=== PATIENT | female | born 1975 | race Caucasian/White ===

== ENCOUNTER 2020-10-08 13:29 | Outpatient (REF) | payer MEDICAID, SELFPAY ==
[2020-10-13 17:51] LABS: HPV mRNA E6/E7 rflx Not Detected (Not Detected)
== END 2020-10-08 13:30 | disposition home or self-care (01) ==
LOC: HO.LAB 13:29
PROVIDERS: PCP Family Medicine; Visit Provider Obstetrics & Gynecology
DX: Z01.419 Encounter for gynecological examination (general) (routine) without abnormal findings (principal); N93.9 Abnormal uterine and vaginal bleeding, unspecified; N85.00 Endometrial hyperplasia, unspecified
CPT/HCPCS: 58100; 87624; 88142; 88305

== ENCOUNTER → 2020-10-28 13:42 | Outpatient (BNVA) | payer MEDICAID, SELFPAY | PROVIDERS: PCP Family Medicine; Visit Provider Obstetrics & Gynecology ==

== ENCOUNTER 2020-11-23 12:52 | Outpatient (REF) | payer MEDICAID, SELFPAY ==
--- NOTE | 2020-11-25 14:27 | MHC.AU.AHA ---
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 Patient suspects there has been a hearing decrease in her right ear. She also reports recent pain/discomfort in her left ear. Previous Hearing Test Results: [facility] on 10[facility]13[facility]2015- Normal sloping to moderate and rising to mild sensorineural hearing loss in the left ear. Severe/profound rising to moderate mixed hearing loss in the right ear. 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, Type 2 Diabetes Hearing Instrument History- Right Ear: Terrazzo Mechanic: Sogou Model: Carrot MedicaleOhanae [id number] Serial Number: [id number] Battery Size: 312 Repair Warranty: Dispensed By: [facility] Date of Fittin11/05/2015 Hearing Instrument History- Left Ear: Terrazzo Mechanic: Sogou Model: Carrot Medicaleo [id number] Serial Number: [id number] Battery Size: 312 Warranty: Dispensed By: [facility] Date of Fittin11/05/2015 Otoscopy: Right Ear: Partially occluded with cerumen Left Ear: Tympanic membrane is retracted Tympanometry: Tympanometry performed due to: History of middle ear dysfunction Right Ear: Tympanic Membrane Perforation Left Ear: Negative Middle Ear Pressure (Type C) Hearing Evaluation: Transducer(s) Used: Insert Earphones Method: Conventional Audiometry Stimuli Used: Pure Tones Right Ear: Description of Hearing: Severe to profound mixed hearing loss Left Ear: Description of Hearing: Mild sloping to moderately-severe and rising to mild mixed hearing loss Speech Recognition Threshold (SRT): Method Used: Recorded Lists Stimuli Used: Spondee Words Right Ear: 85 dBHL Left Ear: 60 dBHL Word Discrimination: Method: Recorded Lists Word Lists Used: NU-6 Right Ear: 84% at 95 dBHL Left Ear: 100% at 80 dBHL Most Comfortable Level (MCL): Right Ear: 95 dBHL Left Ear: 80 dBHL Comparison: Compared to the most recent evaluation: Thresholds have decreased bilaterally. Interpretation of Results: Patient's thresholds have decreased bilaterally. The change in the left ear appears to be mostly conductive in nature. Patient reports pain/discomfort in the left ear, and significant negative middle ear pressure was noted in the left ear today. Recommendations: Audiological re-evaluation in one year. See Hearing Aid Evaluation report for more information. Follow-up with ENT is recommended to address middle ear dysfunction. A follow-up with the PCP may also be warranted to help address patient's left-sided pain until she can be seen by ENT. Diagnosis: Primary Diagnosis: H90.6 Mixed Hearing Loss, Bilateral Services Performed: Comprehensive Audiological Evaluation (CPT 68393), Tympanometry (CPT 25619) Signature: Provider: Monica Wills, GARRET-A
--- NOTE | 2020-11-25 14:29 | MHC.AU.AHA ---
Adult Audiological Evaluation Date of Visit: 11/23/20 Reason for Appointment: History of asymmetrical hearing loss and middle ear dysfunction. Patient suspects there has been a hearing decrease in her right ear. She also reports recent pain/discomfort in her left ear. Previous Hearing Test Results: [facility] on 10/13/2015- Normal sloping to moderate and rising to mild sensorineural hearing loss in the left ear. Severe/profound rising to moderate mixed hearing loss in the right ear. 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, Type 2 Diabetes Hearing Instrument History- Right Ear: Cloth Washer: [employer] Model: ZeeWhere [id number] Serial Number: [id number] Battery Size: 312 Repair Warranty: Dispensed By: [facility] Date of Fittin11/05/2015 Hearing Instrument History- Left Ear: Cloth Washer: [employer] Model: ZeeWhere [id number] Serial Number: [id number] Battery Size: 312 Warranty: Dispensed By: [facility] Date of Fittin11/05/2015 Otoscopy: Right Ear: Partially occluded with cerumen Left Ear: Tympanic membrane is retracted Tympanometry: Tympanometry performed due to: History of middle ear dysfunction Right Ear: Tympanic Membrane Perforation Left Ear: Negative Middle Ear Pressure (Type C) Hearing Evaluation: Transducer(s) Used: Insert Earphones Method: Conventional Audiometry Stimuli Used: Pure Tones Right Ear: Description of Hearing: Severe to profound mixed hearing loss Left Ear: Description of Hearing: Mild sloping to moderately-severe and rising to mild mixed hearing loss Speech Recognition Threshold (SRT): Method Used: Recorded Lists Stimuli Used: Spondee Words Right Ear: 85 dBHL Left Ear: 60 dBHL Word Discrimination: Method: Recorded Lists Word Lists Used: NU-6 Right Ear: 84% at 95 dBHL Left Ear: 100% at 80 dBHL Most Comfortable Level (MCL): Right Ear: 95 dBHL Left Ear: 80 dBHL Comparison: Compared to the most recent evaluation: Thresholds have decreased bilaterally. Interpretation of Results: Patient's thresholds have decreased bilaterally. The change in the left ear appears to be mostly conductive in nature. Patient reports pain/discomfort in the left ear, and significant negative middle ear pressure was noted in the left ear today. Recommendations: Audiological re-evaluation in one year. See Hearing Aid Evaluation report for more information. Follow-up with ENT is recommended to address middle ear dysfunction. A follow-up with the PCP may also be warranted to help address patient's left-sided pain until she can be seen by ENT. Diagnosis: Primary Diagnosis: H90.6 Mixed Hearing Loss, Bilateral Services Performed: Comprehensive Audiological Evaluation (CPT 60620), Tympanometry (CPT 57404) Signature: Provider: Monica Wills, CCC-A
--- NOTE | 2020-11-25 14:31 | MHC.AU.MED ---
Medical Clearance for Hearing Instrumentation Date: 11/25/20 Patient Name: Kelsey Lozano Date of : 1975 Primary Care Provider: Referring Provider: Reyna Lutz, DO We have seen your patient on 11/23/20 and have determined that they are a candidate for amplification (See accompanying report). Specifically, they would benefit from: Hearing aid use in both ears There is a statute that addresses Medical Evaluation Requirements prior to fitting a patient with a hearing aid. According to [place] statute 265 CMR:6.03(1), (a) General. Except as provided in 265 CMR 6.03(1)(b), a paymaster of purses shall not sell a hearing aid unless the prospective user has presented to the paymaster of purses a written statement signed by a licensed physician that states that the patient's hearing loss has been medically evaluated and the patient may be considered a candidate for a hearing aid. The medical evaluation must have taken place within the preceding six months. Please note: Due to the [place] Statute referenced above, we cannot accept a signature other than that of a licensed physician. FORCER MAKER and PA signatures cannot be accepted. I am in agreement with the above recommendation. There is no medical contraindication for hearing instrumentation. Physician Signature Date Physician Name (Printed)
--- NOTE | 2020-11-25 15:29 | MHC.AU.HAS ---
Hearing Aid Evaluation Date of Visit: 11/23/20 Historical Information: Description of Hearing: Left: Mild to moderate mixed hearing loss, Right: Severe to profound mixed hearing loss Current personal amplification information, if applicable: Pair of Phonak Audeo [id number], obtained 11/05/2015 Summary: Patient was seen for audiological re-evaluation today (see separate report for details). Hearing aid options were discussed. Hearing Aid Prescription: Based on the individual?s shared listening needs, communication environments, dexterity, desire for connectivity, and personal preferences, the following prescription for amplification has been made: Right ear: Ict Developer: Moonfruit Model: Audeo P70-R Battery Size: Rechargeable Color: P1 [place] Attendant: 1-UP Type of Mold: cShell Left ear: Ict Developer: Phonak Model: Audeo P70-R Battery Size: Rechargeable Color: P1 [place] Attendant: 1M Type of Mold: cShell Action Taken/Action Needed: Earmold Impressions Taken Prior authorization to be requested Medical Clearance to be requested from PCP/ENT Hearing Fitting to be scheduled when materials arrive Primary Diagnosis: H90.6 Mixed Hearing Loss, Bilateral Signature: Provider: Monica Wills, CCC-A
== END 2020-11-23 12:53 | disposition home or self-care (01) ==
LOC: HO.SH 12:52
PROVIDERS: Visit Provider Family Medicine
DX: Z46.1 Encounter for fitting and adjustment of hearing aid (principal); H90.6 Mixed conductive and sensorineural hearing loss, bilateral
CPT/HCPCS: 92557; 92567; 92591; V5266; V5275

== ENCOUNTER 2020-11-25 12:09 | Outpatient (REF) | payer MEDICAID, SELFPAY ==
--- NOTE | ~2020-11-25 | MM_ITS ---
EXAMINATION: MM SCREENING DIGITAL BREAST TOMOSYNTHESIS, BILATERAL CLINICAL INFORMATION: Screening. Asymptomatic. The lifetime risk of breast cancer based on the Tyrer-Cuzick Model is 7.5%. COMPARISON: Mammography: November 02, 2018 and studies dating back to August 31, 2016 TECHNIQUE: Digital breast tomosynthesis is performed in both the craniocaudal and mediolateral oblique views along with computer-aided detection (CAD). Synthesized 2D images are generated from the tomosynthesis. FINDINGS: There are scattered areas of fibroglandular density (ACR BI-RADS breast composition Category b). There are no significant masses, abnormal calcifications, or other abnormalities. MM/MM tomosynthesis screening BI IMPRESSION: There are no significant changes from prior study. ASSESSMENT: BI-RADS 1: Negative RECOMMENDATION: Routine annual mammography screening. This patient's information was entered into a reminder system with a target due date for their next mammogram.
== END 2020-11-25 12:10 | disposition home or self-care (01) ==
LOC: HO.MAMMO 12:09
PROVIDERS: Visit Provider Family Medicine
DX: Z12.31 Encounter for screening mammogram for malignant neoplasm of breast (principal)
CPT/HCPCS: 77063; 77067

== ENCOUNTER → 2020-12-17 15:26 | Outpatient (BNVA) | payer MEDICAID, SELFPAY | PROVIDERS: PCP Family Medicine; Visit Provider Internal Medicine | DX: R05 Cough (principal); J30.9 Allergic rhinitis, unspecified; Z79.51 Long term (current) use of inhaled steroids | CPT/HCPCS: 99202 ==

== ENCOUNTER 2020-12-30 | Outpatient (REF) | payer MEDICAID, SELFPAY | END 2020-12-30 00:01 | LOC: CF | PROVIDERS: Visit Provider Physician Assistant | DX: R05 Cough (principal); G71.00 Muscular dystrophy, unspecified; Z79.899 Other long term (current) drug therapy | CPT/HCPCS: 99202 ==

== ENCOUNTER 2021-01-04 14:46 | Outpatient (REF) | payer MEDICAID, SELFPAY ==
--- NOTE | 2021-01-04 15:33 | MHC.AU.HFA ---
Hearing Instrument Fitting- Adult- Binaural Date of Visit: 01/04/21 Hearing Instruments Dispensed: Right Ear: Note Taker: Phonak Model: Audeo P70-R Serial Number: [id number] Repair Warranty: 03/15/2024 Loss and Damage Warranty: 03/15/2024 Service Plan: 01/04/2022 Battery Size: Rechargeable Color: P1 Merchandise Coordinator: 1-UP Type of Mold: cShell #[id number] Warranty 04/16/2021 Type of Wax Guard: CeruStop Left Ear: Note Taker: Phonak Model: Audeo P70-R Serial Number: [id number] Repair Warranty: 03/15/2024 Loss and Damage Warranty: 03/15/2024 Service Plan: 01/04/2022 Battery Size: Rechargeable Color: P1 Merchandise Coordinator: 1M Type of Mold: cShell #[id number] Warranty 04/16/2021 Type of Wax Guard: CeruStop Summary of Fitting: Feedback gate manager was run. Verifit performed and levels adjusted to better reach targets. Patient felt 100% was too loud- lowered to 90% target. Patient was pleased with the sound of the instruments. Hearing aid care and use were discussed and demonstrated. Hearing aids were paired to her phone. Patient does not want the Gotuit elliott at this time. Recommendations: Recommendations: Patient is an experienced hearing aid user. She will call for follow-up as needed. Diagnosis Code(s): Primary Diagnosis: H90.6 Mixed Hearing Loss, Bilateral Signature: Provider: Monica Wills, GARRET-A
== END 2021-01-04 14:47 | disposition home or self-care (01) ==
LOC: HO.HAP 14:46
PROVIDERS: Visit Provider Family Medicine
DX: Z46.1 Encounter for fitting and adjustment of hearing aid (principal); H90.6 Mixed conductive and sensorineural hearing loss, bilateral
CPT/HCPCS: V5011; V5020; V5160; V5261; V5264

== ENCOUNTER 2021-01-19 15:33 | Outpatient (REF) | payer MEDICAID, SELFPAY | END 2021-01-19 15:34 | disposition home or self-care (01) | LOC: HO.RESP 15:33 | PROVIDERS: PCP Family Medicine; Visit Provider Internal Medicine | DX: Z13.89 Encounter for screening for other disorder (principal) ==

== ENCOUNTER 2021-01-28 13:57 | Outpatient (REF) | payer MEDICAID, SELFPAY ==
--- NOTE | 2021-01-28 17:38 | PFT_ITS ---
Forced vital capacity and FEV1 are both moderately reduced. FEF 25-75 slightly reduced and MVV moderately reduced. Postbronchodilator therapy, there is significant improvement in GTC32-09. Total lung capacity is moderately reduced. Residual volume slightly reduced. Diffusion capacity normal. CONCLUSION: Mild to moderate degree of restrictive pulmonary disorder. No gross obstructive airway disorder. However, there is some response to bronchodilator therapy as in LLT17-45, and this may indicate slight bronchospastic disorder of the small airways. Clinical correlation is recommended. MD KEN Blanchard/MODL / [phone]
== END 2021-01-28 13:58 | disposition home or self-care (01) ==
LOC: HO.RESP 13:57
PROVIDERS: PCP Family Medicine; Visit Provider Internal Medicine
DX: R05 Cough (principal)
CPT/HCPCS: 94060; 94727; 94729

== ENCOUNTER → 2021-02-16 14:52 | Outpatient (BNVA) | payer MEDICAID, SELFPAY | PROVIDERS: PCP Family Medicine; Visit Provider Internal Medicine | DX: G71.09 Other specified muscular dystrophies (principal); J30.9 Allergic rhinitis, unspecified; R05 Cough; J98.4 Other disorders of lung; F41.8 Other specified anxiety disorders; Z79.84 Long term (current) use of oral hypoglycemic drugs; Z79.899 Other long term (current) drug therapy | CPT/HCPCS: 99212 ==

== ENCOUNTER 2021-04-12 14:05 | Outpatient (REF) | payer MEDICAID, SELFPAY | END 2021-04-12 14:06 | disposition home or self-care (01) | LOC: HO.LAB 14:05 | PROVIDERS: PCP Family Medicine; Visit Provider Obstetrics & Gynecology | DX: N85.00 Endometrial hyperplasia, unspecified (principal) | CPT/HCPCS: 58100; 88305 ==

== ENCOUNTER → 2021-04-26 16:08 | Outpatient (BNVA) | payer MEDICAID, SELFPAY | PROVIDERS: PCP Family Medicine; Visit Provider Obstetrics & Gynecology ==

== ENCOUNTER → 2021-04-29 11:23 | Outpatient (BNVA) | payer MEDICAID, SELFPAY | PROVIDERS: PCP Family Medicine; Visit Provider Surgery Vascular Surgery | DX: I83.12 Varicose veins of left lower extremity with inflammation (principal); G71.09 Other specified muscular dystrophies; F41.8 Other specified anxiety disorders; Z79.899 Other long term (current) drug therapy | CPT/HCPCS: 99202 ==

== ENCOUNTER → 2021-07-05 14:26 | Outpatient (BNVA) | payer MEDICAID, SELFPAY | PROVIDERS: PCP Family Medicine | DX: R32 Unspecified urinary incontinence (principal) | CPT/HCPCS: 51798; 99212 ==

== ENCOUNTER 2021-07-08 10:19 | Outpatient (REF) | payer MEDICAID, SELFPAY ==
--- NOTE | ~2021-07-08 | US_ITS ---
EXAMINATION: BILATERAL LOWER EXTREMITY VENOUS ULTRASOUND (Reflux Exam) CLINICAL INDICATION: Bilateral lower extremity varicose veins. COMPARISON: None. TECHNIQUE: Color flow triplex imaging and compression Doppler was performed to evaluate both the deep and the superficial systems bilaterally. To evaluate the superficial system, the examination was performed in the upright position. Color-flow Doppler ultrasound and compression ultrasound were utilized. In addition, maneuvers were utilized to demonstrate reflux. FINDINGS: SUPERFICIAL ULTRASOUND WITH DOPPLER OF RIGHT LOWER EXTREMITY GREAT SAPHENOUS VEIN: The saphenous vein measures between 3 and 6 mm and demonstrates no evidence of reflux. DUPLICATED MEDIAL GREAT SAPHENOUS VEIN: Max Diameter: 0.2 cm at the junction Reflux: None DUPLICATED LATERAL GREAT SAPHENOUS VEIN: Diameter: None Imaged Reflux: NA SMALL SAPHENOUS VEIN: Measuring between 2 and 3 mm without evidence of reflux. VEIN OF GIACOMINI: None Imaged. PERFORATORS: Location: Proximal and mid calf, measuring 2 mm each. Reflux: None VARICOSITIES: Location: None Imaged Reflux: NA DEEP VENOUS ULTRASOUND OF THE RIGHT LOWER EXTREMITY: Common Femoral Vein: Compressible, normal respiratory variation and augmented flow. Femoral vein: Compressible, normal color flow and augmentation. Popliteal Vein: Compressible, normal augmentation. Deep Reflux: There is no evidence of reflux in the deep system in either the common femoral vein or the popliteal vein. Uriostegui's Cyst: There is no evidence of a Uriostegui's cyst. SUPERFICIAL ULTRASOUND WITH DOPPLER OF LEFT LOWER EXTREMITY GREAT SAPHENOUS VEIN: The saphenous vein measures between 3 and 7 mm without evidence of reflux. DUPLICATED MEDIAL GREAT SAPHENOUS VEIN: Max Diameter: 2 mm at the junction without evidence of reflux. Reflux: None DUPLICATED LATERAL GREAT SAPHENOUS VEIN: Diameter: None Imaged Reflux: NA SMALL SAPHENOUS VEIN: Measuring between 3 and 4 mm without evidence of reflux. VEIN OF GIACOMINI: None Imaged. PERFORATORS: Location: None Imaged Reflux: NA VARICOSITIES: Location: None Imaged Reflux: NA DEEP VENOUS ULTRASOUND OF THE LEFT LOWER EXTREMITY: Common Femoral Vein: Compressible, normal respiratory variation and augmented flow. Femoral vein: Compressible, normal color flow and augmentation. Popliteal Vein: Compressible, normal augmentation. Deep Reflux: There is no evidence of reflux in the deep system in either the common femoral vein or the popliteal vein. Uriostegui's Cyst: There is no evidence of a Uriostegui's cyst. US/US venous duplex LE BI IMPRESSION: 1. No evidence of superficial venous insufficiency. 2. No evidence of deep venous insufficiency or DVT.
== END 2021-07-08 10:20 | disposition home or self-care (01) ==
LOC: HO.US 10:19
PROVIDERS: PCP Family Medicine; Visit Provider Surgery Vascular Surgery
DX: I83.12 Varicose veins of left lower extremity with inflammation (principal)
CPT/HCPCS: 93970

== ENCOUNTER → 2021-07-15 13:52 | Outpatient (BNVA) | payer MEDICAID, SELFPAY | PROVIDERS: PCP Family Medicine; Visit Provider Surgery Vascular Surgery | DX: I83.12 Varicose veins of left lower extremity with inflammation (principal) | CPT/HCPCS: 99212 ==

== ENCOUNTER → 2021-09-15 14:37 | Outpatient (BNVA) | payer MEDICAID, SELFPAY | PROVIDERS: PCP Family Medicine; Visit Provider Internal Medicine | DX: J98.4 Other disorders of lung (principal); J30.9 Allergic rhinitis, unspecified; R05.8 Other specified cough; G71.00 Muscular dystrophy, unspecified | CPT/HCPCS: 99212 ==

== ENCOUNTER 2021-11-29 14:09 | Outpatient (REF) | payer MEDICAID, SELFPAY ==
[2021-11-30 07:18] LABS: CT PCR NOT DETECTED (Not Detect.); NG PCR NOT DETECTED (Not Detect.)
== END 2021-11-29 14:10 | disposition home or self-care (01) ==
LOC: HO.LAB 14:09
PROVIDERS: PCP Family Medicine; Visit Provider Obstetrics & Gynecology
DX: Z11.3 Encounter for screening for infections with a predominantly sexual mode of transmission (principal); N85.00 Endometrial hyperplasia, unspecified
CPT/HCPCS: 87491; 87591

== ENCOUNTER 2021-12-17 13:12 | Outpatient (REF) | payer MEDICAID, SELFPAY ==
--- NOTE | ~2021-12-17 | MM_ITS ---
EXAMINATION: MM SCREENING DIGITAL BREAST TOMOSYNTHESIS, BILATERAL CLINICAL INFORMATION: Screening. Asymptomatic. The lifetime risk of breast cancer based on the Tyrer-Cuzick Model is 11%. COMPARISON: Mammography: 11/25/2020, 11/02/2018, 09/01/2017 TECHNIQUE: Digital breast tomosynthesis is performed in both the craniocaudal and mediolateral oblique views along with computer-aided detection (CAD). Synthesized 2D images are generated from the tomosynthesis. FINDINGS: There are scattered areas of fibroglandular density (ACR BI-RADS breast composition Category b). There are no significant masses, abnormal calcifications, or other abnormalities. There is some fine deodorant artifact overlying the skin bilateral high axilla on the MLO views. MM/MM tomosynthesis screening BI IMPRESSION: No mammographic evidence of malignancy. ASSESSMENT: BI-RADS 2: Benign RECOMMENDATION: Routine annual mammography screening. This patient's information was entered into a reminder system with a target due date for their next mammogram.
== END 2021-12-17 13:13 | disposition home or self-care (01) ==
LOC: HO.MAMMO 13:12
PROVIDERS: PCP Physician Assistant; Visit Provider Family Medicine
DX: Z12.31 Encounter for screening mammogram for malignant neoplasm of breast (principal)
CPT/HCPCS: 77063; 77067

== ENCOUNTER → 2022-01-03 13:52 | Outpatient (BNVA) | payer MEDICAID, SELFPAY | PROVIDERS: PCP Family Medicine | DX: R32 Unspecified urinary incontinence (principal); Z79.899 Other long term (current) drug therapy | CPT/HCPCS: 51798; 99212 ==

== ENCOUNTER 2022-01-09 20:28 | Emergency (ER) | payer MEDICAID, SELFPAY ==
--- NOTE | ~2022-01-09 | XR_ITS ---
EXAMINATION: XR LUMBOSACRAL SPINE CLINICAL INFORMATION: Back pain COMPARISON: 06/12/2007 TECHNIQUE: Three views of the lumbosacral spine. FINDINGS: No fracture or subluxation. Vertebral body height and alignment maintained. Disc spaces are maintained. Mild facet arthropathy at the lower lumbar spine. The sacroiliac joints are symmetric. The sacrum is intact. Normal bowel gas pattern. IUD in place.. XR/XR lumbar spine 2-3V IMPRESSION: Mild facet arthropathy at the lower lumbar spine. No acute abnormality.
[2022-01-09 21:11] VITALS: BP 196/106; PULSE 100; RESP 12; TEMP 36.5; O2SAT 95; BMI 38.6
[2022-01-09 23:02] LABS: Hematocrit 48.5 % (37.0-47.0); Hemoglobin 15.3 g/dl (12.0-16.0); Mean Corpuscular HGB Conc 31.5 g/dl (31.0-35.0); Mean Corpuscular Hemoglobin 29.4 pg (27.0-33.0); Mean Corpuscular Volume 93.3 fL (80.0-98.0); Mean Platelet Volume 10.5 fL (9.4-12.3); Platelet Count 314 X10*3/uL (160-400); Red Cell Distribution Width 14.8 % (11.0-16.0); White Blood Count 12.9 X10*3/uL (4.8-10.8)
[2022-01-09 23:17] LABS: Alanine Aminotransferase 64 U/L (0-31); Albumin Level 4.6 g/dL (3.5-5.0); Alkaline Phosphatase 102 U/L (39-117); Anion Gap 17 (12-20); Aspartate Amino Transferase 63 U/L (5-31); Bilirubin Total 1.5 mg/dL (0.0-1.0); Blood Urea Nitrogen 12 mg/dL (9-16); Calcium 10.2 mg/dL (8.4-10.2); Carbon Dioxide 30 mmol/L (22-29); Chloride 100 mmol/L (96-108); Creatinine Clr Calc Pharmacy 104.1; Estimated Glomerular Filt Rate > 60; Glucose Random 120 mg/dL (60-115); Potassium 4.4 mmol/L (3.3-5.1); Sodium 143 mmol/L (135-145); Total Protein 7.4 g/dL (6.5-8.0)
--- NOTE | 2022-01-10 01:18 | ED.BACK ---
HPI - Back Pain/Injury General Chief Complaint: Back Pain/Injury Stated Complaint: lower back pain left side Time Seen by Provider: 01/09/22 22:45 Source: patient Mode of arrival: ambulatory Limitations: no limitations History of Present Illness HPI Narrative: 46-year-old female presents with left lower back pain and left leg pain that started over a week ago. She states that she was bending over in the shower and when she stood up she noted pain to left lower back. Does not report any fevers, chills, headaches, or symptoms indicating cauda equina. MD elicited complaint: back pain and back injury Onset (ago): week(s) (1) Timing: constant Severity: moderate Similar Symptoms Previously: Yes Quality: aching Location: lumbar spine Radiation: none Exacerbating factors: movement and walking Relieving factors: none Context: bending Associated symptoms: denies other symptoms Treatments prior to arrival: NSAIDS Related Data Home Medications Medication Instructions Recorded Confirmed albuterol sulfate 90 mcg/actuation 2 puff inhalation Q6H PRN 12/17/20 12/30/20 aerosol inhaler (ProAir HFA) amlodipine 10 mg tablet 10 mg PO DAILY 12/17/20 12/30/20 atorvastatin 10 mg tablet (Lipitor) 10 mg PO BEDTIME 12/17/20 12/30/20 doxepin 50 mg capsule 50 mg PO BEDTIME 12/17/20 12/30/20 hydroxyzine pamoate 25 mg capsule 25 mg PO QID PRN 12/17/20 12/30/20 (Vistaril) metformin 500 mg tablet 500 mg PO DAILY 12/17/20 12/30/20 methylcellulose (laxative) 500 mg 500 mg PO BID 12/17/20 12/30/20 tablet (Fiber Therapy (methylcellulose)) omeprazole 20 mg capsule,delayed 20 mg PO DAILY 12/17/20 12/30/20 release sennosides 8.6 mg capsule (senna) 17.2 mg PO BEDTIME 12/17/20 12/30/20 bupropion HCl 150 mg 24 hr tablet, 300 mg PO QAM 12/30/20 12/30/20 extended release (Wellbutrin XL) bupropion HCl 300 mg 24 hr tablet, 300 mg PO DAILY 07/05/21 extended release lisinopril 10 mg tablet 10 mg PO BEDTIME 07/05/21 oxybutynin chloride 5 mg 5 mg PO DAILY 07/05/21 tablet,extended release 24 hr sennosides 8.6 mg tablet (senna) 17.2 mg PO DAILY PRN constipation 07/05/21 sucralfate 1 gram tablet 1 g PO BID 07/05/21 docusate sodium 100 mg capsule 100 mg PO BID 09/15/21 (Stool Softener) latanoprost 0.005 % eye drops 1 drp ophthalmic (eye) BEDTIME 09/15/21 blood sugar diagnostic (FreeStyle #10 ea 01/03/22 Lite Strips) hydroxyzine HCl 25 mg tablet 25 mg PO BID PRN 01/03/22 lancets 33 gauge (TRUEplus Lancets) #100 ea 01/03/22 levonorgestrel 20 mcg/24 hours (7 0 device intrauterine ONCE 01/03/22 yrs) 52 mg intrauterine device (Mirena) Previous Rx's Medication Instructions Recorded cyclobenzaprine 10 mg tablet 10 mg PO TID PRN muscle spasm #20 01/10/22 tabs nitrofurantoin 100 mg PO Q12H 5 days #10 caps 01/10/22 monohydrate/macrocrystals 100 mg capsule (Macrobid) Allergies Allergy/AdvReac Type Severity Reaction Status Date / Time No Known Allergies Allergy Verified 01/03/22 14:03 [No Known Allergies*] Review of Systems Review of Systems: Constitutional: No Fever, No Chills ENT/Mouth: No Ear Pain, No Hoarseness, No sore throat Eyes: No Eye Pain, No Swelling, No Redness, No Foreign Body Cardiovascular: No Chest Pain, No SOB Respiratory: No Cough, No Dyspnea Gastrointestinal: No Nausea, No Vomiting, No Diarrhea, No abdominal Pain Genitourinary: No Dysuria, No Hematuria Musculoskeletal: positive lumbar back pain, No Myalgias, No Joint Swelling Skin: No Skin lacerations, No rash Neuro: No Weakness, No Numbness, No Paresthesias, No Loss of Consciousness, No Dizziness, No Headache Psych: No Anxiety/Panic, No Depression Heme/Lymph: no easy bruising, no Lymphadenopathy Endocrine: No Polyuria, No Polydipsia Yes all other systems are reviewed and are negative [facility] Past Medical History Attestation statement: The following information was validated with the patient. Source: old records reviewed Medical History Allergic rhinitis Anxiety Depression Muscular dystrophy, emery-dreifuss Paroxysmal cough Restrictive lung disease Urinary incontinence Surgical History H/O endoscopy Hx of section Family History Family History Unknown No family history of colorectal cancer Social History Social History Household Members Other:: Lives with her daughter (23-special needs) and her mother Alcohol intake: never Patient Tobacco Use Status: Never used Tobacco Advance Directives: Yes Advance Directives Information Provided: No Advance Directives on File: No Current occupational status: disabled Physical Exam Vital Signs: Vital Signs: Last Vital Signs Temp 98.6 F 01/10/22 02:00 Pulse 90 01/10/22 02:00 Resp 16 01/10/22 02:00 BP 172/102 H 01/10/22 02:00 Pulse Ox 93 01/10/22 02:00 O2 Del Method 01/10/22 02:00 BMI result Body Mass Index 38.6 Appearance: Alert. Oriented X3. No acute distress. Eyes: Pupils equal, round and reactive to light. ENT: Pharynx normal. Neck: Normal inspection. Neck supple. CVS: Normal heart rate and rhythm. Pulses normal. Respiratory: No respiratory distress. Breath sounds normal. Abdomen: Soft and nontender. Skin: Skin warm and dry. Normal skin color. Normal skin turgor. Extremities: No lower extremity edema. Neuro: No motor deficit. No sensory deficit. Cranial nerves 2-12 intact. Course Course Course Narrative: 46-year-old female presents with lower back pain that radiates to her left leg. States that she noted back pain when she bent over in the shower approximately week ago. Pain is getting worse. Not report any symptoms indicating cauda equina, denies fevers chills and urinary symptoms. Lumbar x-ray is negative for acute findings, does show some facet arthropathy. White count mildly elevated at 12.9, bilirubin 1.5 but her baseline is 1.4, AST 63, ALT 64. No right upper quadrant abdominal pain or abdominal pain on palpation. 02:38 urinalysis positive for UTI. Will give Macrobid and discharged home. Will refer to Dr. Walker for pain management. Patient verbalizes understanding of and agrees plan of care discharge home. Verbalized understanding of signs and symptoms indicating need for emergent intervention. MDM - Back Pain/Injury Differential Diagnosis Differential diagnosis: Likely lumbar radiculopathy, sciatica, strain of lumbar region and thoracic back pain Medical Records Attestation: I reviewed the patient's medical records. Lab Data Attestation: I reviewed the patient's lab results. Result diagrams: 01/09/22 22:46 01/09/22 22:47 Labs: Lab Results 01/09/22 01/09/22 01/10/22 Range/Units 22:46 22:47 02:17 WBC 12.9 H (4.8-10.8) X10*3/uL RBC 5.20 (4.20-5.50) X10*6/uL Hgb 15.3 (12.0-16.0) g/dl Hct 48.5 H (37.0-47.0) % MCV 93.3 (80.0-98.0) fL MCH 29.4 (27.0-33.0) pg MCHC 31.5 (31.0-35.0) g/dl RDW 14.8 (11.0-16.0) % Plt Count 314 (160-400) X10*3/uL MPV 10.5 (9.4-12.3) fL Absolute Nucleated RBC 0.000 (0.0-0.012) X10*3/uL Nucleated RBC % (auto) 0.0 (0.0-0.2) /100WBC Sodium 143 (135-145) mmol/L Potassium 4.4 (3.3-5.1) mmol/L Chloride 100 (96-108) mmol/L Carbon Dioxide 30 H (22-29) mmol/L Anion Gap 17 (12-20) BUN 12 (9-16) mg/dL Creatinine 0.74 (0.5-1.4) mg/dL Estim Creat Clear Calc 104.1 Estimated GFR > 60 Random Glucose 120 H (60-115) mg/dL Calcium 10.2 (8.4-10.2) mg/dL Total Bilirubin 1.5 H (0.0-1.0) mg/dL AST 63 H (5-31) U/L ALT 64 H (0-31) U/L Alkaline Phosphatase 102 (39-117) U/L Total Protein 7.4 (6.5-8.0) g/dL Albumin 4.6 (3.5-5.0) g/dL Urine Color YELLOW Urine Appearance CLEAR Urine pH 6.0 (5.0-8.0) Ur Specific [place] 1.025 (1.005-1.025) Urine Protein NEG (NEG-TRACE) MG/DL Urine Glucose (UA) NEG (NEG) MG/DL Urine Ketones NEG (NEG) MG/DL Urine Blood NEG (NEG) Urine Nitrite NEG (NEG) Ur Leukocyte Esterase TRACE H (NEG) Urine RBC 1-4 (0) /HPF Urine WBC 5-9 H (0-4) /HPF Ur Squamous Epith Cells 1+ /LPF Urine Bacteria 4+ /LPF Imaging Data Lumbar spine x-ray: Attestation: I personally reviewed and interpreted this imaging study as follows: Radiologist's impression: EXAMINATION: XR LUMBOSACRAL SPINE CLINICAL INFORMATION: Back pain COMPARISON: 06/12/2007 TECHNIQUE: Three views of the lumbosacral spine. FINDINGS: No fracture or subluxation. Vertebral body height and alignment maintained. Disc spaces are maintained. Mild facet arthropathy at the lower lumbar spine. The sacroiliac joints are symmetric. The sacrum is intact. Normal bowel gas pattern. IUD in place.. XR/XR lumbar spine 2-3V IMPRESSION: Mild facet arthropathy at the lower lumbar spine. No acute abnormality. Discharge Plan Discharge Clinical Impression: Arthropathy of facet joint, UTI (urinary tract infection) Patient Disposition: Home, Self-Care Instructions: Urinary Tract Infection in Women (ED), Acute Low Back Pain (ED) Additional Instructions: You were evaluated for lower back pain. X-rays indicate mild facet arthropathy. Urinalysis is positive for UTI. Please take Macrobid twice a day for the next 7 days. For a lower back pain please take cyclobenzaprine 10 mg every 8 hours as needed for muscle spasms. Cyclobenzaprine as a muscle relaxer, this medication can delay reaction time, increased risk for falls, and cause drowsiness. Do not drive or operate machinery while taking this medication. You may consider following up with pain management for lower back pain. Please call Dr. Walker for an evaluation. Drink plenty of fluids. Thank you for choosing this emergency department for evaluation. Please follow-up with primary care physician as needed. Return to the emergency department for any new, concerning, or worsening symptoms. Prescriptions: New nitrofurantoin monohyd/m-cryst [Macrobid] 100 mg capsule 100 mg PO Q12H 5 Days Qty: 10 0RF Rx Instructions: must administer with a meal/food cyclobenzaprine 10 mg tablet 10 mg PO TID PRN (Reason: muscle spasm) Qty: 20 0RF No Action amlodipine 10 mg tablet 10 mg PO DAILY doxepin 50 mg capsule 50 mg PO BEDTIME Fiber Therapy (m-cellulose) 500 mg tablet 500 mg PO BID atorvastatin [Lipitor] 10 mg tablet 10 mg PO BEDTIME metformin 500 mg tablet 500 mg PO DAILY omeprazole 20 mg capsule,delayed release(DR/EC) 20 mg PO DAILY albuterol sulfate [ProAir HFA] 90 mcg/actuation HFA aerosol inhaler 2 puff inhalation Q6H PRN senna 8.6 mg capsule 17.2 mg PO BEDTIME hydroxyzine pamoate [Vistaril] 25 mg capsule 25 mg PO QID PRN bupropion HCl [Wellbutrin XL] 150 mg tablet extended release 24 hr 300 mg PO QAM sennosides [senna] 8.6 mg tablet 17.2 mg PO DAILY PRN (Reason: constipation) oxybutynin chloride 5 mg tablet extended release 24hr 5 mg PO DAILY sucralfate 1 gram tablet 1 g PO BID lisinopril 10 mg tablet 10 mg PO BEDTIME bupropion HCl 300 mg tablet extended release 24 hr 300 mg PO DAILY Mirena 20 mcg/24 hours (7 yrs) 52 mg intrauterine device 0 device intrauterine ONCE (DME) lancets [TRUEplus Lancets] 33 gauge misc See Rx Instructions Not Applicable BID Qty: 100 Rx Instructions: As directed hydroxyzine HCl 25 mg tablet 25 mg PO BID PRN (DME) FreeStyle Lite Strips Strip See Rx Instructions Not Applicable BID Qty: 10 Rx Instructions: As directed latanoprost 0.005 % drops 1 drp ophthalmic (eye) BEDTIME docusate sodium [Stool Softener] 100 mg capsule 100 mg PO BID Referrals: Dm Walker MD [Physician] - 2 weeks (lower back pain) Interventions: ED Discharge Assessment Last Done: 01/10/22 02:55 Discharge Date/Time: 01/10/22 02:59
[2022-01-10 02:00] VITALS: BP 172/102; PULSE 90; RESP 16; TEMP 37; O2SAT 93
[2022-01-10] MEDS: Cyclobenzaprine HCl 10 MG TABLET PO (02:21)
[2022-01-10 02:28] LABS: Appearance Urine CLEAR; Color Urine YELLOW; Glucose Urine UA NEG (NEG); Leukocyte Esterase Urine TRACE (NEG); Nitrite Urine NEG (NEG); Specific Gravity - Urine 1.025 (1.005-1.025); Urine Blood NEG (NEG); Urine Ketones NEG (NEG); Urine Protein NEG (NEG-TRACE)
[2022-01-10 02:42] LABS: Bacteria Urine 4+ /LPF; Squamous Epithelial Cell Urine 1+ /LPF
[2022-01-10] MEDS: Nitrofurantoin Monohyd/M-Cryst 100 MG CAPSULE PO (02:52)
--- NOTE | 2022-01-10 02:59 | PC.NURSE ---
pt did not take her bp medications today. bp elevated with the wrong cuff size retaken 146/88
== END 2022-01-10 02:59 | disposition home or self-care (01) ==
PROVIDERS: Emergency Provider Emergency Medicine
DX: M47.816 Spondylosis without myelopathy or radiculopathy, lumbar region (principal); N39.0 Urinary tract infection, site not specified
CPT/HCPCS: 36415; 72100; 80053; 81001; 85027; 99283; 99284

== ENCOUNTER 2022-04-26 14:07 | Outpatient (REF) | payer MEDICAID, SELFPAY ==
[2022-04-27 05:36] LABS: CT PCR NOT DETECTED (Not Detect.); NG PCR NOT DETECTED (Not Detect.)
== END 2022-04-26 14:08 | disposition home or self-care (01) ==
LOC: HO.LNP 14:07
PROVIDERS: PCP Family Medicine; Visit Provider Obstetrics & Gynecology
DX: Z30.433 Encounter for removal and reinsertion of intrauterine contraceptive device (principal); N85.00 Endometrial hyperplasia, unspecified
CPT/HCPCS: 58100; 58300; 58301; 81025; 87491; 87591; 88305; 88312; 88342; J7298

== ENCOUNTER 2022-05-18 10:44 | Outpatient (REF) | payer MEDICAID, SELFPAY ==
[2022-05-18 11:32] LABS: Hematocrit 48.2 % (37.0-47.0); Hemoglobin 15.1 g/dl (12.0-16.0); Mean Corpuscular HGB Conc 31.3 g/dl (31.0-35.0); Mean Corpuscular Hemoglobin 29.1 pg (27.0-33.0); Mean Corpuscular Volume 92.9 fL (80.0-98.0); Mean Platelet Volume 10.8 fL (9.4-12.3); Platelet Count 264 X10*3/uL (160-400); Red Blood Count 5.19 X10*6/uL (4.20-5.50); Red Cell Distribution Width 13.8 % (11.0-16.0); White Blood Count 9.4 X10*3/uL (4.8-10.8)
[2022-05-18 11:46] LABS: Estimated Average Glucose 197 mg/dL; Hemoglobin A1c % 8.5 %
[2022-05-18 12:07] LABS: Free T4 (Free Thyroxine) 1.12 ng/dL (0.71-1.85); Vitamin D 25-OH Total 12.6 ng/mL (>30)
[2022-05-18 12:11] LABS: Alanine Aminotransferase 42 U/L (0-31); Albumin Level 4.1 g/dL (3.5-5.0); Alkaline Phosphatase 82 U/L (39-117); Anion Gap 18 (12-20); Aspartate Amino Transferase 38 U/L (5-31); Bilirubin Direct 0.4 mg/dL (0.0-0.5); Bilirubin Total 1.4 mg/dL (0.0-1.0); Blood Urea Nitrogen 7 mg/dL (9-16); Calcium 9.3 mg/dL (8.4-10.2); Carbon Dioxide 27 mmol/L (22-29); Chloride 104 mmol/L (96-108); Cholesterol 241 mg/dL; Estimated Glomerular Filt Rate > 60; Glucose Random 172 mg/dL (60-115); HDL Cholesterol 49 mg/dL; LDL Cholesterol Calculated 159 mg/dl; Potassium 4.1 mmol/L (3.3-5.1); Sodium 145 mmol/L (135-145); Total Protein 6.8 g/dL (6.5-8.0); Triglycerides 168 mg/dL
[2022-05-18 12:14] LABS: ~HepC Num1 0.05 S/CO (0.00-0.79); ~Hepatitis C Antibody Nonreactive (Nonreactive)
[2022-05-18 12:15] LABS: HBS Num1 2.51 mIU/mL (0-7.99); HBsAGNum1 0.26 S/CO (0.00-0.99); HIV AB/AG Nonreactive (Nonreactive); HIV Num 1 0.09 S/CO (0.00-0.99); Hepatitis B Surface Antigen Negative (Negative); ~Hepatitis B Surface Antibody NONREACTIVE (Nonreactive)
[2022-05-18 12:22] LABS: Syphilis Screen Nonreactive (Nonreactive)
[2022-05-20 12:31] LABS: Alpha Fetoprotein 5.8 ng/mL
== END 2022-05-18 10:45 | disposition home or self-care (01) ==
LOC: HO.LAB 10:44
PROVIDERS: PCP Family Medicine; Visit Provider Family Medicine
DX: E11.9 Type 2 diabetes mellitus without complications (principal); I10 Essential (primary) hypertension; K76.0 Fatty (change of) liver, not elsewhere classified
CPT/HCPCS: 36415; 80048; 80061; 80076; 82105; 82306; 83036; 84439; 84443; 85027; 86706; 86780; 86803; 87340; 87389

== ENCOUNTER → 2022-05-26 12:36 | Outpatient (BNVA) | payer MEDICAID, SELFPAY | PROVIDERS: PCP Family Medicine; Visit Provider Obstetrics & Gynecology | DX: Z30.431 Encounter for routine checking of intrauterine contraceptive device (principal); N85.00 Endometrial hyperplasia, unspecified | CPT/HCPCS: 99212 ==

== ENCOUNTER 2022-09-26 17:31 | Emergency (ER) | payer MEDICAID, SELFPAY ==
[2022-09-26 17:56] VITALS: BP 147/88; PULSE 98; RESP 16; TEMP 36.4; O2SAT 96; BMI 35.4
--- NOTE | 2022-09-26 17:57 | ED_ITS ---
HPI - Dental/Oral General Chief complaint: Dental/Oral Stated complaint: dental pain Time Seen by Provider: 09/26/22 17:56 Source: patient Mode of arrival: ambulatory Limitations: no limitations History of Present Illness HPI Narrative: 47-year-old female presents with 3 days of dental pain, patient had a tooth ext racted on Monday since then has been having significant pain, tells me she is here for pain control, cannot tolerate pain. Patient is scheduled to see them on October 04 again. Denies fevers, chills, difficulty swallowing, trouble controlling secretions, chest pain, shortness of breath, nausea, vomiting. Teeth map: 1. Patient had tooth pulled at this site Related Data Home Medications Medication Instructions Recorded Confirmed albuterol sulfate 90 mcg/actuation 2 puff inhalation Q6H PRN 12/17/20 12/30/20 aerosol inhaler (ProAir HFA) amlodipine 10 mg tablet 10 mg PO DAILY 12/17/20 12/30/20 atorvastatin 10 mg tablet (Lipitor) 10 mg PO BEDTIME 12/17/20 12/30/20 doxepin 50 mg capsule 50 mg PO BEDTIME 12/17/20 12/30/20 hydroxyzine pamoate 25 mg capsule 25 mg PO QID PRN 12/17/20 12/30/20 (Vistaril) metformin 500 mg tablet 500 mg PO DAILY 12/17/20 12/30/20 methylcellulose (laxative) 500 mg 500 mg PO BID 12/17/20 12/30/20 tablet (Fiber Therapy (methylcellulose)) omeprazole 20 mg capsule,delayed 20 mg PO DAILY 12/17/20 12/30/20 release sennosides 8.6 mg capsule (senna) 17.2 mg PO BEDTIME 12/17/20 12/30/20 bupropion HCl 150 mg 24 hr tablet, 300 mg PO QAM 12/30/20 12/30/20 extended release (Wellbutrin XL) bupropion HCl 300 mg 24 hr tablet, 300 mg PO DAILY 07/05/21 extended release lisinopril 10 mg tablet 10 mg PO BEDTIME 07/05/21 oxybutynin chloride 5 mg 5 mg PO DAILY 07/05/21 tablet,extended release 24 hr sennosides 8.6 mg tablet (senna) 17.2 mg PO DAILY PRN constipation 07/05/21 sucralfate 1 gram tablet 1 g PO BID 07/05/21 docusate sodium 100 mg capsule 100 mg PO BID 09/15/21 (Stool Softener) latanoprost 0.005 % eye drops 1 drp ophthalmic (eye) BEDTIME 09/15/21 blood sugar diagnostic (FreeStyle #10 ea 01/03/22 Lite Strips) hydroxyzine HCl 25 mg tablet 25 mg PO BID PRN 01/03/22 lancets 33 gauge (TRUEplus Lancets) #100 ea 01/03/22 levonorgestrel 21 mcg/24 hours (8 0 device intrauterine ONCE 01/03/22 yrs) 52 mg intrauterine device (Mirena) Previous Rx's Medication Instructions Recorded cyclobenzaprine 10 mg tablet 10 mg PO TID PRN muscle spasm #20 01/10/22 tabs nitrofurantoin 100 mg PO Q12H 5 days #10 caps 01/10/22 monohydrate/macrocrystals 100 mg capsule (Macrobid) amoxicillin 875 mg-potassium 1 tab PO BID 10 days #20 tabs 09/26/22 clavulanate 125 mg tablet oxycodone 5 mg capsule 5 mg PO Q8H PRN pain #6 caps 09/26/22 Allergies Allergy/AdvReac Type Severity Reaction Status Date / Time No Known Allergies Allergy Verified 09/26/22 17:59 [No Known Allergies*] Review of Systems Review of Systems: Constitutional : No Weight loss, No Fever, No Chills, No Fatigue, No Malaise ENT/Mouth : No sore throat, No Rhinorrhea + dental pain Eyes: No Eye Pain, No Swelling, No Redness Cardiovascular : No Chest Pain, No SOB, No Dyspnea on Exertion, No Orthopnea, No Edema, No Palpitations Respiratory : No Cough, No Sputum, No Wheezing Gastrointestinal : No Nausea, No Vomiting, No Diarrhea, No Constipation, No abdominal Pain, No Hematochezia, No Melena Genitourinary : No Dysuria, No Urinary Frequency, No Hematuria, Musculoskeletal : No joint pain, No Myalgias, No Joint Swelling Skin : No Skin Lesions, No rash Neuro : No Weakness, No Numbness, No Dizziness, No Headache Psych : No Anxiety/Panic, No Depression All other systems reviewed and are negative Yes all other systems are reviewed and are negative [facility] Past Medical History Attestation statement: The following information was validated with the patient. Source: old records reviewed and nursing notes reviewed Medical History Allergic rhinitis Anxiety Depression Muscular dystrophy, emery-dreifuss Paroxysmal cough Restrictive lung disease Urinary incontinence Surgical History H/O endoscopy Hx of section Family History Family History Unknown No family history of colorectal cancer Social History Social History Household Members Other:: Lives with her daughter (23-special needs) and her mother Alcohol intake: never Patient Tobacco Use Status: Never used Tobacco Current occupational status: disabled Physical Exam Vital Signs: Vital Signs: Vital signs stable Appearance: Alert.? Oriented X3.? No acute distress.? Head: Normocephalic, atraumatic, no step-offs or deformities Eyes: Pupils equal, round and reactive to light.? ENT: Pharynx normal.? Tooth number 22 is missing, overlying erythema, no signs of abscess. No trismus speaking in full sentences controlling secretions well Neck: Normal inspection.? Neck supple.? CVS: Normal heart rate and rhythm.? Pulses normal.? Respiratory: No respiratory distress.? Breath sounds normal.? Skin: Skin warm and dry.? Normal skin color.? Normal skin turgor.? Extremities: No lower extremity edema.? No calf ttp. 5/5 strength to bilateral upper and lower extremities Neuro: Oriented X 3.? No motor deficit.? No sensory deficit. CN 2-12 intact Course Reevaluation(s) Reevaluation #1: Patient has taken oxycodone before and has tolerated it well. Will discharge home on oxycodone and Augmentin. Advised to follow-up with dentist as soon as possible. Educated on narcotic use. Educated patient on diagnosis and treatment plan, answered all question, patient verbalizes understanding. At this time patient will be discharged home, advised to return with new or worsening symptoms. Educated on worrisome signs and symptoms and when to return. At this time I feel comfortable discharge home. Time: 18:00 Medical Decision Making Medical Decision Making [facility] Narrative: 1752 47-year-old female presents with dental pain. Physical exam significant for Tooth number 22 is missing, overlying erythema, no signs of abscess. No trismus speaking in full sentences controlling secretions well Likely dental pain status post procedure. No signs of abscess. No trismus. No signs of respiratory distress or compromise. Plan at this time to discharged on antibiotics and pain med. Differential Diagnosis Differential Diagnoses: The differential diagnosis associated with the presentation includes Likely dental pain status post procedure. No signs of abscess. No trismus. No signs of respiratory distress or compromise. Admission/Observation Consideration of admission/observation: Escalation of care including admission/observation considered Not indicated Lab Data [facility] Lab Attestation statement: I reviewed the patient's lab results. Core Measures AMI core measures followed: Yes Measure exclusions: not indicated Critical Care Time Critical Care Time Critical Care Time: No Discharge Plan Discharge Clinical Impression: Pain in tooth Patient Disposition: Home, Self-Care Instructions: Toothache (ED) Additional Instructions: Take your medications as prescribed. If you were prescribed antibiotics today, it is important that you take your medication to their entirety, do not skip any doses, do not finish them early. Follow-up with your primary care provider this week. Return to the emergency department with new or worsening symptoms. Such as fevers, chills, chest pain, shortness of breath, nausea, vomiting, dizziness, headache, vision changes, lethargy In case of emergency call 911 You must see a dentist within the next day or 2. A narcotic has been sent to your pharmacy please take this as prescribed. Do not take more than the prescribed dose. Narcotic medications can cause addiction. Please do not mix them with alcohol. Do not take them while driving or operating machinery. Do not take them with any other narcotics. Do not share them with friends or family. They can cause constipation. Take them only for severe pain. Narcotic should only be taken for severe pain. For [id number] pain please take ibuprofen every 6 hours, Tylenol every 4 to not exceed maximum daily dose is listed on packaging. Prescriptions: New amoxicillin-pot clavulanate 875-125 mg tablet 1 tab PO BID 10 Days Qty: 20 0RF oxycodone 5 mg capsule 5 mg PO Q8H PRN (Reason: pain) Qty: 6 0RF Rx Instructions: Partial Fill upon patient request. No Action nitrofurantoin monohyd/m-cryst [Macrobid] 100 mg capsule 100 mg PO Q12H 5 Days Qty: 10 0RF Rx Instructions: must administer with a meal/food cyclobenzaprine 10 mg tablet 10 mg PO TID PRN (Reason: muscle spasm) Qty: 20 0RF amlodipine 10 mg tablet 10 mg PO DAILY doxepin 50 mg capsule 50 mg PO BEDTIME Fiber Therapy (m-cellulose) 500 mg tablet 500 mg PO BID atorvastatin [Lipitor] 10 mg tablet 10 mg PO BEDTIME metformin 500 mg tablet 500 mg PO DAILY omeprazole 20 mg capsule,delayed release(DR/EC) 20 mg PO DAILY albuterol sulfate [ProAir HFA] 90 mcg/actuation HFA aerosol inhaler 2 puff inhalation Q6H PRN senna 8.6 mg capsule 17.2 mg PO BEDTIME hydroxyzine pamoate [Vistaril] 25 mg capsule 25 mg PO QID PRN bupropion HCl [Wellbutrin XL] 150 mg tablet extended release 24 hr 300 mg PO QAM Mirena 20 mcg/24 hours (8 yrs) 52 mg intrauterine device 1 device intrauterine ONCE Qty: 1 0RF sennosides [senna] 8.6 mg tablet 17.2 mg PO DAILY PRN (Reason: constipation) oxybutynin chloride 5 mg tablet extended release 24hr 5 mg PO DAILY sucralfate 1 gram tablet 1 g PO BID lisinopril 10 mg tablet 10 mg PO BEDTIME bupropion HCl 300 mg tablet extended release 24 hr 300 mg PO DAILY Mirena 20 mcg/24 hours (7 yrs) 52 mg intrauterine device 0 device intrauterine ONCE (DME) lancets [TRUEplus Lancets] 33 gauge misc See Rx Instructions Not Applicable BID Qty: 100 Rx Instructions: As directed hydroxyzine HCl 25 mg tablet 25 mg PO BID PRN (DME) FreeStyle Lite Strips Strip See Rx Instructions Not Applicable BID Qty: 10 Rx Instructions: As directed latanoprost 0.005 % drops 1 drp ophthalmic (eye) BEDTIME docusate sodium [Stool Softener] 100 mg capsule 100 mg PO BID Referrals: Reyna Lutz DO [Primary Care Provider] - 2 days
== END 2022-09-26 18:20 | disposition home or self-care (01) ==
PROVIDERS: Emergency Provider Internal Medicine; PCP Family Medicine
DX: K08.89 Other specified disorders of teeth and supporting structures (principal)
CPT/HCPCS: 99282; 99283

== ENCOUNTER 2022-09-28 00:57 | Emergency (ER) | payer MEDICAID, SELFPAY ==
[2022-09-28 01:36] VITALS: BP 161/93; PULSE 95; RESP 18; TEMP 36.4; O2SAT 95; BMI 35.4
--- NOTE | 2022-09-28 04:53 | ED.DENTAL ---
HPI - Dental/Oral General Chief complaint: Dental/Oral Stated complaint: right sided face pain, was here recently Time Seen by Provider: 09/28/22 04:44 Source: patient Mode of arrival: ambulatory Limitations: no limitations History of Present Illness HPI Narrative: 47-year-old female who presents emergency department for evaluation of left lower jaw/dental pain. The patient had a dental extraction of tooth 22 on 09/23/2022. Three days later she was having increased pain was seen in the emergency department. She was started on Augmentin and oxycodone. She states that the oxycodone made her sick and caused her to have nausea and vomiting. She states that she has been taking ibuprofen 800 mg twice a day and Excedrin twice a day with no improvement of her pain. She states that this evening the pain got worse and she could not sleep so she came to the emergency department for evaluation. She denied any swelling of her face. She denied fever but she was experiencing chills. She denied headache, nausea, vomiting or fatigue. Related Data Home Medications Medication Instructions Recorded Confirmed albuterol sulfate 90 mcg/actuation 2 puff inhalation Q6H PRN 12/17/20 12/30/20 aerosol inhaler (ProAir HFA) amlodipine 10 mg tablet 10 mg PO DAILY 12/17/20 12/30/20 atorvastatin 10 mg tablet (Lipitor) 10 mg PO BEDTIME 12/17/20 12/30/20 doxepin 50 mg capsule 50 mg PO BEDTIME 12/17/20 12/30/20 hydroxyzine pamoate 25 mg capsule 25 mg PO QID PRN 12/17/20 12/30/20 (Vistaril) metformin 500 mg tablet 500 mg PO DAILY 12/17/20 12/30/20 methylcellulose (laxative) 500 mg 500 mg PO BID 12/17/20 12/30/20 tablet (Fiber Therapy (methylcellulose)) omeprazole 20 mg capsule,delayed 20 mg PO DAILY 12/17/20 12/30/20 release sennosides 8.6 mg capsule (senna) 17.2 mg PO BEDTIME 12/17/20 12/30/20 bupropion HCl 150 mg 24 hr tablet, 300 mg PO QAM 12/30/20 12/30/20 extended release (Wellbutrin XL) bupropion HCl 300 mg 24 hr tablet, 300 mg PO DAILY 07/05/21 extended release lisinopril 10 mg tablet 10 mg PO BEDTIME 07/05/21 oxybutynin chloride 5 mg 5 mg PO DAILY 07/05/21 tablet,extended release 24 hr sennosides 8.6 mg tablet (senna) 17.2 mg PO DAILY PRN constipation 07/05/21 sucralfate 1 gram tablet 1 g PO BID 07/05/21 docusate sodium 100 mg capsule 100 mg PO BID 09/15/21 (Stool Softener) latanoprost 0.005 % eye drops 1 drp ophthalmic (eye) BEDTIME 09/15/21 blood sugar diagnostic (FreeStyle #10 ea 01/03/22 Lite Strips) hydroxyzine HCl 25 mg tablet 25 mg PO BID PRN 01/03/22 lancets 33 gauge (TRUEplus Lancets) #100 ea 01/03/22 levonorgestrel 21 mcg/24 hours (8 0 device intrauterine ONCE 01/03/22 yrs) 52 mg intrauterine device (Mirena) Previous Rx's Medication Instructions Recorded cyclobenzaprine 10 mg tablet 10 mg PO TID PRN muscle spasm #20 01/10/22 tabs nitrofurantoin 100 mg PO Q12H 5 days #10 caps 01/10/22 monohydrate/macrocrystals 100 mg capsule (Macrobid) amoxicillin 875 mg-potassium 1 tab PO BID 10 days #20 tabs 09/26/22 clavulanate 125 mg tablet oxycodone 5 mg capsule 5 mg PO Q8H PRN pain #6 caps 09/26/22 morphine 15 mg immediate release 15 mg PO Q4-6H PRN pain #10 tabs 09/28/22 tablet Allergies Allergy/AdvReac Type Severity Reaction Status Date / Time No Known Allergies Allergy Verified 09/28/22 01:40 [No Known Allergies*] Review of Systems Review of Systems: Yes all other systems are reviewed and are negative [facility] Past Medical History [facility] Narrative: Social history: She denies tobacco, alcohol or drug use. Medical History Allergic rhinitis Anxiety Depression Muscular dystrophy, emery-dreifuss Paroxysmal cough Restrictive lung disease Urinary incontinence Surgical History H/O endoscopy Hx of section Family History Family History Unknown No family history of colorectal cancer Social History Social History Household Members Other:: Lives with her daughter (23-special needs) and her mother Alcohol intake: never Patient Tobacco Use Status: Never used Tobacco Advance Directives: No Advance Directives Information Provided: Yes Current occupational status: disabled Physical Exam Vital Signs: Vital Signs: Last Vital Signs Temp 97.6 F 09/28/22 01:36 Pulse 95 09/28/22 01:36 Resp 18 09/28/22 01:36 BP 161/93 H 09/28/22 01:36 Pulse Ox 95 09/28/22 01:36 O2 Del Method 09/28/22 01:36 BMI result Body Mass Index 35.4 General: Awake, alert, female patient, pleasant, cooperative in no distress HEENT: Patient's mouth revealed an extracted tooth in position 22, she does have tenderness with palpation over her mandible in this area, there is no significant gingival swelling or gingival abscess noted, the extraction site appears to be healing well Medical Decision Making Medical Decision Making MDM Narrative: 47-year-old female who presents emergency department for evaluation of dental pain 6 days after a extraction tooth 22. Patient is taking Augmentin but was not able to take the oxycodone that was prescribed since this was causing nausea and vomiting. She has been taking ibuprofen and acetaminophen with no relief for pain. Her exam did reveal tenderness palpation over the mandible but otherwise no significant findings. I advised the patient to continue taking her Augmentin. She was also advised to take ibuprofen 400 mg 3 times a day and Tylenol 1000 mg 3 times a day. For pain not relieved by these medications she was prescribed morphine 15 mg every 4-6 hours. She was given a dose of morphine 15 mg orally here in the emergency department. She was given printed and verbal instructions and discharged home. Differential Diagnosis Differential diagnosis includes was not limited to dental pain status post extraction, dental infection, gingivitis Discharge Plan Discharge Clinical Impression: Pain, dental Patient Disposition: Home, Self-Care Instructions: Toothache (ED) Additional Instructions: Continue taking the Augmentin (amoxicillin/clavulanic acid) as prescribed until you complete the prescription. Stop taking the ibuprofen 800 mg pills Take ibuprofen 200 mg pills, 2 pills every 6 hours as needed for pain. Take Tylenol (acetaminophen) 2 pills every 6 hours as needed for pain. For pain not relieved by ibuprofen or Tylenol take morphine 15 mg pills, 1 pill every 4 hours as needed for pain. This medication will make you sleepy, do not drive or work while taking this medication. Morphine is a narcotic medication and can be addicting. If you are concerned about addiction you can ask the pharmacist for less pills or do not get this prescription filled. Follow-up with your doctor in 2 days. Please return to the emergency department if your symptoms get worse or if you develop any symptoms that are concerning to you. Prescriptions: New morphine 15 mg tablet 15 mg PO Q4-6H PRN (Reason: pain) Qty: 10 0RF Rx Instructions: The patient may ask for partial fill; Partial Fill upon patient request. No Action nitrofurantoin monohyd/m-cryst [Macrobid] 100 mg capsule 100 mg PO Q12H 5 Days Qty: 10 0RF Rx Instructions: must administer with a meal/food cyclobenzaprine 10 mg tablet 10 mg PO TID PRN (Reason: muscle spasm) Qty: 20 0RF amoxicillin-pot clavulanate 875-125 mg tablet 1 tab PO BID 10 Days Qty: 20 0RF oxycodone 5 mg capsule 5 mg PO Q8H PRN (Reason: pain) Qty: 6 0RF Rx Instructions: Partial Fill upon patient request. amlodipine 10 mg tablet 10 mg PO DAILY doxepin 50 mg capsule 50 mg PO BEDTIME Fiber Therapy (m-cellulose) 500 mg tablet 500 mg PO BID atorvastatin [Lipitor] 10 mg tablet 10 mg PO BEDTIME metformin 500 mg tablet 500 mg PO DAILY omeprazole 20 mg capsule,delayed release(DR/EC) 20 mg PO DAILY albuterol sulfate [ProAir HFA] 90 mcg/actuation HFA aerosol inhaler 2 puff inhalation Q6H PRN senna 8.6 mg capsule 17.2 mg PO BEDTIME hydroxyzine pamoate [Vistaril] 25 mg capsule 25 mg PO QID PRN bupropion HCl [Wellbutrin XL] 150 mg tablet extended release 24 hr 300 mg PO QAM Mirena 20 mcg/24 hours (8 yrs) 52 mg intrauterine device 1 device intrauterine ONCE Qty: 1 0RF sennosides [senna] 8.6 mg tablet 17.2 mg PO DAILY PRN (Reason: constipation) oxybutynin chloride 5 mg tablet extended release 24hr 5 mg PO DAILY sucralfate 1 gram tablet 1 g PO BID lisinopril 10 mg tablet 10 mg PO BEDTIME bupropion HCl 300 mg tablet extended release 24 hr 300 mg PO DAILY Mirena 20 mcg/24 hours (7 yrs) 52 mg intrauterine device 0 device intrauterine ONCE (DME) lancets [TRUEplus Lancets] 33 gauge misc See Rx Instructions Not Applicable BID Qty: 100 Rx Instructions: As directed hydroxyzine HCl 25 mg tablet 25 mg PO BID PRN (DME) FreeStyle Lite Strips Strip See Rx Instructions Not Applicable BID Qty: 10 Rx Instructions: As directed latanoprost 0.005 % drops 1 drp ophthalmic (eye) BEDTIME docusate sodium [Stool Softener] 100 mg capsule 100 mg PO BID
[2022-09-28 04:57] VITALS: BP 165/87; PULSE 88; RESP 16; TEMP 36.7; O2SAT 97
[2022-09-28] MEDS: Morphine Sulfate Immed Release 15 MG TABLET PO (05:00)
--- NOTE | 2022-09-28 05:08 | PC.NURSE ---
Pt. sitting up in bed with significant other at bedside. Pt. medicated per MAR and d/c'd home.
== END 2022-09-28 05:09 | disposition home or self-care (01) ==
PROVIDERS: Emergency Provider Emergency Medicine Emergency Medical Services
DX: K08.89 Other specified disorders of teeth and supporting structures (principal); Z79.899 Other long term (current) drug therapy
CPT/HCPCS: 99283

== ENCOUNTER 2023-01-03 14:23 | Outpatient (REF) | payer MEDICAID, SELFPAY ==
[2023-01-03 17:22] LABS: Urine Cytology See Pathology rpt
== END 2023-01-03 14:24 | disposition home or self-care (01) ==
LOC: HO.LNP 14:23
PROVIDERS: Visit Provider Nurse Practitioner Family
DX: R32 Unspecified urinary incontinence (principal); R31.29 Other microscopic hematuria
CPT/HCPCS: 51798; 88112; 99212

== ENCOUNTER 2023-02-02 14:19 | Outpatient (REF) | payer MEDICAID, SELFPAY ==
--- NOTE | ~2023-02-02 | MM_ITS ---
EXAMINATION: MM SCREENING DIGITAL BREAST TOMOSYNTHESIS, BILATERAL CLINICAL INFORMATION: Screening. Asymptomatic. The lifetime risk of breast cancer based on the Tyrer-Cuzick Model is 11%. COMPARISON: Mammography: Most recently 12/17/2021, and dating back to 2017. TECHNIQUE: Digital breast tomosynthesis is performed in both the craniocaudal and mediolateral oblique views along with computer-aided detection (CAD). Synthesized 2D images are generated from the tomosynthesis. In addition a left 3-D full-field digital MLO nipple in profile projection was obtained. FINDINGS: There are scattered areas of fibroglandular density (ACR BI-RADS breast composition Category b). There are no suspicious masses, suspicious grouped calcifications, or areas of architectural distortion. The parenchymal pattern is stable from prior exams. Nodular asymmetry in the far posterior lateral right breast is unchanged from numerous prior exams and benign. Previously seen deodorant artifact in the axillary regions has near completely resolved. MM/MM tomosynthesis screening BI IMPRESSION: No mammographic evidence of malignancy. Stable benign findings. ASSESSMENT: BI-RADS BI-RADS 2 - Benign Findings RECOMMENDATION: Routine annual mammography screening. 1 year F/U This examination should not preclude the clinical evaluation of a suspicious palpable abnormality. This patient's information was entered into a reminder system with a target due date for their next mammogram.
== END 2023-02-02 14:20 | disposition home or self-care (01) ==
LOC: HO.MAMMO 14:19
PROVIDERS: PCP Family Medicine; Visit Provider Family Medicine
DX: Z12.31 Encounter for screening mammogram for malignant neoplasm of breast (principal)
CPT/HCPCS: 77063; 77067

== ENCOUNTER → 2023-02-02 14:30 | Outpatient (BNV) | payer MEDICAID, SELFPAY | PROVIDERS: PCP Family Medicine; Visit Provider Radiology Diagnostic Radiology | DX: Z12.31 Encounter for screening mammogram for malignant neoplasm of breast (principal) | CPT/HCPCS: 77063; 77067 ==

== ENCOUNTER 2023-04-17 14:45 | Outpatient (REF) | payer MEDICAID, SELFPAY ==
[2023-04-20 03:34] LABS: Aldolase 6.7 U/L (<=8.1)
== END 2023-04-17 14:46 | disposition home or self-care (01) ==
LOC: HO.LAB 14:45
PROVIDERS: Visit Provider Psychiatry & Neurology Neurology
DX: G71.11 Myotonic muscular dystrophy (principal)
CPT/HCPCS: 36415; 82085; 82550

== ENCOUNTER 2024-01-22 15:28 | Outpatient (REF) | payer MEDICAID, SELFPAY ==
--- NOTE | ~2024-01-22 | XR_ITS ---
EXAMINATION: XR CHEST CLINICAL INFORMATION: Fall one week ago with persistent left-sided chest pain with question of rib fractures COMPARISON: 05/28/2019 TECHNIQUE: 2 views of the chest were obtained. FINDINGS: No significant abnormality is noted involving the heart, lungs, mediastinum, bony thorax or soft tissues. XR/XR chest 2V IMPRESSION: Unremarkable examination.
== END 2024-01-22 15:29 | disposition home or self-care (01) ==
LOC: HO.HHCX 15:28
PROVIDERS: Visit Provider Student in an Organized Health Care Education/Training Program
DX: R07.81 Pleurodynia (principal)
CPT/HCPCS: 71046

== ENCOUNTER 2024-01-23 13:01 | Outpatient (REF) | payer MEDICAID, SELFPAY ==
[2024-01-23 16:04] LABS: Hematocrit 48.7 % (37.0-47.0); Hemoglobin 15.4 g/dl (12.0-16.0); Mean Corpuscular HGB Conc 31.6 g/dl (31.0-35.0); Mean Corpuscular Hemoglobin 29.2 pg (27.0-33.0); Mean Corpuscular Volume 92.4 fL (80.0-98.0); Mean Platelet Volume 10.9 fL (9.4-12.3); Platelet Count 285 X10*3/uL (160-400); Red Blood Count 5.27 X10*6/uL (4.20-5.50); Red Cell Distribution Width 13.6 % (11.0-16.0); White Blood Count 8.9 X10*3/uL (4.8-10.8)
[2024-01-23 16:12] LABS: Estimated Average Glucose 157 mg/dL; Hemoglobin A1c % 7.1 % (<6.0)
[2024-01-23 16:23] LABS: Alanine Aminotransferase 23 U/L (0-31); Albumin Level 4.4 g/dL (3.5-5.0); Alkaline Phosphatase 73 U/L (39-117); Anion Gap 15 (12-20); Aspartate Amino Transferase 20 U/L (5-31); Bilirubin Direct 0.4 mg/dL (0.0-0.5); Bilirubin Total 1.4 mg/dL (0.0-1.0); Blood Urea Nitrogen 8 mg/dL (9-16); Calcium 10.6 mg/dL (8.4-10.2); Carbon Dioxide 30 mmol/L (22-29); Chloride 104 mmol/L (96-108); Cholesterol 210 mg/dL (<200); Estimated Glomerular Filt Rate > 60; Glucose Random 125 mg/dL (60-115); HDL Cholesterol 49 mg/dL (>40); LDL Cholesterol Calculated 133 mg/dL (<100); Sodium 145 mmol/L (135-145); Total Protein 7.4 g/dL (6.5-8.0); Triglycerides 141 mg/dL (<150)
[2024-01-23 16:40] LABS: Free T4 (Free Thyroxine) 0.95 ng/dL (0.71-1.85); Thyroid Stimulating Hormone 0.77 uIU/mL (0.32-4.0); Vitamin D 25-OH Total 36.9 ng/mL (>30)
[2024-01-24 04:29] LABS: HBS Num1 0.36 mIU/mL (0-7.99); HBc Num1 0.12 S/CO (0.00-0.79); HBsAGNum1 0.35 S/CO (0.00-0.99); HIV AB/AG Nonreactive (Nonreactive); HIV Num 1 0.05 S/CO (0.00-0.99); Hepatitis A Antibody IgG Nonreactive (Nonreactive); Hepatitis B Core Antibody Nonreactive (Nonreactive); Hepatitis B Surface Antigen Negative (Negative); ~HepC Num1 0.06 S/CO (0.00-0.79); ~Hepatitis A Antibody IgG 0.13 S/CO (0.00-0.99); ~Hepatitis B Surface Antibody NONREACTIVE (Nonreactive); ~Hepatitis C Antibody Nonreactive (Nonreactive)
[2024-01-25 07:09] LABS: RPR Rapid Plasma Reagin NON-REACTIVE (NON-REACTIVE)
== END 2024-01-23 13:02 | disposition home or self-care (01) ==
LOC: HO.HHCL 13:01
PROVIDERS: Visit Provider Family Medicine
DX: Z00.00 Encounter for general adult medical examination without abnormal findings (principal); E11.9 Type 2 diabetes mellitus without complications; I10 Essential (primary) hypertension; E78.49 Other hyperlipidemia; K76.0 Fatty (change of) liver, not elsewhere classified; F33.9 Major depressive disorder, recurrent, unspecified; G71.11 Myotonic muscular dystrophy; K29.50 Unspecified chronic gastritis without bleeding; N85.00 Endometrial hyperplasia, unspecified; R32 Unspecified urinary incontinence; M54.50 Low back pain, unspecified; G89.29 Other chronic pain
CPT/HCPCS: 80048; 80061; 80076; 82306; 83036; 84439; 84443; 85027; 86592; 86704; 86706; 86708; 86803; 87340; 87389

== ENCOUNTER 2024-01-25 11:47 | Outpatient (REF) | payer MEDICAID, SELFPAY ==
--- NOTE | ~2024-01-25 | XR_ITS ---
EXAMINATION: XR HIP, LEFT CLINICAL INFORMATION: Pain in low back pain and left hip after fall COMPARISON: None available. TECHNIQUE: Two views of the left hip. FINDINGS: No fracture. Alignment is anatomic. Hip joint space is maintained. Soft tissues are unremarkable. XR/XR hip LT min 2V IMPRESSION: Normal left hip.
--- NOTE | ~2024-01-25 | XR_ITS ---
EXAMINATION: XR LUMBOSACRAL SPINE CLINICAL INFORMATION: Pain COMPARISON: 01/10/2022 TECHNIQUE: Three views of the lumbosacral spine. FINDINGS: The vertebral bodies and posterior elements are normal. The disc spaces are preserved except mild narrowing of L4-L5 are preserved and the vertebral alignment is normal. The paraspinal soft tissues are normal. There is IUD in the pelvis XR/XR lumbar spine 2-3V IMPRESSION: Mild narrowing cough L4-L5 intervertebral disc space
== END 2024-01-25 11:48 | disposition home or self-care (01) ==
LOC: HO.HHCX 11:47
PROVIDERS: Visit Provider Internal Medicine
DX: M25.552 Pain in left hip (principal); M54.50 Low back pain, unspecified; W19.XXXA Unspecified fall, initial encounter
CPT/HCPCS: 72100; 73502

== ENCOUNTER 2024-02-01 08:51 | Outpatient (REF) | payer MEDICAID, SELFPAY ==
--- NOTE | ~2024-02-01 | US_ITS ---
EXAMINATION: US ABDOMEN COMPLETE CLINICAL INFORMATION: Follow up fatty liver. COMPARISON: CT abdomen and pelvis 03/03/2020. Ultrasound abdomen complete 06/07/2019 and 10/09/2017. TECHNIQUE: Real-time imaging of the abdominal viscera. FINDINGS: PANCREAS: Pancreas is obscured by overlying bowel gas. ABDOMINAL AORTA: The proximal, mid, and distal segments are normal in caliber. INFERIOR VENA CAVA: Visualized portions are normal. LIVER: Increased hepatic echogenicity suggesting hepatic steatosis. The liver is normal in size. The liver contour is normal. No focal hepatic lesion. There is no intrahepatic biliary duct dilatation seen. GALLBLADDER: Intraluminal gallbladder polyp measuring up to 6 mm. The gallbladder is physiologically distended without evidence of stones, sludge, wall thickening or pericholecystic fluid. COMMON BILE DUCT: Normal in caliber measuring 0.2 cm in diameter. RIGHT KIDNEY: Right renal calculus measuring up to 1.1 cm. No hydronephrosis or focal parenchymal lesions. The kidney measures 10.7 cm in maximum dimension. LEFT KIDNEY: Exophytic cystic focus involving the left renal upper pole measuring 2.1 cm, simple appearing, not requiring follow-up. Simple appearing cystic focus involving the left renal interpolar region measuring up to 1.5 cm, not requiring follow-up. Subcentimeter hypoechoic focus, too small to characterize though statistically representing a cyst. Left renal calculus along the lower pole measuring 7 mm. No hydronephrosis. The kidney measures 11.6 cm in maximum dimension. SPLEEN: Normal. The spleen measures 9.9 cm in maximum dimension. FREE FLUID: None. US/US abdomen complete IMPRESSION: 1. Increased hepatic echogenicity suggesting hepatic steatosis. 2. Intraluminal gallbladder polyp measuring up to 6 mm. 3. Bilateral nephrolithiasis without hydronephrosis. 4. Left renal simple appearing cysts the largest measuring up to 2.1 cm, not requiring follow-up.
[2024-02-01 12:40] LABS: Creatinine Urine 85.81 mg/dL; Microalbum/Creatinine Ratio Ur 11.6 ug/mg cr (<30)
== END 2024-02-01 08:52 | disposition home or self-care (01) ==
LOC: HO.US 08:51
PROVIDERS: PCP Family Medicine; Visit Provider Family Medicine
DX: K76.0 Fatty (change of) liver, not elsewhere classified (principal)
CPT/HCPCS: 76700; 82043; 82570

== ENCOUNTER 2024-02-08 14:19 | Outpatient (REF) | payer MEDICAID, SELFPAY ==
--- NOTE | ~2024-02-08 | MM_ITS ---
EXAMINATION: MM SCREENING DIGITAL BREAST TOMOSYNTHESIS, BILATERAL CLINICAL INFORMATION: Screening. Asymptomatic. COMPARISON: Mammography: This study is compared with prior exams dating back to 2017. TECHNIQUE: Digital breast tomosynthesis is performed in both the craniocaudal and mediolateral oblique views along with computer-aided detection (CAD). Synthesized 2D images are generated from the tomosynthesis. FINDINGS: There are scattered areas of fibroglandular density (ACR BI-RADS breast composition Category b). There are no significant masses, abnormal calcifications, or other abnormalities. MM/MM tomosynthesis screening BI IMPRESSION: No mammographic evidence of malignancy. ASSESSMENT: BI-RADS BI-RADS 1 - Negative RECOMMENDATION: Routine annual mammography screening. 1 year F/U This examination should not preclude the clinical evaluation of a suspicious palpable abnormality. This patient's information was entered into a reminder system with a target due date for their next mammogram. Electronically signed by: Deonna Garcia MD 03/06/2024 01:11 PM EDT
== END 2024-02-08 14:20 | disposition home or self-care (01) ==
LOC: HO.MAMMO 14:19
PROVIDERS: PCP Family Medicine; Visit Provider Family Medicine
DX: Z12.31 Encounter for screening mammogram for malignant neoplasm of breast (principal)
CPT/HCPCS: 77063; 77067

== ENCOUNTER → 2024-02-08 14:30 | Outpatient (BNV) | payer MEDICAID, SELFPAY | PROVIDERS: PCP Family Medicine; Visit Provider Radiology Diagnostic Radiology | DX: Z12.31 Encounter for screening mammogram for malignant neoplasm of breast (principal) | CPT/HCPCS: 77063; 77067 ==

== ENCOUNTER 2024-02-12 15:08 | Outpatient (AMB) | payer MEDICAID, SELFPAY ==
--- NOTE | 2024-02-12 15:11 | A.OFFVIS_ITS ---
Intake Visit Reasons: 1yPVR Intake Note: Patient is present for follow up urinary incontinence/PVR Urology Medications: Oxybutynin Blood Thinner: none PVR: 0ml's Public Service Director Required: No Accompanied by: Self / Same As Patient Allergies No Known Allergies [No Known Allergies*] Allergy (Verified 02/12/24 16:49) Medication List - Last Reconciled 02/12/24 by MARANDA Bear- albuterol sulfate 90 mcg/actuation (ProAir HFA) 2 puffs inhalation Q6H PRN amlodipine 10 mg PO DAILY atorvastatin 20 mg PO BEDTIME blood sugar diagnostic (FreeStyle Lite Strips) As directed bupropion HCl XL (Wellbutrin XL) 300 mg PO QAM bupropion HCl XL 300 mg PO DAILY cyclobenzaprine 10 mg PO TID PRN docusate sodium (Stool Softener) 100 mg PO BID doxepin 50 mg PO BEDTIME ergocalciferol (vitamin D2) 1,250 mcg PO QWEEK hydroxyzine HCl 25 mg PO BID PRN hydroxyzine pamoate (Vistaril) 25 mg PO QID PRN lancets (TRUEplus Lancets) As directed latanoprost 0.005% 1 drp ophthalmic (eye) BEDTIME levonorgestrel (Mirena) 0 device intrauterine ONCE lisinopril 10 mg PO BEDTIME metformin 500 mg PO DAILY methylcellulose (laxative) (Fiber Therapy (methylcellulose)) 500 mg PO BID morphine 15 mg PO Q4-6H PRN omeprazole 20 mg PO DAILY sennosides (senna) 17.2 mg PO BEDTIME sennosides (senna) 17.2 mg PO DAILY PRN sucralfate 1 g PO BID HPI Comments Details: Kelsey is a pleseant 48 year old [facility] female patient of Dr. Lutz. She presents to the office today for follow-up of her urinary incontinence. She has a past medical history of allergic rhinitis, anxiety, depression, muscular dystrophy emery-dreifuss, diabetes mellitus type II, and restrictive lung disease. In discussion with the patient today she reports to be doing and feeling well. She reports having discontinued her oxybutynin since her last office visit here approximately 1 year ago and has had no urinary issues or concerns. She reports to be happy with her current voiding parameters. She denies urinary urgency, urinary frequency, incontinence, nocturia, hematuria, dysuria, foul smelling urine, changes to urinary stream, flank pain, fever, and or chills. In office urinalysis results reviewed with the patient today. She otherwise offers no issues or concerns at this time. Discussed at length importance of managing diabetes for improvement in urinary symptoms as well as for overall health and well-being. PVR 0mls. PFSH Medical History Urinary incontinence Restrictive lung disease Allergic rhinitis Paroxysmal cough Anxiety Depression Muscular dystrophy, emery-dreifuss Surgical History Hx of section H/O endoscopy Family History Unknown No family history of colorectal cancer Social History Household Members Other:: Lives with her daughter (23-special needs) and her mother Alcohol intake: never Patient Tobacco Use Status: Never used Tobacco Current occupational status: disabled Female Reproductive History Menstrual Age of Menarche: 11 Review of Systems Const Reports as per HPI Eyes Reports no additional complaints ENT Reports no additional complaints Card Reports no additional complaints Resp Reports as per HPI GI Reports as per HPI Reports as per HPI Musc Reports as per HPI Neuro Reports no additional complaints Psych Reports as per HPI Physical Exam Const General: cooperative, healthy appearing, comfortable, no acute distress, well developed, alert and awake Orientation/consciousness: patient oriented x3 Limitations: no limitations HEENT Head: Yes normal to inspection, Yes normocephalic and Yes atraumatic Ears: hearing grossly normal bilaterally Eyes General: appearance normal, both eyes and all related structures Neck Neck: Yes normal visual inspection and Yes trachea midline Chest Chest palpation & inspection: normal inspection of the chest Resp Effort & Inspection: normal respiratory effort and able to speak in complete sentences Cardio Rate: regular rate GI Inspection: Yes normal to inspection General: Yes no CVA tenderness Back/Spine/Pelvis Back: no CVA tenderness Skin General skin exam: no rashes or lesions noted Neuro General: patient oriented x3 Extrem General: Yes normal to inspection Psych Appearance: grossly normal and well kempt Mental Status: mental status grossly normal Speech and movement: Normal speech and movement present and Clear speech present Affect: normal affect Attitude: cooperative Thought process: Normal thought process present Thought content: Normal thought content present Insight: Fair insight present (Psych) Judgement: Fair judgement present (Psych) Office Procedures Post Void Residual Post Residual Void Post Void Residual (PVR): 0 [id number] Void Residual by ultrasound Results AMB Urinalysis, Automated UA Leukoctes 0 Franco/uL Last Edit by Nekst on 02/12/24 16:14 UA Nitrite Negative Last Edit by Nekst on 02/12/24 16:14 UA Urobilinogen 0.2 mg/dL Last Edit by Nekst on 02/12/24 16:14 UA Protein 15 mg/dL Last Edit by Nekst on 02/12/24 16:14 UA pH 5.5 Last Edit by Nekst on 02/12/24 16:14 UA Blood 0 Vinh/uL Last Edit by Nekst on 02/12/24 16:14 UA Specific [place] 1.025 Last Edit by Nekst on 02/12/24 16:14 UA Ketone Negative Last Edit by Nekst on 02/12/24 16:14 UA Bilirubin 0 mg/dL Last Edit by Nekst on 02/12/24 16:14 UA Glucose 0 mg/dL Last Edit by Nekst on 02/12/24 16:14 Results Reviewed Results Reviewed: Laboratory Last Values Urine pH (Auto) 5.5 02/12/24 15:16 Specific [place] (Auto) 1.025 02/12/24 15:16 Urine Protein (Auto) 15 mg/dL 02/12/24 15:16 Glucose (UA)(Auto) 0 mg/dL 02/12/24 15:16 Urine Ketones (Auto) Negative 02/12/24 15:16 Urine Blood (Auto) 0 Vinh/uL 02/12/24 15:16 Urine Nitrite (Auto) Negative 02/12/24 15:16 Urine Bilirubin (Auto) 0 mg/dL 02/12/24 15:16 Urine Urobilinogen (Auto) 0.2 mg/dL 02/12/24 15:16 Leukocyte Esterase (Auto) 0 Franco/uL 02/12/24 15:16 Assessment & Plan Assessment & Plan (1) Urinary incontinence: Code(s): R32 - Unspecified urinary incontinence Category: Medical Plan In office urinalysis results reviewed with the patient today; as noted above. PVR 0 mL. Patient currently denies any bothersome urinary issues or concerns. She reports be happy with current voiding parameters. Stop oxybutynin Discussed surveillance monitoring; however patient would like to follow-up p.r.n. as she does not have any bothersome urinary issues or concerns. Follow-up p.r.n. Orders: Orders AMB Urinalysis Automated Today Z13.9 - Encounter for screening, unspecified AMB Post Void Residual by ultrasound Today R32 - Unspecified urinary incontinence Patient Instructions: The patient had an opportunity to ask questions regarding the treatment plan. All questions were answered. Physical exam, labs, and imaging were discussed and reviewed in detail. As well as risks, benefits, and discussion of treatment cordero neena. No major barriers to understanding were identified. The patient expressed understanding and agreement with the above treatment plan. The patient was made aware they should contact our office by phone for worsening of their current condition, the appearance of new symptoms, or with any questions or concerns. Compliance is encouraged with any medications and follow up testing that is ordered. It is a privilege to be allowed the opportunity to participate in? your urological care.? Again, if you have any questions or concerns If you have any questions or concerns please do not hesitate to contact me. The office is [phone]. This note is constructed using voice recognition software. While every effort has been made to ensure accuracy stonemason apprentice errors may have been included. Yours sincerely, ACE Bear Coding Level of Care Code Est Pt Level 3 (20992) Diagnoses Urinary incontinence R32 CPT Codes Post Residual Void - PVR CPT Code: 17604-Kzyk Void Residual by ultrasound ([id number])
== END 2024-02-12 15:46 | disposition home or self-care (01) ==
PROVIDERS: PCP Family Medicine; Visit Provider Nurse Practitioner Family
DX: R32 Unspecified urinary incontinence (principal); Z13.9 Encounter for screening, unspecified
CPT/HCPCS: 99213

== ENCOUNTER → 2024-02-12 15:08 | Outpatient (BNVA) | payer MEDICAID, SELFPAY | PROVIDERS: PCP Family Medicine; Visit Provider Nurse Practitioner Family | DX: R32 Unspecified urinary incontinence (principal); Z79.899 Other long term (current) drug therapy | CPT/HCPCS: 51798; 81003; 99212 ==

== ENCOUNTER 2024-05-13 11:07 | Outpatient (REF) | payer MEDICAID, SELFPAY ==
[2024-05-14 13:02] LABS: Alpha Fetoprotein 8.8 ng/mL
== END 2024-05-13 11:08 | disposition home or self-care (01) ==
LOC: HO.HHCL 11:07
PROVIDERS: Visit Provider Family Medicine
DX: K76.0 Fatty (change of) liver, not elsewhere classified (principal)
CPT/HCPCS: 36415; 82105

== ENCOUNTER 2024-10-14 13:56 | Outpatient (AMB) | payer MEDICAID, SELFPAY ==
--- NOTE | 2024-10-14 13:58 | A.OFFVIS_ITS ---
Vital Signs 10/14/24 13:59 Height 5 ft 3 in Weight 174 lb 2.643 oz BMI 30.8 BP 157/80 H Blood Pressure Location Lt brachial Position Sitting Pulse 91 Intake Visit Reasons: Gastritis / Kelli Pt Intake Note: Kelsey presents in the office as a Kelli patient follow up. CC: She states that she has a follow up with her PCP coming up that she has to discuss the reason that she has not been taking any of her medications. She has been feeling very good and not having any issues. Radiography Technician Required: No Allergies No Known Allergies [No Known Allergies*] Allergy (Verified 10/14/24 14:00) HPI Comments Details: 49 y.o F with PMH of myotonic dystrophy, HTN, T2DM, nephrolithiasis, fatty liver who is here to re-establish care. Last seen 2020. Appt was initially made when pt had severe constipation. However, pt increased her fiber intake and added dulcolax short term which brought her back to regular BMs. Now not having to take any laxatives. Has 1 BM per day. No straining. No blood. Has never had a colonoscopy. Incidentally noted on lab review was elevated AFP. Laboratory Tests 05/18/22 01/23/24 05/13/24 11:07 13:04 11:15 AST 20 ALT 23 Alpha Fetoprotein 5.8 8.8 H US abd 01/2024: 1. Increased hepatic echogenicity suggesting hepatic steatosis. 2. Intraluminal gallbladder polyp measuring up to 6 mm. 3. Bilateral nephrolithiasis without hydronephrosis. 4. Left renal simple appearing cysts the largest measuring up to 2.1 cm, not requiring follow-up. [facility] Medical History Urinary incontinence Restrictive lung disease Allergic rhinitis Paroxysmal cough Anxiety Depression Muscular dystrophy, emery-dreifuss Surgical History Hx of section H/O endoscopy Family History Unknown No family history of colorectal cancer Social History Household Members Other:: Lives with her daughter (23-special needs) and her mother Alcohol intake: never Patient Tobacco Use Status: Never used Tobacco Current occupational status: disabled Female Reproductive History Menstrual Age of Menarche: 11 Review of Systems Const All systems reviewed & are unremarkable except as noted in HPI and below Physical Exam Vital Signs: Last Vital Signs Pulse 91 10/14/24 13:59 BP 157/80 H 10/14/24 13:59 BMI result Body Mass Index 30.8 syndromic facies nonicteric abd soft nontender Assessment & Plan Assessment & Plan (1) Elevated AFP: Code(s): R77.2 - Abnormality of alphafetoprotein Category: Medical (2) Encounter for colorectal cancer screening: Code(s): Z12.11 - Encounter for screening for malignant neoplasm of colon; Z12.12 - Encounter for screening for malignant neoplasm of rectum Category: Medical (3) Hepatic steatosis: Code(s): K76.0 - Fatty (change of) liver, not elsewhere classified Category: Medical (4) Gallbladder polyp: Code(s): K82.4 - Cholesterolosis of gallbladder Category: Medical Plan 1. Elevated AFP Unclear indication hwoever elevated in 05/2024. Also has GB polyp measuring 6 mm. Plan: - Recheck LFTs - Urgent triple phased CT liver protocol 2. CRC screening Pt still hasnt completed stool based testing ordered by PCP. Agreeable to colo based on discussion today. Requests miralax based prep. Plan: - miralax/gatorade prep Rxed per pt preference - Will request PCP for clearance - pt also seeing cardiology and ?awaiting a repeat echo Follow up after colo Orders: Orders Hemoglobin A1c Today E11.9 - Type 2 diabetes mellitus without complications Comprehensive Met. Panel Today R77.2 - Abnormality of alphafetoprotein CT abdomen pelvis wo/w IV con Today R77.2 - Abnormality of alphafetoprotein Medications: New polyethylene glycol 3350 (Miralax) mix in 64 oz in gatorade 238 grams PO ONCE 238 grams 0RF Coding Level of Care Code New Pt Level 4 (69197) Complex EM visit Add On G2211 Diagnoses Elevated AFP R77.2 Encounter for colorectal cancer screening Z12.11; Z.12 Hepatic steatosis K76.0 Gallbladder polyp K82.4
[2024-10-14 13:59] VITALS: BP 157/80; PULSE 91; BMI 30.8
--- OUTSIDE RECORDS SUMMARY | 2024-10-14 16:39 | XMS_ITS | Encounter Summary ---
Author Organization [employer] Address [address] [facility] 7t [place] [address] Care Team Providers Care Negative Spotter Name Role Phone Reyna Lutz DO Primary Care Provider + [phone] Encounter Details Date Type Department Care Team (Late st Contact Info) Description 11/10/2022 Orders Only [facility] [address] [place], [place] [phone] Reyna Maradiaga LPN Social History Tobacco Use Types Packs/Day Years Used Date Smoking Tobacco: Never Passive Smoke Exposure: Never Smokeless Tobacco: Never Comments Unknown Sex and Gender Information Value Date Recorded Sex Assigned at Female 05/09/2022 10:16 AM EDT Legal Sex Female 10:16 AM EDT Gender Identity Female 05/09/2022 10:16 AM EDT Sexual Orientation Straight 05/09/2022 10 :16 AM EDT documented as of this encounter Plan of Treatment Upcoming Encounters Date Type Department Care Team (Late st Contact Info) Description 10/21/2024 11:15 AM EDT Procedure Visit [facility] [address] [place] [address] Reyna Lutz DO [address] [place] [address] documented as of this encounter Visit Diagnoses Not on filedocumented in this encounter Care Teams Negative Spotter Relationship Specialty Start Date End Date Reyna Lutz DO [address] [place] [address] PCP - General Family Medicine 11/26/19 documented as of this encounter
--- OUTSIDE RECORDS SUMMARY | 2024-10-14 16:39 | XMS_ITS | Encounter Summary ---
Author Organization [employer] Address [address] [facility] 7t [place] [address] Care Team Providers Care News Wire Photo Operator Name Role Phone Nelda Reyna Primary Care Provider + [phone] Reason for Visit * Reason Onset Date Comments script for toothpaste 12/21/2022 Encounter Details Date Type Department Care Team (Late st Contact Info) Description 12/21/[address] [facility] [address] [place] [address] Rachna Mendez, DDS [address] [place] [address] script for toothpaste Social History Tobacco Use Types Packs/Day Years Used Date Smoking Tobacco: Never Passive Smoke Exposure: Never Smokeless Tobacco: Never Comments Unknown Sex and Gender Information Value Date Recorded Sex Assigned at Female 05/09/2022 10:16 AM EDT Legal Sex Female 10:16 AM EDT Gender Identity Female 05/09/2022 10:16 AM EDT Sexual Orientation Straight 05/09/2022 10 :16 AM EDT COVID-19 Exposure Response Date Recorded In the last 10 days, have yo u been in contact with someone who was confirmed or suspected to have Coronavirus/COVID-19? No / Unsure 11/30/2022 1:20 PM EDT documented as of this encounter Miscellaneous Notes * Telephone Encounter - Kerry De Oliveira - 12/21/2022 10:16 AM EDT Patient called in stating that on last visit she thought a script for toothpaste was going to e sent into the pharmacy. She contacted the pharmacy and states nothing sent. She is checking in on status of script documented in this encounter Plan of Treatment Upcoming Encounters Date Type Department Care Team (Late st Contact Info) Description 10/21/2024 11:15 AM EDT Procedure Visit [facility] [address] [place], [place] [phone] Reyna Lutz DO [address] [place] [address] documented as of this encounter Visit Diagnoses Not on filedocumented in this encounter Care Teams News Wire Photo Operator Relationship Specialty Start Date End Date Reyna Lutz DO [address] [place], [place] [phone] PCP - General Family Medicine 11/26/19 documented as of this encounter
--- OUTSIDE RECORDS SUMMARY | 2024-10-14 16:39 | XMS_ITS | Encounter Summary ---
Author Organization [employer] Address [address] [facility] 7t [place] [address] Care Team Providers Care Game Bird Farmer Name Role Phone NeldaReyna Primary Care Provider + [phone] Reason for Visit * Reason Onset Date Comments Appointment 09/26/2022 Kelsey Lozano 1975 Patient was seen on 09/23 and called in and stated that she's in a lot of pain and has been taking the medication that was given to her but its not helping with the pain please advise. Encounter Details Date Type Department Care Team (Late st Contact Info) Description 09/26/2022 Telephone [facility] [address] [place], [place] [phone] Michael Jackson DDS [address] [place], [place] [phone] Appointment (Kelsey Lozano 1975 Patient was seen on 09/23 and called in and stated that she's in a lot of pain and has been taking the medication that was given to her but its not helping with the pain please advise.) Social History Tobacco Use Types Packs/Day Years [...] suspected to have Coronavirus/COVID-19? No / Unsure 09/23/2022 1:06 PM EDT documented as of this encounter Miscellaneous Notes * Telephone Encounter - Kimmie Ramos - 09/26/2022 3:[address] Jackson Patient already has appt on 10/04 with Bu Student should she just wait into this appt because you dont have space on your schedule please advise * Telephone Encounter - Kimmie Ramos - 09/26/2022 12:05 PM EDT Kelsey ARAGON 1975 Patient was seen on 09/23 and called in and stated that she's in a lot of pain and has been taking the medication that was given to her but its not helping with the pain please advise. documented in this encounter Plan of Treatment Upcoming Encounters Date Type Department Care Team (Late st Contact Info) Description 10/21/2024 11:15 AM EDT Procedure Visit [facility] [address] [place] [address] Reyna Lutz DO [address] [place] [address] documented as of this encounter Visit Diagnoses Not on filedocumented in this encounter Care Teams Game Bird Farmer Relationship Specialty Start Date End Date Reyna Lutz DO [address] [place] [address] PCP - General Family Medicine 11/26/19 documented as of this encounter
--- OUTSIDE RECORDS SUMMARY | 2024-10-14 16:39 | XMS_ITS | Encounter Summary ---
Author Organization [employer] Address [address] [facility] 7t [place] [address] Care Team Providers Care Canal Equipment Maintenance Supervisor Name Role Phone Reyna Lutz DO Primary Care Provider + [phone] Reason for Visit * Reason Onset Date Comments Referral 08/27/2024 Encounter Details Date Type Department Care Team ([facility] st Contact Info) Description 08/27/2024 Telephone [facility] [address] [place] [address] Reyna Lutz DO [address] [place], [place] [phone] Referral Social History Tobacco Use Types Packs/Day Years Used Date Smoking Tobacco: Never Passive Smoke Exposure: Never Smokeless Tobacco: Never Alcohol Use Standard Drinks/Week Comments Never 0 (1 standard drink = 0.6 oz pur e alcohol) Depression Answer Date Recorded Patient Health Questionnaire-9 Score 4 01/23/2024 Patient Health Questionnaire-9 Score 4 01/23/2024 Last PHQ-9: Questionnaire Data Not on file 0 01/23/2024 Housing Stability Answer Date Recorded What is your housing situation today? I have aaron caraballo 04/28/[address] you li ve. Do you have problems with any of the following? None of the above 04/28/2023 Food Insecurity Answer Date Recorded Within the past 12 months, y ou worried that your food would run out before you got money to buy more: Never True 04/28/2023 Within the past 12 months,th e food you bought just didn't last and you didn't have enough money to get more: Never True Transportation Answer Date Recorded In the past 12 months, has l ack of transportation kept you from medical appts, meetings, work or from getting things needed for daily living? No 04/28/2023 Utilities Answer Date Recorded In the past 12 months, has t he electric, gas, oil or water company threatened to shut off services in your home? No 04/28/2023 Depression Answer Date Recorded Patient Health Questionnaire-2 Score 1 01/23/2024 Comments Unknown Sex and Gender Information Value Date Recorded Sex Assigned at Female 05/09/2022 10:16 AM EDT Legal Sex Female 10:16 AM EDT Gender Identity Female 05/09/2022 10:16 AM EDT Sexual Orientation Straight 05/09/2022 10 :16 AM EDT documented as of this encounter Miscellaneous Notes * Telephone Encounter - Kd Dos Santos - 08/27/2024 11:57 AM EST Tc from pt requesting to change location of Neurology referral due to pt not being willing to go that far. Contact pt at [phone] documented in this encounter Plan of Treatment Upcoming Encounters Date Type Department Care Team (Late st Contact Info) Description 10/21/2024 11:15 AM EDT Procedure Visit [facility] [address] [place] [address] Reyna Lutz DO [address] [place] [address] documented as of this encounter Visit Diagnoses Not on filedocumented in this encounter Additional Health Concerns Assessment Noted Time PHQ-9 Depression Total Score: 4 01/23/20 24 10:23 AM EDT documented as of this encounter Care Teams Canal Equipment Maintenance Supervisor Relationship Specialty Start Date End Date Reyna Lutz DO [address] [place] [address] PCP - General Family Medicine 11/26/19 documented as of this encounter
--- OUTSIDE RECORDS SUMMARY | 2024-10-14 16:39 | XMS_ITS | Encounter Summary ---
Author Organization [employer] Address [address] [facility] 7t [place] [address] Care Team Providers Care Healthcare Administrative Assistant Name Role Phone Reyna Lutz DO Primary Care Provider + [phone] Encounter Details Date Type Department Care Team (Late st Contact Info) Description 09/15/2022 Orders Only [facility] [address] [place] [phone] Malou Feliz LPN Social History Tobacco Use Types Packs/Day [...] was confirmed or suspected to have Coronavirus/COVID-19? Unable to assess 09/05/2022 12:01 PM EST documented as of this encounter Plan of Treatment Upcoming Encounters Date Type Department Care Team (Late st Contact Info) Description 10/21/2024 11:15 AM EDT Procedure Visit [facility] [address] [place] [phone] Reyna Lutz DO [address] [place], [place] [phone] documented as of this encounter Visit Diagnoses Not on filedocumented in this encounter Care Teams Healthcare Administrative Assistant Relationship Specialty Start Date End Date Reyna Lutz DO [address] [place] [address] PCP - General Family Medicine 11/26/19 documented as of this encounter
--- OUTSIDE RECORDS SUMMARY | 2024-10-14 16:39 | XMS_ITS | Encounter Summary ---
Author Organization [email or web address] Address [address] [facility] 7t [place] [address] Care Team Providers Care Relations Mgr Name Role Phone Reyna Lutz DO Primary Care Provider + [phone] Encounter Details Date Type Department Care Team (Late st Contact Info) Description 07/20/2022 Orders Only [facility] MED[facility] [address] [place] [phone] Malou Feliz LPN Social History Tobacco Use Types Packs/Day Years Used Date Smoking Tobacco: Never Assessed Comments Unknown Sex and Gender Information Value [...] Description 10/21/2024 11:15 AM EDT Procedure Visit [facility] MED[facility] [address] [place] [address] Reyna Lutz DO [address] [place] [address] documented as of this encounter Visit Diagnoses Not on filedocumented in this encounter Care Teams Relations Mgr Relationship Specialty Start Date End Date Reyna Lutz DO [address] [place] [address] PCP - General Family Medicine 11/26/19 documented as of this encounter
--- OUTSIDE RECORDS SUMMARY | 2024-10-14 16:39 | XMS_ITS | Encounter Summary ---
Author Organization [employer] Address [address] [facility] 7t [place] [address] Care Team Providers Care Manager Analytical Name Role Phone Reyna Lutz DO Primary Care Provider + [phone] Encounter Details Date Type Department Care Team (Late st Contact Info) Description 06/27/2022 Orders Only [facility] [address] [place] [address] Malou Feliz LPN Social History Tobacco Use [...] 10/21/2024 11:15 AM EDT Procedure Visit [facility] [address] [place] [address] Reyna Lutz DO [address] [place] [address] documented as of this encounter Visit Diagnoses Not on filedocumented in this encounter Care Teams Manager Analytical Relationship Specialty Start Date End Date Reyna Lutz DO [address] [place] [address] PCP - General Family Medicine 11/26/19 documented as of this encounter
--- OUTSIDE RECORDS SUMMARY | 2024-10-14 16:39 | XMS_ITS | Encounter Summary ---
Author Organization [employer] Address [address] [facility] 7t [place] [address] Care Team Providers Care Zig Zag Stitcher Name Role Phone Reyna Lutz DO Primary Care Provider + [phone] Reason for Visit * Reason Onset Date Comments Med Refill 10/05/2022 Encounter Details Date Type Department Care Team (Late st Contact Info) Description 10/05/2022 Refill [facility] [address] [place] [address] Reyna Lutz DO [address] [place], [place] [phone] Acute bilateral low back pain without sciatica Social History Tobacco Use Types Packs/Day Years [...] suspected to have Coronavirus/COVID-19? No / Unsure 10/04/2022 7:06 PM EDT documented as of this encounter Miscellaneous Notes * Telephone Encounter - Sierra Lawrence - 10/05/2022 9:06 AM EDT Tc from pt requesting for medication script for traMADol (Ultram) 50 MG tablet To be sent to [facility] [address], [place] [address]. [employer] sees medication was sentto [facility] at [address], [place], [address] but pharmacy advise pt that they are currently out of this medication. Please contact pt at [phone] documented in this encounter Plan of Treatment Upcoming Encounters Date Type Department Care Team (Late st Contact Info) Description 10/21/2024 11:15 AM EDT Procedure Visit [facility] [address] [place] [address] Reyna Lutz DO [address] [place] [address] documented as of this encounter Visit Diagnoses Diagnosis Acute bilateral low back pain without sciatica documented in this encounter Care Teams Zig Zag Stitcher Relationship Specialty Start Date End Date Reyna Lutz DO [address] [place] [address] PCP - General Family Medicine 11/26/19 documented as of this encounter
--- OUTSIDE RECORDS SUMMARY | 2024-10-14 16:39 | XMS_ITS | Encounter Summary ---
Author Organization [employer] Address [address] [facility] 7t [place] [address] Care Team Providers Care Industrial Truck Operator Name Role Phone Reyna Lutz DO Primary Care Provider + [phone] Reason for Visit * Reason Comments Med Refill Encounter Details Date Type Department Care Team (Late st Contact Info) Description 01/16/2023 Refill [facility] [address] [place], [place] [phone] Reyna Lutz DO [address] [place], [place] [phone] Pain Social History Tobacco Use Types Packs/Day Years Used Date Smoking Tobacco: Never Passive Smoke Exposure: Never Smokeless Tobacco: Never Depression Answer Date Recorded Patient Health Questionnaire-9 Score 5 01/09/2023 Depression Answer Date Recorded Patient Health Questionnaire-2 Score 3 01/09/2023 Comments Unknown Sex and Gender Information Value [...] suspected to have Coronavirus/COVID-19? No / Unsure 01/09/2023 10:19 AM EDT documented as of this encounter Plan of Treatment Upcoming Encounters Date Type Department Care Team (Late st Contact Info) Description 10/21/2024 11:15 AM EDT Procedure Visit [facility] [address] [place] [address] Reyna Lutz DO [address] [place] [address] documented as of this encounter Visit Diagnoses Diagnosis Pain Generalized pain documented in this encounter Additional Health Concerns Assessment Noted Time PHQ-9 Depression Total Score: 5 01/10/20 23 10:49 AM EDT documented as of this encounter Care Teams Industrial Truck Operator Relationship Specialty Start Date End Date Reyna Lutz DO [address] [place] [address] PCP - General Family Medicine 11/26/19 documented as of this encounter
--- OUTSIDE RECORDS SUMMARY | 2024-10-14 16:39 | XMS_ITS | Encounter Summary ---
Author Organization [employer] Address [address] [facility] 7t [place] [address] Care Team Providers Care Rn Clinical Trials Name Role Phone Reyna Lutz DO Primary Care Provider + [phone] Encounter Details Date Type Department Care Team (Late Contact Info) Description 09/09/2022 Orders Only [facility] PEDS [address] [place], [place] [phone] Reyna Maradiaga LPN Social History Tobacco Use [...] Description 10/21/2024 11:15 AM EDT Procedure Visit [facility] MED[facility] [address] [place], [place] [phone] Reyna Lutz DO [address] [place], [place] [phone] documented as of this encounter Visit Diagnoses Not on filedocumented in this encounter Care Teams Rn Clinical Trials Relationship Specialty Start Date End Date Reyan Lutz DO [address] [place] [address] PCP - General Family Medicine 11/26/19 documented as of this encounter
--- OUTSIDE RECORDS SUMMARY | 2024-10-14 16:39 | XMS_ITS | Encounter Summary ---
Author Organization [employer] Address [address] [facility] 7t [place] [address] Care Team Providers Care Manager Front Name Role Phone Reyna Lutz DO Primary Care Provider [phone] Encounter Details Date Type Department Care Team (Late st Contact Info) Description 09/09/2022 Abstract [facility] [address] [place] [address] Rachna Mendez DDS [address] [place] [address] Social History Tobacco Use Types Packs/Day Years [...] Description 10/21/2024 11:15 AM EDT Procedure Visit [facility] [address] [place] [address] Reyna Lutz DO [address] [place], [place] [phone] documented as of this encounter Visit Diagnoses Not on filedocumented in this encounter Care Teams Manager Front Relationship Specialty Start Date End Date Reyna Lutz DO [address] [place] [address] PCP - General Family Medicine 11/26/19 documented as of this encounter
--- OUTSIDE RECORDS SUMMARY | 2024-10-14 16:39 | XMS_ITS | Encounter Summary ---
Author Organization [employer] Address [address] [facility] 7t [place] [address] Care Team Providers Care Senior Medical Technologist Name Role Phone Reyna Lutz DO Primary Care Provider + [phone] Encounter Details Date Type Department Care Team (Late st Contact Info) Description 08/16/2022 Orders Only [facility]EDS [address] [place], [place] [phone] Reyna Maradiaga LPN Social History Tobacco Use [...] 11:15 AM EDT Procedure Visit [facility] [address] [place] [address] Reyna Lutz DO [address] [place] [address] documented as of this encounter Visit Diagnoses Not on filedocumented in this encounter Care Teams Senior Medical Technologist Relationship Specialty Start Date End Date Reyna Lutz DO [address] [place] [address] PCP - General Family Medicine 11/26/19 documented as of this encounter
--- OUTSIDE RECORDS SUMMARY | 2024-10-14 16:39 | XMS_ITS | Encounter Summary ---
Author Organization [employer] Address [address] [facility] 7t [place] [address] Care Team Providers Care Beating Machine Operator Name Role Phone Reyna Lutz DO Primary Care Provider + [phone] Encounter Details Date Type Department Care Team (Late st Contact Info) Description 07/22/2022 Orders Only [facility] PEDS [address] [place], [place] [phone] Reyna Maradiaga LPN Social History Tobacco Use [...] Description 10/21/2024 11:15 AM EDT Procedure Visit [facility] MED[facility] [address] [place] [address] Reyna Lutz DO [address] [place] [address] documented as of this encounter Visit Diagnoses Not on filedocumented in this encounter Care Teams Beating Machine Operator Relationship Specialty Start Date End Date Reyna Lutz DO [address] [place] [address] PCP - General Family Medicine 11/26/19 documented as of this encounter
--- OUTSIDE RECORDS SUMMARY | 2024-10-14 16:39 | XMS_ITS | Clinical Summary ---
Author Organization [employer] Address [address] [place] [address] Care Team Providers Care Client Care Representative Name Role Phone CatalinaReyna raines Primary Care Provider + [phone] Allergies No known active allergies Medications TRUEplus Lancets 33G misc TEST BLOOD SUGAR TWICE DAILY 022 Active senna (Senokot) 8.6 MG tabletIndications:C hronic constipation TAKE 2 TABLETS BY MOUTH ONCE DAILY NEEDED FOR CONSTIPATION 180 tablet 3 023 Active Sodium Fluoride (PreviDent 5000 Plus) 1.1 % cream Apply 1 mg to teeth 3 times daily. 1 g 3 023 Active Ventolin HFA 108 (90 Base) MCG/ACT inhaler TAKE 2 PUFFS BY MOUTH EVERY 4 TO 6 HOURS NEEDED 022 Active latanoprost (Xalatan) 0.005 % ophthalmic solution PLACE 1 DROP IN EACH EYE AT BEDTIME 022 Active Levonorgestrel (Liletta, 52 MG,) 20.1 MCG/DAY intrauterine device November 2016 placement 017 Active acetaminophen (Tylenol 8 Hour) 650 MG ER tablet TAKE 1 TABLET BY MOUTH EVERY 8 HOURS NEEDED FOR FOR MILD PAIN. DO NOT BREAK, CRUSH, DISSOLVE OR CHEW 40 tablet 1 024 Active Diclofenac Sodium 1 % gel Apply 2 g topically if needed in the morning, at noon, in the evening, and at bedtime (pain). 150 g 3 024 Active amLODIPine (Norvasc) 10 MG tabletIndications:H ypertension, unspecified type TAKE 1 TABLET BY MOUTH EVERY MORNING 90 tablet 1 024 Active oxybutynin XL (Ditropan-XL) 5 MG 24 hr tablet TAKE 1 TABLET BY MOUTH EVERY MORNING 90 tablet 1 024 Active metFORMIN (Glucophage) 500 MG tabletIndications:T ype 2 diabetes mellitus without complications (CMS/HCC) TAKE 1 TABLET BY MOUTH TWICE DAILY IN THE MORNING AND IN THE EVENING 180 tablet 1 024 Active lisinopril 10 MG tabletIndications:E ssential hypertension, benign TAKE 1 TABLET BY MOUTH AT BEDTIME 90 tablet 1 024 Active atorvastatin (Lipitor) 20 MG tabletIndications:O ther hyperlipidemia TAKE 1 TABLET BY MOUTH AT BEDTIME 90 tablet 1 024 Active omeprazole (PriLOSEC) [address] capsuleIndications: Chronic gastroesophageal reflux disease TAKE 1 CAPSULE BY MOUTH TWICE DAILY IN THE MORNING AND IN THE EVENING BEFORE MEALS 180 capsule 1 025 Active TRUEplus Lancets 33G miscIndications:Typ e 2 diabetes mellitus without complications ([facility]/HCC) TEST BLOOD SUGAR TWICE DAILY 100 each 1 025 Active FREESTYLE LITE test stripIndications:Ty pe 2 diabetes mellitus without complications ([facility]) TEST BLOOD SUGAR TWICE DAILY 100 strip 1 025 Active fluticasone (Flonase) 50 MCG/ACT nasal sprayIndications:Se asonal allergic rhinitis due to other allergic trigger INSTILL 1 SPRAY IN EACH NOSTRIL ONCE DAILY IN THE MORNING 48 g 025 Active albuterol 108 (90 Base) MCG/ACT inhalerIndications: Cough, unspecified type,Influenza A Inhale 2 puffs every 4 (four) hours if needed for wheezing. 18 g 025 2025 Active baclofen (Lioresal) 10 MG tablet TAKE 1 TABLET BY MOUTH THREE TIMES DAILY IN THE MORNING, AT NOON, AND AT BEDTIME 60 tablet 1 025 Active ergocalciferol (Vitamin D2) 1.25 MG (84230 UT) capsuleIndications: Vitamin D deficiency TAKE 1 CAPSULE BY MOUTH ONCE WEEKLY ON MONDAY MORNING 12 capsule 3 025 Active lidocaine (Lidoderm) 5 % patch APPLY 1 PATCH TOPICALLY TO SKIN, LEAVE ON FOR 12 HOURS AND OFF FOR 12 HOURS DIRECTED NEEDED FOR MILD PAIN 30 patch 3 025 Active ergocalciferol (Vitamin D2) 1.25 MG (10042 UT) capsuleIndications: Vitamin D deficiency TAKE 1 CAPSULE BY MOUTH ONCE WEEKLY ON MONDAY MORNING 12 capsule 3 024 2024 Discontinued lidocaine (Lidoderm) 5 % patch APPLY 1 PATCH TOPICALLY TO SKIN, LEAVE ON FOR 12 HOURS AND OFF FOR 12 HOURS DIRECTED NEEDED FOR MILD PAIN 30 patch 3 024 2024 Discontinued Active Problems Problem Noted Date Diagnosed Date Fall 01/25/2024 Assessment & Plan (01/25/2024 11:45 AM EDT): At home, ro hip fracture Order Xrays Take tylenol 500 mg q8h prn pain alternated with Ibuprofen 400 mg q8h prn pain Apply heat to affected area Ambulation with walker, we discussed re fall prevention. Left hip pain 01/25/2024 Assessment & Plan (01/25/2024 11:45 AM EDT): Sec to fall, see fall Will ro fracture, order Xray. Acute bilateral low back pain without sciatica 0 01/25/2024 Assessment & Plan (01/25/2024 11:45 AM EDT): Exacerbation of chronic LBP sp fall, see fall. 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 Will treat as pyelo due to CVAT/flank pain Rx tramadol for pain, ro kidney stone. Order renal US. Increased water intake FU w PCP or earlier prn no improvement of sxs after 3d Dental caries 09/23/2022 Endometrial hyperplasia 09/05/2022 Adrenal adenoma, left 09/05/2022 Anxiety 09/05/2022 Hirsutism 09/05/2022 Type 2 diabetes mellitus 09/05/2022 Fatty liver 09/05/2022 IBS (irritable bowel syndrome) 12/21/2017 Nephrolithiasis 10/19/2017 Essential hypertension 11/16/2010 Allergic rhinitis 10/22/2007 Major depression, recurrent, chronic 10/17/2005 Myotonic dystrophy 10/17/2005 Overview (01/09/2023): Followed by Dr. Guerrero - [facility]. Yearly EKG, glucose, TSH Resolved Problems Problem Noted Date Diagnosed Date Resolved Date Frontal balding 01/09/2023 01/09/2023 Acute pyelonephritis 10/04/2022 023 Asthma 09/05/2022 01/09/2023 Elevated liver enzymes 10/19/201701/09 Acid reflux 04/04/2017 01/09/2023 Wheezing 10/22/2007 01/09/2023 Encounters Date Type Department Care Team Description 09/22/[address] [facility] [address] [place] [address] Reyna Lutz DO 09/20/2024 Population Health Risk Score [facility] () Department [address] [place] [address] [phone] Provider, Population Health Generic 09/17/[address] [facility] [address] [place] [place] [address] Reyna Lutz DO Vitamin D deficiency 09/12/[address] [facility] MED[facility]INE [address] [place] [address] Reyna Lutz DO 08/27/2024 Travel 08/27/2024 Orders Only [facility] [address] [facility] [place] [address] Sowmya Marinelli MD Myotonic dystrophy (CMS/[facility]) (Primary Dx) 08/27/[address] [facility] MED[facility]INE [address] [place] [address] Reyan Lutz DO Appointment Request 08/27/[address] [facility] [address] [place] [address] Reyna Lutz DO Referral 08/12/2024 6:00 PM EST Office Visit [facility] [address] [place] [address] Tariq Oneill MD Cough, unspecified type (Primary Dx); Influenza A 08/12/2024 Travel 08/12/[address] [facility] MEDICINE [address] [place] [phone] Marylou Lemons, RN NTTS 08/01/[address] [facility] [address] [place] [phone] Ngoc Barnes ANP Type 2 diabetes mellitus without complications ([facility]) 08/01/[address] [address] Reyna Lutz DO Chronic gastroesophageal reflux disease; Seasonal allergic rhinitis due to other allergic trigger 07/19/[address] [facility] MED[facility]INE [address] [place] [address] [phone] So Galvan [place] Recall Appt. (07/19/24-Spoke with patient schedule Pap Smear appt. 08/23/24 at 10:30am.) 07/19/2024 Travel from Last 3 Months Immunizations Name Administration Dates Next Due Hep B, adult 01/23/2024,01/09/2023,07/01/2019 Influenza injectable quadriv alent preservative free 08/18/2021,05/06/2020,05/20/2018 Influenza, IIV3, injectable 04/13/2015,1 ,04/02/2013,04/05,04/09/2010,04/04/2009,05/05/2008 ,06/30/2006 Influenza, seasonal, injecta ble, preservative free 04/20/2017 Pfizer Covid-19 Vaccine 12+ Bivalent 01/09/2023 Pneumococcal Conjugate PCV 20 01/09/2023 Pneumococcal Polysaccharide PPSV23 2019 Td (adult), unspecified 08/22/2002 Tdap 06/12/2017 Social History Tobacco Use Types Packs/Day Years Used Date Smoking Tobacco: Never Passive Smoke Exposure: Never Smokeless Tobacco: Never Tobacco Cessation:Counseling Given: Not Answered Alcohol Use Standard Drinks/Week Comments Never 0 [...] Orientation Straight 05/09/2022 10 :16 AM EDT Last Filed Vital Signs Vital Sign Reading Time Taken Comments Blood Pressure 142/95 08/12/2024 5:55 PM EST Pulse 113 08/12/2024 5:55 PM EST Temperature 36.3 ??C (97.4 ??F) 08/12/2024 5:55 PM ES T Respiratory Rate 24 08/12/2024 5:55 PM EST Oxygen Saturation 94% 08/12/2024 5:55 PM EST Inhaled Oxygen Concentration - - Weight 78.5 kg (173 lb) 08/12/2024 5:55 PM EST Height 161.3 cm (5' 3.5 ) 01/25/2024 11:07 AM ED T Body Mass Index 30.16 01/25/2024 11:07 AM EDT Plan of Treatment Upcoming Encounters Date Type Department Care Team (Late st Contact Info) Description 10/21/2024 11:15 AM EDT Procedure Visit [facility] MEDICINE [address] [place] [address] Reyna Lutz DO [address], [place] [phone] Health Maintenance Due Date Last Done Comments CT Colonography 1973 Colonoscopy 1973 Colorectal Cancer Screening 1973 Dental X-Ray: Full Mouth 1973 FIT DNA/Cologuard 1973 FIT 1973 FOBT 1973 Sigmoidoscopy 1973 Diabetes: Foot Exam 1983 Eye Exam 1983 Alcohol/Substance Use Screening 1985 Family Planning (PISQ) 1988 Hepatitis A Vaccines (1 of 2 - Risk 2-dose series) 1992 Pap Smear 1994 Zoster Vaccines (1 of 2) 2023 Dental Oral Exam 06/03/2023 11/30/2022 Dental Prophylaxis 07/06/2023 01/03/2023 Dental X-Ray: Bitewings 12/02/2023 11/30/2022, 09/06 COVID-19 Vaccine ( season) 2024 01/09/2023, 08/18/2021, 01/04/2021, Additional history exists Influenza Vaccine (#1) 2024 , 05/06/2020, 05/20/2018, Additional history exists Diabetes: Hemoglobin A1C 04/24/2024 024, 01/23/2024, 01/09/2023, Additional history exists SDOH Screening 10/30/2024 10/31/2023 Depression Screening 01/22/2025 01/23/2024, 01/23/20 24 Lipid Panel 01/22/2025 01/23/2024, 11/30/2020 Diabetes: Urine Protein Screening 01/31/2025 02/01/2024, 02/25/2020 Mammogram 02/07/2025 02/08/2024, 01/08, 12/17/2021, Additional history exists Tobacco Screening 08/12/2025 08/12/2024 Cervical Cancer Screening 10/08/2025 HPV/Cotest 10/08/2025 10/08/2020, 10/08/2020 DTaP/Tdap/Td Vaccines (2 - Td or Tdap) 06/12/2027 06/12/2017, 08/22/2002 RSV Patients and Patients Aged 60 years or older (1 - 1-dose 75+ series) 2048 Pneumococcal Vaccine: 50+ Years Completed 01/09/2023, 2019 HIV Screening Completed 01/23/2024, 03/2022, 02/25/2020 Hepatitis B Vaccines Completed 01/23/2024, 01/09/2023, 07/01/2019 Hepatitis C Screening Completed 01/23/2024 , 05/18/2022, 02/25/2020, Additional history exists HIB Vaccines Aged Out No longer eligi ble based on patient's age to complete this topic HPV Vaccines Aged Out No longer eligi ble based on patient's age to complete this topic IPV Vaccines Aged Out No longer eligi ble based on patient's age to complete this topic Meningococcal Vaccine Aged Out No salomón adelso eligible based on patient's age to complete this topic RSV under 20 months Aged Out No longe r eligible based on patient's age to complete this topic Rotavirus Vaccines Aged Out No longer eligible based on patient's age to complete this topic Procedures Procedure Name Priority Date/Time Associated Diagnosis Comments POCT RAPID COVID ANTIGEN Routine 08/12/2024 6:07 PM EST Cough, unspecified type POCT INFLUENZA B (ID NOW RAPID MOLECULAR) Routine 08/12/2024 6:06 PM EST Cough, unspecified type POCT INFLUENZA A (ID NOW RAPID MOLECULAR) Routine 08/12/2024 6:06 PM EST Cough, unspecified type BI MAMMOGRAM SCREENING TOMOSYNTHESIS BILATERAL Routine 02/08/2024 2:30 PM EDT Encounter for screening mammogram for malignant neoplasm of breast ALBUMIN, RANDOM URINE W/CREATININE Routine 02/01/2024 8:00 AM EDT Type 2 diabetes mellitus without complication, without long-term current use of insulin (CMS/HCC) Essential hypertension Other hyperlipidemia Fatty liver Major depression, recurrent, chronic (CMS/HCC) Myotonic dystrophy, type 1 (CMS/HCC) Chronic gastritis without bleeding, unspecified gastritis type Endometrial hyperplasia Urinary incontinence, unspecified type Chronic bilateral low back pain without sciatica Healthcare maintenance HEPATITIS C AB W/REFL TO HCV RNA, QN, PCR Routine 01/23/2024 1:04 PM EDT Type 2 diabetes mellitus without complication, without long-term current use of insulin (CMS/HCC) Essential hypertension Other hyperlipidemia Fatty liver Major depression, recurrent, chronic (CMS/HCC) Myotonic dystrophy, type 1 (CMS/HCC) Chronic gastritis without bleeding, unspecified gastritis type Endometrial hyperplasia Urinary incontinence, unspecified type Chronic bilateral low back pain without sciatica Healthcare maintenance HIV 1/2 ANTIGEN/ANTIBODY, FOURTH GENERATION W/RFL Routine 01/23/2024 1:04 PM EDT Type 2 diabetes mellitus without complication, without long-term current use of insulin (CMS/HCC) Essential hypertension Other hyperlipidemia Fatty liver Major depression, recurrent, chronic (CMS/HCC) Myotonic dystrophy, type 1 (CMS/HCC) Chronic gastritis without bleeding, unspecified gastritis type Endometrial hyperplasia Urinary incontinence, unspecified type Chronic bilateral low back pain without sciatica Healthcare maintenance LIPID PANEL, STANDARD Routine 01/23/2024 1:04 PM EDT Type 2 diabetes mellitus without complication, without long-term current use of insulin (CMS/HCC) Essential hypertension Other hyperlipidemia Fatty liver Major depression, recurrent, chronic (CMS/HCC) Myotonic dystrophy, type 1 (CMS/HCC) Chronic gastritis without bleeding, unspecified gastritis type Endometrial hyperplasia Urinary incontinence, unspecified type Chronic bilateral low back pain without sciatica Healthcare maintenance POCT GLYCATED HEMOGLOBIN, TOTAL Routine 01/23/2024 10:45 AM EDT Type 2 diabetes mellitus without complication, without long-term current use of insulin ([facility]) PROPHYLAXIS - ADULT Routine 01/03/2023 1 :00 PM EDT BITEWINGS - 4 RADIOGRAPHIC IMAGES Routine 11/30/2022 1:00 PM EDT PERIODIC ORAL EVALUATION - ESTABLISHED PATIENT Routine 11/30/2022 1:00 PM EDT ZZZ HISTORICAL HPV E6/E7 RFLX IVANIA 16 18/45 Routine 10/08/2020 2:13 PM EDT from Last 3 Months or Most Recently Relevant to Health Maintenance Results * POCT Rapid Covid-19 BinaxNOW (08/12/2024 6:07 PM EST) [facility] Rapid COVID Ag Negative QC Media Lot # [id number] Lot# Expiration Date [id number] Swab 08/12/2024 6:07 PM EST Tariq Oneill MD POINT OF CARE TEST ENTER/ED IT ORDERABLES Final Result * POCT Rapid Influenza B YOUNG ID NOW (08/12/2024 6:06 PM EST) [facility] Influenza B Negative Negative, Indeterminate [facility] QC Media Lot # [id number] [facility] Lot# Expiration Date [facility] Swab 08/12/2024 6:06 PM EST Tariq Oneill MD POINT OF CARE TEST ENTER/ED IT ORDERABLES Final Result [facility] [address] [place] [address] [phone] * (ABNORMAL) POCT Rapid Influenza A YOUNG ID NOW (08/12/2024 6:06 PM EST) [facility] Influenza A Positive( A) Negative, Indeterminate [facility] QC Media Lot # [id number] [facility] Lot# Expiration Date [facility] Swab 08/12/2024 6:06 PM EST us Tariq Oneill MD POINT OF CARE TEST ENTER/ED IT ORDERABLES Final Result [facility] [address] [facility] [place] [address] [phone] * BI Mammogram Screening Tomosynthesis Bilateral (02/08/2024 2:30 PM EDT) Anatomical Region Laterality Modality Breast Bilateral Mammography 02/08/2024 2:30 PM EDT Narrative 03/06/2024 1:14 PM EDT ? [facility] ? [address] ?[place] [id number] ? Mammography Report ? Signed ? Patient: Kelsey Lozano ?MR#: [id number] ?? [id number] ? : 1975 ?Acct:[id number] ? Age/Sex: 48 / F ?ADM Date: 02/08/24 ? Loc: HO.MAMMO ? Attending Dr: Reyna Lutz DO ? Ordering Physician: Nelda,Reyna A DO ?Results: 1N ?? egative ? Date of Service: 02/08/24 ?Follow Up: 1 Year From Orig ?? inal Mammogram ? Procedure(s): MM tomosynthesis screening BI ?? Accession Number(s): [id number] ? cc: Reyna Lutz DO ? EXAMINATION: ?? MM SCREENING DIGITAL BREAST TOMOSYNTHESIS, BILATERAL ? CLINICAL INFORMATION: ? Screening. Asymptomatic. ? COMPARISON: ?? Mammography: This study is compared with prior exams dating back to ? 2017. ? TECHNIQUE: ?? Digital breast tomosynthesis is performed in both the craniocaudal and ?? mediolateral oblique views along with computer-aided detection (CAD). ? Synthesized 2D images are generated from the tomosynthesis. ? FINDINGS: ?? There are scattered areas of fibroglandular density (ACR BI-RADS breast ?? composition Category b). ? There are no significant masses, abnormal calcifications, or other ?? abnormalities. ? MM/MM tomosynthesis screening BI ?? IMPRESSION: ?? No mammographic evidence of malignancy. ? ASSESSMENT: ? BI-RADS BI-RADS 1 - Negative ? RECOMMENDATION: ?? Routine annual mammography screening. ? 1 year F/U ? This examination should not preclude the clinical evaluation of a ?? suspicious palpable abnormality. ? This patient's information was entered into a reminder system with a ?? target due date for their next mammogram. ? Electronically signed by: ??Deonna Garcia MD ??03/06/2024 01:11 PM EDT RP ? Dictated By: ?Deonna Garcia MD ? Signed By: ?<Electronically signed by Deonna Garcia MD in OV> ? 03/06/24 1311 ? DD/ 1430 ? TD/TT: 02/08/24 1448 ? Car Clerk Pullman: ? Procedure Note Volodymyr, Mari - 03/06/2024 [facility] [address] [place] [address] Dr. [place], [place] [id number] Mammography Report Signed Patient: Kelsey Lozano [facility]#: [id number] : 1975Acct:[id number] Age/Sex: 48 / FADM Date: 02/08/24 Loc: HO.MAMMO Attending Dr: Reyna Lutz DO Ordering Physician: Reyna Lutzults: 1N egative Date of Service: 02/08/24Follow Up: 1 Year From Orig ina Mammogram Procedure(s): MM tomosynthesis screening BI Accession Number(s): [id number] cc: Reyna Lutz DO EXAMINATION: MM SCREENING DIGITAL BREAST TOMOSYNTHESIS, BILATERAL CLINICAL INFORMATION: Screening. Asymptomatic. COMPARISON: Mammography: This study is compared with prior exams dating back to 2017. TECHNIQUE: Digital breast tomosynthesis is performed in both the craniocaudal and mediolateral oblique views along with computer-aided detection (CAD). Synthesized 2D images are generated from the tomosynthesis. FINDINGS: There are scattered areas of fibroglandular density (ACR BI-RADS breast composition Category b). There are no significant masses, abnormal calcifications, or other abnormalities. MM/MM tomosynthesis screening BI IMPRESSION: No mammographic evidence of malignancy. ASSESSMENT: BI-RADS BI-RADS 1 - Negative RECOMMENDATION: Routine annual mammography screening. 1 year F/U This examination should not preclude the clinical evaluation of a suspicious palpable abnormality. This patient's information was entered into a reminder system with a target due date for their next mammogram. Electronically signed by: Deonna Garcia MD 03/06/2024 01:11 PM EDT Dictated By: Deonna Garcia MD Signed By: <Electronically signed by Deonna Garcia MD in OV> 03/06/24 1311 DD/ 1430 TD/TT: 02/08/24 1448 Car Clerk Pullman: us Reyna Lutz DO [facility] BI PROCEDURES Edited Res ult - Final * Albumin, Random Urine W/Creatinine (02/01/2024 8:00 AM EDT) Creatinine, Urine 85.81 mg/dL [facility] Microalbumin Urine 10.0 mg/L [facility] Microalbum Creatinine Ratio Ur 11.6 <30 ug/mg cr [facility] Comment:Albumin/Creatinine R atio Reference Ranges: Normal: < 30 ug/mg creatinine Microalbuminuria: 30 - 300 ug/mg creatinineClinical Albuminuria: > 300 ug/mg creatinine Urine (Urine, Random) 02/01/2024 8:00 AM EDT 02/01/2024 12:08 PM EDT Narrative [facility] - 02/01/2024 12:40 PM EDT ORIGINALLY ORDERED UNDER ACCOUNT [id number] us Reyna Lutz DO LAB URINE ORDERABLES Final R esult [facility] [address] [place] [phone] * Hepatitis C Antibody with Reflex to HCV, RNA, Quantitative, Real-Time PCR (01/23/2024 1:04 PM EDT) Hepatitis C Antibody Nonreactive Nonreactive [facility] Comment:Antibodies to HCV no t detected; does not exclude early acuteHCV infection. Blood Venous blood specimen / Unknown 01/23/2024 1:04 PM EDT 01/23/2024 3:56 PM EDT us Reyna Lutz DO LAB BLOOD ORDERABLES Final R esult Performing Organization Address City/[facility]/ZIP Co de Phone Number [facility] [address] [place] [phone] * HIV-1/2 Antigen and Antibodies, Fourth Generation, with Reflexes (01/23/2024 1:04 PM EDT) HIV AB/AG Nonreactive Nonreactive [facility] Comment:HIV-1 p24 Ag and/or HIV-1/HIV-2 Ab not detected.A test result that is nonreactive does not exclude thepossibility of exposure to or infection with HIV-1 and/orHIV-2. Nonreactive results in this assay for individualswith prior exposure to HIV-1 and/or HIV-2 may be due toantigen and antibody levels that are below the limit ofdetection of this assay.The [employer] HIV Ag/Ab Combo assay result andsupplemental assay results should be interpreted inconjunction with the patient's clinical presentation,history and other laboratory results. If the results areinconsistent with clinical evidence, additional testing issuggested to confirm the result. Blood Venous blood specimen / Unknown 01/23/2024 1:04 PM EDT 01/23/2024 3:56 PM EDT us Reyna Lutz DO LAB BLOOD ORDERABLES Final R esult [facility] [address] [place] [phone] * (ABNORMAL) Lipid Panel, Standard (01/23/2024 1:04 PM EDT) Triglycerides 141 <150 mg/dL [facility] Comment:Desirable Triglyceri de: less than 150 mg/dLBorderline High Triglyceride 150-199 mg/dLHigh Triglyceride: 200-499 mg/dLVery High Triglyceride: greater than or equal to 5OO mg/dL Cholesterol 210(H) <200 mg/dL [facility] Comment:Desirable Cholestero l: less than 200 mg/dLBorderline High Cholesterol: 200-239 mg/dLHigh Cholesterol: greater than 239 mg/dL LDL Cholesterol Calculated 133(H) <100 mg/dL [facility] Comment:Desirable LDL: less than 100 mg/dLNear Optimal/Above Optimal LDL: 110- 129 mg/dLBorderline High LDL: 130-159 mg/dLHigh LDL: 160-189 mg/dLVery High LDL: greater than or equal to 190 mg/dL HDL Cholesterol 49 >40 mg/dL [facility] Comment:Desirable HDL: great er than 40 mg/dL Note: This HDL assay may give artificially low results in patients with liver disease. Blood Venous blood specimen / Unknown 01/23/2024 1:04 PM EDT 01/23/2024 3:56 PM EDT Reyna Nelda DO LAB BLOOD ORDERABLES Final R esult [facility] [address] [place] [phone] * (ABNORMAL) POCT HGB A1C (01/23/2024 10:45 AM EDT) Hemoglobin A1C 7.4(A) 4.0 - 6.0 % QC Media Lot # [id number] Lot# Expiration Date [id number] Blood 01/23/2024 10:4 5 AM EDT Reyna Fuenteserikaolu POINT OF CARE TEST ENTER/CL T ORDERABLES Final Result * HPV E6/E7 RFLX IVANIA 16 18/45 (10/08/2020 2:13 PM EDT) HPV 16 RNA [facility] HPV 18/45 RNA [facility] HPV E6 E7 ADD [facility] HPV mRNA E6/E7 rflx Not Detected Not Detected [facility] Comment: Methodology: Projection Welding Machine Operator-Mediated Amplification This assay detects E6/E7 viral messenger RNA (mRNA) from 14 high-risk HPV types (16,18,31,33,35,39,45,51,52,56,58,59,66,68). The analytical performance characteristics of this assay have been determined by [employer]. The modifications have not been cleared or approved by the FDA. This assay has been validated pursuant to the CLIA regulations and is used for clinical purposes. For additional information, please refer to http://education.[employer], Inc[employer][email or web address]/[id number] (This link if provided for information/ educational purposes only.) THIS TEST WAS PERFORMED AT: [facility] [address] [place] [address],[address] [place], [place] ??[phone] AGUEDA VICTOR MD 10/08/2020 2:13 PM EDT Jimenez Mitchell MD HISTORICAL/NON ORDERABLE LABS Fi nal Result [facility] [address] from Last 3 Months or Most Recently Relevant to Health Maintenance Insurance [facility] C3 DENTAL-[facility] MEDICAID STAND ADULT Care Teams Client Care Representative Relationship Specialty Start Date End Date Reyna Lutz DO [address] [place] [address] [phone] PCP - General Family Medicine 11/26/19
--- OUTSIDE RECORDS SUMMARY | 2024-10-14 16:39 | XMS_ITS | Encounter Summary ---
Author Organization [employer] Address 75 [facility] 7t [place] [address] Care Team Providers Care Auger Operator Name Role Phone Reyna Lutz DO Primary Care Provider + [phone] Reason for Visit * Reason Onset Date Comments Appointment 09/26/2022 Kelseyalexy Alegrebo 1975 Patient was seen 09/26 and was wondering if medication was sent to pharmacy please advise Encounter Details Date Type Department Care Team ([facility] Contact Info) Description 09/26/2022 Telephone [facility] ADULT [facility] [address] [place] [address] John Ortega DDS [address] [place] [address] Appointment (Kelesy Alegrebo 1975 Patient was seen 09/26 and was wondering if medication was sent to pharmacy please advise ) Social History Tobacco Use Types Packs/Day Years [...] Miscellaneous Notes * Telephone Encounter - Kimmie Richard - 09/26/2022 3:48 PM EDT Kelsey ARAGON 1975 Patient was seen 09/26 and was wondering if medication was sent to pharmacy please advise documented in this encounter Plan of Treatment Upcoming Encounters Date Type Department Care Team (Late st Contact Info) Description 10/21/2024 11:15 AM EDT Procedure Visit [facility] MED[facility] [address] [place] [address] Reyna Lutz DO [address] [place] [address] documented as of this encounter Visit Diagnoses Not on filedocumented in this encounter Care Teams Auger Operator Relationship Specialty Start Date End Date Reyna Lutz DO [address] [place] [address] PCP - General Family Medicine 11/26/19 documented as of this encounter
--- OUTSIDE RECORDS SUMMARY | 2024-10-14 16:39 | XMS_ITS | Encounter Summary ---
Author Organization [employer] Address 75 [facility] 7t [place] [address] Care Team Providers Care Privacy Compliance Manager Name Role Phone Reyna Lutz DO Primary Care Provider [phone] Encounter Details Date Type Department Care Team (Late st Contact Info) Description 12/21/2022 Orders Only [facility] ADULT DENTAL [address] [place] [address] Rachna Mendez DDS [address] [place] [address] Social History Tobacco Use Types Packs/Day Years [...] PM EDT documented as of this encounter Plan of Treatment Upcoming Encounters Date Type Department Care Team (Late st Contact Info) Description 10/21/2024 11:15 AM EDT Procedure Visit [facility] MEDICINE [address] [place] [address] Reyna Lutz DO [address] [place] [address] documented as of this encounter Visit Diagnoses Not on filedocumented in this encounter Care Teams Privacy Compliance Manager Relationship Specialty Start Date End Date Reyna Lutz DO [address] [place] [id number] PCP - General Family Medicine 11/26/19 documented as of this encounter
--- OUTSIDE RECORDS SUMMARY | 2024-10-14 16:39 | XMS_ITS | Encounter Summary ---
Author Organization [employer] Address 75 [facility] 7t [place] [address] Care Team Providers Care Lead Mobile Developer Name Role Phone Reyna Lutz DO Primary Care Provider + [phone] Reason for Referral * Consultation (Routine) - Authorized Specialty Diagnoses / Procedures Referred By Contjanine t Referred To Contact Neurology Diagnoses Myotonic dystrophy (CMS/HCC) Sowmya Marinelli MD [address] [place] [address] Phone: tel: fax: Dale Mina MD [address] [place] [address] [place] [address] Phone: tel: fax: Referral ID Status Reason Start Date Expiration Date Visits Requested Visits Authorized [id number] Authorized Specialty Services Required 09/04/2024 09/04/2025 6 6 Encounter Details Date Type Department Care Team (Late st Contact Info) Description 08/27/2024 Orders Only [facility] MEDICINE [address] [place], [place] [phone] Sowmya Marinelli MD [address] [place], [place] [phone] Myotonic dystrophy (CMS/HCC) (Primary Dx) Social History Tobacco Use Types Packs/Day Years [...] Description 10/21/2024 11:15 AM EDT Procedure Visit [facility] MEDICINE [address] [place] [address] Reyna Lutz DO [address] [place] [address] Scheduled Referrals Name Type Priority Associated Diagnoses Orde r Schedule Referral to Neurology Outpatient Referral Routine Myotonic dystrophy (CMS/HCC) Expected: 08/27/2024 (Approximate), Expires: 08/27/2025 documented as of this encounter Visit Diagnoses Diagnosis 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
== END 2024-10-14 14:26 | disposition home or self-care (01) ==
LOC: HO.HGI 13:57
PROVIDERS: PCP Family Medicine; Visit Provider Internal Medicine
DX: R77.2 Abnormality of alphafetoprotein (principal); K76.0 Fatty (change of) liver, not elsewhere classified; K82.4 Cholesterolosis of gallbladder; Z12.11 Encounter for screening for malignant neoplasm of colon
CPT/HCPCS: 99204

== ENCOUNTER → 2024-10-14 13:56 | Outpatient (BNVA) | payer MEDICAID, SELFPAY | PROVIDERS: PCP Family Medicine; Visit Provider Internal Medicine | DX: K76.0 Fatty (change of) liver, not elsewhere classified (principal); K82.4 Cholesterolosis of gallbladder; E11.9 Type 2 diabetes mellitus without complications; I10 Essential (primary) hypertension; R77.2 Abnormality of alphafetoprotein | CPT/HCPCS: 99202 ==

== ENCOUNTER 2024-10-21 14:01 | Outpatient (REF) | payer MEDICAID, SELFPAY ==
[2024-10-21 15:04] LABS: Estimated Average Glucose 160 mg/dL; Hemoglobin A1C 216.5609 umol/L; Hemoglobin A1c % 7.2 % (<6.0); Total Hemoglobin (HGBA1C) 3935.2667 umol/L
[2024-10-21 16:04] LABS: Alanine Aminotransferase 41 U/L (0-31); Albumin Level 4.3 g/dL (3.5-5.0); Alkaline Phosphatase 70 U/L (39-117); Anion Gap 12 (12-20); Aspartate Amino Transferase 35 U/L (5-31); Bilirubin Total 1.7 mg/dL (0.0-1.0); Blood Urea Nitrogen 6 mg/dL (9-16); Calcium 9.8 mg/dL (8.4-10.2); Carbon Dioxide 32 mmol/L (22-29); Chloride 105 mmol/L (96-108); Estimated Glomerular Filt Rate > 60; Glucose Random 172 mg/dL (60-115); Potassium 4.5 mmol/L (3.3-5.1); Sodium 144 mmol/L (135-145)
--- OUTSIDE RECORDS SUMMARY | 2024-10-21 16:23 | XMS_ITS | Encounter Summary ---
Author Organization [employer] Address 75 [facility] 7t [place] [address] Care Team Providers Care Cash Reconciliation Specialist Name Role Phone Reyna Lutz DO Primary Care Provider + [phone] Encounter Details Date Type Department Care Team (Latest Contact Info) Description 10/21/2024 11:15 AM EDT Procedure Visit [facility] MEDICINE [address] [place], [place] [phone] Reyna Lutz DO [address] [place], [place] [phone] Encounter for gynecological examination without abnormal finding (Primary Dx); Type 2 diabetes mellitus without complication, without long-term current use of insulin ([facility]) Social History Tobacco Use Types Packs/Day Years Used Date Smoking Tobacco: Never Passive Smoke Exposure: Never Smokeless Tobacco: Never Alcohol Use Standard Drinks/Week Comments Never 0 (1 standard drink = 0.6 oz pur e alcohol) Depression Answer Date Recorded Patient Health Questionnaire-9 Score 5 10/21/2024 Patient Health Questionnaire-9 Score 5 10/21/2024 Last PHQ-9: Questionnaire Data Not on file 0 10/21/2024 Housing Stability Answer Date Recorded What is [...] from getting things needed for daily living? Yes, it has kept me from medical appointments or getting medications.;Yes, it has kept me from non-medical meetings, work, or getting things that I need 10/21/2024 Utilities Answer Date Recorded In the past 12 months, has t he [employer], gas, oil or water company threatened to shut off services in your home? No 04/28/2023 Depression Answer Date Recorded Patient Health Questionnaire-2 Score 2 10/21/2024 Internet Access Answer Date Recorded Internet Access Q1 Yes 10/21/2024 Internet Access Q2 Not on file 10/21/2024 Comments No Sex and Gender Information Value Date Recorded Sex Assigned at Female 05/09/2022 10:16 AM EDT Legal Sex Female 10:16 AM EDT Gender Identity Female 05/09/2022 10:16 AM EDT Sexual Orientation Straight 05/09/2022 10 :16 AM EDT documented as of this encounter Last Filed Vital Signs Vital Sign Reading Time Taken Comments Blood Pressure 126/60 10/21/2024 10:57 AM EDT Pulse 90 10/21/2024 10:57 AM EDT Temperature 36.1 ??C (97 ??F) 10/21/2024 10:57 AM EDT Respiratory Rate 20 10/21/2024 10:57 AM EDT Oxygen Saturation 97% 10/21/2024 10:57 AM EDT Inhaled Oxygen Concentration - - Weight 80.3 kg (177 lb) 10/21/2024 10:57 AM EDT Height 160 cm (5' 3 ) 10/21/2024 10:57 AM EDT Body Mass Index 31.35 10/21/2024 10:57 AM EDT documented in this encounter Plan of Treatment Scheduled Orders Name Type Priority Associated Diagnoses Orde r Schedule Pap Smear Pathology and Cytology Routine Encounter for gynecological examination without abnormal finding Ordered: 10/21/2024 Chlamydia/N. Gonorrhoeae RNA, TMA, Urogenitial Microbiology Routine Encounter for gynecological examination without abnormal finding Ordered: 10/21/2024 documented as of this encounter Procedures Procedure Name Priority Date/Time Associated Diagnosis Comments POCT GLYCATED HEMOGLOBIN, TOTAL Routine 10/21/2024 10:59 AM EDT Type 2 diabetes mellitus without complication, without long-term current use of insulin ([facility]) POCT GLUCOSE Routine 10/21/2024 10:59 AM EDT Type 2 diabetes mellitus without complication, without long-term current use of insulin ([facility]) documented in this encounter Results * (ABNORMAL) POCT HGB A1C (10/21/2024 10:59 AM EDT) Hemoglobin A1C 7.3(A) 4.0 - 6.0 % QC Media Lot # [id number] Lot# Expiration Date Blood 10/21/2024 10:5 9 AM EDT Reyna Lutz DO POINT OF CARE TEST ENTER/CL T ORDERABLES Final Result * POCT Glucose (10/21/2024 10:59 AM EDT) Glucose Blood, POC 133 60 - 200 mg/dL QC Media Lot # [id number] Lot# Expiration Date Blood Capillary blood specimen / Unknown 10/21/2024 10:59 AM EDT Reyna Lutz DO POINT OF CARE TEST ENTER/CL T ORDERABLES Final Result documented in this encounter Visit Diagnoses Diagnosis Encounter for gynecological examination without abnormal finding- Primary Type 2 diabetes mellitus without complication, without long-term current use of insulin ([facility]) documented in this encounter Additional Health Concerns Assessment Noted Time PHQ-9 Depression Total Score: 5 10/22/19 25 11:40 AM EDT documented as of this encounter Care Teams Cash Reconciliation Specialist Relationship Specialty Start Date End Date Reyna Lutz DO [address] [place] [address] PCP - General Family Medicine 11/26/19 documented as of this encounter
--- OUTSIDE RECORDS SUMMARY | 2024-10-21 16:23 | XMS_ITS | Encounter Summary ---
Author Organization [employer] Address 75 [facility] 7t [place] [address] Care Team Providers Care Extractor Tender Raw Stock Name Role Phone Reyna Lutz DO Primary Care Provider + [phone] Encounter Details Date Type Department Care Team (Late st Contact Info) Description 07/22/2022 Orders Only [facility] & PEDS [address] [place], [place] [phone] Reyna Maradiaga LPN Social History Tobacco Use Types Packs/Day Years Used Date Smoking Tobacco: Never Assessed Comments Unknown Sex and Gender Information Value Date Recorded Sex Assigned at Female 05/09/2022 10:16 AM EDT Legal Sex Female 10:16 AM EDT Gender Identity Female 05/09/2022 10:16 AM EDT Sexual Orientation Straight 05/09/2022 10 :16 AM EDT documented as of this encounter Plan of Treatment Not on file documented as of this encounter Visit Diagnoses Not on filedocumented in this encounter Care Teams Extractor Tender Raw Stock Relationship Specialty Start Date End Date Reyna Lutz DO [address] [place] [address] [phone] PCP - General Family Medicine 11/26/19 documented as of this encounter
--- OUTSIDE RECORDS SUMMARY | 2024-10-21 16:23 | XMS_ITS | Encounter Summary ---
Author Organization [employer] Address 75 [facility] 7t [place] [address] Care Team Providers Care Real Time Operator Name Role Phone Reyna Lutz DO Primary Care Provider + [phone] Encounter Details Date Type Department Care Team (Late st Contact Info) Description 06/27/2022 Orders Only [facility] [address] [place], [place] [phone] Malou Feliz LPN Social History Tobacco Use [...] on filedocumented in this encounter Care Teams Real Time Operator Relationship Specialty Start Date End Date Reyna Lutz DO [address] [place], [place] [phone] PCP - General Family Medicine 11/26/19 documented as of this encounter
--- OUTSIDE RECORDS SUMMARY | 2024-10-21 16:23 | XMS_ITS | Encounter Summary ---
Author Organization [employer] Address 75 [facility] 7t [place] [address] Care Team Providers Care Business Education Teacher Name Role Phone Reyna Lutz DO Primary Care Provider + [phone] Encounter Details Date Type Department Care Team (Late st Contact Info) Description 07/20/2022 Orders Only [facility] MEDICINE [address] [place] [address] Malou Feliz LPN Social History Tobacco Use [...] on filedocumented in this encounter Care Teams Business Education Teacher Relationship Specialty Start Date End Date Reyna Lutz DO [address] [place], [place] [phone] PCP - General Family Medicine 11/26/19 documented as of this encounter
--- OUTSIDE RECORDS SUMMARY | 2024-10-21 16:24 | XMS_ITS | Encounter Summary ---
Author Organization [employer] Address [address] [facility] 7t [place] [address] Care Team Providers Care Heritage Consultant Name Role Phone NeldaReyna Primary Care Provider + [phone] Reason for Visit * Reason Onset Date Comments script for toothpaste 12/21/2022 Encounter Details Date Type Department Care Team (Late st Contact Info) Description 12/21/2022 Telephone [facility] ADULT DENTAL [address] [place] [address] Rachna Mendez, DDS [address] [place] [address] script for toothpaste Social History Tobacco Use [...] documented in this encounter Plan of Treatment Not on file documented as of this encounter Visit Diagnoses Not on filedocumented in this encounter Care Teams Heritage Consultant Relationship Specialty Start Date End Date Reyna Lutz DO [address] [place] [address] PCP - General Family Medicine 11/26/19 documented as of this encounter
--- OUTSIDE RECORDS SUMMARY | 2024-10-21 16:24 | XMS_ITS | Encounter Summary ---
Author Organization [employer] Address 75 [facility] 7t [place] [address] Care Team Providers Care Joint Supervisor Name Role Phone Reyna Lutz DO Primary Care Provider + [phone] Encounter Details Date Type Department Care Team (Late st Contact Info) Description 12/21/2022 Orders Only [facility] ADULT DENTAL [address] [place] [address] Rachna Mendez DDS [address] [place] [address] Social History Tobacco Use Types Packs/Day Years [...] on filedocumented in this encounter Care Teams Joint Supervisor Relationship Specialty Start Date End Date Reyna Lutz DO [address] [place] [address] PCP - General Family Medicine 11/26/19 documented as of this encounter
--- OUTSIDE RECORDS SUMMARY | 2024-10-21 16:24 | XMS_ITS | Clinical Summary ---
Author Organization [employer] Address [address] [facility] 7t [place] [address] Care Team Providers Care Risk Professional Name Role Phone CatalinaReyna raines Primary Care Provider + [phone] Allergies No known active allergies Medications TRUEplus [...] miscIndications:Typ e 2 diabetes mellitus without complications ([facility]) TEST BLOOD SUGAR TWICE DAILY 100 each 1 025 Active FREESTYLE LITE test stripIndications:Ty pe 2 diabetes mellitus without complications ([facility]) TEST BLOOD SUGAR TWICE DAILY 100 strip [...] 025 Active ergocalciferol (Vitamin D2) 1.25 MG (32259 UT) capsuleIndications: Vitamin D deficiency TAKE 1 CAPSULE BY MOUTH ONCE WEEKLY ON MONDAY MORNING 12 capsule 3 025 Active lidocaine (Lidoderm) 5 % patch APPLY 1 PATCH TOPICALLY TO SKIN, LEAVE ON FOR 12 HOURS AND OFF FOR 12 HOURS DIRECTED NEEDED FOR MILD PAIN 30 patch 3 025 Active lidocaine (Lidoderm) 5 % [...] Encounters Date Type Department Care Team Description 10/21/2024 11:15 AM EDT Procedure Visit [facility] [address] [place] [address] Reyna Lutz DO Encounter for gynecological examination without abnormal finding (Primary Dx); Type 2 diabetes mellitus without complication, without long-term current use of insulin ([facility]) 10/21/2024 Orders Only GENERIC EXTERNAL DATA DEPARTMENT Provider, Generic External Data 10/21/2024 Travel 09/22/2024 Refill [facility] [address] [facility] [place] [address] Reyna Lutz DO 09/20/2024 Population Health Risk Score [facility] () Department [address] [place] [phone] Provider, Population Health Generic 09/17/2024 Refill [facility] [address] [facility] [place] [address] Reyna Lutz DO Vitamin D deficiency 09/12/2024 Refill [facility] [address] [place] [address] Reyna Lutz DO 08/27/2024 Travel 08/27/2024 Orders Only [facility] [address] [place] [address] Sowmya Marinelli MD 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) 08/27/2024 Telephone [facility] [address] [place] [address] Reyna Lutz DO Appointment Request 08/27/2024 Telephone [facility] [address] [place] [phone] Reyna Lutz DO Referral 08/12/2024 6:00 PM EST Office Visit [facility] [address] [place] [address] Tariq Oneill MD Cough, unspecified type (Primary Dx); Influenza A 08/12/2024 Travel 08/12/2024 Telephone [facility] [address] [place], [place] [phone] Marylou Lemons, INA NTTS 08/01/2024 Refill [facility] [address] [place] [phone] Ngoc Barnes ANP Type 2 diabetes mellitus without complications ([facility]) 08/01/2024 Refill [facility] [address] [place] [address] [phone] Reyna Lutz DO Chronic gastroesophageal reflux disease; Seasonal allergic rhinitis due to other allergic trigger from Last 3 Months Immunizations Name Administration Dates Next Due Hep B, adult 01/23/2024,01/09/2023,07/01/2019 Influenza injectable quadriv alent preservative free 08/18/2021,05/06/2020,05/20/2018 Influenza, IIV3, injectable 04/13/2015,1 ,04/02/2013,04/05,04/09/2010,04/04/2009,05/05/2008 ,06/30/2006 Influenza, seasonal, injecta ble, preservative free 04/20/2017 Pfizer Covid-19 Vaccine 12+ 10/21/2024 Pfizer Covid-19 Vaccine 12+ Bivalent 01/09/2023 Pneumococcal [...] Mass Index 31.35 10/21/2024 10:57 AM EDT Plan of Treatment Health Maintenance Due Date Last Done Comments CT Colonography 1973 Colonoscopy 1973 Colorectal Cancer Screening 1973 Dental X-Ray: Full Mouth 1973 FIT DNA/Cologuard 1973 FIT 1973 FOBT 1973 Sigmoidoscopy 1973 Diabetes: Foot Exam 1983 Eye Exam 1983 Family Planning (PISQ) 1988 Hepatitis A Vaccines (1 of 2 - Risk 2-dose series) 1992 Pap Smear 1994 Zoster Vaccines (1 of 2) 2023 Dental Oral Exam 06/03/2023 11/30/2022 Dental Prophylaxis 07/06/2023 01/03/2023 Dental X-Ray: Bitewings 12/02/2023 11/30/2022, 09/06 Influenza Vaccine (#1) 2024 , 05/06/2020, 05/20/2018, Additional history exists Diabetes: Hemoglobin A1C 01/20/2025 025, 10/21/2024, 01/23/2024, Additional history exists Lipid Panel 01/22/2025 01/23/2024, 11/30/2020 Diabetes: Urine Protein Screening 01/31/2025 02/01/2024, 02/25/2020 Mammogram 02/07/2025 02/08/2024, 072 01/2023, 12/17/2021, Additional history exists Cervical Cancer Screening 10/08/2025 HPV/Cotest 10/08/2025 10/08/2020, 10/08/2020 Alcohol/Substance Use Screening 10/21/2025 10/21/2024 Depression Screening 10/21/2025 10/21/2024, 04/14/20 25 SDOH Screening 10/21/2025 10/21/2024 Tobacco Screening 10/21/2025 10/21/2024 DTaP/Tdap/Td Vaccines (2 - Td or Tdap) 06/12/2027 06/12/2017, 08/22/2002 RSV Patients and Patients Aged 60 years or older (1 - 1-dose 75+ series) 2048 Pneumococcal Vaccine: 50+ Years Completed 01/09/2023, 2019 HIV Screening Completed 01/23/2024, 03/2022, 02/25/2020 Hepatitis B Vaccines Completed 01/23/2024, 01/09/2023, 07/01/2019 Hepatitis C Screening Completed 01/23/2024 , 05/18/2022, 02/25/2020, Additional history exists COVID-19 Vaccine Completed 10/21/2024, 09/2022, 08/18/2021, Additional history exists HIB Vaccines Aged Out [...] Procedure Name Priority Date/Time Associated Diagnosis Comments COMPREHENSIVE METABOLIC PANEL Routine 10/21/2024 2:11 PM EDT HEMOGLOBIN A1C Routine 10/21/2024 2:11 PM EDT POCT GLYCATED HEMOGLOBIN, TOTAL Routine 10/21/2024 10:59 AM EDT Type 2 diabetes mellitus without complication, without long-term current use of insulin ([facility]) POCT GLUCOSE Routine 10/21/2024 10:59 AM EDT Type 2 diabetes mellitus without complication, without long-term current use of insulin ([facility]) POCT RAPID COVID ANTIGEN Routine 08/12/2024 6:07 [...] low back pain without sciatica Healthcare maintenance PROPHYLAXIS - ADULT Routine 01/03/2023 1 :00 PM EDT BITEWINGS - 4 RADIOGRAPHIC IMAGES Routine 11/30/2022 1:00 PM EDT PERIODIC ORAL EVALUATION - ESTABLISHED PATIENT Routine 11/30/2022 1:00 PM EDT ZZZ HISTORICAL HPV E6/E7 RFLX IVANIA 16 /45 Routine 10/08/2020 2:13 PM EDT from Last 3 Months or Most Recently Relevant to Health Maintenance Results * (ABNORMAL) Hemoglobin A1c (10/21/2024 2:11 PM EDT) Hemoglobin A1c 7.2(H) <6.0 % [facility] Comment:Hemoglobin A1C Refer ence Range Adults: 4.8 - 6.0 % Non diabetic: < 6.0 % Goal: < 7.0 %Additional Action Suggested: > 8.0 %Note: Hemoglobin A1c results are invalid for patients with abnormal amounts of HbF. Blood transfusions may impact the HbA1c concentration in the patient sample. Estimated Average Glucose 160 mg/dL [facility] Comment:eAG = Estimated ave rage glucose which is %A1C expressed asaverage glucose, using the formula of the D3S-KkycilnTyfsfay Glucose study (ADAG), Diabetes Care, Vol.31,#8,Aug. 2007 10/21/2024 2:11 PM EDT 10/21/2024 2:11 PM EDT us Generic External Data Provider LAB BLOOD ORDERAB LES Final Result [facility] [address] [place] [phone] * (ABNORMAL) Comprehensive Metabolic Panel (10/21/2024 2:11 PM EDT) Sodium 144 135 - 145 mmol/L [facility] Potassium 4.5 3.3 - 5.1 mmol/L [facility] Chloride 105 96 - 108 mmol/L [facility] Carbon Dioxide 32(H) 22 - 29 mmol/L [facility] Anion Gap 12 12 - 20 [facility] Urea Nitrogen (BUN) 6(L) 9 - 16 mg/dL [facility] Creatinine, Serum 0.71 0.5 - 1.4 mg/dL [facility] Estimated Glomerular Filt Rate >60 [facility] Comment:Chronic Kidney Disea se: Estimated GFR < 60 mL/min/1.77e6Pfdaxo Kidney Disease: Estimated GFR < 15 mL/min/1.73m2 Glucose 172(H) 60 - 115 mg/dL [facility] Calcium 9.8 8.4 - 10.2 mg/dL [facility] Bilirubin, Total 1.7(H) 0.0 - 1.0 mg/dL [facility] Aspartate Amino Transferase 35(H) 5 - 31 U/L [facility] Alanine Aminotransferase 41(H) 0 - 31 U/L [facility] Total Protein 7.0 6.5 - 8.0 g/dL [facility] Albumin Level 4.3 3.5 - 5.0 g/dL [facility] Alkaline Phosphatase 70 39 - 117 U/L [facility] 10/21/2024 2:11 PM EDT 10/21/2024 2:11 PM EDT us Generic External Data Provider LAB BLOOD ORDERAB LES Final Result [facility] [address] [place] [address] [phone] * (ABNORMAL) POCT HGB A1C (10/21/2024 10:59 AM EDT) Hemoglobin A1C 7.3(A) 4.0 - 6.0 % QC Media Lot # [id number] Lot# Expiration Date Blood 10/21/2024 10:5 9 [...] ENTER/CL T ORDERABLES Final Result * POCT Rapid Covid-19 BinaxNOW (08/12/2024 6:07 PM EST) [facility] Rapid COVID Ag Negative QC Media Lot # [id number] Lot# Expiration Date 82 Swab 08/12/2024 6:07 PM EST Tariq Oneill MD POINT OF CARE TEST ENTER/ED IT ORDERABLES Final Result * POCT Rapid Influenza B YOUNG ID NOW (08/12/2024 6:06 PM EST) Influenza B Negative Negative, Indeterminate [facility] QC Media Lot # [id number] [facility] Lot# Expiration Date [facility] Swab 08/12/2024 6:06 PM EST Tariq Oneill MD POINT OF CARE TEST ENTER/ED IT ORDERABLES Final Result [facility] [address] [place] [phone] * (ABNORMAL) POCT Rapid Influenza A YOUNG ID NOW (08/12/2024 6:06 PM EST) Influenza A Positive( A) Negative, Indeterminate [facility] QC Media Lot # [id number] [facility] Lot# Expiration Date 862 [facility] Swab 08/12/2024 6:06 PM EST us Tariq Oneill MD POINT OF CARE TEST ENTER/ED IT ORDERABLES Final Result [facility] [address] [place] [phone] * BI Mammogram Screening Tomosynthesis Bilateral (02/08/2024 2:30 PM EDT) Anatomical Region Laterality Modality Breast Bilateral Mammography 02/08/2024 2:30 PM EDT Narrative 03/06/2024 1:14 PM EDT ? [facility] ? [address] ?[place] [address] ? Mammography Report ? Signed ? Patient: Kelsey Lozano M ?MR#: [id number] ?? [id number] ? : 1975 ?Acct:[id number] ? Age/Sex: 48 / F ?ADM Date: 02/08/24 ? Loc: HO.MAMMO ? Attending Dr: Reyna Lutz DO ? Ordering Physician: Reyna Lutz DO ?Results: 1N ?? egative ? Date of Service: 02/08/24 ?Follow Up: 1 Year From Orig ?? inal Mammogram ? Procedure(s): MM tomosynthesis screening BI ?? Accession Number(s): [id number] ? cc: Reyna Lutz DO ? EXAMINATION: [...] DD/ 1430 ? TD/TT: 02/08/24 1448 ? Rake Operator: ? Procedure Note Volodymyr, Mari - 03/06/2024 [facility] [address] [place] [address] Mammography Report Signed Patient: Kelsey Lozano [facility]#: [id number] : 1975Acct:[id number] Age/Sex: 48 / FADM Date: 02/08/24 Loc: HO.MAMMO Attending Dr: Reyna Lutz DO Ordering Physician: Reyna Lutzults: 1N egative Date of Service: 02/08/24Follow Up: 1 Year From Orig ina Mammogram Procedure(s): MM tomosynthesis screening BI Accession Number(s): [id number] cc: Reyna Lutz DO EXAMINATION: MM SCREENING [...] 03/06/24 1311 DD/ 1430 TD/TT: 02/08/24 1448 Rake Operator: Reyna Lutz DO IMG BI PROCEDURES Edited Res ult - Final * Albumin, Random Urine W/Creatinine (02/01/2024 8:00 AM EDT) Creatinine, Urine 85.81 mg/dL [facility] Microalbumin Urine 10.0 mg/L [facility] Microalbum Creatinine Ratio Ur 11.6 <30 ug/mg cr [facility] Comment:Albumin/Creatinine R atio Reference Ranges: Normal: < 30 ug/mg creatinine Microalbuminuria: 30 - 300 ug/mg creatinineClinical Albuminuria: > 300 ug/mg creatinine Urine (Urine, Random) 02/01/2024 8:00 AM EDT 02/01/2024 12:08 PM EDT Narrative [facility] - 02/01/2024 12:40 PM EDT ORIGINALLY ORDERED UNDER ACCOUNT [id number] Reyna Lutz DO LAB URINE ORDERABLES Final R esult Performing Organization Address [facility] Co de Phone Number [facility] [address] [place] [phone] * Hepatitis C Antibody with Reflex to HCV, RNA, Quantitative, Real-Time PCR (01/23/2024 1:04 PM EDT) Pathologist [facility] Hepatitis C Antibody Nonreactive Nonreactive [facility] Comment:Antibodies to HCV no t detected; does not exclude early acuteHCV infection. Blood Venous blood specimen / Unknown 01/23/2024 1:04 PM EDT 01/23/2024 3:56 PM EDT us Reyna Lutz DO LAB BLOOD ORDERABLES Final R esult Performing Organization Address [facility] Co de Phone Number [facility] [address] [place] [phone] * HIV-1/2 Antigen and Antibodies, Fourth Generation, with Reflexes (01/23/2024 1:04 PM EDT) HIV AB/AG Nonreactive Nonreactive [facility] Comment:HIV-1 p24 Ag and/or HIV-1/HIV-2 Ab not detected.A test result that is nonreactive does not exclude thepossibility of exposure to or infection with HIV-1 and/orHIV-2. Nonreactive results in this assay for individualswith prior exposure to HIV-1 and/or HIV-2 may be due toantigen and antibody levels that are below the limit ofdetection of this assay.The [employer] HIV Ag/Ab Combo assay result andsupplemental assay results should be interpreted inconjunction with the patient's clinical presentation,history and other laboratory results. If the results areinconsistent with clinical evidence, additional testing issuggested to confirm the result. Blood Venous blood specimen / Unknown 01/23/2024 1:04 PM EDT 01/23/2024 3:56 PM EDT us Reyna Lutz DO LAB BLOOD ORDERABLES Final R esult [facility] [address] [place] [phone] * (ABNORMAL) Lipid Panel, Standard (01/23/2024 1:04 PM EDT) Triglycerides 141 <150 mg/dL [facility] Comment:Desirable Triglyceri de: less than 150 mg/dLBorderline High Triglyceride 150-199 mg/dLHigh Triglyceride: 200-499 mg/dLVery High Triglyceride: greater than or equal to 5OO mg/dL Cholesterol 210(H) <200 mg/dL [facility] Comment:Desirable Cholestero l: less than 200 mg/dLBorderline High Cholesterol: 200-239 mg/dLHigh Cholesterol: greater than 239 mg/dL LDL Cholesterol Calculated 133(H) <100 mg/dL [facility] Comment:Desirable LDL: less than 100 mg/dLNear Optimal/Above Optimal LDL: 110- 129 mg/dLBorderline High LDL: 130-159 mg/dLHigh LDL: 160-189 mg/dLVery High LDL: greater than or equal to 190 mg/dL HDL Cholesterol 49 >40 mg/dL [facility] Comment:Desirable HDL: great er than 40 mg/dL Note: This HDL assay may give artificially low results in patients with liver disease. Blood Venous blood specimen / Unknown 01/23/2024 1:04 PM EDT 01/23/2024 3:56 PM EDT us Reyna Lutz DO LAB BLOOD ORDERABLES Final R esult Performing Organization Address City/[facility]/ZIP Co de Phone Number [facility] [address] [place] [phone] * HPV E6/E7 RFLX IVANIA 16 18/45 (10/08/2020 2:13 PM EDT) HPV 16 RNA [facility] HPV 18/45 RNA [facility] HPV E6 E7 ADD [facility] HPV mRNA E6/E7 rflx Not Detected Not Detected [facility] Comment: Methodology: Case Finisher-Mediated Amplification This assay detects E6/E7 viral messenger RNA (mRNA) from 14 high-risk HPV types (16,18,31,33,35,39,45,51,52,56,58,59,66,68). The analytical performance characteristics of this assay have been determined by [employer]. The modifications have not been cleared or approved by the FDA. This assay has been validated pursuant to the CLIA regulations and is used for clinical purposes. For additional information, please refer to http://education.[employer].Enpirion/faq/QFA142j5 (This link if provided for information/ educational purposes only.) THIS TEST WAS PERFORMED AT: [facility] [address] [place] [address] [address] [place], [place] ??[phone] AGUEDA VICTOR MD 10/08/2020 2:13 PM EDT us Jimenez Mitchell MD HISTORICAL/NON ORDERABLE LABS Fi nal Result [facility] [address] from Last 3 Months or Most Recently Relevant to Health Maintenance Insurance [facility] C3 [facility] MEDICAID STAND ADULT Care Teams Risk Professional Relationship Specialty Start Date End Date Reyna Lutz DO [address] [place] [phone] PCP - General Family Medicine 11/26/19
--- OUTSIDE RECORDS SUMMARY | 2024-10-21 16:24 | XMS_ITS | Encounter Summary ---
Author Organization [employer] Address [address] [facility] 7t [place] [address] Care Team Providers Care Client Relationship Consultant Name Role Phone Reyna Lutz DO Primary Care Provider + [phone] Reason for Visit * Reason Onset Date Comments Med Refill 10/05/2022 Encounter Details Date Type Department Care Team (Late st Contact Info) Description 10/05/2022 Refill [facility] [address] [place] [address] Reyna Lutz DO [address] [place], [place] [phone] Acute bilateral low back pain without sciatica [...] 50 MG tablet To be sent to [facility] [address] [facility], [place] [address]. Fuel Pilot Engineer sees medication was sentto [facility] at [address], [place], [address] but pharmacy advise pt that they are currently out of this medication. Please contact pt at [phone] documented in this encounter Plan of Treatment Not on file documented as of this encounter Visit Diagnoses Diagnosis Acute bilateral low back pain without sciatica documented in this encounter Care Teams Client Relationship Consultant Relationship Specialty Start Date End Date Reyna Lutz DO [address] [place] [phone] PCP - General Family Medicine 11/26/19 documented as of this encounter
--- OUTSIDE RECORDS SUMMARY | 2024-10-21 16:24 | XMS_ITS | Encounter Summary ---
Author Organization [employer] Address [address] [facility] 7t [place] [address] Care Team Providers Care Cylinder Honer Name Role Phone NeldaReyna Primary Care Provider + [phone] Reason for Visit * Reason Onset Date [...] (Late st Contact Info) Description 09/26/2022 Telephone [facility] [address] [place], [place] [phone] Michael Jackson DDS [address] [place], [place] [phone] Appointment (Kelsey Lozano 1975 Patient was seen [...] on filedocumented in this encounter Care Teams Cylinder Honer Relationship Specialty Start Date End Date Reyna Lutz DO [address] [place] [phone] PCP - General Family Medicine 11/26/19 documented as of this encounter
--- OUTSIDE RECORDS SUMMARY | 2024-10-21 16:24 | XMS_ITS | Encounter Summary ---
Author Organization [employer] Address [address] [facility] [address] 7t [place] [address] Care Team Providers Care Tattooer Name Role Phone AlfredoReyna marmolejo Primary Care Provider + [phone] Encounter Details Date Type Department Care Team (Latest Contact Info) Description 10/21/2024 Travel Social History Tobacco Use Types Packs/Day Years [...] is your housing situation today? I have aaronvianca caraballo 04/28/[address] you [...] documented as of this encounter Care Teams Tattooer Relationship Specialty Start Date End Date Reyna Lutz DO [address] [place] [phone] PCP - General Family Medicine 11/26/19 documented as of this encounter
--- OUTSIDE RECORDS SUMMARY | 2024-10-21 16:24 | XMS_ITS | Encounter Summary ---
Author Organization [employer] Address [address] [facility] 7t [place] [address] Care Team Providers Care Ocean Forwarder Name Role Phone Reyna Lutz DO Primary Care Provider + [phone] Reason for Referral * Consultation (Routine) - Authorized Specialty Diagnoses / Procedures Referred By Contjanine t Referred To Contact Neurology Diagnoses Myotonic dystrophy (CMS/HCC) Sowmya Marinelli MD [address] [place] [address] Phone: tel: fax: Dale Mina MD [address] [place] [address] [place] [address] Phone: tel: fax: Referral ID Status Reason Start Date Expiration Date Visits Requested Visits Authorized [id number] Authorized Specialty Services Required 09/04/2024 09/04/2025 6 6 Encounter Details Date Type Department Care Team (Late st Contact Info) Description 08/27/[address] [facility] [address] [place], [place] [phone] Sowmya Marinelli MD [address] [place], [place] [phone] Myotonic dystrophy (CMS/HCC) (Primary Dx) Social History [...] as of this encounter Plan of Treatment Scheduled Referrals Name Type Priority Associated Diagnoses [...] documented as of this encounter Care Teams Ocean Forwarder Relationship Specialty Start Date End Date Reyna Lutz DO [address] [place] [phone] PCP - General Family Medicine 11/26/19 documented as of this encounter
--- OUTSIDE RECORDS SUMMARY | 2024-10-21 16:24 | XMS_ITS | Encounter Summary ---
Author Organization [employer] Address 75 [facility] 7t [place] [address] Care Team Providers Care Medical Aides Teacher Name Role Phone Reyna Lutz DO Primary Care Provider + [phone] Encounter Details Date Type Department Care Team (Late st Contact Info) Description 09/15/2022 Orders Only [facility] [address] [place] [address] Malou Feliz LPN Social History Tobacco Use [...] on filedocumented in this encounter Care Teams Medical Aides Teacher Relationship Specialty Start Date End Date Reyna Lutz DO [address] [place], [place] [phone] PCP - General Family Medicine 11/26/19 documented as of this encounter
--- OUTSIDE RECORDS SUMMARY | 2024-10-21 16:24 | XMS_ITS | Encounter Summary ---
Author Organization [employer] Address [address] [facility] 7t [place] [address] Care Team Providers Care Coater Helper Name Role Phone Reyna Lutz DO Primary Care Provider + [phone] Reason for Visit * Reason Comments Med Refill Encounter Details Date Type Department Care Team (Late st Contact Info) Description 01/16/2023 Refill [facility] [address] [place], [place] [phone] Reyna Lutz DO [address] [place], [place] [phone] Pain Social History Tobacco Use Types Packs/Day [...] documented as of this encounter Care Teams Coater Helper Relationship Specialty Start Date End Date Reyna Lutz DO [address] [place] [phone] PCP - General Family Medicine 11/26/19 documented as of this encounter
--- OUTSIDE RECORDS SUMMARY | 2024-10-21 16:24 | XMS_ITS | Encounter Summary ---
Author Organization [employer] Address [address] [facility] 7t [place] [address] Care Team Providers Care Emblem Maker Name Role Phone Reyna Lutz DO Primary Care Provider + [phone] Encounter Details Date Type Department Care Team (Late st Contact Info) Description 09/09/2022 Orders Only [facility] [address] [place], [place] [phone] Reyna Maradiaga LPN Social History Tobacco Use [...] on filedocumented in this encounter Care Teams Emblem Maker Relationship Specialty Start Date End Date Reyna Lutz DO [address] [place] [address] PCP - General Family Medicine 11/26/19 documented as of this encounter
--- OUTSIDE RECORDS SUMMARY | 2024-10-21 16:24 | XMS_ITS | Encounter Summary ---
Author Organization [employer] Address 75 [facility] 7t [place] [address] Care Team Providers Care Energy Efficient Site Manager Name Role Phone Reyna Lutz DO Primary Care Provider + [phone] Encounter Details Date Type Department Care Team (Late st Contact Info) Description 09/09/2022 Abstract [facility] ADULT DENTAL [address] [place] [address] Rachna Mendez DDS [address] [place] [address] Social History Tobacco Use Types Packs/Day Years [...] on filedocumented in this encounter Care Teams Energy Efficient Site Manager Relationship Specialty Start Date End Date Reyna Lutz DO [address] [place] [address] PCP - General Family Medicine 11/26/19 documented as of this encounter
--- OUTSIDE RECORDS SUMMARY | 2024-10-21 16:24 | XMS_ITS | Encounter Summary ---
Author Organization [employer] Address 75 [facility] 7t [place] [address] Care Team Providers Care Air Brake Rigger Name Role Phone Reyna Lutz DO Primary Care Provider + [phone] Encounter Details Date Type Department Care Team (Late st Contact Info) Description 11/10/2022 Orders Only [facility] CHC MED & PEDS [address] [place], [place] [phone] Reyna Maradiaga LPN Social History Tobacco Use [...] on filedocumented in this encounter Care Teams Air Brake Rigger Relationship Specialty Start Date End Date Reyna Lutz DO [address] [place] [address] PCP - General Family Medicine 11/26/19 documented as of this encounter
--- OUTSIDE RECORDS SUMMARY | 2024-10-21 16:24 | XMS_ITS | Encounter Summary ---
Author Organization [employer] Address 75 [facility] 7t [place] [address] Care Team Providers Care Shingle Shearing Machine Operator Name Role Phone Reyna Lutz DO Primary Care Provider + [phone] Encounter Details Date Type Department Care Team (Late st Contact Info) Description 08/16/2022 Orders Only [facility] CHC MED & PEDS [address] [place], [place] [phone] Reyna Maradiaga LPN Social History Tobacco Use [...] on filedocumented in this encounter Care Teams Shingle Shearing Machine Operator Relationship Specialty Start Date End Date Reyna Lutz DO [address] [place] [address] [phone] PCP - General Family Medicine 11/26/19 documented as of this encounter
--- OUTSIDE RECORDS SUMMARY | 2024-10-21 16:24 | XMS_ITS | Encounter Summary ---
Author Organization [employer] Address 75 [facility] [address] [place] [address] Care Team Providers Care Radiology Equipment Servicer Name Role Phone Reyna Lutz DO Primary Care Provider + [phone] Reason for Visit * Reason Onset Date Comments Appointment 09/26/2022 Kelseyalexy Alegrebo 1975 Patient was seen 09/26 and was wondering if medication was sent to pharmacy please advise Encounter Details Date Type Department Care Team ([facility] Contact Info) Description 09/26/2022 Telephone [facility] ADULT DENTAL [address] [place] [address] John Ortega DDS [address] [place] [address] Appointment (Kelsey Alegrebo 1975 Patient was seen 09/26 and [...] Telephone Encounter - Kimmie Ramos - 09/26/2022 3:48 PM EDT Kelsey ARAGON 1975 Patient was seen 09/26 and was wondering if medication was sent to pharmacy please advise documented in this encounter Plan of Treatment Not on file documented as of this encounter Visit Diagnoses Not on filedocumented in this encounter Care Teams Radiology Equipment Servicer Relationship Specialty Start Date End Date Reyna Lutz DO [address] [place] [address] PCP - General Family Medicine 11/26/19 documented as of this encounter
--- OUTSIDE RECORDS SUMMARY | 2024-10-21 16:24 | XMS_ITS | Encounter Summary ---
Author Organization [employer] Address 75 [facility] 7t [place] [address] Care Team Providers Care Deck Supervisor Name Role Phone AlfredoReyna marmolejo Primary Care Provider + [phone] Encounter Details Date Type Department Care Team (Late st Contact Info) Description 10/21/2024 Orders Only GENERIC EXTERNAL DATA DEPARTMENT Provider, Generic External Data Social History Tobacco Use Types Packs/Day Years [...] your housing situation today? I have aaron sing 04/28/[address] you li [...] on file documented as of this encounter Procedures Procedure Name Priority Date/Time Associated Diagnosis Comments HEMOGLOBIN A1C Routine 10/21/2024 2:11 PM EDT COMPREHENSIVE METABOLIC PANEL Routine 10/21/2024 2:11 PM EDT documented in this encounter Results * (ABNORMAL) Comprehensive Metabolic Panel (10/21/2024 2:11 PM EDT) Sodium 144 135 - 145 mmol/L [facility] Potassium 4.5 3.3 - 5.1 mmol/L [facility] Chloride 105 96 - 108 mmol/L [facility] Carbon Dioxide 32(H) 22 - 29 mmol/L [facility] Anion Gap 12 12 - 20 [facility] Urea Nitrogen (BUN) 6(L) 9 - 16 mg/dL [facility] Creatinine, Serum 0.71 0.5 - 1.4 mg/dL [facility] Estimated Glomerular Filt Rate >60 [facility] Comment:Chronic Kidney Disea se: Estimated GFR < 60 mL/min/[id number] Kidney Disease: Estimated GFR < 15 mL/min/1.73m2 Glucose 172(H) 60 - 115 mg/dL [facility] Calcium 9.8 8.4 - 10.2 mg/dL [facility] Bilirubin, Total 1.7(H) 0.0 - 1.0 mg/dL [facility] Aspartate Amino Transferase 35(H) 5 - 31 U/L [facility] Alanine Aminotransferase 41(H) 0 - 31 U/L [facility] Total Protein 7.0 6.5 - 8.0 g/dL [facility] Albumin Level 4.3 3.5 - 5.0 g/dL [facility] Alkaline Phosphatase 70 39 - 117 U/L [facility] 10/21/2024 2:11 PM EDT 10/21/2024 2:11 PM EDT us Generic External Data Provider LAB BLOOD ORDERAB LES Final Result Performing Organization Address [facility]/ZIP Co de Phone Number [facility] [address] [place] [phone] * (ABNORMAL) Hemoglobin A1c (10/21/2024 2:11 PM EDT) Hemoglobin A1c 7.2(H) <6.0 % [facility] Comment:Hemoglobin A1C Refer ence Range Adults: 4.8 - 6.0 % Non diabetic: < 6.0 % Goal: < 7.0 %Additional Action Suggested: > 8.0 %Note: Hemoglobin A1c results are invalid for patients with abnormal amounts of HbF. Blood transfusions may impact the HbA1c concentration in the patient sample. Estimated Average Glucose 160 mg/dL [facility] Comment:eAG = Estimated ave rage glucose which is %A1C expressed asaverage glucose, using the formula of the P8X-IxgjgfsPlecnzy Glucose study (ADAG), Diabetes Care, Vol.31,#8,Feb. 2007 10/21/2024 2:11 PM EDT 10/21/2024 2:11 PM EDT us Generic External Data Provider LAB BLOOD ORDERAB LES Final Result Performing Organization Address [facility]/ZIP Co de Phone Number [facility] [address] [place] [phone] documented in this encounter Visit Diagnoses Not on filedocumented in this encounter Additional Health Concerns Assessment Noted Time PHQ-9 Depression Total Score: 5 10/22/19 25 11:40 AM EDT documented as of this encounter Care Teams Deck Supervisor Relationship Specialty Start Date End Date Reyna Lutz DO [address] [place] [address] PCP - General Family Medicine 11/26/19 documented as of this encounter
--- OUTSIDE RECORDS SUMMARY | 2024-10-21 16:24 | XMS_ITS | Encounter Summary ---
Author Organization [employer] Address 75 [facility] 7t [place] [address] Care Team Providers Care Senior Quality Control Inspector Name Role Phone Reyna Lutz DO Primary Care Provider + [phone] Reason for Visit * Reason Onset Date Comments Referral 08/27/2024 Encounter Details Date Type Department Care Team ([facility] st Contact Info) Description 08/27/2024 Telephone [facility] MEDICINE [address] [place] [address] Reyna Lutz DO [address] [place], [place] [phone] Referral Social History Tobacco Use Types Packs/Day [...] to go that far. Contact pt at [phone] documented in this encounter Plan of Treatment Not on file documented as of this encounter Visit Diagnoses Not on filedocumented in this encounter Additional Health Concerns Assessment Noted Time PHQ-9 Depression Total Score: 4 01/23/20 24 10:23 AM EDT documented as of this encounter Care Teams Senior Quality Control Inspector Relationship Specialty Start Date End Date Reyna Lutz DO [address] [place] [address] PCP - General Family Medicine 11/26/19 documented as of this encounter
[2024-10-21 22:31] LABS: CT PCR NOT DETECTED (Not Detect.); NG PCR NOT DETECTED (Not Detect.)
== END 2024-10-21 14:02 | disposition home or self-care (01) ==
LOC: HO.LAB 14:01
PROVIDERS: PCP Family Medicine; Visit Provider Internal Medicine
DX: Z01.419 Encounter for gynecological examination (general) (routine) without abnormal findings (principal); E11.9 Type 2 diabetes mellitus without complications; R77.2 Abnormality of alphafetoprotein
CPT/HCPCS: 36415; 80053; 83036; 87491; 87591

== ENCOUNTER 2024-10-22 11:53 | Outpatient (REF) | payer MEDICAID, SELFPAY ==
--- OUTSIDE RECORDS SUMMARY | 2024-10-22 14:43 | XMS_ITS | Encounter Summary ---
Author Organization [employer] Address 75 [facility] 7t [place] [address] Care Team Providers Care Rn Procedures Name Role Phone Reyna Lutz DO Primary Care Provider + [phone] Encounter Details Date Type Department Care Team (Late st Contact Info) Description 09/09/2022 Abstract [facility] ADULT DENTAL [address] [place] [address] Rachna Mendez DDS [address] [place] [address] Social History Tobacco Use Types Packs/Day Years [...] filedocumented in this encounter Care Teams Rn Procedures Relationship Specialty Start Date End Date Reyna Lutz DO [address] [place] [address] PCP - General Family Medicine 11/26/19 documented as of this encounter
--- OUTSIDE RECORDS SUMMARY | 2024-10-22 14:43 | XMS_ITS | Encounter Summary ---
Author Organization [employer] Address 75 [facility] 7t [place] [address] Care Team Providers Care Cook Fishing Vessel Name Role Phone Reyna Lutz DO Primary Care Provider + [phone] Encounter Details Date Type Department Care Team (Late st Contact Info) Description 12/21/2022 Orders Only [facility] ADULT DENTAL [address] [place] [address] Rachna Mendez DDS [address] [place] [address] Social History Tobacco Use Types Packs/Day Years [...] on filedocumented in this encounter Care Teams Cook Fishing Vessel Relationship Specialty Start Date End Date Reyna Lutz DO [address] [place] [address] PCP - General Family Medicine 11/26/19 documented as of this encounter
--- OUTSIDE RECORDS SUMMARY | 2024-10-22 14:43 | XMS_ITS | Encounter Summary ---
Author Organization [employer] Address 75 [facility] 7t [place] [address] Care Team Providers Care Sheet Metal Work Furnace Installer Name Role Phone Reyna Lutz DO Primary Care Provider + [phone] Reason for Visit * Reason Onset Date Comments Med Refill 10/05/2022 Encounter Details Date Type Department Care Team (Late st Contact Info) Description 10/05/2022 Refill [facility] MEDICINE [address] [place] [address] Reyna Lutz DO [address] [place], [place] [phone] Acute bilateral low back pain without sciatica [...] 50 MG tablet To be sent to [facility] [address], [place] [address]. Newspaper Photographer sees medication was sentto [facility] at [address], [place], [address] but pharmacy advise pt that they are currently out of this medication. Please contact pt at [phone] documented in this encounter Plan of Treatment Not on file documented as of this encounter Visit Diagnoses Diagnosis Acute bilateral low back pain without sciatica documented in this encounter Care Teams Sheet Metal Work Furnace Installer Relationship Specialty Start Date End Date Reyna Lutz DO [address] [place] [phone] PCP - General Family Medicine 11/26/19 documented as of this encounter
--- OUTSIDE RECORDS SUMMARY | 2024-10-22 14:43 | XMS_ITS | Encounter Summary ---
Author Organization [employer] Address 75 [facility] 7t [place] [address] Care Team Providers Care Watch Inspector Final Movement Name Role Phone AlfredoReyna marmolejo Primary Care Provider + [phone] Encounter Details Date Type Department Care Team [...] EDT) Sodium 144 135 - 145 mmol/L [facility] Potassium 4.5 3.3 - 5.1 mmol/L [facility] Chloride 105 96 - 108 mmol/L [facility] Carbon Dioxide 32(H) 22 - 29 mmol/L [facility] Anion Gap 12 12 - 20 [facility] Urea Nitrogen (BUN) 6(L) 9 - 16 mg/dL [facility] Creatinine, Serum 0.71 0.5 - 1.4 mg/dL [facility] Estimated Glomerular Filt Rate >60 [facility] Comment:Chronic Kidney Disea se: Estimated GFR < 60 mL/min/[id number] Kidney Disease: Estimated GFR < 15 mL/min/1.73m2 Glucose 172(H) 60 - 115 mg/dL [facility] Calcium 9.8 8.4 - 10.2 mg/dL [facility] Bilirubin, Total 1.7(H) 0.0 - 1.0 mg/dL [facility] Aspartate Amino Transferase 35(H) 5 - 31 U/L [facility] Alanine Aminotransferase 41(H) 0 - 31 U/L [facility] Total Protein 7.0 6.5 - 8.0 g/dL [facility] Albumin Level 4.3 3.5 - 5.0 g/dL [facility] Alkaline Phosphatase 70 39 - 117 U/L [facility] 10/21/2024 2:11 PM EDT 10/21/2024 2:11 PM EDT us Generic External Data Provider LAB BLOOD ORDERAB LES Final Result Performing Organization Address [facility]/ZIP Co de Phone Number [facility] [address] [place] [phone] * (ABNORMAL) Hemoglobin A1c (10/21/2024 2:11 PM EDT) Hemoglobin A1c 7.2(H) <6.0 % [facility] Comment:Hemoglobin A1C Refer ence Range Adults: 4.8 - 6.0 % Non diabetic: < 6.0 % Goal: < 7.0 %Additional Action Suggested: > 8.0 %Note: Hemoglobin A1c results are invalid for patients with abnormal amounts of HbF. Blood transfusions may impact the HbA1c concentration in the patient sample. Estimated Average Glucose 160 mg/dL [facility] Comment:eAG = Estimated ave rage glucose which is %A1C expressed asaverage glucose, using the formula of the F6C-PkrhthlYmzhmfk Glucose study (ADAG), Diabetes Care, Vol.31,#8,Feb. 2007 10/21/2024 2:11 PM EDT 10/21/2024 2:11 PM EDT us Generic External Data Provider LAB BLOOD ORDERAB LES Final Result Performing Organization Address [facility]/ZIP Co de Phone Number [facility] [address] [place] [phone] documented in this encounter Visit Diagnoses Not on filedocumented in this encounter Additional Health Concerns Assessment Noted Time PHQ-9 Depression Total Score: 5 10/22/19 25 11:40 AM EDT documented as of this encounter Care Teams Watch Inspector Final Movement Relationship Specialty Start Date End Date Reyna Lutz DO [address] [place] [address] PCP - General Family Medicine 11/26/19 documented as of this encounter
--- OUTSIDE RECORDS SUMMARY | 2024-10-22 14:43 | XMS_ITS | Encounter Summary ---
Author Organization [employer] Address 75 [facility] 7t [place] [address] Care Team Providers Care Applications Project Manager Name Role Phone Reyna Lutz DO Primary Care Provider + [phone] Encounter Details Date Type Department Care Team (Late st Contact Info) Description 08/16/2022 Orders Only [facility] CHC MED & PEDS [address] [place], [place] [phone] Reyna Maradiaga LPN Social History Tobacco Use [...] on filedocumented in this encounter Care Teams Applications Project Manager Relationship Specialty Start Date End Date Reyna Lutz DO [address] [place] [phone] PCP - General Family Medicine 11/26/19 documented as of this encounter
--- OUTSIDE RECORDS SUMMARY | 2024-10-22 14:43 | XMS_ITS | Encounter Summary ---
Author Organization [employer] Address 75 [facility] 7t [place] [address] Care Team Providers Care Teacher Emotionally Impaired Name Role Phone Reyna Lutz DO Primary Care Provider + [phone] Encounter Details Date Type Department Care Team (Late st Contact Info) Description 07/22/2022 Orders Only [facility] CHC MED & PEDS [address] [place], [place] [phone] Reyna Maradiaga LPN Social History Tobacco Use [...] on filedocumented in this encounter Care Teams Teacher Emotionally Impaired Relationship Specialty Start Date End Date Reyna Lutz DO [address] [place] [address] [phone] PCP - General Family Medicine 11/26/19 documented as of this encounter
--- OUTSIDE RECORDS SUMMARY | 2024-10-22 14:43 | XMS_ITS | Encounter Summary ---
Author Organization [employer] Address 75 [facility] 7t [place] [address] Care Team Providers Care Coding Clerk Name Role Phone Reyna Lutz DO Primary Care Provider + [phone] Encounter Details Date Type Department Care Team (Late st Contact Info) Description 09/09/2022 Orders Only [facility] CHC MED & PEDS [address] [place], [place] [phone] Reyna Maradiaga LPN Social History Tobacco Use [...] on filedocumented in this encounter Care Teams Coding Clerk Relationship Specialty Start Date End Date Reyna Lutz DO [address] [place] [address] PCP - General Family Medicine 11/26/19 documented as of this encounter
--- OUTSIDE RECORDS SUMMARY | 2024-10-22 14:43 | XMS_ITS | Encounter Summary ---
Author Organization [employer] Address 75 [facility] 7t [place] [address] Care Team Providers Care Air Technician Name Role Phone Reyna Lutz DO Primary Care Provider + [phone] Reason for Visit * Reason Comments Med Refill Encounter Details Date Type Department Care Team (Late st Contact Info) Description 01/16/2023 Refill [facility] MEDICINE [address] [place], [place] [phone] Reyna Lutz DO [address] [place], [place] [phone] Pain Social History Tobacco Use Types Packs/Day [...] documented as of this encounter Care Teams Air Technician Relationship Specialty Start Date End Date Reyna Lutz DO [address] [place] [phone] PCP - General Family Medicine 11/26/19 documented as of this encounter
--- OUTSIDE RECORDS SUMMARY | 2024-10-22 14:43 | XMS_ITS | Clinical Summary ---
Author Organization [employer] Address 75 [facility] 7t [place] [address] Care Team Providers Care Undertaker Helper Name Role Phone CatalinaReyna raines Primary Care Provider + [phone] Allergies No known active allergies Medications TRUEplus [...] miscIndications:Typ e 2 diabetes mellitus without complications ([facility]) TEST BLOOD SUGAR TWICE DAILY 100 each 1 025 Active FREESTYLE LITE test stripIndications:Ty pe 2 diabetes mellitus without complications ([facility]) TEST BLOOD SUGAR TWICE DAILY 100 strip [...] 025 Active ergocalciferol (Vitamin D2) 1.25 MG (64900 UT) capsuleIndications: Vitamin D deficiency TAKE 1 [...] Description 10/21/2024 11:15 AM EDT Procedure Visit [facility] [address] [place] [address] Reyna Lutz DO Encounter for gynecological examination without abnormal finding (Primary Dx); Type 2 diabetes mellitus without complication, without long-term current use of insulin ([facility]) 10/21/2024 Orders Only GENERIC EXTERNAL DATA DEPARTMENT Provider, Generic External Data 10/21/2024 Travel 09/22/2024 Refill [facility] [address] [facility] [address] Reyna Lutz DO 09/20/2024 Population Health Risk Score [facility] () Department [address] [place] [address] [phone] Provider, Population Health Generic 09/17/2024 Refill [facility] [address] [facility] [place] [address] Reyna Lutz DO Vitamin D deficiency 09/12/2024 Refill [facility] [address] [place] [address] Reyna Lutz DO 08/27/2024 Travel 08/27/2024 Orders Only [facility] [address] [place] [address] Sowmya Marinelli MD 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) 08/27/2024 Telephone [facility] [address] [place] [address] Reyna Lutz DO Appointment Request 08/27/2024 Telephone [facility] [address] [place] [phone] Reyna Lutz DO Referral 08/12/2024 6:00 PM EST Office Visit [facility] [address] [place] [address] Tariq Oneill MD Cough, unspecified type (Primary Dx); Influenza A 08/12/2024 Travel 08/12/2024 Telephone [facility] [address] [place], [place] [phone] Marylou Lemons, INA NTTS 08/01/2024 Refill [facility] [address] [place] [phone] Ngoc Barnes ANP Type 2 diabetes mellitus without complications ([facility]) 08/01/2024 Refill [facility] [address] [place] [address] [phone] Reyna Lutz DO Chronic gastroesophageal reflux disease; [...] Procedure Name Priority Date/Time Associated Diagnosis Comments CHLAMYDIA/N. GONORRHOEAE RNA, TMA, UROGENITAL Routine 10/21/2024 4:03 PM EDT Encounter for gynecological examination without abnormal finding COMPREHENSIVE METABOLIC PANEL Routine 10/21/2024 2:11 PM EDT HEMOGLOBIN A1C Routine 10/21/2024 2:11 PM EDT POCT GLYCATED HEMOGLOBIN, TOTAL Routine 10/21/2024 10:59 AM EDT Type 2 diabetes mellitus without complication, without long-term current use of insulin ([facility]) POCT GLUCOSE Routine 10/21/2024 10:59 AM EDT Type 2 diabetes mellitus without complication, without long-term current use of insulin (CMS/HCC) POCT RAPID COVID ANTIGEN Routine 08/12/2024 6:07 [...] Recently Relevant to Health Maintenance Results * Chlamydia/N. Gonorrhoeae RNA, TMA, Urogenitial (10/21/2024 4:03 PM EDT) Pathologist [facility] CT PCR NOT DETECTED Not Detect. [facility] Comment:A not detected test result does not exclude the possibilityof infection because test results can be affected byimproper specimen collection, concurrent antibiotic therapy,or the number of organisms in the specimen which may bebelow the sensitivity of the test. As with many diagnostictests, results from the Xpert CT/NG assay should beinterpreted in conjunction with other laboratory andclinical data available to the clinician.Xpert CT/NG performance has not been evaluated in patientsless than 14 years of age. The assay should not be used forthe evaluationof suspected sexual abuse or for other medico-legalindications. Additional testing is recommended in anycircumstance when false positive or false negative resultscould lead to adverse medical, social or psychologicalconsequences. NG PCR NOT DETECTED Not Detect. [facility] Comment:A not detected test result does not exclude the possibilityof infection because test results can be affected byimproper specimen collection, concurrent antibiotic therapy,or the number of organisms in the specimen which may bebelow the sensitivity of the test. As with many diagnostictests, results from the Xpert CT/NG assay should beinterpreted in conjunction with other laboratory andclinical data available to the clinician.Xpert CT/NG performance has not been evaluated in patientsless than 14 years of age. The assay should not be used forthe evaluationof suspected sexual abuse or for other medico-legalindications. Additional testing is recommended in anycircumstance when false positive or false negative resultscould lead to adverse medical, social or psychologicalconsequences. Swab Vaginal structure / Unknown 10/21/2024 4:03 PM EDT 10/21/2024 4:03 PM EDT Narrative [facility] - 10/21/2024 10:31 PM EDT Vaginal us Reyna Lutz DO LAB MICROBIOLOGY - GENERAL O RDERABLES Final Result Performing Organization Address City/[facility] Co de Phone Number [facility] [address] [place] [phone] * (ABNORMAL) Hemoglobin A1c (10/21/2024 2:11 PM EDT) Hemoglobin A1c 7.2(H) <6.0 % [facility] Comment:Hemoglobin A1C Refer ence Range Adults: 4.8 - 6.0 % Non diabetic: < 6.0 % Goal: < 7.0 %Additional Action Suggested: > 8.0 %Note: Hemoglobin A1c results are invalid for patients with abnormal amounts of HbF. Blood transfusions may impact the HbA1c concentration in the patient sample. Estimated Average Glucose 160 mg/dL [facility] Comment:eAG = Estimated ave rage glucose which is %A1C expressed asaverage glucose, using the formula of the Q3Z-BgbcxbqBsoahde Glucose study (ADAG), Diabetes Care, Vol.31,#8,Aug. 2007 10/21/2024 2:11 PM EDT 10/21/2024 2:11 PM EDT us Generic External Data Provider LAB BLOOD ORDERAB LES Final Result [facility] [address] [place] [phone] * (ABNORMAL) Comprehensive Metabolic Panel (10/21/2024 2:11 PM EDT) Sodium 144 135 - 145 mmol/L [facility] Potassium 4.5 3.3 - 5.1 mmol/L [facility] Chloride 105 96 - 108 mmol/L [facility] Carbon Dioxide 32(H) 22 - 29 mmol/L [facility] Anion Gap 12 12 - 20 [facility] Urea Nitrogen (BUN) 6(L) 9 - 16 mg/dL [facility] Creatinine, Serum 0.71 0.5 - 1.4 mg/dL [facility] Estimated Glomerular Filt Rate >60 [facility] Comment:Chronic Kidney Disea se: Estimated GFR < 60 mL/min/1.32n6Poivbl Kidney Disease: Estimated GFR < 15 mL/min/1.73m2 Glucose 172(H) 60 - 115 mg/dL [facility] Calcium 9.8 8.4 - 10.2 mg/dL [facility] Bilirubin, Total 1.7(H) 0.0 - 1.0 mg/dL [facility] Aspartate Amino Transferase 35(H) 5 - 31 U/L [facility] Alanine Aminotransferase 41(H) 0 - 31 U/L [facility] Total Protein 7.0 6.5 - 8.0 g/dL [facility] Albumin Level 4.3 3.5 - 5.0 g/dL [facility] Alkaline Phosphatase 70 39 - 117 U/L [facility] 10/21/2024 2:11 PM EDT 10/21/2024 2:11 PM EDT us Generic External Data Provider LAB BLOOD ORDERAB LES Final Result Performing Organization Address [facility]/ZIP Co de Phone Number [facility] [address] [place] [phone] * (ABNORMAL) POCT HGB A1C (10/21/2024 10:59 AM EDT) [facility] Hemoglobin A1C 7.3(A) 4.0 - 6.0 % QC Media Lot # [id number] Lot# Expiration Date Blood 10/21/2024 10:5 9 AM EDT Reyna Lutz DO POINT OF CARE TEST ENTER/CL T ORDERABLES Final Result * POCT Glucose (10/21/2024 10:59 AM EDT) [facility] Glucose Blood, POC 133 60 - 200 mg/dL QC Media Lot # [id number] Lot# Expiration Date Blood Capillary blood specimen / Unknown 10/21/2024 10:59 AM EDT Reyna Lutz DO POINT OF CARE TEST ENTER/CL T ORDERABLES Final Result * POCT Rapid Covid-19 BinaxNOW (08/12/2024 6:07 PM EST) [facility] Rapid COVID Ag Negative QC Media Lot # [id number] Lot# Expiration Date 71,826 Swab 08/12/2024 6:07 PM EST Tariq Oneill MD POINT OF CARE TEST ENTER/ED IT ORDERABLES Final Result * POCT Rapid Influenza B YOUNG ID NOW (08/12/2024 6:06 PM EST) [facility] Influenza B Negative Negative, Indeterminate [facility] QC Media Lot # [id number] [facility] Lot# Expiration Date 62 [facility] Swab 08/12/2024 6:06 PM EST Tariq Oneill MD POINT OF CARE TEST ENTER/ED IT ORDERABLES Final Result [facility] [address] [place] [phone] * (ABNORMAL) POCT Rapid Influenza A YOUNG ID NOW (08/12/2024 6:06 PM EST) Influenza A Positive( A) Negative, Indeterminate [facility] QC Media Lot # [id number] [facility] Lot# Expiration Date 862 [facility] Swab 08/12/2024 6:06 PM EST us Tariq Oneill MD POINT OF CARE TEST ENTER/ED IT ORDERABLES Final Result Performing Organization Address [facility]/[employer]UST de Phone Number [facility] [address] [place] [phone] * BI Mammogram Screening Tomosynthesis Bilateral (02/08/2024 2:30 PM EDT) Anatomical Region Laterality Modality Breast Bilateral Mammography 02/08/2024 2:30 PM EDT Narrative 03/06/2024 1:14 PM EDT ? [facility] ? [address] ?[place] [id number] ? Mammography Report ? Signed ? Patient: Kelsey Lozano ?MR#: [id number] ?? [id number] ? : 1975 ?Acct:[id number] ? Age/Sex: 48 / F ?ADM Date: 08// ? Loc: HO.MAMMO ? Attending Roland Lutz DO ? Ordering Physician: Reyna uLtz DO ?Results: 1N ?? egative ? Date of Service: 02/08/24 ?Follow Up: 1 Year From Orig ?? inal Mammogram ? Procedure(s): MM tomosynthesis screening BI ?? Accession Number(s): [id number] ? cc: Reyna Lutz DO ? EXAMINATION: [...] DD/ 1430 ? TD/TT: 02/08/24 1448 ? Aircraft Engine Mechanic Supervisor: ? Procedure Note Donotuseinterpreter, Image - 03/06/2024 [facility] [address] [place] [address] Dr. Manning, [place] [address] Mammography Report Signed Patient: Kelsey Lozano MMR#: [id number] : 1975Acct:[id number] Age/Sex: 48 / FADM Date: 02/08/24 Loc: HO.MAMMO Attending Dr: Reyna Lutz DO Ordering Physician: Reyna Lutzults: 1N egative Date of Service: 02/08/24Follow Up: 1 Year From Orig inal Mammogram Procedure(s): MM tomosynthesis screening BI Accession Number(s): [id number] cc: Reyna Lutz DO EXAMINATION: MM SCREENING [...] 03/06/24 1311 DD/ 1430 TD/TT: 02/08/24 1448 Aircraft Engine Mechanic Supervisor: Reyna Lutz DO IMG BI PROCEDURES Edited Res ult - Final * Albumin, Random Urine W/Creatinine (02/01/2024 8:00 AM EDT) Creatinine, Urine 85.81 mg/dL [facility] Microalbumin Urine 10.0 mg/L [facility] Microalbum Creatinine Ratio Ur 11.6 <30 ug/mg cr [facility] Comment:Albumin/Creatinine R atio Reference Ranges: Normal: < 30 ug/mg creatinine Microalbuminuria: 30 - 300 ug/mg creatinineClinical Albuminuria: > 300 ug/mg creatinine Urine (Urine, Random) 02/01/2024 8:00 AM EDT 02/01/2024 12:08 PM EDT Narrative [facility] - 02/01/2024 12:40 PM EDT ORIGINALLY ORDERED UNDER ACCOUNT [id number] Reyna Lutz DO LAB URINE ORDERABLES Final R esult Performing Organization Address [facility] Co de Phone Number [facility] [address] [place] [phone] * Hepatitis C Antibody with Reflex to HCV, RNA, Quantitative, Real-Time PCR (01/23/2024 1:04 PM EDT) Hepatitis C Antibody Nonreactive Nonreactive [facility] Comment:Antibodies to HCV no t detected; does not exclude early acuteHCV infection. Blood Venous blood specimen / Unknown 01/23/2024 1:04 PM EDT 01/23/2024 3:56 PM EDT Reyna Nelda [email or web address] LAB BLOOD ORDERABLES Final R esult Performing Organization Address City/[facility]/ZIP Co de Phone Number [facility] [address] [place] [phone] * HIV-1/2 Antigen and Antibodies, Fourth Generation, with Reflexes (01/23/2024 1:04 PM EDT) HIV AB/AG Nonreactive Nonreactive [facility] Comment:HIV-1 p24 Ag and/or HIV-1/HIV-2 Ab not detected.A test result that is nonreactive does not exclude thepossibility of exposure to or infection with HIV-1 and/orHIV-2. Nonreactive results in this assay for individualswith prior exposure to HIV-1 and/or HIV-2 may be due toantigen and antibody levels that are below the limit ofdetection of this assay.The [employer] HIV Ag/Ab Combo assay result andsupplemental assay results should be interpreted inconjunction with the patient's clinical presentation,history and other laboratory results. If the results areinconsistent with clinical evidence, additional testing issuggested to confirm the result. Blood Venous blood specimen / Unknown 01/23/2024 1:04 PM EDT 01/23/2024 3:56 PM EDT us Reyna Lutz DO LAB BLOOD ORDERABLES Final R esult [facility] [address], [place] [phone] * (ABNORMAL) Lipid Panel, Standard (01/23/2024 1:04 PM EDT) Triglycerides 141 <150 mg/dL [facility] Comment:Desirable Triglyceri de: less than 150 mg/dLBorderline High Triglyceride 150-199 mg/dLHigh Triglyceride: 200-499 mg/dLVery High Triglyceride: greater than or equal to 5OO mg/dL Cholesterol 210(H) <200 mg/dL [facility] Comment:Desirable Cholestero l: less than 200 mg/dLBorderline High Cholesterol: 200-239 mg/dLHigh Cholesterol: greater than 239 mg/dL LDL Cholesterol Calculated 133(H) <100 mg/dL [facility] Comment:Desirable LDL: less than 100 mg/dLNear Optimal/Above Optimal LDL: 110- 129 mg/dLBorderline High LDL: 130-159 mg/dLHigh LDL: 160-189 mg/dLVery High LDL: greater than or equal to 190 mg/dL HDL Cholesterol 49 >40 mg/dL [facility] Comment:Desirable HDL: great er than 40 mg/dL Note: This HDL assay may give artificially low results in patients with liver disease. Blood Venous blood specimen / Unknown 01/23/2024 1:04 PM EDT 01/23/2024 3:56 PM EDT us Reyna Lutz DO LAB BLOOD ORDERABLES Final R esult Performing Organization Address [facility] Co de Phone Number [facility] [address] [place] [phone] * HPV E6/E7 RFLX IVANIA 16 18/45 (10/08/2020 2:13 PM EDT) HPV 16 RNA [facility]NP [facility] HPV 18/45 RNA [facility] HPV E6 E7 ADD [facility]NP [facility] HPV mRNA E6/E7 rflx Not Detected Not Detected [facility] Comment: Methodology: Distresser-Mediated Amplification This assay detects E6/E7 viral messenger RNA (mRNA) from 14 high-risk HPV types (16,18,31,33,35,39,45,51,52,56,58,59,66,68). The analytical performance characteristics of this assay have been determined by [employer]. The modifications have not been cleared or approved by the FDA. This assay has been validated pursuant to the CLIA regulations and is used for clinical purposes. For additional information, please refer to http://education.[employer]/faq/ZYS858y3 (This link if provided for information/ educational purposes only.) THIS TEST WAS PERFORMED AT: [facility] [address] [place] [address] FLO[address] [place], [place] ??[phone] AGUEDA VICTOR MD 10/08/2020 2:13 PM EDT us Jimenez Mitchell MD HISTORICAL/NON ORDERABLE LABS Fi nal Result Performing Organization Address City/[facility]/ZIP Co de Phone Number [facility] [address] from Last 3 Months or Most Recently Relevant to Health Maintenance Insurance [facility] STAND ADULT Care Teams Undertaker Helper Relationship Specialty Start Date End Date Reyna Lutz DO [address] [place] [address] PCP - General Family Medicine 11/26/19
--- OUTSIDE RECORDS SUMMARY | 2024-10-22 14:43 | XMS_ITS | Encounter Summary ---
Author Organization [employer] Address 75 [facility] 7t [place] [address] Care Team Providers Care Church Musician Name Role Phone NeldaReyna Primary Care Provider + [phone] Reason for Visit * Reason Onset Date Comments Appointment 09/26/2022 Kelsey Lzoano 1975 Patient was seen on 09/23 and called in and stated that she's in a lot of pain and has been taking the medication that was given to her but its not helping with the pain please advise. Encounter Details Date Type Department Care Team (Late st Contact Info) Description 09/26/2022 Telephone [facility] [address] [place], [place] [phone] Michael Jackson DDS [address] [place], [place] [phone] Appointment (Kelsey Lozano 1975 Patient was seen [...] on filedocumented in this encounter Care Teams Church Musician Relationship Specialty Start Date End Date Reyna Lutz DO [address] [place] [phone] PCP - General Family Medicine 11/26/19 documented as of this encounter
--- OUTSIDE RECORDS SUMMARY | 2024-10-22 14:43 | XMS_ITS | Encounter Summary ---
Author Organization [employer] Address 75 [facility] 7t [place] [address] Care Team Providers Care Gem Cutter Name Role Phone Reyna Lutz DO Primary Care Provider + [phone] Reason for Visit * Reason Onset Date Comments Appointment 09/26/2022 Kelseyalexy Alegrebo 1975 Patient was seen 09/26 and was wondering if medication was sent to pharmacy please advise Encounter Details Date Type Department Care Team ([facility] Contact Info) Description 09/26/2022 Telephone [facility] [address] [place] [address] John Ortega DDS [address] [place] [address] Appointment (Kelsey Alegrebo 1975 Patient was seen [...] on filedocumented in this encounter Care Teams Gem Cutter Relationship Specialty Start Date End Date Reyna Lutz DO [address] [place] [phone] PCP - General Family Medicine 11/26/19 documented as of this encounter
--- OUTSIDE RECORDS SUMMARY | 2024-10-22 14:43 | XMS_ITS | Encounter Summary ---
Author Organization [employer] Address 75 [facility] 7t [place] [address] Care Team Providers Care Crm Administrator Name Role Phone NeldaReyna Primary Care Provider + [phone] Reason for Visit * Reason Onset Date Comments script for toothpaste 12/21/2022 Encounter Details Date Type Department Care Team (Late st Contact Info) Description 12/21/[address] [facility] [address] [place] [address] Rachna Mendez, DDS [address] [place] [address] script for toothpaste Social History Tobacco Use [...] on filedocumented in this encounter Care Teams Crm Administrator Relationship Specialty Start Date End Date Reyna Lutz DO [address] [place] [phone] PCP - General Family Medicine 11/26/19 documented as of this encounter
--- OUTSIDE RECORDS SUMMARY | 2024-10-22 14:43 | XMS_ITS | Encounter Summary ---
Author Organization [employer] Address [address] [facility] 7t [place] [address] Care Team Providers Care Court Attendant Name Role Phone Reyna Lutz DO Primary Care Provider + [phone] Encounter Details Date Type Department Care Team (Late st Contact Info) Description 07/20/2022 Orders Only [facility] [address] [place] [address] Malou Feliz LPN Social History Tobacco Use [...] on filedocumented in this encounter Care Teams Court Attendant Relationship Specialty Start Date End Date Reyna Lutz DO [address] [place], [place] [phone] PCP - General Family Medicine 11/26/19 documented as of this encounter
--- OUTSIDE RECORDS SUMMARY | 2024-10-22 14:43 | XMS_ITS | Encounter Summary ---
Author Organization [employer] Address [address] [facility] [address] 7t [place] [address] Care Team Providers Care Slack Cooper Name Role Phone AlfredoReyna marmolejo Primary Care Provider + [phone] Encounter Details Date Type Department Care Team [...] documented as of this encounter Care Teams Slack Cooper Relationship Specialty Start Date End Date Reyna Lutz DO [address] [place] [phone] PCP - General Family Medicine 11/26/19 documented as of this encounter
--- OUTSIDE RECORDS SUMMARY | 2024-10-22 14:43 | XMS_ITS | Encounter Summary ---
Author Organization [employer] Address 75 [facility] 7t [place] [address] Care Team Providers Care Seismic Interpreter Name Role Phone Reyna Lutz DO Primary Care Provider + [phone] Encounter Details Date Type Department Care Team (Latest Contact Info) Description 10/21/2024 11:15 AM EDT Procedure Visit [facility] [address] [place], [place] [phone] Reyna Lutz DO [address] [place], [place] [phone] Encounter for gynecological examination without abnormal finding (Primary Dx); Type 2 diabetes mellitus without complication, without long-term current use of insulin ([facility]) Social History Tobacco Use Types [...] the past 12 months, has t he [employer], gas, oil or water company threatened to [...] Encounter for gynecological examination without abnormal finding POCT GLYCATED HEMOGLOBIN, TOTAL Routine 10/21/2024 10:59 AM EDT Type 2 diabetes mellitus without complication, without long-term current use of insulin ([facility]) POCT GLUCOSE Routine 10/21/2024 10:59 AM EDT Type 2 diabetes mellitus without complication, without long-term current use of insulin ([facility]) documented in this encounter Results * Chlamydia/N. Gonorrhoeae RNA, TMA, Urogenitial (10/21/2024 4:03 PM EDT) CT PCR NOT DETECTED Not Detect. [facility] Comment:A not detected test result does [...] psychologicalconsequences. NG PCR NOT DETECTED Not Detect. [facility] Comment:A not detected test result does [...] PM EDT 10/21/2024 4:03 PM EDT Narrative [facility] - 10/21/2024 10:31 PM EDT Vaginal Reyna Lutz DO LAB MICROBIOLOGY - GENERAL O RDERABLES Final Result Performing Organization Address City/State/[facility] Co de Phone Number [facility] [address] [place] [phone] * (ABNORMAL) POCT HGB A1C (10/21/2024 [...] complication, without long-term current use of insulin ([facility]) documented in this encounter Additional Health Concerns Assessment Noted Time PHQ-9 Depression Total Score: 5 10/22/19 25 11:40 AM EDT documented as of this encounter Care Teams Seismic Interpreter Relationship Specialty Start Date End Date Reyna Lutz DO [address] [place] [address] PCP - General Family Medicine 11/26/19 documented as of this encounter
--- OUTSIDE RECORDS SUMMARY | 2024-10-22 14:43 | XMS_ITS | Encounter Summary ---
Author Organization [employer] Address 75 [facility] 7t [place] [address] Care Team Providers Care Tin Pourer Name Role Phone Reyna Lutz DO Primary Care Provider + [phone] Encounter Details Date Type Department Care Team (Late st Contact Info) Description 11/10/2022 Orders Only [facility] MED & PEDS [address] [place], [place] [phone] Reyna Maradiaga LPN Social History Tobacco Use [...] on filedocumented in this encounter Care Teams Tin Pourer Relationship Specialty Start Date End Date Reyna Lutz DO [address] [place] [address] PCP - General Family Medicine 11/26/19 documented as of this encounter
--- OUTSIDE RECORDS SUMMARY | 2024-10-22 14:43 | XMS_ITS | Encounter Summary ---
Author Organization [employer] Address 75 [facility] 7t [place] [address] Care Team Providers Care Sports Psychologist Name Role Phone Reyna Lutz DO Primary Care Provider + [phone] Reason for Referral * Consultation (Routine) - Authorized Specialty Diagnoses / Procedures Referred By Contjanine t Referred To Contact Neurology Diagnoses Myotonic dystrophy (CMS/HCC) Sowmya Marinelli MD [address] [place] [address] Phone: tel: fax: Dale Mina MD [address] [place] [address] [place] [address] Phone: tel: fax: Referral ID Status Reason Start Date Expiration Date Visits Requested Visits Authorized [id number] Authorized Specialty Services Required 09/04/2024 09/04/2025 6 6 Encounter Details Date Type Department Care Team (Late st Contact Info) Description 08/27/2024 Orders Only [facility] [address] [place], [place] [phone] Sowmya Marinelli MD [address] [place], [place] [phone] Myotonic dystrophy (CMS/HCC) (Primary Dx) Social History [...] documented as of this encounter Care Teams Sports Psychologist Relationship Specialty Start Date End Date Reyna Lutz DO [address] [place] [address] PCP - General Family Medicine 11/26/19 documented as of this encounter
--- OUTSIDE RECORDS SUMMARY | 2024-10-22 14:43 | XMS_ITS | Encounter Summary ---
Author Organization [employer] Address 75 [facility] 7t [place] [address] Care Team Providers Care Stogie Packer Name Role Phone Reyna Lutz DO Primary Care Provider + [phone] Reason for Visit * Reason Onset Date Comments Referral 08/27/2024 Encounter Details Date Type Department Care Team ([facility] st Contact Info) Description 08/27/2024 Telephone [facility] [address] [place] [address] Reyna Lutz DO [address] [place], [place] [phone] Referral Social History Tobacco Use Types Packs/Day [...] to go that far. Contact pt at [phone] documented in this encounter Plan of Treatment Not on file documented as of this encounter Visit Diagnoses Not on filedocumented in this encounter Additional Health Concerns Assessment Noted Time PHQ-9 Depression Total Score: 4 01/23/20 24 10:23 AM EDT documented as of this encounter Care Teams Stogie Packer Relationship Specialty Start Date End Date Reyna Lutz DO [address] [place] [address] PCP - General Family Medicine 11/26/19 documented as of this encounter
--- OUTSIDE RECORDS SUMMARY | 2024-10-22 14:43 | XMS_ITS | Encounter Summary ---
Author Organization [email or web address] Address 75 [facility] 7t [place] [address] Care Team Providers Care Blue Print Control Clerk Name Role Phone Reyna Lutz DO Primary Care Provider + [phone] Encounter Details Date Type Department Care Team (Late st Contact Info) Description 09/15/2022 Orders Only [facility] 230 [place] [address] Malou Feliz LPN Social History Tobacco Use [...] on filedocumented in this encounter Care Teams Blue Print Control Clerk Relationship Specialty Start Date End Date Reyna Lutz DO 230 [place], [place] [phone] PCP - General Family Medicine 11/26/19 documented as of this encounter
--- OUTSIDE RECORDS SUMMARY | 2024-10-22 14:43 | XMS_ITS | Encounter Summary ---
Author Organization [employer] Address 75 [facility] 7t [place] [address] Care Team Providers Care Knot Tier Name Role Phone Reyna Lutz DO Primary Care Provider + [phone] Encounter Details Date Type Department Care Team (Late st Contact Info) Description 06/27/2022 Orders Only [facility] [address] [place], [place] [phone] Malou Feliz LPN Social History Tobacco Use [...] on filedocumented in this encounter Care Teams Knot Tier Relationship Specialty Start Date End Date Reyna Lutz DO 230 [place], [place] [phone] PCP - General Family Medicine 11/26/19 documented as of this encounter
[2024-10-24 14:23] LABS: HPV Genotype 16 Negative (Negative); HPV Genotype 18 Negative (Negative); HPV High Risk Negative (Negative)
== END 2024-10-22 11:54 | disposition home or self-care (01) ==
LOC: HO.HHCLNP 11:53
PROVIDERS: Visit Provider Family Medicine
DX: Z01.419 Encounter for gynecological examination (general) (routine) without abnormal findings (principal); Z97.5 Presence of (intrauterine) contraceptive device
CPT/HCPCS: 87626; 88175

== ENCOUNTER 2024-10-22 13:52 | Outpatient (REF) | payer MEDICAID, SELFPAY ==
--- NOTE | ~2024-10-22 | CT_ITS ---
EXAMINATION: CT ABDOMEN PELVIS WITHOUT THEN WITH IV CONTRAST HISTORY: R77.2 - Abnormality of alpha-fetoprotein COMPARISON: Comparison is made with a prior unenhanced examination dated 03/03/2020. TECHNIQUE: CT scan of the abdomen and pelvis was performed before and after the intravenous administration of 85 mL Omnipaque 350. Postcontrast images were obtained in the arterial, portal venous, and delayed phases. Coronal and sagittal reformatted images were generated and reviewed. Oral contrast material was not administered per department protocol. This CT exam was performed with one or more of the following dose reduction techniques: automated exposure control, adjustment of the mA and/or kV according to patient size, use of iterative reconstruction technique. DLP: 1000 mGy-cm ABDOMEN: LOWER CHEST: The visualized lung bases are clear. There is no pleural effusion. CARDIOVASCULATURE: The heart is normal in size. There is no pericardial effusion. LIVER: The liver is normal in size and contour. The liver demonstrates decreased attenuation, consistent with steatosis. There is focal fatty sparing adjacent to the gallbladder. No liver mass is identified. The hepatic and portal veins are patent. GALLBLADDER / BILE DUCTS: The gallbladder is unremarkable. There is no intra or extrahepatic biliary ductal dilatation. SPLEEN: The spleen is normal in size. No focal splenic lesion is identified. PANCREAS: The pancreas is unremarkable in appearance. ADRENAL GLANDS: Again seen are bilateral adrenal nodules measuring 1.8 cm on the right (-1.6HU in density) and 1.6 cm on the left (-16.3HU in density), consistent with adenomas.. KIDNEYS/RETROPERITONEUM: No renal calculi are identified. There is no hydronephrosis. There is a 2.7 cm cyst at the upper pole of the left kidney. Additional smaller cysts are noted in both kidneys. LYMPH NODES: No abdominal or pelvic lymphadenopathy. VASCULATURE: The abdominal aorta is normal in caliber. MESENTERY/PERITONEUM: No free fluid. No masses. There is no free intraperitoneal gas. STOMACH: The stomach is unremarkable. SMALL BOWEL: The small bowel is normal in caliber. COLON: The colon is unremarkable. APPENDIX: Normal. URINARY BLADDER/PELVIC ORGANS: The urinary bladder is nondistended, limiting evaluation. An IUD is noted in the endometrial cavity of the uterus. There is a 3.1 cm posterior uterine mass, consistent with a fibroid. There is diffuse low-density heterogeneity of the cervix. BONES / SOFT TISSUES: No suspicious bony or soft tissue abnormalities. CT/CT abdomen pelvis wo/w IV con IMPRESSION: 1. Hepatic steatosis. No evidence of a liver mass. If this remains a clinical concern, MRI is more sensitive for the detection of enhancing liver masses. 2. Bilateral adrenal adenomas as described. 3. 3.1 cm posterior uterine fibroid. Low density and heterogeneity of the cervix. A mass is not excluded. Correlation with direct visualization is recommended. Electronically signed by: Tung Montez MD 10/22/2024 03:34 PM EDT
[2024-10-22] MEDS: iohexoL 350 MG/ML 100 ML INFUS..BTL IV (15:07)
--- OUTSIDE RECORDS SUMMARY | 2024-10-22 17:04 | XMS_ITS | Encounter Summary ---
Author Organization [employer] Address 75 [facility] 7t [place] [address] Care Team Providers Care Low Pressure Kettle Operator Name Role Phone Reyna Lutz DO Primary Care Provider + [phone] Reason for Visit * Reason Onset Date Comments Med Refill 10/05/2022 Encounter Details Date Type Department Care Team (Late st Contact Info) Description 10/05/2022 Refill [facility] [address] [place] [address] Reyna Lutz DO [address] [place], [place] [phone] Acute bilateral low back pain without sciatica [...] 50 MG tablet To be sent to [facility] [address] [facility], [place] [address]. Avionic Technician sees medication was sentto [facility] at [address], [place], [address] but pharmacy advise pt that they are currently out of this medication. Please contact pt at [phone] documented in this encounter Plan of Treatment Not on file documented as of this encounter Visit Diagnoses Diagnosis Acute bilateral low back pain without sciatica documented in this encounter Care Teams Low Pressure Kettle Operator Relationship Specialty Start Date End Date Reyna Lutz DO [address] [place] [address] PCP - General Family Medicine 11/26/19 documented as of this encounter
--- OUTSIDE RECORDS SUMMARY | 2024-10-22 17:04 | XMS_ITS | Encounter Summary ---
Author Organization [employer] Address 75 [facility] 7t [place] [address] Care Team Providers Care Parts Driver Name Role Phone Reyna Lutz DO Primary Care Provider + [phone] Encounter Details Date Type Department Care Team (Late st Contact Info) Description 06/27/2022 Orders Only [facility] [address] [place], [place] [phone] Malou Feliz LPN Social History Tobacco Use [...] on filedocumented in this encounter Care Teams Parts Driver Relationship Specialty Start Date End Date Reyna Lutz DO 230 [place], [place] [phone] PCP - General Family Medicine 11/26/19 documented as of this encounter
--- OUTSIDE RECORDS SUMMARY | 2024-10-22 17:04 | XMS_ITS | Encounter Summary ---
Author Organization [employer] Address 75 [facility] 7t [place] [address] Care Team Providers Care Educational Program Director Name Role Phone Reyna Lutz DO Primary Care Provider + [phone] Encounter Details Date Type Department Care Team (Late st Contact Info) Description 09/09/2022 Abstract [facility]ULT D[facility] [address] [place] [address] Rachna Mendez DDS [address] [place] [address] Social History Tobacco Use Types Packs/Day Years [...] on filedocumented in this encounter Care Teams Educational Program Director Relationship Specialty Start Date End Date Reyna Lutz DO [address] [place] [address] PCP - General Family Medicine 11/26/19 documented as of this encounter
--- OUTSIDE RECORDS SUMMARY | 2024-10-22 17:04 | XMS_ITS | Encounter Summary ---
Author Organization [employer] Address 75 [facility] 7t [place] [address] Care Team Providers Care Rhic Systems Safety Engineer Name Role Phone Reyna Lutz DO Primary Care Provider + [phone] Encounter Details Date Type Department Care Team (Late st Contact Info) Description 08/16/2022 Orders Only [facility] CH[facility] MED & PEDS [address] [place], [place] [phone] Reyna Maradiaga LPN Social History Tobacco Use [...] on filedocumented in this encounter Care Teams [employer] Systems Safety Engineer Relationship Specialty Start Date End Date Reyna Lutz DO [address] [place] [address] [phone] PCP - General Family Medicine 11/26/19 documented as of this encounter
--- OUTSIDE RECORDS SUMMARY | 2024-10-22 17:04 | XMS_ITS | Encounter Summary ---
Author Organization [employer] Address [address] [facility] 7t [place] [address] Care Team Providers Care Supervisor Fish [employer]cher[employer] Name Role Phone AlfredoReyna marmolejo Primary Care Provider + [phone] Encounter Details Date Type Department Care Team [...] documented as of this encounter Care Teams Supervisor [employer] Hatcher[employer] Relationship Specialty Start Date End Date Reyna Lutz DO [address] [place] [address] PCP - General Family Medicine 11/26/19 documented as of this encounter
--- OUTSIDE RECORDS SUMMARY | 2024-10-22 17:04 | XMS_ITS | Encounter Summary ---
Author Organization [employer] Address 75 [facility] 7t [place] [address] Care Team Providers Care Director Of Assessing Name Role Phone NeldaReyna Primary Care Provider + [phone] Reason for Visit * Reason Onset Date [...] (Late st Contact Info) Description 09/26/2022 Telephone [facility] [address] [place], [place] [phone] Michael Jackson DDS 230 [place], [place] [phone] Appointment (Kelsey Lozano 1975 Patient was seen [...] on filedocumented in this encounter Care Teams Director Of Assessing Relationship Specialty Start Date End Date Reyna Lutz DO [address] [place] [address] PCP - General Family Medicine 11/26/19 documented as of this encounter
--- OUTSIDE RECORDS SUMMARY | 2024-10-22 17:04 | XMS_ITS | Encounter Summary ---
Author Organization [employer] Address 75 [facility] 7t [place] [address] Care Team Providers Care Fire Marshal Refinery Name Role Phone Reyna Lutz DO Primary Care Provider + [phone] Encounter Details Date Type Department Care Team (Late st Contact Info) Description 12/21/2022 Orders Only [facility] AD[facility] D[facility] [address] [place] [address] Rachna Mendez DDS [address] [place] [address] Social History Tobacco Use Types Packs/Day Years [...] on filedocumented in this encounter Care Teams Fire Marshal Refinery Relationship Specialty Start Date End Date Reyna Lutz DO 230 [place] [address] PCP - General Family Medicine 11/26/19 documented as of this encounter
--- OUTSIDE RECORDS SUMMARY | 2024-10-22 17:04 | XMS_ITS | Encounter Summary ---
Author Organization [employer] Address 75 [facility] 7t [place] [address] Care Team Providers Care Wine Bottle Inspector Name Role Phone Reyna Lutz DO Primary Care Provider + [phone] Encounter Details Date Type Department Care Team (Late st Contact Info) Description 11/10/2022 Orders Only [facility] CH[facility] MED & PEDS [address] [place], [place] [phone] Reyna Maradiaga LPN Social History Tobacco Use [...] on filedocumented in this encounter Care Teams Wine Bottle Inspector Relationship Specialty Start Date End Date Reyna Lutz DO 230 [place] [address] PCP - General Family Medicine 11/26/19 documented as of this encounter
--- OUTSIDE RECORDS SUMMARY | 2024-10-22 17:04 | XMS_ITS | Encounter Summary ---
Author Organization [employer] Address [address] [facility] 7t [place] [address] Care Team Providers Care Brickmason Apprentice Name Role Phone Reyna Lutz DO Primary Care Provider + [phone] Encounter Details Date Type Department Care Team (Latest Contact Info) Description 10/21/2024 11:15 AM EDT Procedure Visit [facility] [address] [place], [place] [phone] Reyna Lutz DO [address] [place], [place] [phone] Encounter for gynecological examination without abnormal finding (Primary Dx); Type 2 diabetes mellitus without complication, without long-term current use of insulin ([facility]) Social History Tobacco Use Types [...] the past 12 months, has t he [employer], gas, oil or water company threatened to [...] complication, without long-term current use of insulin ([facility]) POCT GLUCOSE Routine 10/21/2024 10:59 AM EDT Type 2 diabetes mellitus without complication, without long-term current use of insulin ([facility]) documented in this encounter Results * Chlamydia/N. Gonorrhoeae RNA, TMA, Urogenitial (10/21/2024 4:03 PM EDT) CT PCR NOT DETECTED Not Detect. [facility] Comment:A not detected test result [...] psychologicalconsequences. NG PCR NOT DETECTED Not Detect. [facility] Comment:A not detected test result [...] PM EDT 10/21/2024 4:03 PM EDT Narrative [facility] - 10/21/2024 10:31 PM EDT Vaginal Reyna Lutz DO LAB MICROBIOLOGY - GENERAL O RDERABLES Final Result Performing Organization Address City/State/[facility] Co de Phone Number [facility] [address] [place] [phone] * (ABNORMAL) POCT HGB A1C (10/21/2024 [...] complication, without long-term current use of insulin ([facility]) documented in this encounter Additional Health Concerns Assessment Noted Time PHQ-9 Depression Total Score: 5 10/22/19 25 11:40 AM EDT documented as of this encounter Care Teams Brickmason Apprentice Relationship Specialty Start Date End Date Reyna Lutz DO [address] [place] [phone] PCP - General Family Medicine 11/26/19 documented as of this encounter
--- OUTSIDE RECORDS SUMMARY | 2024-10-22 17:04 | XMS_ITS | Encounter Summary ---
Author Organization [employer] Address 75 [facility] 7t [place] [address] Care Team Providers Care Inspector Motor Vehicles Name Role Phone Reyna Lutz DO Primary Care Provider + [phone] Encounter Details Date Type Department Care Team (Late st Contact Info) Description 07/22/2022 Orders Only [facility] CH[facility] MED & PEDS [address] [place], [place] [phone] Reyna Maradiaga LPN Social History Tobacco Use [...] on filedocumented in this encounter Care Teams Inspector Motor Vehicles Relationship Specialty Start Date End Date Reyna Lutz DO [address] [place] [address] [phone] PCP - General Family Medicine 11/26/19 documented as of this encounter
--- OUTSIDE RECORDS SUMMARY | 2024-10-22 17:04 | XMS_ITS | Encounter Summary ---
Author Organization [employer] Address 75 [facility] 7t [place] [address] Care Team Providers Care Weigher Alloy Name Role Phone AlfredoReyna marmolejo Primary Care Provider + [phone] Encounter Details Date Type Department Care Team [...] Procedure Name Priority Date/Time Associated Diagnosis Comments CT ABDOMEN PELVIS W AND WO CONTRAST Routine 10/22/2024 2:22 PM EDT HEMOGLOBIN A1C Routine 10/21/2024 2:11 PM EDT COMPREHENSIVE METABOLIC PANEL Routine 10/21/2024 2:11 PM EDT documented in this encounter Results * CT Abdomen Pelvis w/ and w/o Contrast (10/22/2024 2:22 PM EDT) Anatomical Region Laterality Modality Body, Pelvis, Abdomen Computed T omography 10/22/2024 2:22 PM EDT Narrative 10/22/2024 3:37 PM EDT ? [facility] ?[address] ?[place] [address] ? CT Scan Report ? Signed ? Patient: Brunault,Kelsey M ?MR#: [id number] ?? [id number] ? : 1975 ?Acct:[id number] ? Age/Sex: 49 / F ?ADM Date: 04/15/25 ? Loc: HO.CT ? Attending Dr: Lilian Davila MD ? Ordering Physician: Lilian Davila MD ?? Date of Service: 10/22/24 ?? Procedure(s): CT abdomen pelvis wo/w IV con ?? Accession Number(s): [id number] ? cc: Reyna Lutz DO; Lilian Davila MD ? Report Number: ?? [id number]: Total DLP = 1000.00 mGy-cm ?? EXAMINATION: ??CT ABDOMEN PELVIS WITHOUT THEN WITH IV CONTRAST ? HISTORY: R77.2 - Abnormality of alpha-fetoprotein ? COMPARISON: Comparison is made with a prior unenhanced examination ?? dated 03/03/2020. ? TECHNIQUE: CT scan of the abdomen and pelvis was performed before and ?? after the intravenous administration of 85 mL Omnipaque 350. ? Postcontrast images were obtained in the arterial, portal venous, and ?? delayed phases. ??Coronal and sagittal reformatted images were generated ?? and reviewed. ??Oral contrast material was not administered per ?? department protocol. ? This CT exam was performed with one or more of the following dose ?? reduction techniques: automated exposure control, adjustment of the mA ?? and/or kV according to patient size, use of iterative reconstruction ?? technique. ? DLP: 1000 mGy-cm ? ABDOMEN: ? LOWER CHEST: The visualized lung bases are clear. There is no pleural ?? effusion. ? CARDIOVASCULATURE: The heart is normal in size. ??There is no ?? pericardial effusion. ? LIVER: ??The liver is normal in size and contour. The liver demonstrates ?? decreased attenuation, consistent with steatosis. There is focal fatty ?? sparing adjacent to the gallbladder. No liver mass is identified. The ?? hepatic and portal veins are patent. ? GALLBLADDER / BILE DUCTS: ??The gallbladder is unremarkable. There is no ?? intra or extrahepatic biliary ductal dilatation. ? SPLEEN: The spleen is normal in size. No focal splenic lesion is ?? identified. ? PANCREAS: The pancreas is unremarkable in appearance. ? ADRENAL GLANDS: Again seen are bilateral adrenal nodules measuring 1.8 ?? cm on the right (-1.6HU in density) and 1.6 cm on the left (-16.3HU in ?? density), consistent with adenomas.. ? KIDNEYS/RETROPERITONEUM: No renal calculi are identified. There is no ?? hydronephrosis. ??There is a 2.7 cm cyst at the upper pole of the left ?? kidney. Additional smaller cysts are noted in both kidneys. ? LYMPH NODES: ??No abdominal or pelvic lymphadenopathy. ? VASCULATURE: ??The abdominal aorta is normal in caliber. ? MESENTERY/PERITONEUM: No free fluid. No masses. ??There is no free ?? intraperitoneal gas. ? STOMACH: ??The stomach is unremarkable. ? SMALL BOWEL: ?? The small bowel is normal in caliber. ? COLON: ??The colon is unremarkable. ? APPENDIX: ??Normal. ? URINARY BLADDER/PELVIC ORGANS: The urinary bladder is nondistended, ?? limiting evaluation. ??An IUD is noted in the endometrial cavity of the ?? uterus. There is a 3.1 cm posterior uterine mass, consistent with a ?? fibroid. There is diffuse low-density heterogeneity of the cervix. ? BONES / SOFT TISSUES: ??No suspicious bony or soft tissue abnormalities. ? CT/CT abdomen pelvis wo/w IV con ?? IMPRESSION: ? 1. Hepatic steatosis. No evidence of a liver mass. If this remains a ?? clinical concern, MRI is more sensitive for the detection of enhancing ?? liver masses. ? 2. Bilateral adrenal adenomas as described. ? 3. 3.1 cm posterior uterine fibroid. Low density and heterogeneity of ?? the cervix. A mass is not excluded. Correlation with direct ?? visualization is recommended. ? Electronically signed by: ??Tung Montez MD ??10/22/2024 03:34 PM EDT ?? RP ? Dictated By: ?Tung Montez MD ? Signed By: ?<Electronically signed by Tung Montez MD in OV> ?10/22/24 1534 ? DD/ 1422 ? TD/TT: 10/22/24 1500 ? Marine Resource Economist: ? Procedure Note Volodymyr, Image - 10/22/[address] [place] [address] CT Scan Report Signed Patient: Kelsey Lozano [facility]#: [id number] : 1975Acct:[id number] Age/Sex: 49 / FADM Date: 10/22/24 Loc: HO.CT Attending Dr: Lilian Davila MD Ordering Physician: Lilian Davila MD Date of Service: 10/22/24 Procedure(s): CT abdomen pelvis wo/w IV con Accession Number(s): [id number] cc: Reyna Lutz DO; Lilian Davila MD Report Number: [id number]: Total DLP = 1000.00 mGy-cm EXAMINATION: CT ABDOMEN PELVIS WITHOUT THEN WITH IV CONTRAST HISTORY: R77.2 - Abnormality of alpha-fetoprotein COMPARISON: Comparison is made with a prior unenhanced examination dated 03/03/2020. TECHNIQUE: CT scan of the abdomen and pelvis was performed before and after the intravenous administration of 85 mL Omnipaque 350. Postcontrast images were obtained in the arterial, portal venous, and delayed phases. Coronal and sagittal reformatted images were generated and reviewed. Oral contrast material was not administered per department protocol. This CT exam was performed with one or more of the following dose reduction techniques: automated exposure control, adjustment of the mA and/or kV according to patient size, use of iterative reconstruction technique. DLP: 1000 mGy-cm ABDOMEN: LOWER CHEST: The visualized lung bases are clear. There is no pleural effusion. CARDIOVASCULATURE: The heart is normal in size. There is no pericardial effusion. LIVER: The liver is normal in size and contour. The liver demonstrates decreased attenuation, consistent with steatosis. There is focal fatty sparing adjacent to the gallbladder. No liver mass is identified. The hepatic and portal veins are patent. GALLBLADDER / BILE DUCTS: The gallbladder is unremarkable. There is no intra or extrahepatic biliary ductal dilatation. SPLEEN: The spleen is normal in size. No focal splenic lesion is identified. PANCREAS: The pancreas is unremarkable in appearance. ADRENAL GLANDS: Again seen are bilateral adrenal nodules measuring 1.8 cm on the right (-1.6HU in density) and 1.6 cm on the left (-16.3HU in density), consistent with adenomas.. KIDNEYS/RETROPERITONEUM: No renal calculi are identified. There is no hydronephrosis. There is a 2.7 cm cyst at the upper pole of the left kidney. Additional smaller cysts are noted in both kidneys. LYMPH NODES: No abdominal or pelvic lymphadenopathy. VASCULATURE: The abdominal aorta is normal in caliber. MESENTERY/PERITONEUM: No free fluid. No masses. There is no free intraperitoneal gas. STOMACH: The stomach is unremarkable. SMALL BOWEL: The small bowel is normal in caliber. COLON: The colon is unremarkable. APPENDIX: Normal. URINARY BLADDER/PELVIC ORGANS: The urinary bladder is nondistended, limiting evaluation. An IUD is noted in the endometrial cavity of the uterus. There is a 3.1 cm posterior uterine mass, consistent with a fibroid. There is diffuse low-density heterogeneity of the cervix. BONES / SOFT TISSUES: No suspicious bony or soft tissue abnormalities. CT/CT abdomen pelvis wo/w IV con IMPRESSION: 1. Hepatic steatosis. No evidence of a liver mass. If this remains a clinical concern, MRI is more sensitive for the detection of enhancing liver masses. 2. Bilateral adrenal adenomas as described. 3. 3.1 cm posterior uterine fibroid. Low density and heterogeneity of the cervix. A mass is not excluded. Correlation with direct visualization is recommended. Electronically signed by: Tung Montez MD 10/22/2024 03:34 PM EDT Dictated By: Tung Montez MD Signed By: <Electronically signed by Tung Montez MD in OV> 10/22/24 1534 DD/ 1422 TD/TT: 10/22/24 1500 Marine Resource Economist: us [facility] External Provider IMG CT PROCEDURES Final Result * (ABNORMAL) Comprehensive Metabolic Panel (10/21/2024 2:11 PM EDT) Sodium 144 135 - 145 mmol/L [facility] Potassium 4.5 3.3 - 5.1 mmol/L [facility] Chloride 105 96 - 108 mmol/L [facility] Carbon Dioxide 32(H) 22 - 29 mmol/L [facility] Anion Gap 12 12 - 20 [facility] Urea Nitrogen (BUN) 6(L) 9 - 16 mg/dL [facility] Creatinine, Serum 0.71 0.5 - 1.4 mg/dL [facility] Estimated Glomerular Filt Rate >60 [facility] Comment:Chronic Kidney Disea se: Estimated GFR < 60 mL/min/1.83t3Mqchui Kidney Disease: Estimated GFR < 15 mL/min/1.73m2 Glucose 172(H) 60 - 115 mg/dL [facility] Calcium 9.8 8.4 - 10.2 mg/dL [facility] Bilirubin, Total 1.7(H) 0.0 - 1.0 mg/dL [facility] Aspartate Amino Transferase 35(H) 5 - 31 U/L [facility] Alanine Aminotransferase 41(H) 0 - 31 U/L [facility] Total Protein 7.0 6.5 - 8.0 g/dL [facility] Albumin Level 4.3 3.5 - 5.0 g/dL [facility] Alkaline Phosphatase 70 39 - 117 U/L [facility] 10/21/2024 2:11 PM EDT 10/21/2024 2:11 PM EDT us Generic External Data Provider LAB BLOOD ORDERAB LES Final Result [facility] [address] [place] [phone] * (ABNORMAL) Hemoglobin A1c (10/21/2024 2:11 PM EDT) Hemoglobin A1c 7.2(H) <6.0 % [facility] Comment:Hemoglobin A1C Refer ence Range Adults: 4.8 - 6.0 % Non diabetic: < 6.0 % Goal: < 7.0 %Additional Action Suggested: > 8.0 %Note: Hemoglobin A1c results are invalid for patients with abnormal amounts of HbF. Blood transfusions may impact the HbA1c concentration in the patient sample. Estimated Average Glucose 160 mg/dL [facility] Comment:eAG = Estimated ave rage glucose which is %A1C expressed asaverage glucose, using the formula of the S5F-BotwxfaSyqptij Glucose study (ADAG), Diabetes Care, Vol.31,#8,Feb. 2007 10/21/2024 2:11 PM EDT 10/21/2024 2:11 PM EDT us Generic External Data Provider LAB BLOOD ORDERAB LES Final Result Performing Organization Address City/State/[facility] Co de Phone Number [facility] [address] [place] [phone] documented in this encounter Visit Diagnoses Not on filedocumented in this encounter Additional Health Concerns Assessment Noted Time PHQ-9 Depression Total Score: 5 10/22/19 25 11:40 AM EDT documented as of this encounter Care Teams Weigher Alloy Relationship Specialty Start Date End Date Reyna Lutz DO [address] [place] [phone] PCP - General Family Medicine 11/26/19 documented as of this encounter
--- OUTSIDE RECORDS SUMMARY | 2024-10-22 17:04 | XMS_ITS | Encounter Summary ---
Author Organization [employer] Address 75 [facility] 7t [place] [address] Care Team Providers Care Wire Inspector Name Role Phone Reyna Lutz DO Primary Care Provider + [phone] Reason for Visit * Reason Comments Med Refill Encounter Details Date Type Department Care Team (Late st Contact Info) Description 01/16/2023 Refill [facility] MEDICINE [address] [place], [place] [phone] Reyna Lutz DO [address] [place], [place] [phone] Pain Social History Tobacco Use Types Packs/Day [...] documented as of this encounter Care Teams Wire Inspector Relationship Specialty Start Date End Date Reyna Lutz DO [address] [place] [phone] PCP - General Family Medicine 11/26/19 documented as of this encounter
--- OUTSIDE RECORDS SUMMARY | 2024-10-22 17:04 | XMS_ITS | Encounter Summary ---
Author Organization [employer] Address [address] [facility] 7t [place] [address] Care Team Providers Care Meat Boner And Slicer Name Role Phone Reyna Lutz DO Primary Care Provider + [phone] Encounter Details Date Type Department Care Team (Late st Contact Info) Description 09/09/2022 Orders Only [facility] [address] [place], [place] [phone] Reyna Maradiaga LPN Social History Tobacco Use [...] on filedocumented in this encounter Care Teams Meat Boner And Slicer Relationship Specialty Start Date End Date Reyna Lutz DO [address] [place] [address] PCP - General Family Medicine 11/26/19 documented as of this encounter
--- OUTSIDE RECORDS SUMMARY | 2024-10-22 17:04 | XMS_ITS | Encounter Summary ---
Author Organization [employer] Address 75 [facility] 7t [place] [address] Care Team Providers Care Locksmith Name Role Phone Reyna Lutz DO Primary Care Provider + [phone] Reason for Visit * Reason Onset Date Comments Appointment 09/26/2022 Kelseyalexy Alegrebo 1975 Patient was seen 09/26 and was wondering if medication was sent to pharmacy please advise Encounter Details Date Type Department Care Team ([facility] Contact Info) Description 09/26/2022 Telephone [facility] ADULT DENTAL [address] [place] [address] John Ortega DDS [address] [place] [address] Appointment (Kelsey Alegrebo 1975 Patient was seen [...] Kimmie Ramos - 09/26/2022 3:48 PM EDT Kelesy ARAGON 1975 Patient was seen 09/26 and was wondering if medication was sent to pharmacy please advise documented in this encounter Plan of Treatment Not on file documented as of this encounter Visit Diagnoses Not on filedocumented in this encounter Care Teams Locksmith Relationship Specialty Start Date End Date Reyna Lutz DO [address] [place] [phone] PCP - General Family Medicine 11/26/19 documented as of this encounter
--- OUTSIDE RECORDS SUMMARY | 2024-10-22 17:04 | XMS_ITS | Encounter Summary ---
Author Organization [employer] Address [address] [facility] 7t [place] [address] Care Team Providers Care Template Checker Name Role Phone Reyna Lutz DO Primary Care Provider + [phone] Encounter Details Date Type Department Care Team (Late st Contact Info) Description 07/20/2022 Orders Only [facility] MEDICINE [address] [place] [address] Malou Feliz LPN Social History Tobacco Use [...] on filedocumented in this encounter Care Teams Template Checker Relationship Specialty Start Date End Date Reyna Lutz DO [address] [place], [place] [phone] PCP - General Family Medicine 11/26/19 documented as of this encounter
--- OUTSIDE RECORDS SUMMARY | 2024-10-22 17:04 | XMS_ITS | Encounter Summary ---
Author Organization [employer] Address [address] [facility] 7t [place] [address] Care Team Providers Care Seating Upholsterer Name Role Phone Reyna Lutz DO Primary Care Provider + [phone] Encounter Details Date Type Department Care Team (Late st Contact Info) Description 09/15/2022 Orders Only [facility] MEDICINE [address] [place] [address] Malou Feliz LPN Social History Tobacco Use [...] on filedocumented in this encounter Care Teams Seating Upholsterer Relationship Specialty Start Date End Date Reyna Lutz DO [address] [place], [place] [phone] PCP - General Family Medicine 11/26/19 documented as of this encounter
--- OUTSIDE RECORDS SUMMARY | 2024-10-22 17:04 | XMS_ITS | Encounter Summary ---
Author Organization [employer] Address 75 [facility] 7t [place] [address] Care Team Providers Care Corporate Law Assistant Name Role Phone NeldaReyna Primary Care Provider + [phone] Reason for Visit * Reason Onset Date Comments script for toothpaste 12/21/2022 Encounter Details Date Type Department Care Team (Late st Contact Info) Description 12/21/2022 Telephone [facility] ADULT DENTAL [address] [place] [address] Rachna Mendez, DDS [address] [place] [address] script for toothpaste Social History Tobacco Use [...] on filedocumented in this encounter Care Teams Corporate Law Assistant Relationship Specialty Start Date End Date Reyna Lutz DO [address] [place] [phone] PCP - General Family Medicine 11/26/19 documented as of this encounter
--- OUTSIDE RECORDS SUMMARY | 2024-10-22 17:05 | XMS_ITS | Encounter Summary ---
Author Organization [employer] Address [address] [facility] 7t [place] [address] Care Team Providers Care Boat Hoist Operator Helper Name Role Phone Reyna Lutz DO Primary Care Provider + [phone] Reason for Visit * Reason Onset Date Comments Referral 08/27/2024 Encounter Details Date Type Department Care Team ([facility] st Contact Info) Description 08/27/2024 Telephone [facility] MEDICINE [address] [place] [address] Reyna Lutz DO [address] [place], [place] [phone] Referral Social History Tobacco Use Types Packs/Day [...] to go that far. Contact pt at [phone] documented in this encounter Plan of Treatment Not on file documented as of this encounter Visit Diagnoses Not on filedocumented in this encounter Additional Health Concerns Assessment Noted Time PHQ-9 Depression Total Score: 4 01/23/20 24 10:23 AM EDT documented as of this encounter Care Teams Boat Hoist Operator Helper Relationship Specialty Start Date End Date Reyna Lutz DO [address] [place] [address] PCP - General Family Medicine 11/26/19 documented as of this encounter
--- OUTSIDE RECORDS SUMMARY | 2024-10-22 17:05 | XMS_ITS | Encounter Summary ---
Author Organization [employer] Address [address] [facility] 7t [place] [address] Care Team Providers Care Nut Sorter Name Role Phone Reyna Lutz DO Primary Care Provider + [phone] Reason for Referral * Consultation (Routine) - Authorized Specialty Diagnoses / Procedures Referred By Contjanine t Referred To Contact Neurology Diagnoses Myotonic dystrophy (CMS/HCC) Sowmya Marinelli MD [address] [place] [address] Phone: tel: fax: Dale Mina MD [address] [place] [address] [place] [address] Phone: tel: fax: Referral ID Status Reason Start Date Expiration Date Visits Requested Visits Authorized [id number] Authorized Specialty Services Required 09/04/2024 09/04/2025 6 6 Encounter Details Date Type Department Care Team (Late st Contact Info) Description 08/27/2024 Orders Only [facility] [address] [place], [place] [phone] Sowmya Marinelli MD [address] [place], [place] [phone] Myotonic dystrophy (CMS/HCC) (Primary Dx) Social History [...] documented as of this encounter Care Teams Nut Sorter Relationship Specialty Start Date End Date Reyna Lutz DO [address] [place] [phone] PCP - General Family Medicine 11/26/19 documented as of this encounter
--- OUTSIDE RECORDS SUMMARY | 2024-10-22 17:05 | XMS_ITS | Clinical Summary ---
Author Organization [employer] Address [address] [place] [address] Care Team Providers Care Channel Lip Wetter Name Role Phone CatalinaReyna raines Primary Care Provider + [phone] Allergies No known active allergies Medications TRUEplus [...] miscIndications:Typ e 2 diabetes mellitus without complications ([facility]/HCC) TEST BLOOD SUGAR TWICE DAILY 100 each 1 025 Active FREESTYLE LITE test stripIndications:Ty pe 2 diabetes mellitus without complications ([facility]) TEST BLOOD SUGAR TWICE DAILY 100 [...] 025 Active ergocalciferol (Vitamin D2) 1.25 MG (62375 UT) capsuleIndications: Vitamin D deficiency TAKE 1 [...] AM EDT Procedure Visit [facility] [address] [place] [address] Reyna Lutz DO Encounter for gynecological examination without abnormal finding (Primary Dx); Type 2 diabetes mellitus without complication, without long-term current use of insulin ([facility]) 10/21/2024 Orders Only GENERIC EXTERNAL DATA DEPARTMENT Provider, Generic External Data 10/21/2024 Travel 09/22/2024 Refill [facility] [address] [facility] [place] [address] Reyna Lutz DO 09/20/2024 Population Health Risk Score [facility] () Department [address] [place] [phone] Provider, Population Health Generic 09/17/2024 Refill [facility] [address] [facility] [place] [address] Reyna Lutz DO Vitamin D deficiency 09/12/2024 Refill [facility] [address] [place] [address] Reyna Lutz DO 08/27/2024 Travel 08/27/2024 Orders Only [facility] [address] [place] [address] Sowmya Marinelli MD Myotonic dystrophy ([facility]) (Primary Dx) 08/27/2024 Telephone [facility] [address] [place] [address] Reyna Lutz DO Appointment Request 08/27/2024 Telephone [facility] [address] [place] [phone] Reyna Lutz DO Referral 08/12/2024 6:00 PM EST Office Visit [facility] [address] [place] [address] Tariq Oneill MD Cough, unspecified type (Primary Dx); Influenza A 08/12/2024 Travel 08/12/2024 Telephone [facility] [address] [place], [place] [phone] Marylou Lemons, INA NTTS 08/01/2024 Refill [facility] [address] [place] [address] Ngoc Barnes ANP Type 2 diabetes mellitus without complications ([facility]) 08/01/2024 Refill [facility] [address] [place] [address] [phone] Reyna Lutz DO Chronic gastroesophageal reflux disease; [...] WO CONTRAST Routine 10/22/2024 2:22 PM EDT CHLAMYDIA/N. GONORRHOEAE RNA, TMA, UROGENITAL Routine 10/21/2024 4:03 PM EDT Encounter for gynecological examination without abnormal finding COMPREHENSIVE METABOLIC PANEL Routine 10/21/2024 2:11 PM EDT HEMOGLOBIN A1C Routine 10/21/2024 2:11 PM EDT POCT GLYCATED HEMOGLOBIN, TOTAL Routine 10/21/2024 10:59 AM EDT Type 2 diabetes mellitus without complication, without long-term current use of insulin (CMS/HCC) POCT GLUCOSE Routine 10/21/2024 10:59 AM EDT [...] ESTABLISHED PATIENT Routine 11/30/2022 1:00 PM EDT ROSEANN HISTORICAL HPV E6/E7 RFLX IVANIA 16 18/45 Routine 10/08/2020 2:13 PM EDT from Last 3 Months or Most Recently Relevant to Health Maintenance Results * CT Abdomen Pelvis w/ and w/o Contrast (10/22/2024 2:22 PM EDT) Anatomical Region Laterality Modality Body, Pelvis, Abdomen Computed T omography 10/22/2024 2:22 PM EDT Narrative 10/22/2024 3:37 PM EDT ? [facility] ?[address] ?[place] [address] ? CT Scan Report ? Signed ? Patient: Brunault,Kelsey M ?MR#: [id number] ?? [id number] ? : 1975 ?Acct:[id number] ? Age/Sex: 49 / F ?ADM Date: 04/15/25 ? Loc: HO.CT ? Attending Dr: Lilian Davila MD ? Ordering Physician: Lilian Davila MD ?? Date of Service: 10/22/24 ?? Procedure(s): CT abdomen pelvis wo/w IV con ?? Accession Number(s): [id number] ? cc: Reyna Lutz DO; Lilian Davila MD ? Report Number: ?? [id number]: Total DLP = 1000.00 mGy-cm ?? EXAMINATION: [...] DD/ 1422 ? TD/TT: 10/22/24 1500 ? Stallion Keeper: ? Procedure Note Volodymyr, Image - 10/22/[address] [address] [address] Scan Report Signed Patient: Kelsey oLzano [facility]#: [id number] : 1975Acct:[id number] Age/Sex: 49 / FADM Date: 10/22/24 Loc: HO.CT Attending Dr: Lilian Davila MD Ordering Physician: Lilian Davila MD Date of Service: 10/22/24 Procedure(s): CT abdomen pelvis wo/w IV con Accession Number(s): [id number] cc: Reyna Lutz DO; Lilian Davila MD Report Number: [id number]: Total DLP = 1000.00 mGy-cm EXAMINATION: CT [...] 10/22/24 1534 DD/ 1422 TD/TT: 10/22/24 1500 Stallion Keeper: [facility] External Provider IMG CT PROCEDURES Final Result * Chlamydia/N. Gonorrhoeae RNA, TMA, Urogenitial (10/21/2024 4:03 PM EDT) CT PCR NOT DETECTED Not Detect. [facility] Comment:A not detected test [...] psychologicalconsequences. NG PCR NOT DETECTED Not Detect. [facility] Comment:A not detected test [...] PM EDT 10/21/2024 4:03 PM EDT Narrative [facility] - 10/21/2024 10:31 PM EDT Vaginal us Reyna Lutz DO LAB MICROBIOLOGY - GENERAL O RDERABLES Final Result [facility] [address] [place] [phone] [phone] * (ABNORMAL) Hemoglobin A1c (10/21/2024 2:11 PM EDT) Hemoglobin A1c 7.2(H) <6.0 % [facility] Comment:Hemoglobin A1C Refer ence Range Adults: 4.8 - 6.0 % Non diabetic: < 6.0 % Goal: < 7.0 %Additional Action Suggested: > 8.0 %Note: Hemoglobin A1c results are invalid for patients with abnormal amounts of HbF. Blood transfusions may impact the HbA1c concentration in the patient sample. Estimated Average Glucose 160 mg/dL [facility] Comment:eAG = Estimated ave rage glucose which is %A1C expressed asaverage glucose, using the formula of the C6K-AufizdkMabhbtk Glucose study (ADAG), Diabetes Care, Vol.31,#8,Feb. 2007 10/21/2024 2:11 PM EDT 10/21/2024 2:11 PM EDT us Generic External Data Provider LAB BLOOD ORDERAB LES Final Result [facility] [address] [place] [phone] [phone] * (ABNORMAL) Comprehensive Metabolic Panel (10/21/2024 2:11 PM EDT) Sodium 144 135 - 145 mmol/L [facility] Potassium 4.5 3.3 - 5.1 mmol/L [facility] Chloride 105 96 - 108 mmol/L [facility] Carbon Dioxide 32(H) 22 - 29 mmol/L [facility] Anion Gap 12 12 - 20 [facility] Urea Nitrogen (BUN) 6(L) 9 - 16 mg/dL [facility] Creatinine, Serum 0.71 0.5 - 1.4 mg/dL [facility] Estimated Glomerular Filt Rate >60 [facility] Comment:Chronic Kidney Disea se: Estimated GFR < 60 mL/min/1.30s1Ligevt Kidney Disease: Estimated GFR < 15 mL/min/1.73m2 Glucose 172(H) 60 - 115 mg/dL [facility] Calcium 9.8 8.4 - 10.2 mg/dL [facility] Bilirubin, Total 1.7(H) 0.0 - 1.0 mg/dL [facility] Aspartate Amino Transferase 35(H) 5 - 31 U/L [facility] Alanine Aminotransferase 41(H) 0 - 31 U/L [facility] Total Protein 7.0 6.5 - 8.0 g/dL [facility] Albumin Level 4.3 3.5 - 5.0 g/dL [facility] Alkaline Phosphatase 70 39 - 117 U/L [facility] 10/21/2024 2:11 PM EDT 10/21/2024 2:11 PM EDT Generic External Data Provider LAB BLOOD ORDERAB LES Final Result [facility] [address] [place] [phone] * (ABNORMAL) POCT HGB A1C (10/21/2024 10:59 AM EDT) [facility] Hemoglobin A1C 7.3(A) 4.0 - 6.0 % QC Media Lot # [id number] Lot# Expiration Date Blood 10/21/2024 10:5 9 AM EDT Reyna Lutz DO POINT OF CARE TEST ENTER/CL T ORDERABLES Final Result * POCT Glucose (10/21/2024 10:59 AM EDT) [facility] Glucose Blood, POC 133 60 - 200 mg/dL QC Media Lot # [id number] Lot# Expiration Date , Blood Capillary blood specimen / Unknown 10/21/2024 10:59 AM EDT Reyna Nelda DO POINT OF CARE TEST ENTER/CL T ORDERABLES Final Result * POCT Rapid Covid-19 BinaxNOW (08/12/2024 6:07 PM EST) [facility] Rapid COVID Ag Negative QC Media Lot # [id number] Lot# Expiration Date [id number] Swab 08/12/2024 6:07 PM EST Tariq Oneill MD POINT OF CARE TEST ENTER/ED IT ORDERABLES Final Result * POCT Rapid Influenza B YOUNG ID NOW (08/12/2024 6:06 PM EST) Influenza B Negative Negative, Indeterminate [facility] QC Media Lot # [id number] [facility] Lot# Expiration Date 862 [facility] Swab 08/12/2024 6:06 PM EST us Tariq Oneill MD POINT OF CARE TEST ENTER/ED IT ORDERABLES Final Result Performing Organization Address [facility]/ZIP Co de Phone Number [facility] [address] [place] [address] [phone] * (ABNORMAL) POCT Rapid Influenza A YOUNG ID NOW (08/12/2024 6:06 PM EST) Influenza A Positive( A) Negative, Indeterminate [facility] QC Media Lot # [id number] [facility] Lot# Expiration Date 862 [facility] Swab 08/12/2024 6:06 PM EST us Tariq Oneill MD POINT OF CARE TEST ENTER/ED IT ORDERABLES Final Result Performing Organization Address [facility] Co de Phone Number [facility] [address] [place] [phone] * BI Mammogram Screening Tomosynthesis Bilateral (02/08/2024 2:30 PM EDT) Anatomical Region Laterality Modality Breast Bilateral Mammography 02/08/2024 2:30 PM EDT Narrative 03/06/2024 1:14 PM EDT ? [facility] ? [address] ?[place] [address] ? Mammography Report ? Signed ? Patient: Brunault,Kelsey M ?MR#: [id number] ?? [id number] ? : 1975 ?Acct:[id number] ? Age/Sex: 48 / F ?ADM Date: 02/07/24 ? Loc: HO.MAMMO ? Attending Dr: Reyna Lutz DO ? Ordering Physician: Reyna Lutz DO ?Results: 1N ?? egative ? Date of Service: 02/08/24 ?Follow Up: 1 Year From Orig ?? inal Mammogram ? Procedure(s): MM tomosynthesis screening BI ?? Accession Number(s): [id number] ? cc: Reyna Lutz DO ? EXAMINATION: [...] DD/ 1430 ? TD/TT: 02/08/24 1448 ? Stallion Keeper: ? Procedure Note Volodymyr, Mari - 03/06/2024 [facility] [address] [place] [address] Mammography Report Signed Patient: Kelsey Lozano MMR#: [id number] : 1975Acct:[id number] Age/Sex: 48 / FADM Date: 02/08/24 Loc: HO.MAMMO Attending Dr: Reyna Lutz DO Ordering Physician: Reyna Lutzults: 1N egative Date of Service: 02/08/24Follow Up: 1 Year From Orig inal Mammogram Procedure(s): MM tomosynthesis screening BI Accession Number(s): [id number] cc: Reyna Lutz DO EXAMINATION: MM SCREENING [...] Deonna Garcia MD 03/06/2024 01:11 PM EDT RP Dictated By: Deonna Garica MD Signed By: <Electronically signed by Deonna Garcia MD in OV> 03/06/24 1311 DD/ 1430 TD/TT: 02/08/24 1448 Stallion Keeper: us Reyna Lutz DO IMG BI PROCEDURES Edited Res ult - Final * Albumin, Random Urine W/Creatinine (02/01/2024 8:00 AM EDT) Creatinine, Urine 85.81 mg/dL [facility] Microalbumin Urine 10.0 mg/L [facility] Microalbum Creatinine Ratio Ur 11.6 <30 ug/mg cr [facility] Comment:Albumin/Creatinine R atio Reference Ranges: Normal: < 30 ug/mg creatinine Microalbuminuria: 30 - 300 ug/mg creatinineClinical Albuminuria: > 300 ug/mg creatinine Urine (Urine, Random) 02/01/2024 8:00 AM EDT 02/01/2024 12:08 PM EDT Narrative [facility] - 02/01/2024 12:40 PM EDT ORIGINALLY ORDERED UNDER ACCOUNT [id number] us Reyna Lutz DO LAB URINE ORDERABLES Final R esult [facility] [address] [place] [phone] * Hepatitis C Antibody with Reflex to HCV, RNA, Quantitative, Real-Time PCR (01/23/2024 1:04 PM EDT) Hepatitis C Antibody Nonreactive Nonreactive [facility] Comment:Antibodies to HCV no t detected; does not exclude early acuteHCV infection. Blood Venous blood specimen / Unknown 01/23/2024 1:04 PM EDT 01/23/2024 3:56 PM EDT Reyna Nelda LAB BLOOD ORDERABLES Final R esult Performing Organization Address City/[facility]/ZIP Co de Phone Number [facility] [address] [place] [address] [phone] * HIV-1/2 Antigen and Antibodies, Fourth Generation, with Reflexes (01/23/2024 1:04 PM EDT) Pathologist [facility] HIV AB/AG Nonreactive Nonreactive [facility] Comment:HIV-1 p24 Ag and/or HIV-1/HIV-2 Ab not detected.A test result that is nonreactive does not exclude thepossibility of exposure to or infection with HIV-1 and/orHIV-2. Nonreactive results in this assay for individualswith prior exposure to HIV-1 and/or HIV-2 may be due toantigen and antibody levels that are below the limit ofdetection of this assay.The [employer]udu HIV Ag/Ab Combo assay result andsupplemental assay results should be interpreted inconjunction with the patient's clinical presentation,history and other laboratory results. If the results areinconsistent with clinical evidence, additional testing issuggested to confirm the result. Blood Venous blood specimen / Unknown 01/23/2024 1:04 PM EDT 01/23/2024 3:56 PM EDT us Reyna Nelda DO LAB BLOOD ORDERABLES Final R esult Performing Organization Address City/[facility]/ZIP Co de Phone Number [facility] [address] [place] [phone] [phone] * (ABNORMAL) Lipid Panel, Standard (01/23/2024 1:04 PM EDT) Triglycerides 141 <150 mg/dL [facility] Comment:Desirable Triglyceri de: less than 150 mg/dLBorderline High Triglyceride 150-199 mg/dLHigh Triglyceride: 200-499 mg/dLVery High Triglyceride: greater than or equal to 5OO mg/dL Cholesterol 210(H) <200 mg/dL [facility] Comment:Desirable Cholestero l: less than 200 mg/dLBorderline High Cholesterol: 200-239 mg/dLHigh Cholesterol: greater than 239 mg/dL LDL Cholesterol Calculated 133(H) <100 mg/dL [facility] Comment:Desirable LDL: less than 100 mg/dLNear Optimal/Above Optimal LDL: 110- 129 mg/dLBorderline High LDL: 130-159 mg/dLHigh LDL: 160-189 mg/dLVery High LDL: greater than or equal to 190 mg/dL HDL Cholesterol 49 >40 mg/dL [facility] Comment:Desirable HDL: great er than 40 mg/dL Note: This HDL assay may give artificially low results in patients with liver disease. Blood Venous blood specimen / Unknown 01/23/2024 1:04 PM EDT 01/23/2024 3:56 PM EDT us Reyna Lutz DO LAB BLOOD ORDERABLES Final R esult [facility] [address] [place] [phone] * HPV E6/E7 RFLX IVANIA 16 18/45 (10/08/2020 2:13 PM EDT) HPV 16 RNA [facility] HPV 18/45 RNA [facility] HPV E6 E7 ADD [facility] HPV mRNA E6/E7 rflx Not Detected Not Detected [facility] Comment: Methodology: Placing Judge-Mediated Amplification This assay detects E6/E7 viral messenger RNA (mRNA) from 14 high-risk HPV types (16,18,31,33,35,39,45,51,52,56,58,59,66,68). The analytical performance characteristics of this assay have been determined by [employer]. The modifications have not been cleared or approved by the FDA. This assay has been validated pursuant to the CLIA regulations and is used for clinical purposes. For additional information, please refer to http://education.Gro.Yamli/faq/CPH627h4 (This link if provided for information/ educational purposes only.) THIS TEST WAS PERFORMED AT: [facility] [address] [place] [address] [address] [place], [place] ??[phone] AGUEDA VICTOR MD 10/08/2020 2:13 PM EDT us Jimenez Mitchell MD HISTORICAL/NON ORDERABLE LABS Fi nal Result [facility] [address] from Last 3 Months or Most Recently Relevant to Health Maintenance Insurance [facility] C3 DENTAL-[facility] MEDICAID STAND ADULT Care Teams Channel Lip Wetter Relationship Specialty Start Date End Date Reyna Lutz DO [address] [place] [phone] PCP - General Family Medicine 11/26/19
== END 2024-10-22 13:53 | disposition home or self-care (01) ==
LOC: HO.CT 13:52
PROVIDERS: PCP Family Medicine; Visit Provider Internal Medicine
DX: R77.2 Abnormality of alphafetoprotein (principal)
CPT/HCPCS: 74178; Q9967

== ENCOUNTER → 2024-10-22 13:54 | Outpatient (BNV) | payer MEDICAID, SELFPAY | PROVIDERS: PCP Family Medicine; Visit Provider Radiology Diagnostic Radiology | DX: K76.0 Fatty (change of) liver, not elsewhere classified (principal); D25.1 Intramural leiomyoma of uterus | CPT/HCPCS: 74178 ==

== ENCOUNTER → 2024-10-30 14:05 | Outpatient (BNVA) | payer MEDICAID, SELFPAY | PROVIDERS: PCP Family Medicine; Visit Provider Obstetrics & Gynecology ==

== ENCOUNTER 2024-11-04 13:33 | Outpatient (AMB) | payer MEDICAID, SELFPAY ==
--- NOTE | 2024-11-04 13:34 | MHC.OFFVIS ---
Intake Visit Reasons: CT Scan results Allergies No Known Allergies [No Known Allergies*] Allergy (Verified 10/14/24 14:00) HPI Comments Details: The patient is schedule telehealth visit referred from GI regarding finding on CT scan done on 10/22/2022 which showed the following: IMPRESSION: 1. Hepatic steatosis. No evidence of a liver mass. If this remains a clinical concern, MRI is more sensitive for the detection of enhancing liver masses. 2. Bilateral adrenal adenomas as described. 3. 3.1 cm posterior uterine fibroid. Low density and heterogeneity of the cervix. A mass is not excluded. Correlation with direct visualization is recommended. Last co testing in 11/01 was negative The patient has history of endometrial hyperplasia on levo norgestrel IUD since 2017 Alpha fetoprotein recently done was elevated PFS Medical History Urinary incontinence Restrictive lung disease Allergic rhinitis Paroxysmal cough Anxiety Depression Muscular dystrophy, emery-dreifuss Surgical History Hx of section H/O endoscopy Family History Unknown No family history of colorectal cancer Social History Household Members Other:: Lives with her daughter (23-special needs) and her mother Alcohol intake: never Patient Tobacco Use Status: Never used Tobacco Current occupational status: disabled Female Reproductive History Menstrual Age of Menarche: 11 Review of Systems Const All systems reviewed & are unremarkable except as noted in HPI and below Reports as per HPI and Reports no additional complaints GI Reports no additional complaints Reports no additional complaints Telehealth Telehealth Telehealth Platform: Telephone Location of provider rendering services: practice address Location of patient: address on file Patient Identification confirmed using: Name, : Yes Telehealth method: voice only Patient verbally consented to treatment: Yes Patient verbally consented to billing insurance company: Yes Patient informed of any privacy concerns related to visit: Yes Minutes spent on Phone/Video with Pt.: 8 Assessment & Plan Assessment & Plan (1) Uterine myoma: Comment: History of endometrial hyperplasia on Mirena IUD Elevated alpha fetoprotein Code(s): D25.9 - Leiomyoma of uterus, unspecified Category: Medical Plan: Discussed with the patient the findings on CT scan & the risk of myosarcoma; in addition reviewed with the patient that malignancy and pre malignancy cannot be ruled out without hysterectomy for pathological evaluation ; furthermore, explained to the patient the limitation of pelvic ultrasound and endometrial biopsy in the setting. Discussed with the patient the options of treatment including expectant management versus hysterectomy; the pros and cons, risks benefits of each approach were discussed with the patient including the fact that in cases of myosarcoma, surgical treatment can lead to early diagnosis and positively affects the prognosis; after further discussion, the patient decided to proceed with expectant management. Will repeat pelvic ultrasound periodically. Instructions given to patient to call in case any of the following occurs: pressure symptoms, abnormal uterine bleeding, pelvic pain; and to schedule a six-months pelvic ultrasound (order placed) and a follow-up appointment . All questions answered, the patient verbalized understanding and agreed with the plan . (2) Abnormal cervix finding: Comment: on CT Code(s): N88.9 - Noninflammatory disorder of cervix uteri, unspecified Category: Medical Plan: Discussed with the patient the finding on CT scan possible cervical mass, recommended pelvic exam for full evaluation. Instructions given the patient to schedule a an appointment for a pelvic exam nasir. All questions answered, the patient verbalized understanding agreed with the plan I spent a total of 20 minutes reviewing the chart, talking to the patient via video and documenting in the medical record. Orders: Orders US pelvic and transvaginal 6 Months D25.9 - Leiomyoma of uterus, unspecified Coding Level of Care Code Tele Est Pt Level 3 (52189) Diagnoses Uterine myoma D25.9 Abnormal cervix finding N88.9
--- OUTSIDE RECORDS SUMMARY | 2024-11-04 16:10 | XMS_ITS | Encounter Summary ---
Author Organization [facility] Address [address] [facility] 7t [place] [address] Care Team Providers Care Ppap Coordinator Name Role Phone Mague Lutzfer Primary Care Provider [phone] Reason for Visit * Reason Onset Date Comments script for toothpaste 12/21/2022 Encounter Details Date Type Department Care Team (Late st Contact Info) Description 12/21/2022 Telephone [facility] [address] [place] [address] GalvanRachna Bautista, DDS [address] [place], [place] [phone] script for toothpaste Social History Tobacco Use [...] is checking in on status of script DR documented in this encounter Plan of Treatment Not on file documented as of this encounter Visit Diagnoses Not on filedocumented in this encounter Care Teams Ppap Coordinator Relationship Specialty Start Date End Date Reyna Lutz DO [address] [place] [phone] PCP - General Family Medicine 11/26/19 documented as of this encounter
--- OUTSIDE RECORDS SUMMARY | 2024-11-04 16:10 | XMS_ITS | Encounter Summary ---
Author Organization [employer] Address [address] [facility] 7[address] [place] [address] Care Team Providers Care Weight Trainer Name Role Phone Reyna Lutz DO Primary Care Provider [phone] Encounter Details Date Type Department Care Team (Late st Contact Info) Description 09/15/2022 Orders Only [facility] [address] [place], [place] [phone] Malou Feliz LPN Social History Tobacco Use [...] on filedocumented in this encounter Care Teams Weight Trainer Relationship Specialty Start Date End Date Reyna Lutz DO [address] [place], [place] [phone] PCP - General Family Medicine 11/26/19 documented as of this encounter
--- OUTSIDE RECORDS SUMMARY | 2024-11-04 16:10 | XMS_ITS | Clinical Summary ---
Author Organization [employer] Address [address] [facility] 7t [place] [address] Care Team Providers Care Welcome Desk Agent Name Role Phone CatalinaReyna raines Primary Care Provider + [phone] Allergies No known active allergies Medications TRUEplus Lancets 33G misc TEST BLOOD SUGAR TWICE DAILY Active senna (Senokot) 8.6 MG tabletIndications:C hronic [...] bedtime (pain). 150 g 3 024 Active oxybutynin XL (Ditropan-XL) 5 MG 24 hr tablet TAKE 1 TABLET BY MOUTH EVERY MORNING 90 tablet 1 Active metFORMIN (Glucophage) 500 MG tabletIndications:T ype 2 diabetes mellitus without complications ([facility]) TAKE 1 TABLET BY MOUTH TWICE DAILY [...] IN THE EVENING BEFORE MEALS 180 capsule 025 Active TRUEplus Lancets 33G miscIndications:Typ e 2 diabetes mellitus without complications ([facility]) TEST BLOOD SUGAR TWICE DAILY 100 each 1 025 Active FREESTYLE LITE test stripIndications:Ty pe 2 diabetes mellitus without complications ([facility]) TEST BLOOD SUGAR TWICE DAILY 100 strip [...] 025 Active ergocalciferol (Vitamin D2) 1.25 MG (02325 UT) capsuleIndications: Vitamin D deficiency TAKE 1 CAPSULE BY MOUTH ONCE WEEKLY ON MONDAY MORNING 12 capsule 3 025 Active lidocaine (Lidoderm) 5 % patch APPLY 1 PATCH TOPICALLY TO SKIN, LEAVE ON FOR 12 HOURS AND OFF FOR 12 HOURS DIRECTED NEEDED FOR MILD PAIN 30 patch 3 025 Active clotrimazole (Lotrimin) 1 % cream Apply topically if needed in the morning and at bedtime (rash) for up to 28 days. 60 g 2 025 2024 Active nystatin (Mycostatin) 129708 UNIT/GM powder Apply topically 2 times daily. 180 g 3 025 2025 Active amLODIPine (Norvasc) 10 MG tabletIndications:H ypertension, unspecified type TAKE 1 TABLET BY MOUTH EVERY MORNING 90 tablet 1 025 Active amLODIPine (Norvasc) 10 MG tabletIndications:H ypertension, unspecified type TAKE 1 TABLET BY MOUTH EVERY MORNING 90 tablet 1 024 2024 Discontinued Active Problems Problem Noted [...] Encounters Date Type Department Care Team Description 10/24/2024 Refill [facility] [address] [place] [address] Reyna Lutz DO Hypertension, unspecified type 10/21/2024 11:15 AM EDT Procedure Visit [facility] [address] [place] [address] Reyna Lutz DO Encounter for gynecological examination without abnormal finding (Primary Dx); Type 2 diabetes mellitus without complication, without long-term current use of insulin ([facility]) 10/21/2024 Orders Only GENERIC EXTERNAL DATA DEPARTMENT Provider, Generic External Data 10/21/2024 Travel 09/22/2024 Refill [facility] [address] [place] [address] Reyna Lutz DO 09/20/2024 [address] Score 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) 08/27/2024 Telephone [facility] [address] [place] [phone] Reyna Lutz DO Appointment Request 08/27/[address] [address] Reyna Lutz DO Referral 08/12/2024 6:00 PM EST Office Visit [facility] [address] [place] [phone] Tariq Oneill MD Cough, unspecified type (Primary Dx); Influenza A 08/12/2024 Travel 08/12/2024 Telephone [facility] [address] [place] [phone] Marylou Lemons, RN NTTS from Last 3 Months Immunizations Name Administration [...] of 2 - Risk 2-dose series) 1992 Zoster Vaccines (1 of 2) 2023 Dental Oral Exam 06/03/2023 11/30/2022 Dental Prophylaxis 07/06/2023 01/03/2023 Dental X-Ray: Bitewings 12/02/2023 11/30/2022, 09/06 Influenza Vaccine (#1) 2024 , 05/06/2020, 05/20/2018, Additional history exists Diabetes: Hemoglobin A1C 01/20/2025 025, 10/21/2024, 01/23/2024, Additional history exists Lipid Panel 01/22/2025 01/23/2024, 11/30/2020 Diabetes: Urine Protein Screening 01/31/2025 02/01/2024, 02/25/2020 Mammogram 02/07/2025 02/08/2024, 01/08, 12/17/2021, Additional history exists Alcohol/Substance Use Screening 10/21/2025 10/21/2024 Depression Screening 10/21/2025 10/21/2024, 10/22/19 25 SDOH Screening 10/21/2025 10/21/2024 Tobacco Screening 10/21/2025 10/21/2024 DTaP/Tdap/Td Vaccines (2 - Td or Tdap) 06/12/2027 06/12/2017, 08/22/2002 Pap Smear 10/22/2027 10/21/2024 Cervical Cancer Screening 10/21/2029 HPV/Cotest 10/21/2029 10/21/2024, 07/2020, 10/08/2020 RSV Patients and Patients Aged 60 years [...] without long-term current use of insulin (CMS/HCC) PAP SMEAR Routine 10/21/2024 12:00 AM EDT Encounter for gynecological examination without abnormal finding HPV DNA, LOW/HIGH RISK Routine 10/21/2024 12:00 AM EDT POCT RAPID COVID ANTIGEN Routine 08/12/2024 6:07 [...] ESTABLISHED PATIENT Routine 11/30/2022 1:00 PM EDT from Last 3 Months or Most Recently Relevant to Health Maintenance Results * CT Abdomen Pelvis w/ and w/o Contrast (10/22/2024 2:22 PM EDT) Anatomical Region Laterality Modality Body, Pelvis, Abdomen Computed T omography 10/22/2024 2:22 PM EDT Narrative 10/22/2024 3:37 PM EDT ? [facility] ?[address] ?[place] [address] ? CT Scan Report ? Signed ? Patient: Brunault,Kelsey M ?MR#: [id number] ?? [id number] ? : 1975 ?Acct:[id number] ? Age/Sex: 49 / F ?ADM Date: 04/15/25 ? Loc: HO.CT ? Attending Dr: Lilian Davila MD ? Ordering Physician: Lilian Davila MD ?? Date of Service: 10/22/24 ?? Procedure(s): CT abdomen pelvis wo/w IV con ?? Accession Number(s): [id number] ? cc: Reyna Lutz DO; Lilian Davila MD ? Report Number: ?? [id number]: Total DLP = 1000.00 mGy-cm ?? EXAMINATION: [...] DD/ 1422 ? TD/TT: 10/22/24 1500 ? Skilled Nursing Facility Counselor: ? Procedure Note Donotuseinterpreter, Image - 10/22/[address] [address] [address] Scan Report Signed Patient: Kelsey Lozano MMR#: [id number] : 1975Acct:[id number] Age/Sex: 49 / FADM Date: 10/22/24 Loc: HO.CT Attending Dr: Lilian Davila MD Ordering Physician: Lilian Davila MD Date of Service: 10/22/24 Procedure(s): CT abdomen pelvis wo/w IV con Accession Number(s): [id number] cc: Reyna Lutz DO; Lilian Davila MD Report Number: [id number]: Total DLP = 1000.00 mGy-cm EXAMINATION: CT [...] 10/22/24 1534 DD/ 1422 TD/TT: 10/22/24 1500 Skilled Nursing Facility Counselor: [facility] External Provider IMG CT PROCEDURES Final Result * Chlamydia/N. Gonorrhoeae RNA, TMA, Urogenitial (10/21/2024 4:03 PM EDT) CT PCR NOT DETECTED Not Detect. [facility] Comment:A not detected test result [...] psychologicalconsequences. NG PCR NOT DETECTED Not Detect. [facility] Comment:A not detected test result [...] PM EDT 10/21/2024 4:03 PM EDT Narrative [facility] - 10/21/2024 10:31 PM EDT Vaginal us Reyna Lutz DO LAB MICROBIOLOGY - GENERAL O RDERABLES Final Result [facility] [address] [place] [address] [phone] * (ABNORMAL) Hemoglobin A1c (10/21/2024 2:11 PM EDT) Hemoglobin A1c 7.2(H) <6.0 % [facility] Comment:Hemoglobin A1C Refer ence Range Adults: 4.8 - 6.0 % Non diabetic: < 6.0 % Goal: < 7.0 %Additional Action Suggested: > 8.0 %Note: Hemoglobin A1c results are invalid for patients with abnormal amounts of HbF. Blood transfusions may impact the HbA1c concentration in the patient sample. Estimated Average Glucose 160 mg/dL [facility] Comment:eAG = Estimated ave rage glucose which is %A1C expressed asaverage glucose, using the formula of the N2P-EdlsqiwBauzxnp Glucose study (ADAG), Diabetes Care, Vol.31,#8,2007 10/21/2024 2:11 PM EDT 10/21/2024 2:11 PM EDT us Generic External Data Provider LAB BLOOD ORDERAB LES Final Result [facility] [address] [place] [phone] * (ABNORMAL) Comprehensive Metabolic Panel (10/21/2024 2:11 PM EDT) Pathologist [facility] Sodium 144 135 - 145 mmol/L [facility] Potassium 4.5 3.3 - 5.1 mmol/L [facility] Chloride 105 96 - 108 mmol/L [facility] Carbon Dioxide 32(H) 22 - 29 mmol/L [facility] Anion Gap 12 12 - 20 [facility] Urea Nitrogen (BUN) 6(L) 9 - 16 mg/dL [facility] Creatinine, Serum 0.71 0.5 - 1.4 mg/dL [facility] Estimated Glomerular Filt Rate >60 [facility] Comment:Chronic Kidney Disea se: Estimated GFR < 60 mL/min/1.22n6Darfcl Kidney Disease: Estimated GFR < 15 mL/min/1.73m2 Glucose 172(H) 60 - 115 mg/dL [facility] Calcium 9.8 8.4 - 10.2 mg/dL [facility] Bilirubin, Total 1.7(H) 0.0 - 1.0 mg/dL [facility] Aspartate Amino Transferase 35(H) 5 - 31 U/L [facility] Alanine Aminotransferase 41(H) 0 - 31 U/L [facility] Total Protein 7.0 6.5 - 8.0 g/dL [facility] Albumin Level 4.3 3.5 - 5.0 g/dL [facility] Alkaline Phosphatase 70 39 - 117 U/L [facility] 10/21/2024 2:11 PM EDT 10/21/2024 2:11 PM EDT Generic External Data Provider LAB BLOOD ORDERAB LES Final Result [facility] [address] [place] [phone] * (ABNORMAL) POCT HGB A1C (10/21/2024 [...] ENTER/CL T ORDERABLES Final Result * HPV DNA, Low/High Risk (10/21/2024 12:00 AM EDT) HPV High Risk Negative Negative [facility] HPV Genotype 16 Negative Negative [facility] HPV Genotype 18 Negative Negative [facility] Comment:HPV testing performe d at [facility] (CLIA#[id number]), [address] [place] [phone].Testing for HPV was performed using the Etienne KIARA 6800system. The presence of HPV in the female genital tract isassociated with a number of diseases, including cervicalcarcinoma. The HPV DNA high risk pool tests for HPV 31, 33,35, 39, 45, 51, 52, 56, 58, 59, 66 and 68. The testing forHPV 16 and 18 genotypes has also been performed. A positiveresult indicates detection of nucleic acid sequences fromone or more subtypes, whereas a negative result indicatessuch sequences were not detected. 10/21/2024 10/22/2024 11: 11 AM EDT Reyna Lutz DO LAB BLOOD ORDERABLES Final R esult [facility] [address] [place] [phone] * Pap Smear (10/21/2024 12:00 AM EDT) Swab Vaginal structure / Unknown 10/21/2024 10/22/2024 11:11 AM EDT Narrative [facility] - 10/24/2024 8:00 AM EDT ----- ------- Name: Kelsey Lozano ? Age/Sex: 49/F ? : 1975 Unit#: [id number] ?? Attend Dr: Reyna Lutz DO ?Re10/22/24 ?Status: DEP REF ? Location: HO.HHCLNP ? Disch: ? ----- ------- SPEC : [id number] ? RECD: 10/22/24-1111 ? STATUS: ??SOUT ? REQ NUM: [id number] ? JOANA: 10/21/24-0000 ? SUBM DR: Reyna Lutz DO ? ENTERED: ??10/22/24-1128 ?SP TYPE: Pap Smr ?OTHR DR: ? ORDERED: ??Pap Smear ? Interpretation ?? Satisfactory for evaluation. ?? Negative for intraepithelial lesion or malignancy. ? HPV High Risk: ??Negative ? HPV Genotyping 16: ??Negative ?? HPV Genotyping 18: ??Negative ?Clinical Information LMP: Unknown date Previous PAP test: Unknown date/findings Other surgery: IUD ? Material Received ?? ThinPrep-Vaginal ----- ------- Signed (signature on file) RADHA Catherine (ASCP) 10/24/24 0800 ? ----- ------- ? END OF REPORT ? us Reyna Lutz DO LAB CYTOLOGY ORDERABLES Adeola meyers Result [facility] [address] [place] [phone] * POCT Rapid Covid-19 BinaxNOW (08/12/2024 6:07 PM EST) Pathologist [facility] Rapid COVID Ag Negative QC Media Lot # [id number] Lot# Expiration Date [id number] Swab 08/12/2024 6:07 PM EST us Tariq Oneill MD POINT OF CARE TEST ENTER/ED IT ORDERABLES Final Result * POCT Rapid Influenza B YOUNG ID NOW (08/12/2024 6:06 PM EST) Influenza B Negative Negative, Indeterminate [facility] QC Media Lot # [id number] [facility] Lot# Expiration Date 862 [facility] Swab 08/12/2024 6:06 PM EST us Tariq Oneill MD POINT OF CARE TEST ENTER/ED IT ORDERABLES Final Result Performing Organization Address [facility]/ZIP Co de Phone Number [facility] [address] [place] [address] [phone] * (ABNORMAL) POCT Rapid Influenza A YOUNG ID NOW (08/12/2024 6:06 PM EST) Influenza A Positive( A) Negative, Indeterminate [facility] QC Media Lot # [id number] [facility] Lot# Expiration Date 862 [facility] Swab 08/12/2024 6:06 PM EST us Tariq Oneill MD POINT OF CARE TEST ENTER/ED IT ORDERABLES Final Result Performing Organization Address [facility] Co de Phone Number [facility] [address] [place] [address] [phone] * BI Mammogram Screening Tomosynthesis Bilateral (02/08/2024 2:30 PM EDT) Anatomical Region Laterality Modality Breast Bilateral Mammography 02/08/2024 2:30 PM EDT Narrative 03/06/2024 1:14 PM EDT ? [facility] ? [address] ?[place] [address] ? Mammography Report ? Signed ? Patient: Brunault,Kelsey M ?MR#: [id number] ?? [id number] ? : 1975 ?Acct:[id number] ? Age/Sex: 48 / F ?ADM Date: 02/07/24 ? Loc: HO.MAMMO ? Attending Dr: Reyna Lutz DO ? Ordering Physician: Reyna Lutz DO ?Results: 1N ?? egative ? Date of Service: 02/08/24 ?Follow Up: 1 Year From Orig ?? inal Mammogram ? Procedure(s): MM tomosynthesis screening BI ?? Accession Number(s): [id number] ? cc: Reyna Lutz DO ? EXAMINATION: [...] DD/ 1430 ? TD/TT: 02/08/24 1448 ? Skilled Nursing Facility Counselor: ? Procedure Note Mari Helm - 03/06/[address] [facility] [address] [place] [address] Mammography Report Signed Patient: Kelsey Lozano MMR#: [id number] : 1975Acct:[id number] Age/Sex: 48 / FADM Date: 02/08/24 Loc: HO.MAMMO Attending Dr: Reyna Lutz DO Ordering Physician: Reyna Lutzults: 1N egative Date of Service: 02/08/24Follow Up: 1 Year From Orig inal Mammogram Procedure(s): MM tomosynthesis screening BI Accession Number(s): [id number] cc: Reyna Lutz DO EXAMINATION: MM SCREENING [...] 01:11 PM EDT RP Dictated By: Deonna Garcia MD Signed By: <Electronically signed by Deonna Garcia MD in OV> 03/06/24 1311 DD/ 1430 TD/TT: 02/08/24 1448 Skilled Nursing Facility Counselor: Reyna Lutz DO IMG BI PROCEDURES Edited Res ult - Final * Albumin, Random Urine W/Creatinine (02/01/2024 8:00 AM EDT) Creatinine, Urine 85.81 mg/dL [facility] Microalbumin Urine 10.0 mg/L [facility] Microalbum Creatinine Ratio Ur 11.6 <30 ug/mg cr [facility] Comment:Albumin/Creatinine R atio Reference Ranges: Normal: < 30 ug/mg creatinine Microalbuminuria: 30 - 300 ug/mg creatinineClinical Albuminuria: > 300 ug/mg creatinine Urine (Urine, Random) 02/01/2024 8:00 AM EDT 02/01/2024 12:08 PM EDT Narrative [facility] - 02/01/2024 12:40 PM EDT ORIGINALLY ORDERED UNDER ACCOUNT [id number] us Reyna Lutz DO LAB URINE ORDERABLES Final R esult [facility] [address] [place] [phone] [phone] * Hepatitis C Antibody with Reflex to HCV, RNA, Quantitative, Real-Time PCR (01/23/2024 1:04 PM EDT) Hepatitis C Antibody Nonreactive Nonreactive [facility] Comment:Antibodies to HCV no t detected; does not exclude early acuteHCV infection. Blood Venous blood specimen / Unknown 01/23/2024 1:04 PM EDT 01/23/2024 3:56 PM EDT Reyna Lutz DO LAB BLOOD ORDERABLES Final R esult Performing Organization Address City/[facility]/ZIP Co de Phone Number [facility] [address] [place] [address] [phone] * HIV-1/2 Antigen and Antibodies, Fourth Generation, with Reflexes (01/23/2024 1:04 PM EDT) Pathologist [facility] HIV AB/AG Nonreactive Nonreactive [facility] Comment:HIV-1 p24 Ag and/or HIV-1/HIV-2 Ab not detected.A test result that is nonreactive does not exclude thepossibility of exposure to or infection with HIV-1 and/orHIV-2. Nonreactive results in this assay for individualswith prior exposure to HIV-1 and/or HIV-2 may be due toantigen and antibody levels that are below the limit ofdetection of this assay.The [employer] HIV Ag/Ab Combo assay result andsupplemental assay results should be interpreted inconjunction with the patient's clinical presentation,history and other laboratory results. If the results areinconsistent with clinical evidence, additional testing issuggested to confirm the result. Blood Venous blood specimen / Unknown 01/23/2024 1:04 PM EDT 01/23/2024 3:56 PM EDT Reyna Arnoldolu DO LAB BLOOD ORDERABLES Final R esult Performing Organization Address [facility]/ZIP Co de Phone Number [facility] [address] [place] [phone] [phone] * (ABNORMAL) Lipid Panel, Standard (01/23/2024 1:04 PM EDT) Pathologist [facility] Triglycerides 141 <150 mg/dL [facility] Comment:Desirable Triglyceri de: less than 150 mg/dLBorderline High Triglyceride 150-199 mg/dLHigh Triglyceride: 200-499 mg/dLVery High Triglyceride: greater than or equal to 5OO mg/dL Cholesterol 210(H) <200 mg/dL [facility] Comment:Desirable Cholestero l: less than 200 mg/dLBorderline High Cholesterol: 200-239 mg/dLHigh Cholesterol: greater than 239 mg/dL LDL Cholesterol Calculated 133(H) <100 mg/dL [facility] Comment:Desirable LDL: less than 100 mg/dLNear Optimal/Above Optimal LDL: 110- 129 mg/dLBorderline High LDL: 130-159 mg/dLHigh LDL: 160-189 mg/dLVery High LDL: greater than or equal to 190 mg/dL HDL Cholesterol 49 >40 mg/dL [facility] Comment:Desirable HDL: great er than 40 mg/dL Note: This HDL assay may give artificially low results in patients with liver disease. Blood Venous blood specimen / Unknown 01/23/2024 1:04 PM EDT 01/23/2024 3:56 PM EDT us Reyna Lutz DO LAB BLOOD ORDERABLES Final R esult [facility] [address] [place] [address] [phone] from Last 3 Months or Most Recently Relevant to Health Maintenance Insurance [facility] Care Teams Welcome Desk Agent Relationship Specialty Start Date End Date Reyna Lutz DO [address] [place] [phone] PCP - General Family Medicine 11/26/19
--- OUTSIDE RECORDS SUMMARY | 2024-11-04 16:10 | XMS_ITS | Encounter Summary ---
Author Organization [employer] Address [address] [facility] [address] [place] [address] Care Team Providers Care Human Resources Compensation Analyst Name Role Phone Reyna Lutz DO Primary Care Provider + [phone] Reason for Visit * Reason Comments Med Refill Encounter Details Date Type Department Care Team ([facility] st Contact Info) Description 01/16/2023 Refill [facility] [address] [place] [address] Reyna Lutz DO [address] [place] [address] Pain Social History Tobacco Use Types Packs/Day [...] documented as of this encounter Care Teams Human Resources Compensation Analyst Relationship Specialty Start Date End Date Reyna Lutz DO [address] [place] [address] PCP - General Family Medicine 11/26/19 documented as of this encounter
--- OUTSIDE RECORDS SUMMARY | 2024-11-04 16:10 | XMS_ITS | Encounter Summary ---
Author Organization [employer] Address [address] [facility] [address]t [place] [address] Care Team Providers Care Learning Consultant Name Role Phone Reyna Lutz DO Primary Care Provider + [phone] Reason for Visit * Reason Onset Date Comments Referral 08/27/2024 Encounter Details Date Type Department Care Team ([facility] st Contact Info) Description 08/27/2024 Telephone [facility] [address] [place] [address] Reyna Lutz DO [address] [place], [place] [phone] Referral Social History Tobacco Use Types Packs/Day [...] to go that far. Contact pt at [phone] documented in this encounter Plan of Treatment Not on file documented as of this encounter Visit Diagnoses Not on filedocumented in this encounter Additional Health Concerns Assessment Noted Time PHQ-9 Depression Total Score: 4 01/23/20 24 10:23 AM EDT documented as of this encounter Care Teams Learning Consultant Relationship Specialty Start Date End Date Reyna Lutz DO [address] [place] [phone] PCP - General Family Medicine 11/26/19 documented as of this encounter
--- OUTSIDE RECORDS SUMMARY | 2024-11-04 16:10 | XMS_ITS | Encounter Summary ---
Author Organization [employer] Address [address] [facility] 7t [place] [address] Care Team Providers Care Junior High School Teacher Name Role Phone Nelda Reyna Primary Care Provider + [phone] Reason for Visit * Reason Onset Date Comments Appointment 09/26/2022 Kelsey Marta 1975 Patient was seen on 09/23 and called in and stated that she's in a lot of pain and has been taking the medication that was given to her but its not helping with the pain please advise. Encounter Details Date Type Department Care Team (Late st Contact Info) Description 09/26/2022 Telephone [facility] ADULT DENTAL [address] [place] [address] Michael Jackson DDS [address] [place], [place] [phone] Appointment (Kelsey Alegrebo 1975 Patient was seen on 09/23 and [...] on filedocumented in this encounter Care Teams Junior High School Teacher Relationship Specialty Start Date End Date Reyna Lutz DO [address] [place] [address] PCP - General Family Medicine 11/26/19 documented as of this encounter
--- OUTSIDE RECORDS SUMMARY | 2024-11-04 16:10 | XMS_ITS | Encounter Summary ---
Author Organization [employer] Address [address] [facility] [address] [place] [address] Care Team Providers Care Ceo Ziff Davis Name Role Phone Reyna Lutz DO Primary Care Provider + [phone] Encounter Details Date Type Department Care Team ([facility] st Contact Info) Description 09/09/2022 Orders Only [facility] CHC MED & PEDS [address] [place], [place] [phone] Reyna Maradiaga LPN Social History Tobacco Use [...] on filedocumented in this encounter Care Teams Ceo Ziff Davis Relationship Specialty Start Date End Date Reyna Lutz DO [address] [place] [address] [id number] PCP - General Family Medicine 11/26/19 documented as of this encounter
--- OUTSIDE RECORDS SUMMARY | 2024-11-04 16:10 | XMS_ITS | Encounter Summary ---
Author Organization [employer] Address [address] [facility] [address] [place] [address] Care Team Providers Care Peoplesoft Administrator Name Role Phone Reyna Lutz DO Primary Care Provider + [phone] Encounter Details Date Type Department Care Team (Late st Contact Info) Description 11/10/2022 Orders Only [facility] CHC MED & PEDS [address] [place] [address] Reyna Maradiaga LPN Social History Tobacco Use [...] on filedocumented in this encounter Care Teams Peoplesoft Administrator Relationship Specialty Start Date End Date Reyna Lutz DO [address] [place], [place] [phone] PCP - General Family Medicine 11/26/19 documented as of this encounter
--- OUTSIDE RECORDS SUMMARY | 2024-11-04 16:10 | XMS_ITS | Encounter Summary ---
Author Organization [employer] Address 75 [facility] 7t [place] [address] Care Team Providers Care Cocoa Bean Cleaner Name Role Phone Reyna Lutz DO Primary Care Provider [phone] Reason for Visit * Reason Onset Date Comments Appointment 09/26/2022 Kelsey Alegrebo 1975 Patient was seen 09/26 and was wondering if medication was sent to pharmacy please advise Encounter Details Date Type Department Care Team ([facility] st Contact Info) Description 09/26/2022 Telephone [facility] ADULT DENTAL [address] [place] [address] John Ortega DDS [address] [place] [address] Appointment (Kelsey Lozano 1975 Patient was seen 09/26 and was [...] Ramos - 09/26/2022 3:48 PM EDT Kelsey Lozano 1975 Patient was seen 09/26 and was wondering if medication was sent to pharmacy please advise documented in this encounter Plan of Treatment Not on file documented as of this encounter Visit Diagnoses Not on filedocumented in this encounter Care Teams Cocoa Bean Cleaner Relationship Specialty Start Date End Date Reyna Lutz DO [address] [place] [address] PCP - General Family Medicine 11/26/19 documented as of this encounter
--- OUTSIDE RECORDS SUMMARY | 2024-11-04 16:10 | XMS_ITS | Encounter Summary ---
Author Organization [employer] Address [address] [facility] [address] [place] [address] Care Team Providers Care Pilot Instructor Name Role Phone Reyna Lutz DO Primary Care Provider + [phone] Encounter Details Date Type Department Care Team (Late st Contact Info) Description 07/22/2022 Orders Only [facility] CHC MED & PEDS [address] [place] [address] Reyna Maradiaga LPN Social History Tobacco Use [...] on filedocumented in this encounter Care Teams Pilot Instructor Relationship Specialty Start Date End Date Reyna Lutz DO [address] [place] [address] PCP - General Family Medicine 11/26/19 documented as of this encounter
--- OUTSIDE RECORDS SUMMARY | 2024-11-04 16:10 | XMS_ITS | Encounter Summary ---
Author Organization [employer] Address [address] [facility] [address] [place] [address] Care Team Providers Care Animal Daycare Provider Name Role Phone Reyna Lutz DO Primary Care Provider [phone] Encounter Details Date Type Department Care Team ([facility] st Contact Info) Description 06/27/2022 Orders Only [facility] [address] [place] [address] Malou Feliz LPN Social History Tobacco Use [...] on filedocumented in this encounter Care Teams Animal Daycare Provider Relationship Specialty Start Date End Date Reyna Lutz DO [address] [place] [address] PCP - General Family Medicine 11/26/19 documented as of this encounter
--- OUTSIDE RECORDS SUMMARY | 2024-11-04 16:10 | XMS_ITS | Encounter Summary ---
Author Organization [employer] Address [address] [facility] 7t [place] [address] Care Team Providers Care Study Specialist Name Role Phone Reyna Lutz DO Primary Care Provider [phone] Reason for Visit * Reason Onset Date Comments Med Refill 10/05/2022 Encounter Details Date Type Department Care Team (Late st Contact Info) Description 10/05/2022 Refill [facility] MEDICINE [address] [place] [address] Reyna Lutz DO [address] [place], [place] [phone] Acute bilateral low back pain without sciatica [...] Miscellaneous Notes * Telephone Encounter - Sierra Ty Howard - 10/05/2022 9:06 AM EDT Tc from pt requesting for medication script for traMADol (Ultram) 50 MG tablet To be sent to [facility] [address], [place] [address]. Brim Stitcher sees medication was sentto [facility] at [address], [place], [place], [address] but pharmacy advise pt that they are currently out of this medication. Please contact pt at [phone] documented in this encounter Plan of Treatment Not on file documented as of this encounter Visit Diagnoses Diagnosis Acute bilateral low back pain without sciatica documented in this encounter Care Teams Study Specialist Relationship Specialty Start Date End Date Reyna Lutz DO [address] [place] [address] PCP - General Family Medicine 11/26/19 documented as of this encounter
--- OUTSIDE RECORDS SUMMARY | 2024-11-04 16:10 | XMS_ITS | Encounter Summary ---
Author Organization [employer] Address [address] [facility] 7[address] [place] [address] Care Team Providers Care Sports Team Manager Name Role Phone Reyna Lutz DO Primary Care Provider + [phone] Encounter Details Date Type Department Care Team (Late st Contact Info) Description 07/20/2022 Orders Only [facility] MEDICINE [address] [place] [address] Malou Feliz LPN Social History Tobacco Use [...] on filedocumented in this encounter Care Teams Sports Team Manager Relationship Specialty Start Date End Date Reyna Lutz DO [address] [place] [address] PCP - General Family Medicine 11/26/19 documented as of this encounter
--- OUTSIDE RECORDS SUMMARY | 2024-11-04 16:10 | XMS_ITS | Encounter Summary ---
Author Organization [employer] Address [address] [facility] [address] [place] [address] Care Team Providers Care Section Hand Name Role Phone Reyna Lutz DO Primary Care Provider + [phone] Encounter Details Date Type Department Care Team (Late st Contact Info) Description 08/16/2022 Orders Only [facility] CHC MED & PEDS [address] [place] [address] Reyna Maradiaga LPN Social History Tobacco Use [...] on filedocumented in this encounter Care Teams Section Hand Relationship Specialty Start Date End Date Reyna Lutz DO [address] [place] [address] PCP - General Family Medicine 11/26/19 documented as of this encounter
--- OUTSIDE RECORDS SUMMARY | 2024-11-04 16:10 | XMS_ITS | Encounter Summary ---
Author Organization [employer] Address [address] [place] [address] [address] [place] [address] Care Team Providers Care Drive In Waiter/Waitress Name Role Phone Reyna Lutz DO Primary Care Provider + [phone] Encounter Details Date Type Department Care Team ([facility] st Contact Info) Description 12/21/2022 Orders Only [facility] ADULT DENTAL [address] [place] [address] Rachna Mendez, DDS [address] [place] [address] Social History Tobacco Use Types Packs/Day Years [...] on filedocumented in this encounter Care Teams Drive In Waiter/Waitress Relationship Specialty Start Date End Date Reyna Lutz DO [address] [place] [address] PCP - General Family Medicine 11/26/19 documented as of this encounter
--- OUTSIDE RECORDS SUMMARY | 2024-11-04 16:10 | XMS_ITS | Encounter Summary ---
Author Organization [employer] Address [address] [facility] 7t [place] [address] Care Team Providers Care Slip Operator Name Role Phone Reyna Lutz DO Primary Care Provider + [phone] Reason for Referral * Consultation (Routine) - Closed Specialty Diagnoses / Procedures Referred By Contac t Referred To Contact Neurology Diagnoses Myotonic dystrophy (CMS/HCC) Sowmya Marinelli MD [address] [place] [address] Phone: tel: fax: Dale Mina MD [address] [place] [address] [place] [address] Phone: tel: fax: Referral ID Status Reason Start Date Expiration Date V isits Requested Visits Authorized [id number] Closed Specialty Services Required 09/04/2024 09/04/2025 6 6 Encounter Details Date Type Department Care Team (Late st Contact Info) Description 08/27/2024 Orders Only [facility] MEDICINE [address] [place], [place] [phone] Sowmya Marinelli MD [address] [place], [place] [phone] Myotonic dystrophy (CMS/HCC) (Primary Dx) Social History [...] documented as of this encounter Care Teams Slip Operator Relationship Specialty Start Date End Date Reyna uLtz DO [address] [place] [address] PCP - General Family Medicine 11/26/19 documented as of this encounter
--- OUTSIDE RECORDS SUMMARY | 2024-11-04 16:10 | XMS_ITS | Encounter Summary ---
Author Organization [employer] Address [address] [place] [address] 7[address] [place] [address] Care Team Providers Care Aix Architect Name Role Phone Reyna Lutz DO Primary Care Provider + [phone] Encounter Details Date Type Department Care Team (Late st Contact Info) Description 09/09/2022 Abstract [facility] ADULT DENTAL [address] [place] [address] Rachna Mendez DDS [address] [place] [address] Social History Tobacco Use Types Packs/Day Years [...] on filedocumented in this encounter Care Teams Aix Architect Relationship Specialty Start Date End Date Reyna Lutz DO [address] [place] [address] PCP - General Family Medicine 11/26/19 documented as of this encounter
== END 2024-11-04 14:11 | disposition home or self-care (01) ==
LOC: HO.HWS 13:33
PROVIDERS: PCP Family Medicine; Visit Provider Obstetrics & Gynecology
DX: D25.9 Leiomyoma of uterus, unspecified (principal); N88.9 Noninflammatory disorder of cervix uteri, unspecified
CPT/HCPCS: 99213

== ENCOUNTER 2024-11-28 13:31 | Outpatient (AMB) | payer MEDICAID, SELFPAY ==
--- OUTSIDE RECORDS SUMMARY | 2024-11-28 13:40 | XMS_ITS | Encounter Summary ---
Author Organization [employer] Address [address] [place] [address] [address] [place] [address] Care Team Providers Care Net Applications Developer Name Role Phone Reyna Lutz DO Primary Care Provider [phone] Encounter Details Date Type Department Care Team ([facility] st Contact Info) Description 06/27/2022 Orders Only [facility] [address] [place] [address] Malou Feliz LPN Social History Tobacco Use [...] on filedocumented in this encounter Care Teams Net Applications Developer Relationship Specialty Start Date End Date Reyna Lutz DO [address] [place] [address] PCP - General Family Medicine 11/26/19 documented as of this encounter
[2024-11-28 13:58] VITALS: BMI 30.8
--- NOTE | 2024-11-28 13:58 | A.OFFVIS_ITS ---
Vital Signs 11/28/24 13:58 Height 5 ft 3 in Weight 174 lb BMI 30.8 Intake Visit Reasons: pelvic exam Sales Trainee Required: No Information Interpreted: non-clinical & clinical Audograph Operator: Audograph Operator Present (Anne Marie GARAY) Accompanied by: Self / Same As Patient Allergies No Known Allergies [No Known Allergies*] Allergy (Verified 11/28/24 14:04) Post menopausal: Yes HPI Comments Details: Presenting regarding abnormality seen on CT scan. The patient is doing well with no complaints no pelvic pain vaginal bleeding or any other concerns. CT scan on 10/22/2024 showed the following: IMPRESSION: 1. Hepatic steatosis. No evidence of a liver mass. If this remains a clinical concern, MRI is more sensitive for the detection of enhancing liver masses. 2. Bilateral adrenal adenomas as described. 3. 3.1 cm posterior uterine fibroid. Low density and heterogeneity of the cervix. A mass is not excluded. Correlation with direct visualization is recommended. Last co testing done in 11/01 was negative [facility] Medical History Urinary incontinence Restrictive lung disease Allergic rhinitis Paroxysmal cough Anxiety Depression Muscular dystrophy, emery-dreifuss Surgical History Hx of section H/O endoscopy Family History Unknown No family history of colorectal cancer Social History Household Members Other:: Lives with her daughter (23-special needs) and her mother Alcohol intake: never Patient Tobacco Use Status: Never used Tobacco Current occupational status: disabled Female Reproductive History Menstrual Age of Menarche: 11 Review of Systems Const All systems reviewed & are unremarkable except as noted in HPI and below Physical Exam Vital Signs: BMI result Body Mass Index 30.8 General: Yes no CVA tenderness External Female Exam: normal external appearance and normal appearance of the urethra Speculum Exam - Vagina: normal appearance of the vagina, normal palpation, no lesions and no masses Speculum Exam - Cervix: normal appearance of the cervix, normal palpation, no lesions, no masses and nontender Bimanual exam- vagina & uterus: normal bimanual exam, normal palpation, uterine size normal, normal palpation, uterine shape normal, No Cervical tenderness present and non-tender Bimanual Exam- Adnexa, other: normal adnexae Back/Spine/Pelvis Back: no CVA tenderness Assessment & Plan Assessment & Plan (1) Abnormal cervix finding: Comment: on CT Code(s): N88.9 - Noninflammatory disorder of cervix uteri, unspecified Category: Medical Plan: Discussed with the patient the finding on CT scan differential diagnosis and possible causes. Will order MRI of the pelvis. Instructions given the patient to schedule MRI and a follow-up appointment within 2 weeks. All questions answered, the patient verbalized understanding. Orders: Orders MR pelvis wo/w con Today N88.9 - Noninflammatory disorder of cervix uteri, unspecified Coding Level of Care Code Est Pt Level 3 (80284) Diagnoses Abnormal cervix finding N88.9
== END 2024-11-28 14:19 | disposition home or self-care (01) ==
LOC: HO.HWS 13:32
PROVIDERS: PCP Family Medicine; Visit Provider Obstetrics & Gynecology
DX: N88.9 Noninflammatory disorder of cervix uteri, unspecified (principal)
CPT/HCPCS: 99213

== ENCOUNTER → 2024-11-28 13:31 | Outpatient (BNVA) | payer MEDICAID, SELFPAY | PROVIDERS: PCP Family Medicine; Visit Provider Obstetrics & Gynecology | DX: N88.9 Noninflammatory disorder of cervix uteri, unspecified (principal) | CPT/HCPCS: 99212 ==

== ENCOUNTER 2024-12-18 15:43 | Outpatient (REF) | payer MEDICAID, SELFPAY ==
--- NOTE | 2024-12-18 16:11 | MHC.AU.HA3 ---
Hearing Instrument Follow-Up- Binaural Date of Visit: 12/18/24 Right Ear: Make, Model, Color, Serial Number: [id number] Retail Performance Specialist Repair Warranty: 03/15/2024 Retail Performance Specialist Loss and Damage Warranty: 03/15/2024 [facility] Service Plan: 01/04/2022 Battery Size: Rechargeable Methodologist/Slim Tube: 1-UP Earmold/Dome/CShell/SlimTip:cShell #[id number] Warranty 04/16/2021 Type of Wax Guard: CeruStop Dispensed By: [facility] Date of Fittin11/05/2015 Left Ear: Make, Model, Color, Serial Number: [id number] Retail Performance Specialist Repair Warranty: 03/15/2024 Retail Performance Specialist Loss and Damage Warranty: 03/15/2024 [facility] Service Plan: Battery Size: Rechargeable Methodologist/Slim Tube: 1M Earmold/Dome/CShell/SlimTip: cShell #[id number] Warranty 04/16/2021 Type of Wax Guard: CeruStop Dispensed By: [facility] Date of Fittin11/05/2015 Follow-Up Summary: Reports hearing aids weak. Two (2) cleaned hearing aids, two (2) cleaned earmolds, two (2) changed wax guards, vacuumed microphone ports. Listening check positive after cleaning. Kelsey reports improvement in sound quality. She reports general concern that her hearing may have gotten worse, she has not had evaluation since 2020. She reports she has requested a referral from her PCP. [phone] x 6 units Recommendations: Recommendations: Hearing instrument follow-up or maintenance as needed. Diagnosis Code(s): Primary Diagnosis: H90.6 Mixed Hearing Loss, Bilateral Signature: Provider: Clemente Tran, [facility]
--- OUTSIDE RECORDS SUMMARY | 2024-12-18 18:03 | XMS_ITS | Encounter Summary ---
Author Organization [employer] Address [address] [place] [address] [address] [place] [address] Care Team Providers Care Ammonia Operator Name Role Phone Reyna Lutz DO Primary Care Provider [phone] Encounter Details Date Type Department Care Team ([facility] st Contact Info) Description 06/27/2022 Orders Only [facility] [address] [place] [address] Malou Feliz LPN Social History Tobacco Use [...] on filedocumented in this encounter Care Teams Ammonia Operator Relationship Specialty Start Date End Date Reyna Lutz DO [address] [place] [address] PCP - General Family Medicine 11/26/19 documented as of this encounter
== END 2024-12-18 15:44 | disposition home or self-care (01) ==
LOC: HO.HAP 15:43
PROVIDERS: Visit Provider Family Medicine
DX: Z46.1 Encounter for fitting and adjustment of hearing aid (principal); H90.6 Mixed conductive and sensorineural hearing loss, bilateral
CPT/HCPCS: 92593; 99499

== ENCOUNTER 2025-02-05 16:49 | Emergency (ER) | payer MEDICAID, SELFPAY ==
[2025-02-05] VITALS (10 sets, daily range): BP systolic 141–179; BP diastolic 77–102; PULSE 87–136; RESP 18–29; TEMP 36.3–36.9; O2SAT 88–94; BMI 29.6
--- NOTE | ~2025-02-05 | XR_ITS ---
CLINICAL HISTORY: cough 2 view chest x-ray Comparison: None provided Findings: No consolidation or effusion. Normal size heart. No acute fracture. IMPRESSION: 1. No acute findings. This document has been electronically signed by: Esau Weiner MD on 02/05/2025 19:02:55
--- NOTE | ~2025-02-05 | CT_ITS ---
CLINICAL HISTORY: Upper abdominal pain , etiology?? CT abdomen and pelvis without contrast Comparison: None provided Findings: Please refer to chest CT for bases and thoracic findings. Mild fat deposition of the liver. Surface contours partly obscured by motion artifacts. Bilateral adrenal hyperplasia with 2 cm lipid rich adenoma of the left adrenal gland and 1.7 cm lipid rich adenoma of the right adrenal gland. The spleen is nonenlarged. Mild volume loss of the pancreas noted. No hydronephrosis. Mild perinephric stranding is nonspecific. Gallbladder is unremarkable for noncontrast CT. No small bowel obstruction. Wall thickening of the large intestine is nonspecific including the cecum. Appendicolith at the base of the appendix without additional or definite findings of acute appendicitis in this noncontrast study. Intrauterine device is in place. No adnexal soft tissue mass by noncontrast CT. Mild wall thickening of the urinary bladder is nonspecific and can be seen with cystitis. Degenerative changes include the hips, pubic symphysis, SI joints, and spine, including imaged facet arthropathy. IMPRESSION: 1. Perinephric stranding is nonspecific by noncontrast CT. No hydronephrosis. 2. Wall thickening of the large intestine is nonspecific and can be seen with colitis, including imaged cecum. 3. Appendicolith present. Please correlate for any potential appendicitis. This document has been electronically signed by: Ton Worley MD on 02/05/2025 21:17:44
--- NOTE | ~2025-02-05 | CT_ITS ---
CLINICAL HISTORY: Shortness a breath , pneumonia CT chest without contrast Comparison: Chest x-ray from 02/05/2025 Findings: Pulmonary opacities include lateral portion lingula and may reflect pneumonitis/pneumonia. Additional bibasilar atelectasis and scarring present. Mild emphysematous changes. No pleural effusion or pneumothorax. Mild mediastinal lipomatosis with trace pericardial effusion. Heart is within limits of normal. Nonenlarged mediastinal lymphadenopathy by noncontrast imaging. Degenerative changes include imaged shoulders and imaged spine. Please refer to separate report for CT abdomen and pelvis. IMPRESSION: 1. Mild pulmonary opacities nonspecific and may reflect pneumonitis/pneumonia particularly in the lingula. Recommend attention on follow-up to ensure resolution. 2. No pneumothorax or pleural effusion. This document has been electronically signed by: Ton Worley MD on 02/05/2025 21:18:45
--- NOTE | 2025-02-05 17:47 | ED.GENADULT ---
HPI - General Adult General Chief complaint: Nausea/Vomiting/Diarrhea Stated complaint: MUSCLER, HASNT EATEN, HALLUCINATIONS Time Seen by Provider: 02/05/25 19:05 Source: patient Mode of arrival: ambulatory Limitations: no limitations History of Present Illness ED Provider: Related Data Home Medications ?Medication ?Instructions ?Recorded ?Confirmed albuterol sulfate 90 mcg/actuation 2 puff inhalation Q6H PRN 12/17/20 12/30/20 aerosol inhaler (ProAir HFA) amlodipine 10 mg tablet 10 mg PO DAILY 12/17/20 12/30/20 doxepin 50 mg capsule 50 mg PO BEDTIME 12/17/20 12/30/20 hydroxyzine pamoate 25 mg capsule 25 mg PO QID PRN 12/17/20 12/30/20 (Vistaril) methylcellulose (laxative) 500 mg 500 mg PO BID 12/17/20 12/30/20 tablet (Fiber Therapy (methylcellulose)) omeprazole 20 mg capsule,delayed 20 mg PO DAILY 12/17/20 12/30/20 release sennosides 8.6 mg capsule (senna) 17.2 mg PO BEDTIME 12/17/20 12/30/20 bupropion HCl 150 mg 24 hr tablet, 300 mg PO QAM 12/30/20 12/30/20 extended release (Wellbutrin XL) bupropion HCl 300 mg 24 hr tablet, 300 mg PO DAILY 07/05/21 extended release sennosides 8.6 mg tablet (senna) 17.2 mg PO DAILY PRN constipation 07/05/21 sucralfate 1 gram tablet 1 g PO BID 07/05/21 docusate sodium 100 mg capsule 100 mg PO BID 09/15/21 (Stool Softener) blood sugar diagnostic (FreeStyle #10 ea 01/03/22 Lite Strips) hydroxyzine HCl 25 mg tablet 25 mg PO BID PRN 01/03/22 lancets 33 gauge (TRUEplus Lancets) #100 ea 01/03/22 atorvastatin 20 mg tablet 20 mg PO BEDTIME 02/12/24 ergocalciferol (vitamin D2) 1,250 1,250 mcg PO QWEEK 02/12/24 mcg (50,000 unit) capsule Previous Rx's ?Medication ?Instructions ?Recorded cyclobenzaprine 10 mg tablet 10 mg PO TID PRN muscle spasm #20 01/10/22 tabs morphine 15 mg immediate release 15 mg PO Q4-6H PRN pain #10 tabs 09/28/22 tablet polyethylene glycol 3350 17 238 g PO ONCE #238 grams 10/14/24 gram/dose oral powder (Miralax) cefuroxime axetil 500 mg tablet 500 mg PO BID 7 days #14 tabs 02/05/25 ondansetron 4 mg disintegrating 4 mg PO Q6-8H PRN nausea and 02/05/25 tablet vomiting #7 tabs Allergies Allergy/AdvReac Type Severity Reaction Status Date / Time No Known Allergies (No Known Allergy Verified 02/05/25 17:49 Allergies*) [facility] Past Medical History Medical History Urinary incontinence Restrictive lung disease Allergic rhinitis Paroxysmal cough Anxiety Depression Muscular dystrophy, emery-dreifuss Surgical History Hx of section H/O endoscopy Family History Family History Unknown No family history of colorectal cancer Social History Social History Household Members Other:: Lives with her daughter (23-special needs) and her mother Alcohol intake: never Patient Tobacco Use Status: Never used Tobacco Smoked in Last 30 Days: No Use of substances other than those prescribed or required for medical reasons: No Advance Directives: No Advance Directives Information Provided: Yes Do you have a plan to hurt others: No Plan Current occupational status: disabled Physical Exam ED Vital Signs: Vital Signs - 24 hr 02/05/25 17:47 02/05/25 18:25 02/05/25 19:06 Temperature 97.3 F 97.7 F 98.5 F Pulse Rate 136 H 135 H 126 H Respiratory Rate 18 20 26 H Blood Pressure 141/77 H 179/102 H 142/91 H Pulse Oximetry 90 L 93 91 L Oxygen Delivery Method Room Air Room Air Oxygen Flow Rate 02/05/25 20:00 02/05/25 20:05 02/05/25 20:45 Temperature Pulse Rate 125 H 125 H Respiratory Rate 18 18 29 H Blood Pressure Pulse Oximetry 91 L 88 L Oxygen Delivery Method Nasal Cannula Nasal Cannula Oxygen Flow Rate 3 2 02/05/25 22:11 02/05/25 22:28 02/05/25 23:18 Temperature 98.4 F 98.0 F Pulse Rate 87 108 H 126 H Respiratory Rate 18 21 H 21 H Blood Pressure 146/91 H 148/98 H Pulse Oximetry 93 94 90 L Oxygen Delivery Method Nasal Cannula Nasal Cannula Room Air Oxygen Flow Rate 3 3 02/05/25 23:31 Temperature 98.0 F Pulse Rate 126 H Respiratory Rate 21 H Blood Pressure 148/98 H Pulse Oximetry 90 L Oxygen Delivery Method Room Air Oxygen Flow Rate BMI result Body Mass Index 29.6 Course Course Course Narrative: RME, this is a rapid medical exam performed by Carl Sesay please refer to primary provider for complete H&P- 49-year-old female with past medical history muscular dystrophy, hepatic steatosis, diabetes, restrictive lung disease presents for evaluation of vomiting, cough, weakness. Her labs, viral swabs, urinalysis, chest x-ray. Reevaluation(s) Reevaluation #1: HENRY Salomon 02/06/25 1123 2/2 blood cultures grew gram negative rods. called patient at phone number on file - no answer, left for call back. Medications Administered Discontinued Medications Generic Name Dose Route Start Last Admin Trade Name Cal PRN Reason Stop Dose Admin Ceftriaxone Sodium 2 gm 02/05/25 22:20 02/05/25 22:54 Ceftriaxone Sodium 2 Gm Vial IVPUSH 02/05/25 22:21 2 gm ONCE ONE Administration Sodium Chloride 1,000 mls @ 999 mls/hr 02/05/25 19:55 02/05/25 23:00 Ns IV 02/05/25 20:55 Infused .Q1H1M ONE Infusion Morphine Sulfate 4 mg 02/05/25 20:13 02/05/25 20:45 Morphine Sulfate 4 Mg/Ml Cartridge IVPUSH 02/05/25 20:14 4 mg ONCE ONE Administration Protocol Ondansetron HCl 4 mg 02/05/25 20:13 02/05/25 23:01 Ondansetron Hcl 4 Mg/2 Ml Vial IVPUSH 02/05/25 20:14 Not Given ONCE ONE Medical Decision Making Lab Data 02/05/25 18:06 02/05/25 18:06 Labs: Lab Results 02/05/25 02/05/25 02/05/25 Range/Units 18:06 19:31 21:13 WBC 21.0 H (4.8-10.8) X10*3/uL RBC 5.45 (4.20-5.50) X10*6/uL Hgb 16.2 H (12.0-16.0) g/dl Hct 49.1 H (37.0-47.0) % MCV 90.1 (80.0-98.0) fL MCH 29.7 (27.0-33.0) pg MCHC 33.0 (31.0-35.0) g/dl RDW 13.9 (11.0-16.0) % Plt Count 210 D (160-400) X10*3/uL MPV 10.7 (9.4-12.3) fL Immature Gran % (Auto) 0.7 H (0.0-0.4) % Neut % (Auto) 84.4 H (45-73) % Lymph % (Auto) 5.7 L (20-40) % [place] % (Auto) 8.7 (2-11) % Eos % (Auto) 0.0 (0-4) % Baso % (Auto) 0.5 (0-2) % Lymph # (Auto) 1.2 (1.2-4.9) X10*3/uL [place] # (Auto) 1.8 H (0.1-1.2) X10*3/uL Eos # (Auto) 0.0 (0.0-0.4) X10*3/uL Baso # (Auto) 0.1 (0.0-0.2) X10*3/uL Abs Immat Gran (auto) 0.15 H (0.00-0.03) X10*3/uL Absolute Neuts (auto) 17.7 H (2.0-8.3) x10*3/uL Absolute Nucleated RBC 0.000 (0.0-0.012) X10*3/uL Nucleated RBC % (auto) 0.0 (0.0-0.2) /100WBC Smear Tech's Comments VERIFIED VBG pH (7.32-7.43) VBG pCO2 mmHg VBG pO2 mmHg VBG HCO3 (22-26) mmol/L VBG O2 Saturation % VBG Base Excess mmol/L Sodium 137 (135-145) mmol/L Potassium 3.7 (3.3-5.1) mmol/L Chloride 95 L (96-108) mmol/L Carbon Dioxide 29 (22-29) mmol/L Anion Gap 17 (12-20) BUN 14 (9-16) mg/dL Creatinine 0.96 (0.5-1.4) mg/dL Estim Creat Clear Calc 68.1 Estimated GFR > 60 POC Glucose 283 H (60-115) mg/dL Random Glucose 358 H* (60-115) mg/dL Lactic Acid 1.4 (0.5-2.0) mmol/L Calcium 10.0 (8.4-10.2) mg/dL Total Bilirubin 2.0 H (0.0-1.0) mg/dL AST 30 (5-31) U/L ALT 28 (0-31) U/L Alkaline Phosphatase 114 (39-117) U/L Total Protein 7.3 (6.5-8.0) g/dL Albumin 4.1 (3.5-5.0) g/dL Lipase 12 (8-78) U/L Urine Color Urine Appearance Urine pH (5.0-9.0) Ur Specific [employer] (1.005-1.025) Urine Protein (Neg-Trace) mg/dL Urine Glucose (UA) (Negative) mg/dL Urine Ketones (Negative) mg/dL Urine Blood (Negative) Urine Nitrite (Negative) Ur Leukocyte Esterase (Negative) Urine RBC (0-2) /HPF Urine WBC (0-5) /HPF Ur Squamous Epith Cells (0-2) /HPF Urine Bacteria (None Seen) Hyaline Casts (0-2) /LPF Influenza Type A (PCR) NEGATIVE (Negative) Influenza Type B (PCR) NEGATIVE (Negative) RSV RNA Qual (PCR) NEGATIVE (Negative) SARS-CoV-2 RNA (RT-PCR) NEGATIVE (Negative) 02/05/25 02/05/25 Range/Units 21:25 22:47 WBC (4.8-10.8) X10*3/uL RBC (4.20-5.50) X10*6/uL Hgb (12.0-16.0) g/dl Hct (37.0-47.0) % MCV (80.0-98.0) fL MCH (27.0-33.0) pg MCHC (31.0-35.0) g/dl RDW (11.0-16.0) % Plt Count (160-400) X10*3/uL MPV (9.4-12.3) fL Immature Gran % (Auto) (0.0-0.4) % Neut % (Auto) (45-73) % Lymph % (Auto) (20-40) % [place] % (Auto) (2-11) % Eos % (Auto) (0-4) % Baso % (Auto) (0-2) % Lymph # (Auto) (1.2-4.9) X10*3/uL [place] # (Auto) (0.1-1.2) X10*3/uL Eos # (Auto) (0.0-0.4) X10*3/uL Baso # (Auto) (0.0-0.2) X10*3/uL Abs Immat Gran (auto) (0.00-0.03) X10*3/uL Absolute Neuts (auto) (2.0-8.3) x10*3/uL Absolute Nucleated RBC (0.0-0.012) X10*3/uL Nucleated RBC % (auto) (0.0-0.2) /100WBC Smear Tech's Comments VBG pH 7.42 (7.32-7.43) VBG pCO2 55 mmHg VBG pO2 50 mmHg VBG HCO3 36 H (22-26) mmol/L VBG O2 Saturation 82.0 % VBG Base Excess 9.3 mmol/L Sodium (135-145) mmol/L Potassium (3.3-5.1) mmol/L Chloride (96-108) mmol/L Carbon Dioxide (22-29) mmol/L Anion Gap (12-20) BUN (9-16) mg/dL Creatinine (0.5-1.4) mg/dL Estim Creat Clear Calc Estimated GFR POC Glucose (60-115) mg/dL Random Glucose (60-115) mg/dL Lactic Acid (0.5-2.0) mmol/L Calcium (8.4-10.2) mg/dL Total Bilirubin (0.0-1.0) mg/dL AST (5-31) U/L ALT (0-31) U/L Alkaline Phosphatase (39-117) U/L Total Protein (6.5-8.0) g/dL Albumin (3.5-5.0) g/dL Lipase (8-78) U/L Urine Color Dark Yellow Urine Appearance Cloudy Urine pH 5.5 (5.0-9.0) Ur Specific [employer] 1.020 (1.005-1.025) Urine Protein 100 (2+) H (Neg-Trace) mg/dL Urine Glucose (UA) 500 H (Negative) mg/dL Urine Ketones Trace (Negative) mg/dL Urine Blood Large (3+) H (Negative) Urine Nitrite Positive H (Negative) Ur Leukocyte Esterase Moderate (2+) H (Negative) Urine RBC 6-10 H (0-2) /HPF Urine WBC >50 H (0-5) /HPF Ur Squamous Epith Cells 6-10 (0-2) /HPF Urine Bacteria 3+ (None Seen) Hyaline Casts 11-20 (0-2) /LPF Influenza Type A (PCR) (Negative) Influenza Type B (PCR) (Negative) RSV RNA Qual (PCR) (Negative) SARS-CoV-2 RNA (RT-PCR) (Negative) Discharge Plan Discharge Clinical Impression: Acute gastroenteritis Patient Disposition: Home, Self-Care Instructions: Urinary Tract Infection in Women (DC), Acute Nausea and Vomiting (DC) Additional Instructions: Drink plenty of fluids Take antibiotic and Medicine for nausea as prescribed Follow with your PCP if not better Prescriptions: New cefuroxime axetil 500 mg tablet 500 mg PO BID 7 Days Qty: 14 0RF ondansetron 4 mg tablet,disintegrating 4 mg PO Q6-8H PRN (Reason: nausea and vomiting) Qty: 7 0RF No Action cyclobenzaprine 10 mg tablet 10 mg PO TID PRN (Reason: muscle spasm) Qty: 20 0RF morphine 15 mg tablet 15 mg PO Q4-6H PRN (Reason: pain) Qty: 10 0RF Rx Instructions: The patient may ask for partial fill; Partial Fill upon patient request. amlodipine 10 mg tablet 10 mg PO DAILY doxepin 50 mg capsule 50 mg PO BEDTIME Fiber Therapy (m-cellulose) 500 mg tablet 500 mg PO BID omeprazole 20 mg capsule,delayed release(DR/EC) 20 mg PO DAILY albuterol sulfate [ProAir HFA] 90 mcg/actuation HFA aerosol inhaler 2 puff inhalation Q6H PRN senna 8.6 mg capsule 17.2 mg PO BEDTIME hydroxyzine pamoate [Vistaril] 25 mg capsule 25 mg PO QID PRN bupropion HCl [Wellbutrin XL] 150 mg tablet extended release 24 hr 300 mg PO QAM Mirena 20 mcg/24 hours (8 yrs) 52 mg intrauterine device 1 device intrauterine ONCE Qty: 1 0RF sennosides [senna] 8.6 mg tablet 17.2 mg PO DAILY PRN (Reason: constipation) sucralfate 1 gram tablet 1 g PO BID bupropion HCl 300 mg tablet extended release 24 hr 300 mg PO DAILY (DME) lancets [TRUEplus Lancets] 33 gauge misc See Rx Instructions Not Applicable BID Qty: 100 Rx Instructions: As directed hydroxyzine HCl 25 mg tablet 25 mg PO BID PRN (DME) FreeStyle Lite Strips Strip See Rx Instructions Not Applicable BID Qty: 10 Rx Instructions: As directed docusate sodium [Stool Softener] 100 mg capsule 100 mg PO BID atorvastatin 20 mg tablet 20 mg PO BEDTIME ergocalciferol (vitamin D2) 1,250 mcg (50,000 unit) capsule 1,250 mcg PO QWEEK polyethylene glycol 3350 [Miralax] 17 gram/dose powder 238 g PO ONCE Qty: 238 0RF Rx Instructions: mix in 64 oz in gatorade Interventions: ED Discharge Assessment Last Done: 02/05/25 23:31 Discharge Date/Time: 02/05/25 23:50 Print Language: Amharic
--- NOTE | 2025-02-05 17:54 | ECG_ITS ---
Test Reason : weakness Blood Pressure : */* mmHG Vent. Rate : 130 BPM Atrial Rate : 130 BPM P-R Int : 170 ms QRS Dur : 98 ms QT Int : 286 ms P-R-T Axes : 24 -33 92 degrees QTcB Int : 420 ms Sinus tachycardia Left axis deviation Left ventricular hypertrophy with repolarization abnormality ( R in aVL , [place] product ) Cannot rule out Septal infarct (cited on or before 09-Jul-2019) Abnormal ECG When compared with ECG of 09-Jul-2019 14:12, [place] interval has decreased ST elevation now present in Inferior leads Non-specific change in ST segment in Lateral leads Inverted T waves have replaced nonspecific T wave abnormality in Lateral leads Referred By: Frank Sesay Electronically Signed By: ANGEL LUIS SHELL MD
[2025-02-05 18:16] LABS: Hematocrit 49.1 % (37.0-47.0); Hemoglobin 16.2 g/dl (12.0-16.0); Imm Gran Abs Auto 0.15 X10*3/uL (0.00-0.03); Imm Gran Pct Auto 0.7 % (0.0-0.4); Lymphocytes Absolute Auto 1.2 X10*3/uL (1.2-4.9); MANUAL DIFF FLAG SCAN; Mean Corpuscular HGB Conc 33.0 g/dl (31.0-35.0); Mean Corpuscular Hemoglobin 29.7 pg (27.0-33.0); Mean Corpuscular Volume 90.1 fL (80.0-98.0); NRBC Abs Auto 0.000 X10*3/uL (0.0-0.012); NRBC Pct Auto 0.0 /100WBC (0.0-0.2); Platelet Count 210 X10*3/uL (160-400); Red Blood Count 5.45 X10*6/uL (4.20-5.50); SCAN SMEAR FLAG 1; White Blood Count 21.0 X10*3/uL (4.8-10.8)
[2025-02-05 18:32] LABS: Alanine Aminotransferase 28 U/L (0-31); Albumin Level 4.1 g/dL (3.5-5.0); Alkaline Phosphatase 114 U/L (39-117); Anion Gap 17 (12-20); Aspartate Amino Transferase 30 U/L (5-31); Blood Urea Nitrogen 14 mg/dL (9-16); Calcium 10.0 mg/dL (8.4-10.2); Carbon Dioxide 29 mmol/L (22-29); Chloride 95 mmol/L (96-108); Creatinine Clr Calc Pharmacy 68.1; Estimated Glomerular Filt Rate > 60; Lipase 12 U/L (8-78); Potassium 3.7 mmol/L (3.3-5.1); Sodium 137 mmol/L (135-145); Total Protein 7.3 g/dL (6.5-8.0)
--- OUTSIDE RECORDS SUMMARY | 2025-02-05 18:38 | XMS_ITS | Encounter Summary ---
Author Organization [facility] Address [address] [place] [address] Care Team Providers Care Master Sonar Technician Name Role Phone Noemí Tovar MD Primary Care Provider Tomy sanders Encounter Details Date Type Department Care Team Description 09/05/2017 Telephone [facility] [address] [place] [address] [id number] Edward Minaya, Krista.D Social History Tobacco Use Types Packs/Day Years Used Date Smoking Tobacco: Never Smokeless Tobacco: Never Alcohol Use Standard Drinks/Week Comments No 0 (1 standard drink = 0.6 oz pur e alcohol) Sex Assigned at Date Recorded Not on file documented as of this encounter Miscellaneous Notes * Telephone Encounter - Pharm. MonikaD - 09/05/2017 9:[address] Tovar: Kelsey Lozano was [facility] and evaluated today [facility]. In my assessment, her depression is not well controlled. Ms. Lozano's depression is classified as severe, and she has recently started venlafaxine XR 75mgby mouth once daily (<1 week ago). Ms. Lozano denies any side effects with the exception of headaches but then mentions that she had headaches prior to starting the venlafaxine as well. Because Ms. Lozano had difficulties obtaining her prescriptions she has only been on the venlafaxine XR for 5-6 days at this point. We discussed keeping her at this dose for another week and then increasingto 112.5mg and Ms. Lozano is agreeable. She was provided with written instructions for the dose increase. Ms. Lozano was instructed to call the clinic with any questions/concerns. My suggestions for Ms. Lozano include: 1. Continue venlafaxine XR 75mg by mouth once daily 2. In 1 week, increase to venlafaxine XR 112.5mg by mouth once daily (75mg capsule PLUS new 37.5mg capsule) 3. Avoid naps and make plan for what to get done while your daughter naps 4. Try to set up a regular sleep schedule (going to bed by 10 or 11 each night and waking up at 6:30). 5. Return for follow up in 3 weeks 6. Call with any questions/concerns Please sign the pended order(s) with which you agree and route this encounter back to me. A full report of the Ms. Lozano's visit can be found in the Encounters tab within Chart Review. If you have any questions, you may send me an in-basket message. Thank you, EDWARD MINAYA, Pharm.D documented in this encounter Plan of Treatment Not on file documented as of this encounter Visit Diagnoses Not on filedocumented in this encounter Care Teams Master Sonar Technician Relationship Specialty Start Date End Date Noemí Tovar MD PCP - General 09/03/10 documented as of this encounter
--- OUTSIDE RECORDS SUMMARY | 2025-02-05 18:38 | XMS_ITS | Clinical Summary ---
Author Organization [facility] Address [address] [place] [address] [place] [phone] Phone Care Team Providers Care Ball Racker Name Role Phone Reyna Lutz DO Primary Care Provider [phone] Social History Tobacco Use Types Packs/Day Years Used Date Smoking Tobacco: Never Assessed Education Answer Date Recorded Are you interested in more education? Not on jacqueline e 03/26/2024 Are you concerned about learning? Not on file 03/26/2024 No 03/26/2024 No 03/26/2024 Digital Access Answer Date Recorded No 03/26/2024 No 03/26/2024 Reliable internet access at home? Not on file 03/26/2024 Device with a working camera? Not on file Comments Unknown Sex and Gender Information Value Date Recorded Sex Assigned at Female 03/25/2024 1:42 PM EDT Legal Sex Female 1:40 PM EDT Gender Identity Female 03/25/2024 1:42 PM EDT Sexual Orientation Straight 03/25/2024 1: 42 PM EDT Plan of Treatment Health Maintenance Due Date Last Done Comments DEPRESSION SCREENING 1985 SMOKING Hx and SMOKELESS TOBACCO SCREENING 1986 HEPATITIS C SCREENING 1991 HIV ONE-TIME SCREENING (18-6 5 YEARS) 1991 PAP SMEAR 1994 COLOGUARD 2018 COLONOSCOPY 2018 COLORECTAL CANCER SCREENING 2018 FIT TEST 2018 FOBT 2018 SIGMOIDOSCOPY 2018 VIRTUAL COLONOSCOPY 2018 PNEUMOCOCCAL VACCINES (50+ years) (2 of 2 - PCV) 2023 2019 ZOSTER VACCINES (1 of 2) 2023 COVID-19 VACCINE (1 - 2023-2 5 season) 2024 MAMMOGRAM 02/07/2026 02/08/2024, 02/02/2023 Adult Td,Tdap Booster 06/12/2027 06/12/2017 LIPID PANEL 01/22/2029 01/23/2024 HEPATITIS A VACCINES Aged Out No long er eligible based on patient's age to complete this topic HIB VACCINES Aged Out No longer eligi ble based on patient's age to complete this topic MENINGOCOCCAL VACCINES (ACWY) Aged Out No longer eligible based on patient's age to complete this topic MENINGOCOCCAL VACCINES (B) Aged Out N o longer eligible based on patient's age to complete this topic Medical Devices Not on file Insurance [facility] C3 ACO Care Teams Ball Racker Relationship Specialty Start Date End Date Reyna Lutz DO [address] [place] [address] PCP - General Family Medicine 03/25/24 Additional Source Comments The information contained in this document represents components of the legal health record. It is not the complete legal health record.[facility]
[2025-02-05 18:54] LABS: Resp Syncy Virus RNA Qual PCR NEGATIVE (Negative); SARS COV2 PCR INHOUSE NEGATIVE (Negative)
[2025-02-05 19:36] LABS: Glucose, Whole Blood 283 mg/dL (60-115)
--- NOTE | 2025-02-05 20:05 | PC.NURSE ---
Patient destat while in room, NC changed to 3L of 02. Patient now sating 91% on 3L of oxygen.
[2025-02-05 21:29] LABS: Venous Blood Gas Refer to POC result
[2025-02-05 21:30] LABS: VBG HCO3 36 mmol/L (22-26); VBG O2 % Saturation 82.0 %
--- NOTE | 2025-02-05 22:12 | PC.NURSE ---
Fluids still running, IV placed in L AC, making the fluids occasionally stop due to patients positioning. Multiple reminders to keep are straight. Notified patient it is important in order to get the fluids the provider ordered.
[2025-02-05 22:56] LABS: Appearance Urine Cloudy; Glucose Urine UA 500 mg/dL (Negative); PH 5.5 (5.0-9.0); Specific Gravity - Urine 1.020 (1.005-1.025); UMIC TRIGGER UACC YES
[2025-02-05 23:08] LABS: UACC Culture Trigger YES
== END 2025-02-05 23:50 | disposition home or self-care (01) ==
PROVIDERS: Physician Assistant; Emergency Provider Internal Medicine
DX: K52.9 Noninfective gastroenteritis and colitis, unspecified (principal); R11.2 Nausea with vomiting, unspecified; G71.09 Other specified muscular dystrophies; R53.1 Weakness; R00.0 Tachycardia, unspecified; R05.9 Cough, unspecified; R10.10 Upper abdominal pain, unspecified; R06.02 Shortness of breath; Z79.899 Other long term (current) drug therapy
CPT/HCPCS: 36415; 71046; 71250; 74176; 80053; 81001; 82803; 82947; 83605; 83690; 85025; 87040; 87077; 87086; 87088; 87186; 87205; 87637; 93005; 96361; 96374; 96375; 99285; J0696; J2270

== ENCOUNTER → 2025-02-05 17:48 | Outpatient (BNV) | payer MEDICAID, SELFPAY | PROVIDERS: Emergency Provider Internal Medicine; Visit Provider Nuclear Medicine | DX: D35.02 Benign neoplasm of left adrenal gland (principal); J98.11 Atelectasis; R05.9 Cough, unspecified | CPT/HCPCS: 71046; 71250; 74176 ==

== ENCOUNTER → 2025-02-05 17:54 | Outpatient (BNV) | payer MEDICAID, SELFPAY | PROVIDERS: Emergency Provider Internal Medicine; Visit Provider Internal Medicine Cardiovascular Disease | DX: I51.7 Cardiomegaly (principal); R00.0 Tachycardia, unspecified | CPT/HCPCS: 93010 ==

== ENCOUNTER 2025-02-07 18:31 | Inpatient (IN) | payer MEDICAID, SELFPAY ==
--- NOTE | ~2025-02-07 | XR_ITS ---
CLINICAL HISTORY: sob 1 view chest x-ray Comparison: CT/SR - THORAX [id number] (ADULT) - 02/05/25 20:30 EDT Findings: Underexpanded lungs with mild interstitial prominence. Normal size heart. No acute fracture. IMPRESSION: Underexpanded lungs with mild interstitial prominence. This document has been electronically signed by: Alex Mckeon MD on 02/08/2025 08:24:52
--- NOTE | 2025-02-07 07:00 | CA_ITS ---
Transthoracic Echocardiogram Patient (Last, First, Middle): Kelsey Lozano M Gender: Female Date of : 1975 Age: 49 Procedure Date: 02/08/2025 Procedure Type: Transthoracic Echocardiogram Location: ER Height: 162.56 cm Weight: 76.66 kg BSA: 1.82 m2 Heart Rate: bpm BP: 98 / 46 mmHg Health Informatics Advisor: ISABEL Mtz MD: Jonna Hickman PA-C Trim Mounter: Jose Dougherty MD Symptoms: murmur, +blood cultures Study Quality: Adequate ECG Rhythm: Sinus Conclusions: - 1. Normal LV ejection fraction 55-60% 2. No obvious vegetations on this study with normal cardiac valve with Dopplers 3. Normal RV systolic pressure with mildly elevated right atrial pressures 4. No gross pericardial effusion Findings Left Ventricle Normal left ventricular size, thickness, and systolic function. The visually estimated ejection fraction is between 55-60%. Spectral Doppler is indicative of a normal filling pattern. Right Ventricle Normal right ventricular cavity size and systolic function. Atria The left atrium is normal in size. There is no evidence of interatrial shunt. The right atrium is normal in size. Aortic Valve Normal aortic valve structure and function. There is no aortic valve stenosis. There is no aortic valve regurgitation. Mitral Valve Normal mitral valve structure and function. There is trace mitral valve regurgitation. There is no mitral valve stenosis. Pulmonic Valve The pulmonic valve is likely normal. Tricuspid Valve There is trace tricuspid valve regurgitation. The right ventricular systolic pressure is 34 mmHg. Mildly elevated right atrial pressure. There is no evidence of pulmonary hypertension. Great Vessels All visible segments of the aorta are normal in size. The pulmonary artery was not well visualized. There is no dilatation of the ascending aorta measuring 3.10 cm. Venous The inferior vena cava is normal in size and collapses greater than 50% with inspiration. Pericardium/Pleural There is no evidence of pericardial effusion. Prior Study Comparison No prior study available for comparison. Measurements 2D Linear Measurements IVSd: 1.10 0.6-0.9/0.6-1.0 cm LVIDd: 3.89 3.9-5.3/4.2-5.9 cm LVIDd Index: 2.14 2.4-3.2/2.2-3.1 cm/m2 LVIDs: 2.70 2.0-3.6 cm LVPWd: 1.12 0.7-1.1 cm Ao Root: 2.90 2.1-3.5 cm LA Diam: 3.90 2.7-3.8/3.0-4.0 cm LAIDs Index: 2.14 1.5-2.3 cm/m2 LV Mass: 176.00 67-162/88-224 g LV Mass Index: 96.71 43-95/49-115 g/m2 LVOT Diam: 2.00 3.0+(-)1.3 cm 2D Systolic Function EF 4C: 52.30 >55% EF 2C: 56.50 >55% EF BiP: 54.60 >55% Mitral Valve MV Pk E: 0.65 MV PK A: 0.33 MV Decel Time: 204.00 E/A: 2.00 E'Lateral: 6.20 E'Medial: 5.66 E/E' Med: 11.50 E/E' Lat: 10.50 PHT: 60.00 MVA PHT: 3.67 Decel Rush: 3.18 Aortic Valve AoV Pk Isidoro: 1.20 AoV Mn Isidoro: 0.88 AoV VTI: 0.22 AoV Pk Grad: 6.00 Aov Mn Grad: 4.00 TRINO Cont.VTI: 2.44 LVOT LVOT Pk Isidoro: 0.94 LVOT Mn Isidoro: 0.69 LVOT VTI: 0.17 LVOT Pk Grad: 4.00 LVOT Mn Grad: 2.00 LVOT Diam: 2.00 LVOT Area: 3.14 Diastolic Function MV Pk E: 0.65 MV Pk A: 0.33 E/A: 2.00 E'Medial: 5.66 E/E' Med: 11.50 E' Laterial: 6.20 E/E' Lat: 10.50 Right Ventricle TAPSE (mm): 16.60 TVS' Isidoro: 8.05 Tricuspid Valve TR Pk Isidoro: 2.55 TR Pk Grad: 26.00 RA Press: 8.00 RVSP: 34.00 Great Vessels Aorta Ao Root-2D: 2.90 2.0-3.7 cm Ao Asc: 3.10 2.1-3.4 cm Ao Arch: 2.90 Updated in Other Vendor System with Status of Final Jose Dougherty MD electronically signed on 02/09/2025 10:19:35 AM with status of Final
--- NOTE | 2025-02-07 18:34 | ED.GENADULT ---
HPI - General Adult General Chief complaint: Recheck/Abnormal Lab/Rx Stated complaint: [facility] [place], [place] ED called to come in. Being admitted Time Seen by Provider: 02/07/25 19:52 Source: patient Mode of arrival: ambulatory Limitations: no limitations History of Present Illness ED Provider: HPI narrative: Patient was seen yesterday with dysuria she reports it is but also some nausea vomiting and diarrhea, was discharged home with antibiotics, was called back in because she has Gram-negative bacteremia. Patient denies flank pain, denies abdominal pain,, continues to have some episodes of incontinence. Related Data Home Medications ?Medication ?Instructions ?Recorded ?Confirmed albuterol sulfate 90 mcg/actuation 2 puff inhalation Q6H PRN 12/17/20 12/30/20 aerosol inhaler (ProAir HFA) amlodipine 10 mg tablet 10 mg PO DAILY 12/17/20 12/30/20 doxepin 50 mg capsule 50 mg PO BEDTIME 12/17/20 12/30/20 hydroxyzine pamoate 25 mg capsule 25 mg PO QID PRN 12/17/20 12/30/20 (Vistaril) methylcellulose (laxative) 500 mg 500 mg PO BID 12/17/20 12/30/20 tablet (Fiber Therapy (methylcellulose)) omeprazole 20 mg capsule,delayed 20 mg PO DAILY 12/17/20 12/30/20 release sennosides 8.6 mg capsule (senna) 17.2 mg PO BEDTIME 12/17/20 12/30/20 bupropion HCl 150 mg 24 hr tablet, 300 mg PO QAM 12/30/20 12/30/20 extended release (Wellbutrin XL) bupropion HCl 300 mg 24 hr tablet, 300 mg PO DAILY 07/05/21 extended release sennosides 8.6 mg tablet (senna) 17.2 mg PO DAILY PRN constipation 07/05/21 sucralfate 1 gram tablet 1 g PO BID 07/05/21 docusate sodium 100 mg capsule 100 mg PO BID 09/15/21 (Stool Softener) blood sugar diagnostic (FreeStyle #10 ea 01/03/22 Lite Strips) hydroxyzine HCl 25 mg tablet 25 mg PO BID PRN 01/03/22 lancets 33 gauge (TRUEplus Lancets) #100 ea 01/03/22 atorvastatin 20 mg tablet 20 mg PO BEDTIME 02/12/24 ergocalciferol (vitamin D2) 1,250 1,250 mcg PO QWEEK 02/12/24 mcg (50,000 unit) capsule Previous Rx's ?Medication ?Instructions ?Recorded cyclobenzaprine 10 mg tablet 10 mg PO TID PRN muscle spasm #20 01/10/22 tabs morphine 15 mg immediate release 15 mg PO Q4-6H PRN pain #10 tabs 09/28/22 tablet polyethylene glycol 3350 17 238 g PO ONCE #238 grams 10/14/24 gram/dose oral powder (Miralax) cefuroxime axetil 500 mg tablet 500 mg PO BID 7 days #14 tabs 02/05/25 ondansetron 4 mg disintegrating 4 mg PO Q6-8H PRN nausea and 02/05/25 tablet vomiting #7 tabs Allergies Allergy/AdvReac Type Severity Reaction Status Date / Time No Known Allergies (No Known Allergy Verified 02/07/25 18:42 Allergies*) Review of Systems Constitutional: Constitutional: Reports as per [facility] Past Medical History Medical History Urinary incontinence Restrictive lung disease Allergic rhinitis Paroxysmal cough Anxiety Depression Muscular dystrophy, emery-dreifuss Surgical History Hx of section H/O endoscopy Family History Family History Unknown No family history of colorectal cancer Social History Social History Household Members Other:: Lives with her daughter (23-special needs) and her mother Alcohol intake: never Patient Tobacco Use Status: Never used Tobacco Smoked in Last 30 Days: No Use of substances other than those prescribed or required for medical reasons: No Advance Directives: No Advance Directives Information Provided: No Patient : No Current occupational status: disabled Physical Exam ED Vital Signs: Vital Signs - 24 hr 02/07/25 18:40 Temperature 98.1 F Pulse Rate 111 H Respiratory Rate 16 Blood Pressure 146/87 H Pulse Oximetry 92 Oxygen Delivery Method Room Air BMI result Body Mass Index 29.1 Const Other: Gen: ?Overall well-appearing patient HEENT: PERRLA, EOMI, MMM, Neck: Supple, no LAD CV: RRR, no obvious murmurs appreciated Resp: ?No wheezing rales rhonchi no stridor moving air well Abd: ?Bowel sounds are present, no tenderness no rebound no rigidity, no CVA tenderness MSK: FROM, strength 5/5 all extremities Skin: Warm, dry, intact, Neuro: ?Alert and oriented x3, moving upper and lower extremities symmetrically, no obvious facial asymmetry noted Course Course Course Narrative: This is an RME performed by Yamilka Guzman, [employer]: Additional HPI, ROS, PE not included below will be deferred to primary provider patient is a 49-year-old female with past medical history of muscular dystrophy, hepatic steatosis, diabetes, restrictive lung disease presents to the emergency department after call back, had 2/2 blood cultures growing gram negative rods, evaluated in ED initially 02/05/2025 at that time was experiencing vomiting, cough, and weakness. She has been experiencing urge incontinence wearing adult briefs, and reports having a wheezing cough?. Upon additional review of medical record, urine culture with Gram-negative rods, had CT imaging of abdomen and pelvis without contrast, no evidence of hydro course stones, presence of perinephric stranding, appendicolith present, chest CT with mild pulmonary opacities nonspecific reflecting pneumonitis/pneumonia particularly in the lingula. She was discharged home with prescription for cefuroxime 500 mg twice daily for 7 days Plan: Serum labs, repeat urinalysis, repeat blood cultures and lactic acid Medications Administered Discontinued Medications Generic Name Dose Route Start Last Admin Trade Name Freq PRN Reason Stop Dose Admin Ceftriaxone Sodium 1 gm 02/07/25 19:09 02/07/25 19:20 Ceftriaxone Sodium 1 Gm Vial IVPUSH 02/07/25 19:10 1 gm ONCE ONE Administration Sodium Chloride 2,310 mls @ 2,310 mls/hr 02/07/25 19:09 02/07/25 19:20 Ns 30 ml/kg infuse over 1 hr (2310 ml) 02/07/25 20:08 2,310 mls/hr IV Administration .Q1H STA Medical Decision Making Medical Decision Making [facility] Narrative: Patient is presenting with bacteremia, Gram-negative rods, she had a CT done yesterday that shows some perinephric stranding, urine also obviously positive for a UTI, she was discharged on cephalosporin, received fluids, IV antibiotics, leukocytosis has actually decreased from 21 to under 10, she is nonfebrile, abdominal cardiopulmonary exams are benign, Differential Diagnosis Differential Diagnoses: The differential diagnosis associated with the presentation includes (Pneumonia, enter colitis, pyelonephritis,) Admission/Observation Consideration of admission/observation: Escalation of care including admission/observation considered 2022 Emergency Medicine Coding Guide from [employer] on 02/07/2025 All calculations should be rechecked by clinician prior to use RESULT SUMMARY: 5 Estimated Level of Service Problems: High (5) Risk: High (5) Data: Moderate (4) NARRATIVE MDM: This patient's problem complexity is High as patient: may have an acute or chronic illness/injury posing a threat to life or body function. This patient's risk is High due to: overall presentation requiring evaluation for a potentially High-risk process. This patient's data complexity is Moderate. INPUTS: Number and Complexity ?> 2 = 5: illness/injury w/life or body threat (b) Risk level ?> 4 = High Tests ordered ?> 1 = 1 Tests results reviewed (excluding labs) ?> 2 = 2 Prior external notes reviewed ?> 0 = 0 Assessment requiring and independent historian ?> 0 = No Independent interpretation of tests ?> 0 = No Discussed management/test interpretation w/external professional ?> 0 = No Consult Healthcare Provider Management of the patient was discussed with: Hospitalist Lab Data MDM Lab Attestation statement: I reviewed the patient's lab results. 02/07/25 18:59 02/07/25 18:59 Labs: Lab Results 02/07/25 Range/Units 18:59 WBC 10.4 (4.8-10.8) X10*3/uL RBC 5.09 (4.20-5.50) X10*6/uL Hgb 15.3 (12.0-16.0) g/dl Hct 45.3 (37.0-47.0) % MCV 89.0 (80.0-98.0) fL MCH 30.1 (27.0-33.0) pg MCHC 33.8 (31.0-35.0) g/dl RDW 14.0 (11.0-16.0) % Plt Count 184 (160-400) X10*3/uL MPV 10.9 (9.4-12.3) fL Immature Gran % (Auto) 0.8 H (0.0-0.4) % Neut % (Auto) 71.2 (45-73) % Lymph % (Auto) 13.5 L (20-40) % Tama % (Auto) 14.0 H (2-11) % Eos % (Auto) 0.2 (0-4) % Baso % (Auto) 0.3 (0-2) % Lymph # (Auto) 1.4 (1.2-4.9) X10*3/uL Tama # (Auto) 1.5 H (0.1-1.2) X10*3/uL Eos # (Auto) 0.0 (0.0-0.4) X10*3/uL Baso # (Auto) 0.0 (0.0-0.2) X10*3/uL Abs Immat Gran (auto) 0.08 H (0.00-0.03) X10*3/uL Absolute Neuts (auto) 7.4 (2.0-8.3) x10*3/uL Absolute Nucleated RBC 0.000 (0.0-0.012) X10*3/uL Nucleated RBC % (auto) 0.0 (0.0-0.2) /100WBC Sodium 140 (135-145) mmol/L Potassium 3.2 L (3.3-5.1) mmol/L Chloride 95 L (96-108) mmol/L Carbon Dioxide 33 H (22-29) mmol/L Anion Gap 15 (12-20) BUN 11 (9-16) mg/dL Creatinine 0.70 (0.5-1.4) mg/dL Estim Creat Clear Calc 95.5 Estimated GFR > 60 Random Glucose 152 H (60-115) mg/dL Lactic Acid 1.3 (0.5-2.0) mmol/L Calcium 9.3 D (8.4-10.2) mg/dL Total Bilirubin 1.2 H (0.0-1.0) mg/dL AST 61 H (5-31) U/L ALT 39 H (0-31) U/L Alkaline Phosphatase 138 H (39-117) U/L Total Protein 6.8 (6.5-8.0) g/dL Albumin 3.5 (3.5-5.0) g/dL Independent Interpretation I performed an independent interpretation of an: CT Scan (I reviewed my prior images done yesterday) Radiology Impression Discussion of test interpretation with radiology: I have reviewed the radiologist's reading. Discharge Plan Discharge Clinical Impression: Bacteremia due to Escherichia coli, Pyelonephritis Prescriptions: No Action cyclobenzaprine 10 mg tablet 10 mg PO TID PRN (Reason: muscle spasm) Qty: 20 0RF morphine 15 mg tablet 15 mg PO Q4-6H PRN (Reason: pain) Qty: 10 0RF Rx Instructions: The patient may ask for partial fill; Partial Fill upon patient request. cefuroxime axetil 500 mg tablet 500 mg PO BID 7 Days Qty: 14 0RF ondansetron 4 mg tablet,disintegrating 4 mg PO Q6-8H PRN (Reason: nausea and vomiting) Qty: 7 0RF amlodipine 10 mg tablet 10 mg PO DAILY doxepin 50 mg capsule 50 mg PO BEDTIME Fiber Therapy (m-cellulose) 500 mg tablet 500 mg PO BID omeprazole 20 mg capsule,delayed release(DR/EC) 20 mg PO DAILY albuterol sulfate [ProAir HFA] 90 mcg/actuation HFA aerosol inhaler 2 puff inhalation Q6H PRN senna 8.6 mg capsule 17.2 mg PO BEDTIME hydroxyzine pamoate [Vistaril] 25 mg capsule 25 mg PO QID PRN bupropion HCl [Wellbutrin XL] 150 mg tablet extended release 24 hr 300 mg PO QAM Mirena 20 mcg/24 hours (8 yrs) 52 mg intrauterine device 1 device intrauterine ONCE Qty: 1 0RF sennosides [senna] 8.6 mg tablet 17.2 mg PO DAILY PRN (Reason: constipation) sucralfate 1 gram tablet 1 g PO BID bupropion HCl 300 mg tablet extended release 24 hr 300 mg PO DAILY (DME) lancets [TRUEplus Lancets] 33 gauge misc See Rx Instructions Not Applicable BID Qty: 100 Rx Instructions: As directed hydroxyzine HCl 25 mg tablet 25 mg PO BID PRN (DME) FreeStyle Lite Strips Strip See Rx Instructions Not Applicable BID Qty: 10 Rx Instructions: As directed docusate sodium [Stool Softener] 100 mg capsule 100 mg PO BID atorvastatin 20 mg tablet 20 mg PO BEDTIME ergocalciferol (vitamin D2) 1,250 mcg (50,000 unit) capsule 1,250 mcg PO QWEEK polyethylene glycol 3350 [Miralax] 17 gram/dose powder 238 g PO ONCE Qty: 238 0RF Rx Instructions: mix in 64 oz in gatorade Print Language: Kazakh
[2025-02-07 18:40] VITALS: BP 146/87; PULSE 111; RESP 16; TEMP 36.7; O2SAT 92; BMI 29.1
--- NOTE | 2025-02-07 18:42 | ECG_ITS ---
Test Reason : tachycardia Blood Pressure : */* mmHG Vent. Rate : 105 BPM Atrial Rate : 105 BPM P-R Int : 188 ms QRS Dur : 96 ms QT Int : 356 ms P-R-T Axes : 32 -14 8 degrees QTcB Int : 470 ms Sinus tachycardia Moderate voltage criteria for LVH, may be normal variant ( R in aVL , [place] product ) Septal infarct (cited on or before 09-Jul-2019) T wave abnormality, consider anterior ischemia Abnormal ECG When compared with ECG of 05-Feb-2025 18:34, Non-specific change in ST segment in Lateral leads T wave inversion now evident in Inferior leads T wave inversion now evident in Anterior leads T wave inversion no longer evident in Lateral leads Referred By: Jenna Guzman Electronically Signed By: ANGEL LUIS SHELL MD
[2025-02-07 19:06] LABS: MANUAL DIFF FLAG NO
[2025-02-07 19:07] LABS: Hematocrit 45.3 % (37.0-47.0); Hemoglobin 15.3 g/dl (12.0-16.0); Imm Gran Abs Auto 0.08 X10*3/uL (0.00-0.03); Imm Gran Pct Auto 0.8 % (0.0-0.4); Lymphocytes Absolute Auto 1.4 X10*3/uL (1.2-4.9); Mean Corpuscular HGB Conc 33.8 g/dl (31.0-35.0); Mean Corpuscular Hemoglobin 30.1 pg (27.0-33.0); Mean Corpuscular Volume 89.0 fL (80.0-98.0); NRBC Abs Auto 0.000 X10*3/uL (0.0-0.012); NRBC Pct Auto 0.0 /100WBC (0.0-0.2); Platelet Count 184 X10*3/uL (160-400); Red Blood Count 5.09 X10*6/uL (4.20-5.50); White Blood Count 10.4 X10*3/uL (4.8-10.8)
--- NOTE | 2025-02-07 19:14 | PC.NURSE ---
pt presents with grandmother and family at bedside- pt was called back by the ED for 2/2 (+) blood cultures gm (-) rods, as well as UA (+) for gm (-) rods as well. On arrival, 20g IV placed in left medial AC, labs, blood cultures and lactic obtained. pt reports she is feeling better since discharge, however she is still experiencing lower abdominal bloating and 4/10 pain. pt was changed into hospital attire- clay pigeon loader applied- EKG obtained. call jacome within reach pt awaiting provider eval care ongoing
[2025-02-07] MEDS: 0.9 % Sodium Chloride 2,310 ML 2310 ML IV (19:20)
[2025-02-07 19:22] LABS: Alanine Aminotransferase 39 U/L (0-31); Albumin Level 3.5 g/dL (3.5-5.0); Alkaline Phosphatase 138 U/L (39-117); Anion Gap 15 (12-20); Aspartate Amino Transferase 61 U/L (5-31); Blood Urea Nitrogen 11 mg/dL (9-16); Calcium 9.3 mg/dL (8.4-10.2); Carbon Dioxide 33 mmol/L (22-29); Chloride 95 mmol/L (96-108); Creatinine Clr Calc Pharmacy 95.5; Estimated Glomerular Filt Rate > 60; Potassium 3.2 mmol/L (3.3-5.1); Sodium 140 mmol/L (135-145); Total Protein 6.8 g/dL (6.5-8.0)
--- NOTE | 2025-02-07 19:49 | PC.NURSE ---
denies symptoms/pain. alert, oriented, sitting calmly in bed. call jacome in reach.
[2025-02-07 21:00] LABS: Magnesium 2.3 mg/dL (1.6-2.6)
--- NOTE | 2025-02-07 21:15 | PHA.MEDREC ---
Addendum entered by Stacie Erazo RP 02/07/25 22:52: Reviewed by [facility] Original Note: Pharmacy Consult ? Medication Reconciliation Pharmacy has completed the medication reconciliation. Spoke with pt and she stated she is only taking the Cefuroxime antibiotic tablet at this time and is not taking anything else at this time and states she should be taking ( but has not taken any in months due to it being a lot for her.
[2025-02-07 22:44] VITALS: BP 143/80; PULSE 103; RESP 17; O2SAT 93
[2025-02-07 23:01] LABS: Appearance Urine Clear; Glucose Urine UA Negative (Negative); PH 7.5 (5.0-9.0); Specific Gravity - Urine 1.015 (1.005-1.025); UMIC TRIGGER UACC YES
[2025-02-07 23:14] LABS: UACC Culture Trigger YES
--- NOTE | 2025-02-07 23:41 | PM.IMHP ---
History of Present Illness Date of Service: 02/07/25 Attending physician on admission: Mukund Matson Chief Complaint: Positive blood cultures Patient is a 49-year-old female with a past medical history significant for muscular dystrophy, hypertension, restrictive lung disease with chronic cough, anxiety/depression, recently seen in the ED 02/05 for UTI/pyelonephritis discharged home with cefuroxime, who returned to the ED today due to g negative gladys bacteremia. The patient reported dysuria, nausea, vomiting, diarrhea which has improved since starting the cefuroxime. She denies any current urinary symptoms aside from episodes of urinary incontinence. No abdominal pain, diarrhea. She does have a chronic cough that she reports this is slightly worse than her baseline. No fever or chills. Sputum is green colored. Review of Systems Constitutional: Constitutional: Denies body ache(s), Reports chills, Denies fatigue, Denies fever(s) and Denies headache(s) Eyes: Eyes: Denies change in vision ENT: Denies headache(s), Denies nasal congestion and Denies sore throat Cardiovascular: Cardiovascular: Denies chest pain, Denies rapid heart rate, Denies leg edema, Denies lightheadedness and Denies dyspnea Respiratory: Respiratory: Reports chest congestion, Reports cough, Denies dyspnea and Denies wheezing Gastrointestinal: Gastrointestinal: Denies abdominal pain, Denies diarrhea, Denies nausea and Denies vomiting Genitourinary: Genitourinary: Reports as per HPI Musculoskeletal: Musculoskeletal: Denies back pain and Denies myalgias Integumentary/Breasts: Skin/Breast: Denies rash Neurologic: Denies confusion and Denies headache(s) Psychiatric: Psychiatric: Denies confusion Endocrine: Endocrine: Denies fatigue Hematologic/Lymphatic: Hematologic/Lymphatic: Denies easy bleeding and Denies easy bruising Allergic/Immunologic: Allergic/Immunologic: Denies wheezing PMFSH Medical History Urinary incontinence Restrictive lung disease Allergic rhinitis Paroxysmal cough Anxiety Depression Muscular dystrophy, emery-dreifuss Family History Unknown No family history of colorectal cancer Surgical History Hx of section H/O endoscopy Social History Household Members Other:: Lives with her daughter (23-special needs) and her mother Alcohol intake: never Patient Tobacco Use Status: Never used Tobacco Smoked in Last 30 Days: No Use of substances other than those prescribed or required for medical reasons: No Advance Directives: No Advance Directives Information Provided: No Patient : No Current occupational status: disabled Narrative: No smoking, alcohol or drug use Meds Allergies Allergy/AdvReac Type Severity Reaction Status Date / Time No Known Allergies (No Known Allergy Verified 02/07/25 18:42 Allergies*) Active Medications: Current Medications Acetaminophen (Acetaminophen 325 Mg Tablet) 975 mg PO Q6H PRN PRN Reason: Pain, Mild 1-3,fever,headache Benzonatate (Benzonatate 100 Mg Capsule) 100 mg PO TID PRN PRN Reason: Cough Calcium Carbonate (Calcium Carbonate 750 Mg Tab.Chew) 750 mg PO Q4H PRN PRN Reason: Heartburn Ceftriaxone Sodium (Ceftriaxone Sodium 2 Gm Vial) 2 gm IVPUSH Q24H [facility] Enoxaparin Sodium (Enoxaparin Sodium 40 Mg/0.4 Ml Syringe) 40 mg SUBCUT Q24H [facility] Last Admin: 02/07/25 21:49 Dose: 40 mg Doxycycline Hyclate 100 mg/ (Sodium Chloride) 250 mls @ 166.67 mls/hr IV Q12H [facility] Last Admin: 02/07/25 21:49 Dose: 166.67 mls/hr Lactated Ringer's (Lr) 1,000 mls @ 100 mls/hr IVCONT .Q10H [facility] Magnesium Hydroxide (Milk Of Magnesia 30 Ml Oral.Susp) 30 ml PO DAILY PRN PRN Reason: Constipation Melatonin (Melatonin 3 Mg Tablet) 6 mg PO BEDTIME PRN PRN Reason: Insomnia Morphine Sulfate (Morphine Sulfate 4 Mg/Ml Cartridge) 2 mg IVPUSH Q4H PRN; Protocol PRN Reason: Pain, Severe (Pain Scale 7-10) Ondansetron HCl (Ondansetron Hcl 4 Mg/2 Ml Vial) 4 mg IVPUSH Q8H PRN PRN Reason: Nausea and Vomiting Oxycodone HCl (Oxycodone Hcl Immed Release 5 Mg Tablet) 5 mg PO Q6H PRN PRN Reason: Pain, Moderate(Pain Scale 4-6) Sodium Chloride (0.9 % Sodium Chloride Flush 3 Ml Syringe) 3 ml IVFLUSH QSHIFT LEAH Home Medications ?Medication ?Instructions ?Recorded ?Confirmed ?Last Taken ?Type cefuroxime axetil 500 mg tablet 500 mg PO BID 02/07/25 02/07/25 02/07/25 History Physical Exam Vital Signs and Narrative: Vital Signs: Last Vital Signs Temp 98.1 F 02/07/25 18:40 Pulse 103 H 02/07/25 22:44 Resp 17 02/07/25 22:44 BP 143/80 H 02/07/25 22:44 Pulse Ox 93 02/07/25 22:44 O2 Del Method Room Air 02/07/25 22:44 BMI result Body Mass Index 29.1 General: AOx3, no acute distress Resp: CTA crackles bilateral lower lungs, no wheezing CVS: RRR, +murmur GI: +BS, NT, no distention. Negative McBurney's point and Rovsing sign Skin: Warm, dry Neuro: Cranial nerves II-XII grossly intact bilaterally. Motor grossly intact bilaterally Extremities: No LE edema Psych: Appropriate affect Const: General: No confusion Orientation/consciousness: No confusion Neuro: General: No confusion Results Labs 02/07/25 18:59 02/07/25 18:59 Labs: Laboratory Results - last 24 hr 02/07/25 02/07/25 18:59 22:55 MCV 89.0 MCH 30.1 MCHC 33.8 RDW 14.0 Plt Count 184 MPV 10.9 Immature Gran % (Auto) 0.8 H Neut % (Auto) 71.2 Lymph % (Auto) 13.5 L [place] % (Auto) 14.0 H Eos % (Auto) 0.2 Baso % (Auto) 0.3 Lymph # (Auto) 1.4 [place] # (Auto) 1.5 H Eos # (Auto) 0.0 Baso # (Auto) 0.0 Abs Immat Gran (auto) 0.08 H Absolute Neuts (auto) 7.4 Absolute Nucleated RBC 0.000 Nucleated RBC % (auto) 0.0 Anion Gap 15 Estim Creat Clear Calc 95.5 Estimated GFR > 60 Random Glucose 152 H Lactic Acid 1.3 Calcium 9.3 D Magnesium 2.3 Total Bilirubin 1.2 H AST 61 H ALT 39 H Alkaline Phosphatase 138 H Total Protein 6.8 Albumin 3.5 Urine Color Yellow Urine Appearance Clear Urine pH 7.5 Ur Specific [place] 1.015 Urine Protein Negative Urine Glucose (UA) Negative Urine Ketones Negative Urine Blood Small (1+) H Urine Nitrite Negative Ur Leukocyte Esterase Moderate (2+) H Urine RBC 0-2 Urine WBC 0-5 Ur Squamous Epith Cells 11-20 Urine Bacteria None Seen Hyaline Casts 0-2 Assessment and Plan (1) Severe sepsis: Status: Acute (2) Pyelonephritis: Status: Acute (3) Bacteremia due to Gram-negative bacteria: Status: Acute (4) Aspiration pneumonia: Status: Acute (5) Elevated LFTs: Status: Acute (6) Hypokalemia: Status: Acute (7) Hypochloremic alkalosis: Status: Acute (8) Colitis: Status: Acute Plan Patient is a 49-year-old female with a past medical history significant for muscular dystrophy, hypertension, restrictive lung disease with chronic cough, anxiety/depression, recently seen in [facility] ED 02/05 for UTI/pyelonephritis discharged home with cefuroxime, who returned to the ED today due to g negative gladys bacteremia. Severe sepsis secondary to pyelonephritis with Gram-negative bacteremia and possible aspiration pneumonia - WBC 10.4, improved from 21.0 on 02/05 - tachycardic, lactic acid normal, LFTs elevated, +GNR bacteremia - chest x-ray 02/05 negative - chest CT 02/05 with mild pulmonary opacities nonspecific and may reflect pneumonitis/pneumonia particularly in the lingula. Recommend attention on follow-up to ensure resolution - abdominopelvic CT 02/05 with perinephric stranding, nonspecific by noncontrast CT. No hydronephrosis. Wall thickening of the large intestine is nonspecific and can be seen with colitis, including imaged cecum. Appendicolith present. Please correlate for any potential appendicitis. - COVID/flu/RSV negative - started on ceftriaxone in ED, continue and add doxycycline - given 30cc/kg IVF blous in ED, BPs stable - NPO pending surgical evaluation and swallow study due to possible aspiration - ID consult - echo due to murmur on exam - urine strep pneumo, mycoplasma, urine Legionella, sputum culture - repeat blood cultures x2 - Tessalon p.r.n. cough - monitor CBC and BMP elevated LFTs - likley secondary to severe sepsis - hepatitis panel - recent A/P CT without gallbladder etiology - pt not having any abd pain acute hypokalemia/hypochloremic alkalosis - K 3.2, cl 95, bicarb 33 - received 30cc/kg fluid bolus in ED - repeat BMP @0000 to assess for need for repletion - mag normal ?colitis/appendicits on CT - pt not having any abd pain - surgical consult HTN - no home meds Restrictive lung disease - no home meds - Tessalon p.r.n. cough - albuterol as needed Full code VTE prophylaxis: Lovenox Patient with severe sepsis secondary to acute pyelonephritis and g negative bacteremia with possible aspiration pneumonia, requiring admission for at least 2 midnights stay for further evaluation, IV antibiotics and monitoring. Quality Stroke Does the patient have a stroke diagnosis?: No VTE Prior VTE?: No VTE Risk Level:: Medical - moderate - high VTE Device Contraindication: Treatment Not Indicated VTE Drug Contraindication: N/A - Med Ordered
[2025-02-07] MEDS: Lactated Ringers 1,000 ML 100 ML IVCONT (23:51)
[2025-02-08] VITALS (16 sets, daily range): BP systolic 98–158; BP diastolic 46–82; PULSE 77–129; RESP 16–20; TEMP 36.2–37.7; O2SAT 83–98; BMI 31.6
--- NOTE | 2025-02-08 | ECG_ITS ---
Test Reason : TACHY Blood Pressure : */* mmHG Vent. Rate : 131 BPM Atrial Rate : 131 BPM P-R Int : 156 ms QRS Dur : 98 ms QT Int : 308 ms P-R-T Axes : 59 -32 86 degrees QTcB Int : 454 ms Sinus tachycardia Left axis deviation Moderate voltage criteria for LVH, may be normal variant ( R in aVL , Jose product ) Septal infarct (cited on or before 09-Jul-2019) Abnormal ECG When compared with ECG of 07-Feb-2025 19:02, T wave inversion no longer evident in Inferior leads Nonspecific T wave abnormality has replaced inverted T waves in Anterior leads Referred By: Jonna Hickman Electronically Signed By: ANGEL LUIS SHELL MD
[2025-02-08] MEDS: oxyCODONE HCl Immed Release 5 MG TABLET PO (00:01)
--- NOTE | 2025-02-08 00:01 | PC.NURSE ---
hospitalist PA contacted, K replacement not needed at this time
[2025-02-08 00:59] LABS: Anion Gap 16 (12-20); Blood Urea Nitrogen 10 mg/dL (9-16); Calcium 8.7 mg/dL (8.4-10.2); Carbon Dioxide 30 mmol/L (22-29); Chloride 100 mmol/L (96-108); Creatinine Clr Calc Pharmacy 113.2; Estimated Glomerular Filt Rate > 60; Potassium 3.0 mmol/L (3.3-5.1); Sodium 143 mmol/L (135-145)
--- NOTE | 2025-02-08 00:59 | PC.NURSE ---
pt found to be 83% SPO2 on room air lying on back in low fowlers position, mentation stable, states she feels mildly SOB. moist, productive cough. currently on 4L NC with SpO2 94%. call jacome in reach
[2025-02-08] MEDS: Potassium Chloride Packet 20 MEQ PACKET 40 MEQ PO (01:33)
[2025-02-08 03:23] LABS: HBS Num1 0.00 mIU/mL (0-7.99); HBc Num1 0.03 S/CO (0.00-0.79); HBsAGNum1 0.35 S/CO (0.00-0.99); Hepatitis A Antibody IgM 0.13 Index (0-0.79); Hepatitis B Surface Antigen Negative (Negative); ~HepC Num1 0.05 S/CO (0.00-0.79); ~Hepatitis A Antibody IgM Nonreactive (Nonreactive); ~Hepatitis B Surface Antibody NONREACTIVE (Nonreactive); ~Hepatitis C Antibody Nonreactive (Nonreactive)
--- NOTE | 2025-02-08 03:58 | PC.NURSE ---
pt HR 130, oral temp 99.8, pt endorsing increased malaise. denies pain, normal WOB. HENRY Coyle notified. ekg done and sent via [place] [facility]
--- NOTE | 2025-02-08 04:24 | PC.NURSE ---
pt endorsing increased malaise. HR 130, oral temp 99.8. pt declines rectal temp. denies presence of pain, WOB unchanged. HENRY Hickman notified. EKG done and sent via [facility]. IV tylenol given with improvement in malaise, oral temp and HR. charted. HENRY observed pt at bedside at 0427. pt with eyes closed in semi fowlers nolabored breathing, appears to be asleep. call jacome in reach
--- NOTE | 2025-02-08 04:55 | PC.NURSE ---
patient was found to be 83% on 3L, increased to 4L at 86% and stating she felt short of breath.now on oxymask 94%, reports she is beginning to feel some improvement at this time
[2025-02-08 05:54] LABS: Hematocrit 39.9 % (37.0-47.0); Hemoglobin 13.0 g/dl (12.0-16.0); Imm Gran Abs Auto 0.12 X10*3/uL (0.00-0.03); Imm Gran Pct Auto 0.9 % (0.0-0.4); Lymphocytes Absolute Auto 1.1 X10*3/uL (1.2-4.9); MANUAL DIFF FLAG SCAN; Mean Corpuscular HGB Conc 32.6 g/dl (31.0-35.0); Mean Corpuscular Hemoglobin 29.8 pg (27.0-33.0); Mean Corpuscular Volume 91.5 fL (80.0-98.0); NRBC Abs Auto 0.000 X10*3/uL (0.0-0.012); NRBC Pct Auto 0.0 /100WBC (0.0-0.2); Platelet Count 164 X10*3/uL (160-400); Red Blood Count 4.36 X10*6/uL (4.20-5.50); SCAN SMEAR FLAG 1; White Blood Count 14.1 X10*3/uL (4.8-10.8)
[2025-02-08 06:10] LABS: Alanine Aminotransferase 31 U/L (0-31); Albumin Level 2.9 g/dL (3.5-5.0); Alkaline Phosphatase 124 U/L (39-117); Anion Gap 9 (12-20); Aspartate Amino Transferase 45 U/L (5-31); Blood Urea Nitrogen 7 mg/dL (9-16); Calcium 8.1 mg/dL (8.4-10.2); Carbon Dioxide 31 mmol/L (22-29); Chloride 103 mmol/L (96-108); Creatinine Clr Calc Pharmacy 115.2; Estimated Glomerular Filt Rate > 60; Magnesium 1.8 mg/dL (1.6-2.6); Potassium 3.3 mmol/L (3.3-5.1); Sodium 140 mmol/L (135-145); Total Protein 5.6 g/dL (6.5-8.0)
--- NOTE | 2025-02-08 07:37 | PC.NURSE ---
patient appears increasingly lethargic, oxygen desats to the low 80's when patient removes oxymask. respiratory to bedside to assess, patient continues to answer questions appropriately - a&ox3. endorses feeling lethargic and continues to state that her breathing feels alright . attempting to titrate patient off of oxymask. provider made aware
--- NOTE | 2025-02-08 08:11 | P.PNIM_ITS ---
Subjective Subjective Date of Service: 02/08/25 Interval History: f/u on e coli bacteremia and uti now hypoxia and somnolence after getting oxycodone Physical Exam 2 Vital Signs: Vital Signs: Last Vital Signs Temp 99.5 F 02/08/25 04:28 Pulse 117 H 02/08/25 04:28 Resp 16 02/08/25 04:28 BP 158/82 H 02/08/25 03:02 Pulse Ox 93 02/08/25 04:28 O2 Del Method Nasal Cannula 02/08/25 04:28 O2 Flow Rate 2 02/08/25 04:28 BMI result Body Mass Index 29.1 Const: Other: * Gen: ?Overall well-appearing patient * HEENT: PERRLA, EOMI, MMM, * Neck: Supple, no LAD * CV: RRR, no obvious murmurs appreciated * Resp: ?No wheezing rales rhonchi no stridor moving air well * Abd: ?Bowel sounds are present, no tenderness no rebound no rigidity, no CVA tenderness * MSK: FROM, strength 5/5 all extremities * Skin: Warm, dry, intact, * Neuro: ?Alert and oriented x3, moving upper and lower extremities symmetrically, no obvious facial asymmetry noted Objective Data Active Medications Acetaminophen (Acetaminophen 325 Mg Tablet) 975 mg PO Q6H PRN On Hold: 02/08/25 03:44 PRN Reason: Pain, Mild 1-3,fever,headache Benzonatate (Benzonatate 100 Mg Capsule) 100 mg PO TID PRN PRN Reason: Cough Last Admin: 02/07/25 23:50 Dose: 100 mg Documented By: UGO Calcium Carbonate (Calcium Carbonate 750 Mg Tab.Chew) 750 mg PO Q4H PRN PRN Reason: Heartburn Ceftriaxone Sodium (Ceftriaxone Sodium 2 Gm Vial) 2 gm IVPUSH Q24H [facility] Enoxaparin Sodium (Enoxaparin Sodium 40 Mg/0.4 Ml Syringe) 40 mg SUBCUT Q24H [facility] Last Admin: 02/07/25 21:49 Dose: 40 mg Documented By: UGO Doxycycline Hyclate 100 mg/ (Sodium Chloride) 250 mls @ 166.67 mls/hr IV Q12H [facility] Last Infusion: 02/07/25 23:48 Dose: Infused Documented By: UGO Lactated Ringer's (Lr) 1,000 mls @ 100 mls/hr IVCONT .Q10H [facility] Last Admin: 02/07/25 23:51 Dose: 100 mls/hr Documented By: UGO Acetaminophen (Ofirmev) 1,000 mg in 100 mls @ 400 mls/hr IV Q6H [facility] Last Infusion: 02/08/25 04:12 Dose: Infused Documented By: UGO Magnesium Hydroxide (Milk Of Magnesia 30 Ml Oral.Susp) 30 ml PO DAILY PRN PRN Reason: Constipation Melatonin (Melatonin 3 Mg Tablet) 6 mg PO BEDTIME PRN PRN Reason: Insomnia Morphine Sulfate (Morphine Sulfate 4 Mg/Ml Cartridge) 2 mg IVPUSH Q4H PRN; Protocol PRN Reason: Pain, Severe (Pain Scale 7-10) Ondansetron HCl (Ondansetron Hcl 4 Mg/2 Ml Vial) 4 mg IVPUSH Q8H PRN PRN Reason: Nausea and Vomiting Last Admin: 02/08/25 02:53 Dose: 4 mg Documented By: UGO Oxycodone HCl (Oxycodone Hcl Immed Release 5 Mg Tablet) 5 mg PO Q6H PRN PRN Reason: Pain, Moderate(Pain Scale 4-6) Last Admin: 02/08/25 00:01 Dose: 5 mg Documented By: UGO Sodium Chloride (0.9 % Sodium Chloride Flush 3 Ml Syringe) 3 ml IVFLUSH QSHIFT [facility] Last Admin: 02/08/25 01:45 Dose: Not Given Documented By: UGO Non-Admin Reason: Previously Administered Labs 02/09/25 07:19 02/09/25 07:19 Labs: Laboratory Results - last 24 hr 02/07/25 02/07/25 02/07/25 18:59 22:00 22:55 MCV 89.0 MCH 30.1 MCHC 33.8 RDW 14.0 Plt Count 184 MPV 10.9 Immature Gran % (Auto) 0.8 H Neut % (Auto) 71.2 Lymph % (Auto) 13.5 L [place] % (Auto) 14.0 H Eos % (Auto) 0.2 Baso % (Auto) 0.3 Lymph # (Auto) 1.4 [place] # (Auto) 1.5 H Eos # (Auto) 0.0 Baso # (Auto) 0.0 Abs Immat Gran (auto) 0.08 H Absolute Neuts (auto) 7.4 Absolute Nucleated RBC 0.000 Nucleated RBC % (auto) 0.0 Smear Tech's Comments Anion Gap 15 Estim Creat Clear Calc 95.5 Estimated GFR > 60 Random Glucose 152 H Lactic Acid 1.3 Calcium 9.3 D Magnesium 2.3 Total Bilirubin 1.2 H AST 61 H ALT 39 H Alkaline Phosphatase 138 H Total Protein 6.8 Albumin 3.5 Urine Color Yellow Urine Appearance Clear Urine pH 7.5 Ur Specific [place] 1.015 Urine Protein Negative Urine Glucose (UA) Negative Urine Ketones Negative Urine Blood Small (1+) H Urine Nitrite Negative Ur Leukocyte Esterase Moderate (2+) H Urine RBC 0-2 Urine WBC 0-5 Ur Squamous Epith Cells 11-20 Urine Bacteria None Seen Hyaline Casts 0-2 Hepatitis A IgM Ab Nonreactive Hep Bs Antigen Negative Hep Bs Antibody NONREACTIVE Hep B Core Total Ab Nonreactive Hepatitis C Ab (EIA) Nonreactive 02/08/25 02/08/25 00:33 05:33 MCV 91.5 MCH 29.8 MCHC 32.6 RDW 14.2 Plt Count 164 MPV 11.0 Immature Gran % (Auto) 0.9 H Neut % (Auto) 79.3 H Lymph % (Auto) 7.6 L [place] % (Auto) 11.5 H Eos % (Auto) 0.1 Baso % (Auto) 0.6 Lymph # (Auto) 1.1 L [place] # (Auto) 1.6 H Eos # (Auto) 0.0 Baso # (Auto) 0.1 Abs Immat Gran (auto) 0.12 H Absolute Neuts (auto) 11.2 H Absolute Nucleated RBC 0.000 Nucleated RBC % (auto) 0.0 Smear Tech's Comments VERIFIED Anion Gap 16 9 L Estim Creat Clear Calc 113.2 115.2 Estimated GFR > 60 > 60 Random Glucose 123 H 139 H Lactic Acid Calcium 8.7 D 8.1 L D Magnesium 1.8 Total Bilirubin 1.1 H AST 45 H ALT 31 Alkaline Phosphatase 124 H Total Protein 5.6 L Albumin 2.9 L Urine Color Urine Appearance Urine pH Ur Specific [place] Urine Protein Urine Glucose (UA) Urine Ketones Urine Blood Urine Nitrite Ur Leukocyte Esterase Urine RBC Urine WBC Ur Squamous Epith Cells Urine Bacteria Hyaline Casts Hepatitis A IgM Ab Hep Bs Antigen Hep Bs Antibody Hep B Core Total Ab Hepatitis C Ab (EIA) Assessment and Plan (1) Pyelonephritis: Status: Acute Plan Patient is a 49-year-old female with a past medical history significant for muscular dystrophy, hypertension, restrictive lung disease with chronic cough, anxiety/depression, recently seen in [facility] ED 02/05 for UTI/pyelonephritis discharged home with cefuroxime, who returned to the ED today due to g negative gladys bacteremia. Severe sepsis secondary E. coli UTI and Pyelonepephritis, seen in ED 02/05 and DC with cefuroxime which is appropriate, with WBC going down from 20 to 10 follow repeat culture Acute hypoxic respiratory failure , like from oxycodone VBG showed some co2 retention CXR under inflmation, later woke and was fine elevated LFTs likley secondary to severe sepsis, now normal hepatitis a, b, c negative A CT abdomen and pelvis was suspicious for changes in the appendix and colon, no evidence of gallblader issues or clinical colitis exam is bening, no pain and tolerating regular diet acute hypokalemia/hypochloremic alkalosis, resolved with IVF HTN no home meds Restrictive lung disease - no home meds - Tessalon p.r.n. cough - albuterol as needed Full code VTE prophylaxis: Lovenox Patient with severe sepsis secondary to acute pyelonephritis and g negative bacteremia with possible aspiration pneumonia, requiring admission for at least 2 midnights stay for further evaluation, IV antibiotics and monitoring. Quality Stroke Does the patient have a stroke diagnosis?: No VTE Prior VTE?: No VTE Risk Level:: Medical - moderate - high VTE Device Contraindication: Treatment Not Indicated VTE Drug Contraindication: N/A - Med Ordered
[2025-02-08 08:16] LABS: Venous Blood Gas Refer to POC result
[2025-02-08 08:18] LABS: VBG HCO3 37 mmol/L (22-26); VBG O2 % Saturation 79.0 %
[2025-02-08] MEDS: Lactated Ringers 1,000 ML 100 ML IVCONT ×2 (08:54→22:21)
--- NOTE | 2025-02-08 10:00 | P.CONGS_ITS ---
History of Present Illness Consult details Consult date: 02/08/25 Requesting physician: Jonna Hickman Narrative: 49-year-old female with a history of muscular dystrophy, hypertension, restrictive lung disease, anxiety, depression recently admitted for UTI and pyelonephritis, found to have Gram-negative gladys bacteremia. He has been treated with cefuroxime with some improvement in her symptoms. She denies abdominal pain nausea or vomiting. She also denies diarrhea or bloody stool. Admitting laboratories revealed a WBC of 10.4. Urinalysis with moderate 2+ leuk esterase, 0-5 WBCs and no bacteria. A CT abdomen and pelvis revealed no hydronephrosis, mild perinephric stranding which was not specific. Her gallbladder was normal. Wall thickening of the wall large intestine including the cecum is noted but was felt to be nonspecific. A fecalith was noted within the appendix with no additional findings of acute appendicitis. Mild wall thickening of the urinary bladder was identified. Surgical consultation was requested for evaluation of possible appendicitis and/or colitis. Review of Systems 2 Review of Systems: Yes all other systems are reviewed and are negative PMFSH Past Medical History Medical History Urinary incontinence Restrictive lung disease Allergic rhinitis Paroxysmal cough Anxiety Depression Muscular dystrophy, emery-dreifuss Family History Family History Unknown No family history of colorectal cancer Surgical History Surgical History Hx of section H/O endoscopy Social History Social History Household Members Other:: Lives with her daughter (23-special needs) and her mother Alcohol intake: never Patient Tobacco Use Status: Never used Tobacco Smoked in Last 30 Days: No Use of substances other than those prescribed or required for medical reasons: No Advance Directives: No Advance Directives Information Provided: No Patient : No Current occupational status: disabled Meds Allergies Allergy/AdvReac Type Severity Reaction Status Date / Time No Known Allergies (No Known Allergy Verified 02/07/25 18:42 Allergies*) Active Medications: Current Medications Acetaminophen (Acetaminophen 325 Mg Tablet) 975 mg PO Q6H PRN On Hold: 02/08/25 03:44 PRN Reason: Pain, Mild 1-3,fever,headache Benzonatate (Benzonatate 100 Mg Capsule) 100 mg PO TID PRN PRN Reason: Cough Last Admin: 02/07/25 23:50 Dose: 100 mg Calcium Carbonate (Calcium Carbonate 750 Mg Tab.Chew) 750 mg PO Q4H PRN PRN Reason: Heartburn Ceftriaxone Sodium (Ceftriaxone Sodium 2 Gm Vial) 2 gm IVPUSH Q24H [facility] Enoxaparin Sodium (Enoxaparin Sodium 40 Mg/0.4 Ml Syringe) 40 mg SUBCUT Q24H [facility] Last Admin: 02/07/25 21:49 Dose: 40 mg Doxycycline Hyclate 100 mg/ (Sodium Chloride) 250 mls @ 166.67 mls/hr IV Q12H [facility] Last Admin: 02/08/25 08:53 Dose: 166.67 mls/hr Lactated Ringer's (Lr) 1,000 mls @ 100 mls/hr IVCONT .Q10H [facility] Last Admin: 02/08/25 08:54 Dose: 100 mls/hr Acetaminophen (Ofirmev) 1,000 mg in 100 mls @ 400 mls/hr IV Q6H [facility] Last Infusion: 02/08/25 04:12 Dose: Infused Magnesium Hydroxide (Milk Of Magnesia 30 Ml Oral.Susp) 30 ml PO DAILY PRN PRN Reason: Constipation Melatonin (Melatonin 3 Mg Tablet) 6 mg PO BEDTIME PRN PRN Reason: Insomnia Morphine Sulfate (Morphine Sulfate 4 Mg/Ml Cartridge) 2 mg IVPUSH Q4H PRN; Protocol PRN Reason: Pain, Severe (Pain Scale 7-10) Ondansetron HCl (Ondansetron Hcl 4 Mg/2 Ml Vial) 4 mg IVPUSH Q8H PRN PRN Reason: Nausea and Vomiting Last Admin: 02/08/25 02:53 Dose: 4 mg Oxycodone HCl (Oxycodone Hcl Immed Release 5 Mg Tablet) 5 mg PO Q6H PRN PRN Reason: Pain, Moderate(Pain Scale 4-6) Last Admin: 02/08/25 00:01 Dose: 5 mg Sodium Chloride (0.9 % Sodium Chloride Flush 3 Ml Syringe) 3 ml IVFLUSH QSHIFT [facility] Last Admin: 02/08/25 08:21 Dose: Not Given Home Medications ?Medication ?Instructions ?Recorded ?Confirmed ?Last Taken ?Type cefuroxime axetil 500 mg tablet 500 mg PO BID 02/07/25 02/07/25 02/07/25 History Physical Exam 2 Vital Signs: Vital Signs: Last Vital Signs Temp 99.5 F 02/08/25 04:28 Pulse 80 02/08/25 08:42 Resp 16 02/08/25 08:42 BP 98/46 L 02/08/25 08:42 Pulse Ox 98 02/08/25 08:42 O2 Del Method Oxymask 02/08/25 08:42 O2 Flow Rate 3 02/08/25 08:42 BMI result Body Mass Index 29.1 Const: General: no acute distress Resp: Effort & Inspection: normal respiratory effort, no audible wheezes and no cough GI: Inspection: Yes normal to inspection Palpation (GI): Soft to palpation, nontender, no guarding and not rigid Skin: Other: Warm, dry Results Labs 02/08/25 05:33 02/08/25 05:33 Labs: Abnormal lab results 02/07/25 02/07/25 02/08/25 Range/Units 18:59 22:55 00:33 WBC (4.8-10.8) X10*3/uL Immature Gran % (Auto) 0.8 H (0.0-0.4) % Neut % (Auto) (45-73) % Lymph % (Auto) 13.5 L (20-40) % Rob[place] % (Auto) 14.0 H (2-11) % Lymph # (Auto) (1.2-4.9) X10*3/uL Rob[place] # (Auto) 1.5 H (0.1-1.2) X10*3/uL Abs Immat Gran (auto) 0.08 H (0.00-0.03) X10*3/uL Absolute Neuts (auto) (2.0-8.3) x10*3/uL VBG HCO3 (22-26) mmol/L Potassium 3.2 L 3.0 L (3.3-5.1) mmol/L Chloride 95 L (96-108) mmol/L Carbon Dioxide 33 H 30 H (22-29) mmol/L Anion Gap (12-20) BUN (9-16) mg/dL Random Glucose 152 H 123 H (60-115) mg/dL Calcium (8.4-10.2) mg/dL Total Bilirubin 1.2 H (0.0-1.0) mg/dL AST 61 H (5-31) U/L ALT 39 H (0-31) U/L Alkaline Phosphatase 138 H (39-117) U/L Total Protein (6.5-8.0) g/dL Albumin (3.5-5.0) g/dL Urine Blood Small (1+) H (Negative) Ur Leukocyte Esterase Moderate (2+) H (Negative) 02/08/25 02/08/25 Range/Units 05:33 08:15 WBC 14.1 H (4.8-10.8) X10*3/uL Immature Gran % (Auto) 0.9 H (0.0-0.4) % Neut % (Auto) 79.3 H (45-73) % Lymph % (Auto) 7.6 L (20-40) % Robeson % (Auto) 11.5 H (2-11) % Lymph # (Auto) 1.1 L (1.2-4.9) X10*3/uL Robeson # (Auto) 1.6 H (0.1-1.2) X10*3/uL Abs Immat Gran (auto) 0.12 H (0.00-0.03) X10*3/uL Absolute Neuts (auto) 11.2 H (2.0-8.3) x10*3/uL VBG HCO3 37 H (22-26) mmol/L Potassium (3.3-5.1) mmol/L Chloride (96-108) mmol/L Carbon Dioxide 31 H (22-29) mmol/L Anion Gap 9 L (12-20) BUN 7 L (9-16) mg/dL Random Glucose 139 H (60-115) mg/dL Calcium 8.1 L D (8.4-10.2) mg/dL Total Bilirubin 1.1 H (0.0-1.0) mg/dL AST 45 H (5-31) U/L ALT (0-31) U/L Alkaline Phosphatase 124 H (39-117) U/L Total Protein 5.6 L (6.5-8.0) g/dL Albumin 2.9 L (3.5-5.0) g/dL Urine Blood (Negative) Ur Leukocyte Esterase (Negative) Short CBC 02/07/25 02/08/25 Range/Units 18:59 05:33 WBC 10.4 14.1 H (4.8-10.8) X10*3/uL Hgb 15.3 13.0 (12.0-16.0) g/dl Hct 45.3 39.9 (37.0-47.0) % Plt Count 184 164 (160-400) X10*3/uL BMP 02/07/25 02/08/25 02/08/25 18:59 00:33 05:33 Sodium 140 143 140 Potassium 3.2 L 3.0 L 3.3 Chloride 95 L 100 103 Carbon Dioxide 33 H 30 H 31 H BUN 11 10 7 L Creatinine 0.70 0.59 0.58 Calcium 9.3 D 8.7 D 8.1 L D Liver Function 02/07/25 02/08/25 Range/Units 18:59 05:33 Total Bilirubin 1.2 H 1.1 H (0.0-1.0) mg/dL AST 61 H 45 H (5-31) U/L ALT 39 H 31 (0-31) U/L Alkaline Phosphatase 138 H 124 H (39-117) U/L Albumin 3.5 2.9 L (3.5-5.0) g/dL Urine 02/07/25 Range/Units 22:55 Urine Color Yellow Urine Appearance Clear Urine pH 7.5 (5.0-9.0) Ur Specific [place] 1.015 (1.005-1.025) Urine Protein Negative (Neg-Trace) mg/dL Urine Glucose (UA) Negative (Negative) mg/dL All other labs normal. Assessment and Plan (1) Pyelonephritis: Status: Acute (2) Bacteremia due to Gram-negative bacteria: Status: Acute Plan 49-year-old female patient with muscular dystrophy and a recent urinary infection found to have Gram-negative rods in blood cultures. A CT abdomen and pelvis was suspicious for changes in the appendix and colon. Review of the CT however reveals no inflammatory changes of the appendix and only a small fecalith within the lumen. This was also seen in her previous CAT scan of 10/22/2024 in his essentially unchanged. Wall thickening of the colon was not previously present but may be related to the antibiotics. Patient denies abdominal pain or diarrhea. Examination of her abdomen is benign. Clinically she does not have appendicitis. Management of Gram-negative gladsy blood cultures per hospitalist team. Procedures Date of Service Date of Service: 02/08/25
--- NOTE | 2025-02-08 12:51 | PC.NURSE ---
patient awake, speaking in full clear sentences. up to commode, cleaning self up at this time. bed linens changed, now 94% on room air.
--- NOTE | 2025-02-08 13:44 | PC.NURSE ---
patient placed back on nasal cannula, 97% on 2L. remains alert and oriented, able to independently change and use the bathroom
--- NOTE | 2025-02-08 16:31 | PC.NURSE ---
new IV established in pt's right AC.
[2025-02-08] MEDS: 0.9 % Sodium Chloride Flush 3 ML SYRINGE IVFLUSH (22:12)
[2025-02-09] VITALS (7 sets, daily range): BP systolic 124–156; BP diastolic 68–87; PULSE 71–97; RESP 20–22; TEMP 36–36.7; O2SAT 92–98
[2025-02-09 07:25] LABS: MANUAL DIFF FLAG NO
[2025-02-09 07:44] LABS: Alanine Aminotransferase 23 U/L (0-31); Albumin Level 2.7 g/dL (3.5-5.0); Alkaline Phosphatase 99 U/L (39-117); Anion Gap 11 (12-20); Aspartate Amino Transferase 29 U/L (5-31); Blood Urea Nitrogen 8 mg/dL (9-16); Calcium 8.3 mg/dL (8.4-10.2); Carbon Dioxide 32 mmol/L (22-29); Chloride 104 mmol/L (96-108); Creatinine Clr Calc Pharmacy 136.4; Estimated Glomerular Filt Rate > 60; Hematocrit 37.1 % (37.0-47.0); Hemoglobin 12.0 g/dl (12.0-16.0); Imm Gran Abs Auto 0.09 X10*3/uL (0.00-0.03); Imm Gran Pct Auto 1.1 % (0.0-0.4); Lymphocytes Absolute Auto 1.8 X10*3/uL (1.2-4.9); Mean Corpuscular HGB Conc 32.3 g/dl (31.0-35.0); Mean Corpuscular Hemoglobin 29.6 pg (27.0-33.0); Mean Corpuscular Volume 91.6 fL (80.0-98.0); NRBC Abs Auto 0.000 X10*3/uL (0.0-0.012); NRBC Pct Auto 0.0 /100WBC (0.0-0.2); Platelet Count 171 X10*3/uL (160-400); Potassium 3.5 mmol/L (3.3-5.1); Red Blood Count 4.05 X10*6/uL (4.20-5.50); Sodium 143 mmol/L (135-145); Total Protein 5.0 g/dL (6.5-8.0); White Blood Count 8.2 X10*3/uL (4.8-10.8)
--- NOTE | 2025-02-09 09:57 | P.DS_ITS ---
DS: Providers Provider Date of Service: 02/10/25 Date of admission: 02/07/25 20:43 Date of discharge: 02/09/25 Primary care physician: Reyna Lutz DO Consults: 02/07/25 20:49 Consult to General Surgery Routine Consulting Provider: [facility] General Surgeons Reason for consultation: CT with pyelo, ?coliits ?appendicitis Has provider been notified: No Consult to Infectious Diseases Routine Consulting Provider: [facility] Infect[facility] Disease Center Reason for consultation: bacteremia Has provider been notified: No DS: Diagnosis Discharge Diagnosis (1) Pyelonephritis: Status: Acute DS: Summary Hospital Course Hospital Course: Chief Complaint: Positive blood cultures Patient is a 49-year-old female with a past medical history significant for muscular dystrophy, hypertension, restrictive lung disease with chronic cough, anxiety/depression, recently seen in the ED 02/05 for UTI/pyelonephritis discharged home with cefuroxime, who returned to the ED today due to g negative gladys bacteremia. The patient reported dysuria, nausea, vomiting, diarrhea which has improved since starting the cefuroxime. She denies any current urinary symptoms aside from episodes of urinary incontinence. No abdominal pain, diarrhea. She does have a chronic cough that she reports this is slightly worse than her baseline. No fever or chills. Sputum is green colored. hospital course: Patient is a 49-year-old female with a past medical history significant for muscular dystrophy, hypertension, restrictive lung disease with chronic cough, anxiety/depression, recently seen in [facility] ED 02/05 for UTI/pyelonephritis discharged home with cefuroxime, who was called in to come back to ED because of positive blood cultures of gram negative gladys. Upon returning her WBC were normal, no fever or chills. She was admitted and give IV Ceftriaoxne, patient was noted to be very sleepy the next morning with oxygen saturation dropoing, she had been given oxycodone earlier. VBG showed some CO2 retention. She woke shortly thereaafter and has not needed any oxygen since.O2 is normal at 98 on room air , but later dropped again but ultimately improved and did well with home oxygen testing and did not need oxygen at all. Was seen by employment legal assistant with recommendation for possible outpatient sleep study. As for the E. coli UTI and bacteremia, she had a CT of abdomen showing ? colon or appendice changes. She has no abdominal pain, exam is benign, seen by surgery and no further work up or intervention is needed. The Cefuroxime previously prescribed by ED provider is adequate for the UTI and bacteremia but will make sure to treat for 14 days total, so will give an additional 7 days. She is eating regular and has no sings of aspiration, as stated elsewhere Time Attestation Discharge Coordination Time (in mins): 40 Quality: Safe Use of Opioids Does Pt have an Active Cancer Diagnosis on the Problem List?: No Quality: Stroke Does the patient have a stroke diagnosis?: No Physical Exam Vital Signs: Vital Signs: Selected Entries 02/10/25 07:34 Temperature 97.6 F Pulse Rate 82 Respiratory Rate 20 Blood Pressure 141/80 H Pulse Oximetry 96 Oxygen Delivery Me thod Nasal Cannula Oxygen Flow Rate 2 DS: Data Data Completed and Pending Labs on day of discharge: Laboratory Results - last 24 hr 02/09/25 07:19 WBC 8.2 RBC 4.05 L Hgb 12.0 Hct 37.1 MCV 91.6 MCH 29.6 MCHC 32.3 RDW 14.5 Plt Count 171 MPV 10.6 Immature Gran % (Auto) 1.1 H Neut % (Auto) 63.4 Lymph % (Auto) 21.8 [place] % (Auto) 11.7 H Eos % (Auto) 1.5 Baso % (Auto) 0.5 Lymph # (Auto) 1.8 [place] # (Auto) 1.0 Eos # (Auto) 0.1 Baso # (Auto) 0.0 Abs Immat Gran (auto) 0.09 H Absolute Neuts (auto) 5.2 Absolute Nucleated RBC 0.000 Nucleated RBC % (auto) 0.0 Sodium 143 Potassium 3.5 Chloride 104 Carbon Dioxide 32 H Anion Gap 11 L BUN 8 L Creatinine 0.51 Estim Creat Clear Calc 136.4 Estimated GFR > 60 Random Glucose 73 Calcium 8.3 L Total Bilirubin 0.6 AST 29 ALT 23 Alkaline Phosphatase 99 Total Protein 5.0 L Albumin 2.7 L Preliminary micro results at discharge 02/07/25 18:59 Blood Culture - Preliminary Blood - Venous No growth after 24 hours. 02/07/25 18:59 Blood Culture - Preliminary Blood - Venous No growth after 24 hours. Discharge Plan Discharge Anticipated Discharge Date/Time: 02/10/25 09:23 Patient Disposition: Home Health Service Discharge Diagnosis: UTI, Ecoli bacteremia Referrals: Kerri SHANKS [Outside] - 1 Week Reyna Lutz DO [Primary Care Provider, Internal Medicine] - 1 Week Discharge Medications: New cefuroxime axetil 500 mg tablet 500 mg PO BID 7 Days Qty: 14 0RF Discontinued cefuroxime axetil 500 mg tablet 500 mg PO BID Discharge Orders: Discharge Order (Routine); Ordered 02/10/25 Ordered By: Everardo Gonzalez Diet: Advance to usual diet Activity on Discharge: As tolerated Stand Alone Forms: Patient Portal Discharge page Print Language: Vietnamese Care Plan Goals: recovery from e coli bacteremia, uti Health Concerns: e coli bactremia, sepsis Plan of Treatment: take Cefuroxime as directed and follow up with your Doctor in a week, you given a prescription for 7 days earlier, you need a total of 14 days, an additional 7 days have been sent to [facility] Miranda rodríguez up with your Doctor in a week Assessment: see above
--- NOTE | 2025-02-09 10:59 | HO.PM.IMPN ---
Subjective Subjective Date of Service: 02/09/25 Interval History: oxygen dropped on room air to 70s and went up with oxygen Physical Exam Vital Signs: Vital Signs: Last Vital Signs Temp 97.4 F 02/09/25 08:00 Pulse 71 02/09/25 08:00 Resp 20 02/09/25 08:00 BP 129/68 02/09/25 08:00 Pulse Ox 98 02/09/25 08:00 O2 Del Method Room Air 02/09/25 08:00 O2 Flow Rate 2 02/09/25 03:34 BMI result Body Mass Index 31.6 Const: Other: General: AO X 3, no acute distress Resp: CTA bilateral CVS: S1,S2,RRR GI: +BS, NT, no distention Skin: No rash Neuro: motor grossly intact Psych: appropriate affect Objective Data Active Medications Acetaminophen (Acetaminophen 325 Mg Tablet) 975 mg PO Q6H PRN On Hold: 02/08/25 03:44 PRN Reason: Pain, Mild 1-3,fever,headache Benzonatate (Benzonatate 100 Mg Capsule) 100 mg PO TID PRN PRN Reason: Cough Last Admin: 02/07/25 23:50 Dose: 100 mg Documented By: UGO Calcium Carbonate (Calcium Carbonate 750 Mg Tab.Chew) 750 mg PO Q4H PRN PRN Reason: Heartburn Ceftriaxone Sodium (Ceftriaxone Sodium 2 Gm Vial) 2 gm IVPUSH Q24H [facility] Last Admin: 02/08/25 22:11 Dose: 2 gm Documented By: CONSUELO Doxycycline Monohydrate (Doxycycline Monohydrate 100 Mg Capsule) 100 mg PO Q12H [facility] Enoxaparin Sodium (Enoxaparin Sodium 40 Mg/0.4 Ml Syringe) 40 mg SUBCUT Q24H [facility] Last Admin: 02/08/25 22:12 Dose: 40 mg Documented By: CONSUELO Lactated Ringer's (Lr) 1,000 mls @ 100 mls/hr IVCONT .Q10H [facility] Last Admin: 02/09/25 03:00 Dose: Not Given Documented By: CONSUELO Non-Admin Reason: IV Running Acetaminophen (Ofirmev) 1,000 mg in 100 mls @ 400 mls/hr IV Q6H [facility] Last Admin: 02/09/25 06:48 Dose: Not Given Documented By: CONSUELO Non-Admin Reason: would exceed 4000mg in past 24hrs Magnesium Hydroxide (Milk Of Magnesia 30 Ml Oral.Susp) 30 ml PO DAILY PRN PRN Reason: Constipation Melatonin (Melatonin 3 Mg Tablet) 6 mg PO BEDTIME PRN PRN Reason: Insomnia Morphine Sulfate (Morphine Sulfate 4 Mg/Ml Cartridge) 2 mg IVPUSH Q4H PRN; Protocol PRN Reason: Pain, Severe (Pain Scale 7-10) Ondansetron HCl (Ondansetron Hcl 4 Mg/2 Ml Vial) 4 mg IVPUSH Q8H PRN PRN Reason: Nausea and Vomiting Last Admin: 02/08/25 02:53 Dose: 4 mg Documented By: UGO Oxycodone HCl (Oxycodone Hcl Immed Release 5 Mg Tablet) 5 mg PO Q6H PRN PRN Reason: Pain, Moderate(Pain Scale 4-6) Last Admin: 02/08/25 00:01 Dose: 5 mg Documented By: UGO Sodium Chloride (0.9 % Sodium Chloride Flush 3 Ml Syringe) 3 ml IVFLUSH [facility] Last Admin: 02/08/25 22:12 Dose: 3 ml Documented By: CONSUELO Labs 02/09/25 07:19 02/09/25 07:19 Labs: Laboratory Results - last 24 hr 02/09/25 07:19 MCV 91.6 MCH 29.6 MCHC 32.3 RDW 14.5 Plt Count 171 MPV 10.6 Immature Gran % (Auto) 1.1 H Neut % (Auto) 63.4 Lymph % (Auto) 21.8 Nicholas % (Auto) 11.7 H Eos % (Auto) 1.5 Baso % (Auto) 0.5 Lymph # (Auto) 1.8 Nicholas # (Auto) 1.0 Eos # (Auto) 0.1 Baso # (Auto) 0.0 Abs Immat Gran (auto) 0.09 H Absolute Neuts (auto) 5.2 Absolute Nucleated RBC 0.000 Nucleated RBC % (auto) 0.0 Anion Gap 11 L Estim Creat Clear Calc 136.4 Estimated GFR > 60 Random Glucose 73 Calcium 8.3 L Total Bilirubin 0.6 AST 29 ALT 23 Alkaline Phosphatase 99 Total Protein 5.0 L Albumin 2.7 L Microbiology Microbiology Results: Microbiology 02/07/25 Unknown Urine Culture - Final Urine clean catch - Clean Catch Midstream No growth. 02/07/25 18:59 Blood Culture - Preliminary Blood - Venous No growth after 24 hours. 02/07/25 18:59 Blood Culture - Preliminary Blood - Venous No growth after 24 hours. Assessment and Plan (1) Pyelonephritis: Status: Acute Plan Patient is a 49-year-old female with a past medical history significant for muscular dystrophy, hypertension, restrictive lung disease with chronic cough, anxiety/depression, recently seen in [facility] ED 02/05 for UTI/pyelonephritis discharged home with cefuroxime, who returned to the ED today due to g negative gladys bacteremia. E. coli UTI and bacteremia, norml WBC continue Ceftriaxone and Ceftina t dischar Acute hypoxic respiratory failure., CXR didn't demonstrate PNA, likely from restrictive lung disease continue O2, pulmonology consult if doesn't improve elevated LFTs likley secondary to severe sepsis, now normal hepatitis a, b, c negative A CT abdomen and pelvis was suspicious for changes in the appendix and colon, no evidence of gallblader issues or clinical colitis exam is bening, no pain and tolerating regular diet acute hypokalemia/hypochloremic alkalosis, resolved with IVF HTN no home meds Restrictive lung disease - no home meds - Tessalon p.r.n. cough - albuterol as needed Full code VTE prophylaxis: Lovenox Hold DC today Quality Stroke Does the patient have a stroke diagnosis?: No VTE Prior VTE?: No VTE Risk Level:: Medical - moderate - high VTE Device Contraindication: Treatment Not Indicated VTE Drug Contraindication: N/A - Med Ordered
--- NOTE | 2025-02-09 11:13 | MHC.CM.PN ---
PATIENT LIVES IN AN APT W/ HER MOTHER AND DISABLED ADULT DTR (PATIENT IS PRIMARY CAREGIVER, MOTHER ASSISTS). INDEPENDENT W/ CARE, USES WALKER PRN FOR PAIN/WEAKNESS. HAS GRAB BARS AND SHOWER CHAIR IN BATHROOM. REPORTS SHE HAS AN HCP NAMING HER MOTHER, KELLIE ([phone]), [facility]. COPY REQUESTED. PCP EZEKIEL GALEAS DO DP: GOAL IS HOME. PER EMR, WILL DC ON PO ABX. POTENTIAL NEED FOR SN IF DC HOME ON O2. [facility] FOLLOWING. FRIEND SCOTT WILL TRANSPORT [phone]. CM WILL CONTINUE TO FOLLOW.
[2025-02-09] MEDS: 0.9 % Sodium Chloride Flush 3 ML SYRINGE IVFLUSH ×3 (11:14→23:22)
[2025-02-09] MEDS: guaiFENesin DM 100/10/5 ML 5 ML SYRUP PO (22:37)
[2025-02-10 03:19] VITALS: BP 156/85; PULSE 95; RESP 22; TEMP 36.7; O2SAT 96
[2025-02-10 07:05] LABS: MANUAL DIFF FLAG NO
[2025-02-10 07:25] LABS: Hematocrit 40.6 % (37.0-47.0); Hemoglobin 13.2 g/dl (12.0-16.0); Imm Gran Abs Auto 0.15 X10*3/uL (0.00-0.03); Imm Gran Pct Auto 1.9 % (0.0-0.4); Lymphocytes Absolute Auto 1.8 X10*3/uL (1.2-4.9); Mean Corpuscular HGB Conc 32.5 g/dl (31.0-35.0); Mean Corpuscular Hemoglobin 29.9 pg (27.0-33.0); Mean Corpuscular Volume 92.1 fL (80.0-98.0); NRBC Abs Auto 0.000 X10*3/uL (0.0-0.012); NRBC Pct Auto 0.0 /100WBC (0.0-0.2); Platelet Count 231 X10*3/uL (160-400); Red Blood Count 4.41 X10*6/uL (4.20-5.50); White Blood Count 7.8 X10*3/uL (4.8-10.8)
[2025-02-10 07:32] LABS: Alanine Aminotransferase 21 U/L (0-31); Albumin Level 2.9 g/dL (3.5-5.0); Alkaline Phosphatase 114 U/L (39-117); Anion Gap 10 (12-20); Aspartate Amino Transferase 26 U/L (5-31); Blood Urea Nitrogen 5 mg/dL (9-16); Calcium 8.7 mg/dL (8.4-10.2); Carbon Dioxide 34 mmol/L (22-29); Chloride 105 mmol/L (96-108); Creatinine Clr Calc Pharmacy 142.0; Estimated Glomerular Filt Rate > 60; Potassium 3.0 mmol/L (3.3-5.1); Sodium 146 mmol/L (135-145); Total Protein 5.6 g/dL (6.5-8.0)
[2025-02-10 07:34] VITALS: BP 141/80; PULSE 82; RESP 20; TEMP 36.4; O2SAT 96
[2025-02-10 11:16] VITALS: BP 133/78; PULSE 82; RESP 18; TEMP 36.4; O2SAT 96
--- NOTE | 2025-02-10 11:29 | MHC.SLORD ---
Speech Language Pathology Order Status: Pt passed RN bedside swallow screen, RN consulted, pt tolerating PO without s/s of aspiration. MD notified, Clinical Bedside Swallow order d/c'd
[2025-02-10 11:49] VITALS: PULSE 106; PULSE 90; O2SAT 94; O2SAT 96
--- NOTE | 2025-02-10 12:24 | P.CONPL_ITS ---
History of Present Illness History of Present Illness Consult date: 02/10/25 Chief complaint: Sepsis, pyelo, lyte abnormalities Narrative: 49-year-old lady, nonsmoker, with underlying mild muscular dystrophy, restrictive lung physiology related to muscular dystrophy, and prior diagnosis of asthma, previously followed by Dr. Deleon now admitted on 02/07/2025 with Gram- negative bacteremia with source. Through the hospital stay patient noted to have episodes of hypoxemia with self recovery and overall doing well on room air. Currently patient O2 saturation is above 95% on room air. Review of Systems 2 Constitutional: Constitutional: Denies daytime sleepiness, Denies excessive sweating, Denies fatigue, Denies fever(s), Denies lethargy, Denies malaise, Denies night sweats, Denies snoring and Denies weight loss Eyes: Eyes: Denies blurry vision and Denies itchy eyes ENT: Denies nasal congestion, Denies post nasal drip, Denies sinus pain, Denies sinus pressure and Denies other ( Thrush) Cardiovascular: Cardiovascular: Denies chest pain, Denies pedal edema, Denies dyspnea, Denies orthopnea and Denies paroxysmal nocturnal dyspnea Respiratory: Respiratory: Denies cough, Denies hemoptysis, Denies excessive phlegm production, Denies dyspnea, Denies snoring and Denies wheezing Gastrointestinal: Gastrointestinal: Denies abdominal pain and Denies heartburn Musculoskeletal: Musculoskeletal: Denies myalgias, Denies arthralgias and Denies joint swelling Integumentary/Breasts: Skin/Breast: Denies rash Neurologic: Denies memory loss and Denies seizure-like activity Psychiatric: Psychiatric: Denies abnormal sleep pattern, Denies anxiety and Denies memory loss Endocrine: Endocrine: Denies excessive sweating, Denies fatigue and Denies heat intolerance Hematologic/Lymphatic: Hematologic/Lymphatic: Denies easy bruising Allergic/Immunologic: Allergic/Immunologic: Denies itchy eyes, Denies seasonal rhinorrhea and Denies wheezing PMFSH Past Medical History Medical History Urinary incontinence Restrictive lung disease Allergic rhinitis Paroxysmal cough Anxiety Depression Muscular dystrophy, emery-dreifuss Family History Family History Unknown No family history of colorectal cancer Surgical History Surgical History Hx of section H/O endoscopy Social History Social History Household Members: Family Household Members Other:: Lives with her daughter (23-special needs) and her mother Housing: Apartment Do you presently have visiting nurse or other home services: No Alcohol intake: never Patient Tobacco Use Status: Never used Tobacco service: No Current occupational status: disabled Meds Allergies Allergy/AdvReac Type Severity Reaction Status Date / Time No Known Allergies (No Known Allergy Verified 02/07/25 18:42 Allergies*) Active Medications: Current Medications Acetaminophen (Acetaminophen 325 Mg Tablet) 975 mg PO Q6H PRN On Hold: 02/08/25 03:44 PRN Reason: Pain, Mild 1-3,fever,headache Benzonatate (Benzonatate 100 Mg Capsule) 100 mg PO TID PRN PRN Reason: Cough Last Admin: 02/07/25 23:50 Dose: 100 mg Calcium Carbonate (Calcium Carbonate 750 Mg Tab.Chew) 750 mg PO Q4H PRN PRN Reason: Heartburn Ceftriaxone Sodium (Ceftriaxone Sodium 2 Gm Vial) 2 gm IVPUSH Q24H [facility] Last Admin: 02/09/25 21:21 Dose: 2 gm Doxycycline Monohydrate (Doxycycline Monohydrate 100 Mg Capsule) 100 mg PO Q12H [facility] Last Admin: 02/09/25 23:22 Dose: 100 mg Enoxaparin Sodium (Enoxaparin Sodium 40 Mg/0.4 Ml Syringe) 40 mg SUBCUT Q24H [facility] Last Admin: 02/09/25 21:21 Dose: 40 mg Guaifenesin/Dextromethorphan (Guaifenesin Dm 100/10/5 Ml 5 Ml Syrup) 5 ml PO Q6H PRN PRN Reason: Cough Last Admin: 02/09/25 22:37 Dose: 5 ml Magnesium Hydroxide (Milk Of Magnesia 30 Ml Oral.Susp) 30 ml PO DAILY PRN PRN Reason: Constipation Melatonin (Melatonin 3 Mg Tablet) 6 mg PO BEDTIME PRN PRN Reason: Insomnia Morphine Sulfate (Morphine Sulfate 4 Mg/Ml Cartridge) 2 mg IVPUSH Q4H PRN; Protocol PRN Reason: Pain, Severe (Pain Scale 7-10) Ondansetron HCl (Ondansetron Hcl 4 Mg/2 Ml Vial) 4 mg IVPUSH Q8H PRN PRN Reason: Nausea and Vomiting Last Admin: 02/08/25 02:53 Dose: 4 mg Oxycodone HCl (Oxycodone Hcl Immed Release 5 Mg Tablet) 5 mg PO Q6H PRN PRN Reason: Pain, Moderate(Pain Scale 4-6) Last Admin: 02/08/25 00:01 Dose: 5 mg Sodium Chloride (0.9 % Sodium Chloride Flush 3 Ml Syringe) 3 ml IVFLUSH QSHIFT [facility] Last Admin: 02/09/25 23:22 Dose: 3 ml Physical Exam 2 Vital Signs: Vital Signs: Last Vital Signs Temp 97.6 F 02/10/25 11:16 Pulse 82 02/10/25 11:16 Resp 18 02/10/25 11:16 BP 133/78 02/10/25 11:16 Pulse Ox 96 02/10/25 11:16 O2 Del Method Room Air 02/10/25 11:16 O2 Flow Rate 2 02/10/25 07:34 BMI result Body Mass Index 31.6 Const: General: no acute distress and alert Nutritional Appearance: not obese Orientation/consciousness: Other orientation findings ( oriented) HEENT: Head: Yes atraumatic Eyes: General: appearance normal, both eyes and all related structures S clerae: sclerae normal EOM: EOMs intact bilaterally Neck: Neck: Yes supple Lymphatic: no lymphadenopathy noted Resp: Effort & Inspection: normal respiratory effort and no use of accessory muscles Auscultation: clear to auscultation bilaterally Cardio: Rate: regular rate Rhythm: regular rhythm Heart sounds: no gallops, no murmurs and no rubs Skin: General skin exam: other ( warm) Extrem: General: No clubbing, No cyanosis and No edema Results Laboratory Findings 02/10/25 06:57 02/10/25 06:57 Abnormal lab findings: Abnormal Labs 02/07/25 02/07/25 02/08/25 18:59 22:55 00:33 WBC RBC Immature Gran % (Auto) 0.8 H Neut % (Auto) Lymph % (Auto) 13.5 L [place] % (Auto) 14.0 H Lymph # (Auto) [place] # (Auto) 1.5 H Abs Immat Gran (auto) 0.08 H Absolute Neuts (auto) VBG HCO3 Sodium Potassium 3.2 L 3.0 L Chloride 95 L Carbon Dioxide 33 H 30 H Anion Gap BUN Creatinine Random Glucose 152 H 123 H Calcium Total Bilirubin 1.2 H AST 61 H ALT 39 H Alkaline Phosphatase 138 H Total Protein Albumin Urine Blood Small (1+) H Ur Leukocyte Esterase Moderate (2+) H 02/08/25 02/08/25 02/09/25 05:33 08:15 07:19 WBC 14.1 H RBC 4.05 L Immature Gran % (Auto) 0.9 H 1.1 H Neut % (Auto) 79.3 H Lymph % (Auto) 7.6 L [place] % (Auto) 11.5 H 11.7 H Lymph # (Auto) 1.1 L [place] # (Auto) 1.6 H Abs Immat Gran (auto) 0.12 H 0.09 H Absolute Neuts (auto) 11.2 H VBG HCO3 37 H Sodium Potassium Chloride Carbon Dioxide 31 H 32 H Anion Gap 9 L 11 L BUN 7 L 8 L Creatinine Random Glucose 139 H Calcium 8.1 L D 8.3 L Total Bilirubin 1.1 H AST 45 H ALT Alkaline Phosphatase 124 H Total Protein 5.6 L 5.0 L Albumin 2.9 L 2.7 L Urine Blood Ur Leukocyte Esterase 02/10/25 06:57 WBC RBC Immature Gran % (Auto) 1.9 H Neut % (Auto) Lymph % (Auto) [place] % (Auto) 11.3 H Lymph # (Auto) [place] # (Auto) Abs Immat Gran (auto) 0.15 H Absolute Neuts (auto) VBG HCO3 Sodium 146 H Potassium 3.0 L Chloride Carbon Dioxide 34 H Anion Gap 10 L BUN 5 L Creatinine 0.49 L Random Glucose 118 H Calcium Total Bilirubin AST ALT Alkaline Phosphatase Total Protein 5.6 L Albumin 2.9 L Urine Blood Ur Leukocyte Esterase Microbiology: Microbiology 02/07/25 18:59 Blood - Venous Blood Culture - Preliminary No growth after 48 hours. 02/07/25 18:59 Blood - Venous Blood Culture - Preliminary No growth after 48 hours. 02/07/25 Unknown Urine clean catch - Clean Catch Midstream Urine Culture - Final No growth. Assessment and Plan (1) Muscular dystrophy: Status: Acute (2) CO2 retention: Status: Acute (3) Hypoxemia: Status: Acute Plan Impression: 49-year-old lady with underlying unspecified mild muscular dystrophy admitted with Gram-negative bacteremia, noted to have episodes of hypoxemia with self recovery likely related to microaspiration. Alleviating bicarbonate also suggests an element of chronic CO2 retention. Recommendations: At this time does not require supplemental oxygen therapy at rest. Consider evaluation for O2 with exertion. Underlying mild muscular dystrophy related restrictive lung disease with possible microaspiration, though did well with speech therapy. Also, likely with chronic mild CO2 retention, may benefit from an outpatient sleep study. Procedures Date of Service Date of Service: 02/10/25
--- NOTE | 2025-02-10 12:52 | MHC.CM.PN ---
Patient has been medically cleared for dc to home today, with services.A referral was made to [facility], who is aware of today's dc.
--- NOTE | 2025-02-10 13:11 | W.MHC.F2F ---
Service Date Service Date: 02/10/25 Encounter Date of encounter: 02/10/25 Reasons for Services Signs and symptoms assessed: weakness from hospitalizaion, intermittent hypoxia Reason for penitentiary: medication management and teach disease management Homebound: Leaving the home is medically contraindicated at this time without the asist of a device and/or another person due th the listed conditions above and below. Reason homebound: weakness related to hospital stay Homebound supporting statement: homebound due to weakness from hospitalization related to sepsis from uti and therefore needs the assitance of another person Certification: Based on the above findings, I certify that this patient is confined to the home and needs intermittent penitentiary care, physical therapy and/or speech therapy, or continues to need occupational therapy. The patient is under my care, and I have initiated the establishment of the plan of care. The patient will be followed by a physician who will periodically review the plan of care. Time Spent With Patient Time: Total time managing care of this patient today ____ minutes.
--- NOTE | 2025-02-10 14:27 | MHC.CM.PN ---
CM spoke with Patient's Mother/Venecia @ [phone], who confirmed that Friend/Blanca will transport Patient home today. RN is aware.
[2025-02-10] MEDS: 0.9 % Sodium Chloride Flush 3 ML SYRINGE IVFLUSH (14:57)
[2025-02-10 15:19] VITALS: BP 138/84; PULSE 80; RESP 20; TEMP 36.1; O2SAT 94
[2025-02-12 06:09] LABS: Strep Pneumo Ag urine Not Detected (Not Detected)
[2025-02-13 20:53] LABS: Mycoplasma Pneumoniae - IgG <=0.90 (<=0.90); Mycoplasma Pneumoniae - IgM 69 U/mL (<770)
== END 2025-02-10 17:22 | disposition home health service (06) | DRG 720 ==
LOC: HO.ED 20:31 → HO.EDOVER 21:27 → HO.IMC 02-08 15:59
PROVIDERS: Nurse Practitioner Family; Admitting Provider Physician Assistant; Emergency Provider Emergency Medicine; PCP Family Medicine; Visit Provider Internal Medicine
DX: A41.9 Sepsis, unspecified organism (principal); J96.01 Acute respiratory failure with hypoxia; N12 Tubulo-interstitial nephritis, not specified as acute or chronic; R65.20 Severe sepsis without septic shock; J99 Respiratory disorders in diseases classified elsewhere; E87.3 Alkalosis; E87.8 Other disorders of electrolyte and fluid balance, not elsewhere classified; G71.09 Other specified muscular dystrophies; E87.6 Hypokalemia; I10 Essential (primary) hypertension; B96.20 Unspecified Escherichia coli [E. coli] as the cause of diseases classified elsewhere
CPT/HCPCS: 36415; 71045; 80048; 80053; 81001; 81003; 82803; 83605; 83735; 85025; 86704; 86706; 86709; 86738; 86803; 87040; 87086; 87340; 87449; 87899; 93005; 93306; 99285; J0131; J0696; J1271; J1650; J2405; J7120; Q9957

== ENCOUNTER → 2025-02-07 18:42 | Outpatient (BNV) | payer MEDICAID, SELFPAY | PROVIDERS: Admitting Provider Physician Assistant; Emergency Provider Emergency Medicine; PCP Family Medicine; Visit Provider Internal Medicine Cardiovascular Disease | DX: R01.1 Cardiac murmur, unspecified (principal) | CPT/HCPCS: 93306 ==

== ENCOUNTER 2025-02-07 20:43 | Outpatient (BNV) | payer MEDICAID, SELFPAY | END 2025-02-08 03:44 | PROVIDERS: Admitting Provider Physician Assistant; Emergency Provider Emergency Medicine; PCP Family Medicine; Visit Provider Internal Medicine Cardiovascular Disease | DX: I25.2 Old myocardial infarction (principal); R00.0 Tachycardia, unspecified | CPT/HCPCS: 93010 ==

== ENCOUNTER 2025-02-07 20:43 | Outpatient (BNV) | payer MEDICAID, SELFPAY | END 2025-02-08 06:47 | PROVIDERS: Admitting Provider Physician Assistant; Emergency Provider Emergency Medicine; PCP Family Medicine; Visit Provider Radiology Vascular & Interventional Radiology | DX: R06.02 Shortness of breath (principal) | CPT/HCPCS: 71045 ==

== ENCOUNTER → 2025-02-07 20:43 | Outpatient (BNV) | payer MEDICAID, SELFPAY | PROVIDERS: Admitting Provider Physician Assistant; Emergency Provider Emergency Medicine; PCP Family Medicine; Visit Provider Physician Assistant | DX: N12 Tubulo-interstitial nephritis, not specified as acute or chronic (principal) | CPT/HCPCS: 99223; 99232; G0180 ==

== ENCOUNTER → 2025-02-07 20:43 | Outpatient (BNV) | payer MEDICAID, SELFPAY | PROVIDERS: Admitting Provider Physician Assistant; Emergency Provider Emergency Medicine; PCP Family Medicine; Visit Provider Internal Medicine Pulmonary Disease | DX: G71.00 Muscular dystrophy, unspecified (principal); E87.29 Other acidosis; J96.01 Acute respiratory failure with hypoxia | CPT/HCPCS: 99223 ==

== ENCOUNTER → 2025-02-07 20:43 | Outpatient (BNV) | payer MEDICAID, SELFPAY | PROVIDERS: Admitting Provider Physician Assistant; Emergency Provider Emergency Medicine; PCP Family Medicine; Visit Provider Surgery | DX: N12 Tubulo-interstitial nephritis, not specified as acute or chronic (principal); R78.81 Bacteremia | CPT/HCPCS: 99222 ==

== ENCOUNTER 2025-03-19 15:37 | Outpatient (REF) | payer MEDICAID, SELFPAY ==
--- NOTE | ~2025-03-19 | MR_ITS ---
EXAMINATION: MR PELVIS WITHOUT THEN WITH IV CONTRAST HISTORY: N88.9 - Noninflammatory disorder of cervix uteri, unspecified. TECHNIQUE: Axial T1, fat-suppressed T1, and fat suppressed T2, and sagittal and coronal T2-weighted MR images of the pelvis were obtained. Subsequently, sagittal and axial fat-suppressed T1-weighted images were obtained after the intravenous administration of 7.5 mL Gadavist. COMPARISON: Correlation is made with CT scans of the abdomen and pelvis dated 02/05/2025 and 10/22/2024. FINDINGS: Uterus measures approximately 10.4 x 5.3 x 5 6 cm. There is a posterior fibroid measuring 3.4 x 3.0 x 2.8 cm. There is a 1.4 cm anterior fibroid and a 7 mm fundal fibroid. Additional smaller fibroids are noted. The junctional zone is not thickened. There is an IUD in place in the endometrial cavity. There are numerous nabothian cysts in the cervix measuring up to 1.2 cm in size. These likely account for the heterogeneous appearance of the cervix on prior contrast-enhanced CT. The cervical stroma appears preserved. Right ovary measures approximately 3.2 x 2.1 x 2.0 cm and is unremarkable. The left ovary is not definitely identified. No ascites is seen in the pelvis. There is no lymphadenopathy. There is a 1.7 cm cyst of the wall of the bladder dome. This is unchanged from multiple prior CT scans. There is possible wall thickening of the anorectal junction. MR/MR pelvis wo/w con IMPRESSION: 1. Fibroid uterus as described. 2. Multiple nabothian cysts in the cervix, likely accounting for the heterogeneous appearance on CT. 3. Possible thickening of the anorectal junction. Correlation with direct inspection is recommended. Electronically signed by: Tung Montez MD 03/20/2025 07:33 AM EDT
--- OUTSIDE RECORDS SUMMARY | 2025-03-19 18:28 | XMS_ITS | Encounter Summary ---
Author Organization [employer] Address [address] [place] [address] [address] [place] [address] Care Team Providers Care Bolt Threader Name Role Phone Reyna Lutz DO Primary Care Provider [phone] Reason for Visit * Reason Comments Med Refill Encounter Details Date Type Department Care Team (Late st Contact Info) Description 01/16/2023 Refill [facility] MEDICINE [address] [place] [address] Reyna Lutz DO [address] [place] [address] Pain Social History Tobacco Use Types Packs/Day [...] Care Team (Late st Contact Info) Description 03/26/2025 2:15 PM EDT Office Visit [facility] MED[facility]INE [address] [place] [address] Francisca France MD [address] [place] [address] documented as of this encounter Visit Diagnoses Diagnosis Pain Generalized pain documented in this encounter Additional Health Concerns Assessment Noted Time PHQ-9 Depression Total Score: 5 01/10/20 23 10:49 AM EDT documented as of this encounter Care Teams Bolt Threader Relationship Specialty Start Date End Date Reyna Lutz DO [address] [place] [address] PCP - General Family Medicine 11/26/19 Kerri SHANKS 02/12/25 documented as of this encounter
--- OUTSIDE RECORDS SUMMARY | 2025-03-19 18:28 | XMS_ITS | Encounter Summary ---
Author Organization [employer] Address [address] [place] [address] 7[address] [place] [address] Care Team Providers Care Biomedical Analytical Scientist Name Role Phone Reyna Lutz DO Primary Care Provider + [phone] Reason for Visit * Reason Onset Date Comments FYI 03/11/2025 Encounter Details Date Type Department Care Team ([facility] st Contact Info) Description 03/11/2025 Telephone [facility] MEDICINE [address] [place] [address] Reyna Lutz DO [address] [place] [address] Social History Tobacco Use Types Packs/Day Years [...] encounter Miscellaneous Notes * Telephone Encounter - Dai Vazquez RN - 03/13/2025 1:41 PM EDT [facility] [phone] regarding below message. Rachel reported patient has notbeen taking her medications. Rachel reported he has tried several tactics to have the patient remember to take her medications. Rachel also would like the patient to see for depression while at her next scheduled visit with a provider. Rachel reported he will remind the patient of her appt and continue to encourage the patient to take her medications. RN informed patient if the patient reports ant issue with transportation to have her call [facility] to arrange a Uber ride to her appt. RN informed Rachel amessage will be sent to her PCP and the provider that is going to see her on 03/26/25. Rachel verbalized understanding. PT to F/U PRN. * Telephone Encounter - Farhan Joy - 03/11/2025 2:40 PM EDT Tc from rachel with [facility] reporting that the pt BP was 140/96. They are also reporting that pt Is not taking medication and they're duafolic is too high. Any questions contact pt at [phone] documented in this encounter Plan of Treatment Upcoming Encounters Date Type Department Care Team (Late st Contact Info) Description 03/26/2025 2:15 PM EDT Office Visit [facility] MEDICINE [address] [place] [address] Francisca France MD [address] [place] [address] documented as of this encounter Visit Diagnoses Not on filedocumented in this encounter Additional Health Concerns Assessment Noted Time PHQ-9 Depression Total Score: 5 10/22/19 25 11:40 AM EDT documented as of this encounter Care Teams Biomedical Analytical Scientist Relationship Specialty Start Date End Date Reyna Lutz DO [address] [place], [place] [phone] PCP - General Family Medicine 11/26/19 Kerri SHANKS 02/12/25 documented as of this encounter
--- OUTSIDE RECORDS SUMMARY | 2025-03-19 18:28 | XMS_ITS | Encounter Summary ---
Author Organization [employer] Address [address] [place] [address] 7t [place] [address] Care Team Providers Care Message Clerk Name Role Phone Reyna Lutz DO Primary Care Provider [phone]- [phone] Reason for Visit * Reason Onset Date Comments Med Refill 10/05/2022 Encounter Details Date Type Department Care Team (Late st Contact Info) Description 10/05/2022 Refill [facility] MEDICINE [address] [place] [address] Reyna Luzt DO [address] [place] [address] Acute bilateral low back pain without sciatica [...] 50 MG tablet To be sent to [facility] [address], [place] [address]. Assisted Living Executive Director sees medication was sentto [facility] at [address], [place], [facility] but pharmacy advise pt that they are currently out of this medication. Please contact pt at [phone] documented in this encounter Plan of Treatment Upcoming Encounters Date Type Department Care Team (Late st Contact Info) Description 03/26/2025 2:15 PM EDT Office Visit [facility] MEDICINE [address] [place] [address] Francisca France MD [address] [place] [address] documented as of this encounter Visit Diagnoses Diagnosis Acute bilateral low back pain without sciatica documented in this encounter Care Teams Message Clerk Relationship Specialty Start Date End Date Reyna Lutz DO [address] [place] [address] PCP - General Family Medicine 11/26/19 Kerri BEGUMA 02/12/25 documented as of this encounter
--- OUTSIDE RECORDS SUMMARY | 2025-03-19 18:28 | XMS_ITS | Encounter Summary ---
Author Organization [employer] Address [address] [place] [address] 7 [place] [address] Care Team Providers Care Gasoline Locomotive Crane Operator Name Role Phone Reyna Lutz DO Primary Care Provider [phone]- [phone] Encounter Details Date Type Department Care Team (Late st Contact Info) Description 07/20/2022 Orders Only [facility] [place] [facility] MEDICINE [address] [place] [address] Malou Feliz LPN Social History Tobacco Use [...] Description 03/26/2025 2:15 PM EDT Office Visit [facility] [place] [facility] MEDICINE [address] [place] [phone] Francisca France MD [address] [place] [address] documented as of this encounter Visit Diagnoses Not on filedocumented in this encounter Care Teams Gasoline Locomotive Crane Operator Relationship Specialty Start Date End Date Reyna Lutz DO [address] [place] [address] PCP - General Family Medicine 11/26/19 Kerri SHANKS 02/12/25 documented as of this encounter
--- OUTSIDE RECORDS SUMMARY | 2025-03-19 18:28 | XMS_ITS | Encounter Summary ---
Author Organization [employer] Address [address] [place] [address] 7t [place] [address] Care Team Providers Care Terrazzo Worker Helper Name Role Phone NeldaReyna Primary Care Provider [phone]- [phone] Reason for Visit * Reason Onset Date Comments script for toothpaste 12/21/2022 Encounter Details Date Type Department Care Team (Late st Contact Info) Description 12/21/2022 Telephone [facility]ULT D[facility]AL [address] [place] [address] Rachna Mendez, DDS [address] [place] [address] script for toothpaste Social History Tobacco Use [...] 03/26/2025 2:15 PM EDT Office Visit [facility] MEDICINE [address] [place], [place] [phone] Francisca France MD [address] [place], [place] [phone] documented as of this encounter Visit Diagnoses Not on filedocumented in this encounter Care Teams Terrazzo Worker Helper Relationship Specialty Start Date End Date Reyna Lutz DO [address] [place] [address] PCP - General Family Medicine 11/26/19 Kerri BEGUMA 02/12/25 documented as of this encounter
--- OUTSIDE RECORDS SUMMARY | 2025-03-19 18:28 | XMS_ITS | Encounter Summary ---
Author Organization [employer] Address [address] [place] [address] 7 [place] [address] Care Team Providers Care Radio Commentator Name Role Phone Reyna Lutz DO Primary Care Provider [phone] Encounter Details Date Type Department Care Team (Late st Contact Info) Description 08/16/2022 Orders Only [facility] & PEDS [address] [place], [place] [phone] Reyna Maradiaga LPN Social History Tobacco Use [...] Description 03/26/2025 2:15 PM EDT Office Visit [facility] MEDICINE [address] [place] [address] Francisca France MD [address] [place] [address] documented as of this encounter Visit Diagnoses Not on filedocumented in this encounter Care Teams Radio Commentator Relationship Specialty Start Date End Date Reyna Lutz DO [address] [place], [place] [phone] PCP - General Family Medicine 11/26/19 Kerri HSANKS 02/12/25 documented as of this encounter
--- OUTSIDE RECORDS SUMMARY | 2025-03-19 18:28 | XMS_ITS | Encounter Summary ---
Author Organization [employer] Address [address] [place] [address] 7 [place] [address] Care Team Providers Care Rough Rice Grader Name Role Phone Reyna Lutz DO Primary Care Provider [phone]- [phone] Encounter Details Date Type Department Care Team (Late st Contact Info) Description 06/27/2022 Orders Only [facility] [address] [place] [address] Malou Feliz LPN Social History Tobacco Use [...] Description 03/26/2025 2:15 PM EDT Office Visit [facility] MEDICINE [address] [place] [address] Francisca France MD [address] [place] [address] documented as of this encounter Visit Diagnoses Not on filedocumented in this encounter Care Teams Rough Rice Grader Relationship Specialty Start Date End Date Reyna Lutz DO [address] [place] [address] PCP - General Family Medicine 11/26/19 Kerri SHANKS 02/12/25 documented as of this encounter
--- OUTSIDE RECORDS SUMMARY | 2025-03-19 18:28 | XMS_ITS | Encounter Summary ---
Author Organization [employer] Address [address] [place] [address] 7 [place] [address] Care Team Providers Care Community Chest Officer Name Role Phone Mague Lutzfer Primary Care Provider [phone]- [phone] Reason for Visit * Reason Onset Date Comments Appointment 09/26/2022 Kelsey Lozano 1975 Patient was seen 09/26 and was wondering if medication was sent to pharmacy please advise Encounter Details Date Type Department Care Team ([facility] st Contact Info) Description 09/26/2022 Telephone [facility] [address] [place] [address] John Ortega DDS [address] [place] [address] Appointment (Kelsey Lozano 1975 Patient was seen [...] Description 03/26/2025 2:15 PM EDT Office Visit [facility] MEDICINE [address] [place], [place] [phone] Francisca France MD [address] [place], [place] [phone] documented as of this encounter Visit Diagnoses Not on filedocumented in this encounter Care Teams Community Chest Officer Relationship Specialty Start Date End Date Reyna Lutz DO [address] [place] [address] PCP - General Family Medicine 11/26/19 Kerri BEGUMA 02/12/25 documented as of this encounter
--- OUTSIDE RECORDS SUMMARY | 2025-03-19 18:28 | XMS_ITS | Encounter Summary ---
Author Organization [employer] Address [address] [place] [address] 7t [place] [address] Care Team Providers Care Cardiovascular Disease Specialist Name Role Phone Reyna Lutz DO Primary Care Provider + [phone] Reason for Visit * Reason Onset Date Comments Nurse Triage 02/17/2025 Encounter Details Date Type Department Care Team ([facility] st Contact Info) Description 02/17/2025 Telephone [facility] MEDICINE [address] [place] [address] Reyna Lutz DO [address] [place] [address] Nurse Triage Social History Tobacco Use Types Packs/Day Years [...] encounter Miscellaneous Notes * Telephone Encounter - Judith Oh RN - 02/17/2025 3:32 PM EDT Triage call Pt reports vaginal symptoms of itchiness, slight drainage which started 4 days ago. Pt had previously been taking antibiotics for UTI. Pt is advised to obtain OTC antifungal medication and if not clear by the end of this week call back for further assist. Pt agrees with disposition and will obtain OTC medicatiion today. Protocol Used: Vaginal Symptoms (Adult) Protocol-Based Disposition: Home Care Positive Triage Question: * Symptoms of a yeast infection (i.e., itchy, white discharge, not bad smelling) and feels like prior vaginal yeast infections * All higher-acuity triage questions were negative Care Advice Discussed: * Reassurance and Education - Vaginal Yeast Infection * Antifungal Medicine for Yeast Infection * Antifungal Medicine for Yeast Infection - Extra Notes and Warnings * Genital Hygiene * Expected Course * Reasons To Call Back - Vaginal discharge becomes yellow or green - Vaginal discharge becomes foul smelling or itchy - Fever or abdomen pain occur - You become worse * Telephone Encounter - Leon Marcano - 02/17/2025 2:17 PM EDT Symptom: Vaginal Symptoms - Not Bleeding Outcome: Schedule an appointment to be seen within 24 hours Reason: Caller denied all higher acuity questions The caller accepted this outcome. documented in this encounter Plan of Treatment Upcoming Encounters Date Type Department Care Team (Late st Contact Info) Description 03/26/2025 2:15 PM EDT Office Visit [facility] MEDICINE [address] [place] [address] Francisca France MD [address] [place] [address] documented as of this encounter Visit Diagnoses Not on filedocumented in this encounter Additional Health Concerns Assessment Noted Time PHQ-9 Depression Total Score: 5 10/22/19 11:40 AM EDT documented as of this encounter Care Teams Cardiovascular Disease Specialist Relationship Specialty Start Date End Date Reyna Lutz DO [address] [place] [address] PCP - General Family Medicine 11/26/19 Kerri SHANKS 02/12/25 documented as of this encounter
--- OUTSIDE RECORDS SUMMARY | 2025-03-19 18:28 | XMS_ITS | Encounter Summary ---
Author Organization [employer] Address [address] [place] [address] 7t [place] [address] Care Team Providers Care Energy Scheduler Name Role Phone Reyna Lutz DO Primary Care Provider [phone] Encounter Details Date Type Department Care Team (Late st Contact Info) Description 09/09/2022 Orders Only [facility] [address] [place], [place] [phone] Reyna Maradiaga LPN Social History Tobacco Use [...] Description 03/26/2025 2:15 PM EDT Office Visit [facility] [address] [place] [address] Francisca France MD [address] [place], [place] [phone] documented as of this encounter Visit Diagnoses Not on filedocumented in this encounter Care Teams Energy Scheduler Relationship Specialty Start Date End Date Reyna Lutz DO [address] [place] [address] PCP - General Family Medicine 11/26/19 Kerri SHANKS 02/12/25 documented as of this encounter
--- OUTSIDE RECORDS SUMMARY | 2025-03-19 18:28 | XMS_ITS | Encounter Summary ---
Author Organization [employer] Address [address] [place] [address] 7 [place] [address] Care Team Providers Care Pressure Washer Name Role Phone AlfredoReyna marmolejo Primary Care Provider [phone] Encounter Details Date Type Department Care Team (Late st Contact Info) Description 09/09/2022 Abstract [facility] [address] [place] [address] Rachna Mendez DDS [address] [place] [address] Social History Tobacco Use Types Packs/Day Years [...] Description 03/26/2025 2:15 PM EDT Office Visit [facility] [address] [place] [address] Francisca France MD [address] [place] [address] documented as of this encounter Visit Diagnoses Not on filedocumented in this encounter Care Teams Pressure Washer Relationship Specialty Start Date End Date Reyna Lutz DO [address] [place] [address] PCP - General Family Medicine 11/26/19 Kerri SHANKS 02/12/25 documented as of this encounter
--- OUTSIDE RECORDS SUMMARY | 2025-03-19 18:28 | XMS_ITS | Encounter Summary ---
Author Organization [employer] Address [address] [place] [address] 7 [place] [address] Care Team Providers Care Assistant Boys Track Coach Name Role Phone Reyna Lutz DO Primary Care Provider [phone] Reason for Referral * Consultation (Routine) - Canceled Specialty Diagnoses / Procedures Referred By Roger mullins Referred To Contact Audiology Diagnoses Bilateral hearing loss, unspecified hearing loss type Reyna Lutz DO [address] [place] [address] Phone: tel: fax: Referral ID Status Reason Start Date Expiration Date Visits Requested Visits Authorized [id number] Canceled Specialty Services Required 03/03/2025 03/03/2026 1 1 Encounter Details Date Type Department Care Team (Late st Contact Info) Description 03/03/2025 Orders Only [facility] [address] [place] [address] Reyna Lutz DO [address] [place], [place] [phone] Bilateral hearing loss, unspecified hearing loss type (Primary Dx) Social History Tobacco Use Types [...] Description 03/26/2025 2:15 PM EDT Office Visit [facility] [address] [place] [address] Francisca France MD [address] [place], [place] [phone] Scheduled Referrals Name Type Priority Associated Diagnoses Orde r Schedule Referral to Audiology Outpatient Referral Routine Bilateral hearing loss, unspecified hearing loss type Expected: 03/03/2025 (Approximate), Expires: 03/03/2026 documented as of this encounter Visit Diagnoses Diagnosis Bilateral hearing loss, unspecified hearing loss type- Primary documented in this encounter Additional Health Concerns Assessment Noted Time PHQ-9 Depression Total Score: 5 10/22/19 11:40 AM EDT documented as of this encounter Care Teams Assistant Boys Track Coach Relationship Specialty Start Date End Date Reyna Lutz DO [address] [place] [address] PCP - General Family Medicine 11/26/19 Kerri SHANKS 02/12/25 documented as of this encounter
--- OUTSIDE RECORDS SUMMARY | 2025-03-19 18:28 | XMS_ITS | Encounter Summary ---
Author Organization [employer] Address [address] [place] [address] 7 [place] [address] Care Team Providers Care Damage Appraiser Name Role Phone NeldaReyna Primary Care Provider [phone] Reason for Visit * Reason Onset Date Comments Appointment 09/26/2022 Kelsey Alegrebo 1975 Patient was seen on 09/23 and called in and stated that she's in a lot of pain and has been taking the medication that was given to her but its not helping with the pain please advise. Encounter Details Date Type Department Care Team (Late st Contact Info) Description 09/26/2022 Telephone [facility] [address] [place] [address] Michael Jackson DDS [address] [place] [address] Appointment (Kelsey Marta 1975 Patient was seen on 09/23 [...] Ramos - 09/26/2022 12:05 PM EDT Kelsey Marta ARAGON 1975 Patient was seen on 09/23 [...] Description 03/26/2025 2:15 PM EDT Office Visit [facility] [address] [place] [address] Francisca France MD [address] [place] [address] documented as of this encounter Visit Diagnoses Not on filedocumented in this encounter Care Teams Damage Appraiser Relationship Specialty Start Date End Date Reyna Lutz DO [address] [place] [address] PCP - General Family Medicine 11/26/19 Kerri BEGUMA 02/12/25 documented as of this encounter
--- OUTSIDE RECORDS SUMMARY | 2025-03-19 18:28 | XMS_ITS | Encounter Summary ---
Author Organization [employer] Address [address] [place] [address] [address]t [place] [address] Care Team Providers Care Neurourologist Name Role Phone AlfredoReyna marmolejo Primary Care Provider [phone] Encounter Details Date Type Department Care Team (Late st Contact Info) Description 09/15/2022 Orders Only [facility] [address] [place] [phone] Malou Feliz LPN Social History Tobacco Use [...] Description 03/26/2025 2:15 PM EDT Office Visit [facility] [address] [place] [address] Francisca France MD [address] [place], [place] [phone] documented as of this encounter Visit Diagnoses Not on filedocumented in this encounter Care Teams Neurourologist Relationship Specialty Start Date End Date Reyna Lutz DO [address] [place] [address] PCP - General Family Medicine 11/26/19 Kerri SHANKS 02/12/25 documented as of this encounter
--- OUTSIDE RECORDS SUMMARY | 2025-03-19 18:28 | XMS_ITS | Encounter Summary ---
Author Organization [employer] Address [address] [place] [address] 7 [place] [address] Care Team Providers Care Equipment Or Machinery Cleaner Name Role Phone Reyna Lutz DO Primary Care Provider + [phone] Reason for Visit * Reason Onset Date Comments Referral 08/27/2024 Encounter Details Date Type Department Care Team ([facility] st Contact Info) Description 08/27/2024 Telephone [facility] [address] [place] [address] Reyna Lutz DO [address] [place] [address] Referral Social History Tobacco Use Types Packs/Day [...] encounter Miscellaneous Notes * Telephone Encounter - Kdchristal StilesLevon - 08/27/2024 11:57 AM EST Tc from pt requesting to change location of Neurology referral due to pt not being willing to go that far. Contact pt at [phone] documented in this encounter Plan of Treatment Upcoming Encounters Date Type Department Care Team (Late st Contact Info) Description 03/26/2025 2:15 PM EDT Office Visit [facility] [address] [place] [address] Francisca France MD [address] [place] [address] documented as of this encounter Visit Diagnoses Not on filedocumented in this encounter Additional Health Concerns Assessment Noted Time PHQ-9 Depression Total Score: 4 01/23/20 24 10:23 AM EDT documented as of this encounter Care Teams Equipment Or Machinery Cleaner Relationship Specialty Start Date End Date Reyna Lutz DO [address] [place] [address] PCP - General Family Medicine 11/26/19 Westwood A 02/12/25 documented as of this encounter
--- OUTSIDE RECORDS SUMMARY | 2025-03-19 18:28 | XMS_ITS | Clinical Summary ---
Author Organization [employer] Address [address] [place] [address] [address] [place] [address] Care Team Providers Care Guest Service Host Name Role Phone NeldaReyna Primary Care Provider Allergies No known active allergies Medications latanoprost (Xalatan) 0.005 % ophthalmic solution PLACE 1 DROP IN EACH EYE AT BEDTIME 022 Active Levonorgestrel (Liletta, 52 MG,) 20.1 MCG/DAY intrauterine device November 2016 placement 017 Active acetaminophen (Tylenol 8 Hour) 650 MG ER tablet TAKE 1 TABLET BY MOUTH EVERY 8 HOURS NEEDED FOR FOR MILD PAIN. DO NOT BREAK, CRUSH, DISSOLVE OR CHEW 40 tablet 1 024 Active albuterol 108 (90 Base) MCG/ACT inhalerIndications :Cough, unspecified type,Influenza A Inhale 2 puffs every 4 (four) hours if needed for wheezing. 18 g 025 2025 Active ergocalciferol (Vitamin D2) 1.25 MG (84360 UT) capsuleIndications :Vitamin D deficiency TAKE 1 CAPSULE BY MOUTH ONCE WEEKLY ON MONDAY MORNING 12 capsule 3 025 Active lidocaine (Lidoderm) 5 % patch APPLY 1 PATCH TOPICALLY TO SKIN, LEAVE ON FOR 12 HOURS AND OFF FOR 12 HOURS DIRECTED NEEDED FOR MILD PAIN 30 patch 3 025 Active nystatin (Mycostatin) 817493 UNIT/GM powder Apply topically 2 times daily. 180 g 3 025 2025 Active amLODIPine (Norvasc) 10 MG tabletIndications: Hypertension, unspecified type TAKE 1 TABLET BY MOUTH EVERY MORNING 90 tablet 1 025 Active FREESTYLE LITE test stripIndications:T ype 2 diabetes mellitus without complications ([facility]) USE DIRECTED TO TEST BLOOD SUGAR TWICE DAILY 100 strip 5 025 Active TRUEplus Lancets 33G miscIndications:Ty pe 2 diabetes mellitus without complications ([facility]) USE DIRECTED TO TEST BLOOD SUGAR TWICE DAILY 100 each 5 025 Active oxybutynin XL (Ditropan-XL) 5 MG 24 hr tablet TAKE 1 TABLET BY MOUTH EVERY MORNING 90 tablet 1 025 Active baclofen (Lioresal) 10 MG tablet TAKE 1 TABLET BY MOUTH THREE TIMES DAILY IN THE MORNING, AT NOON, AND AT BEDTIME 60 tablet 1 025 Active lisinopril 10 MG tabletIndications: Essential hypertension, benign TAKE 1 TABLET BY MOUTH AT BEDTIME 90 tablet 1 025 Active metFORMIN (Glucophage) 500 MG tabletIndications: Type 2 diabetes mellitus without complications ([facility]) TAKE 1 TABLET BY MOUTH TWICE DAILY IN THE MORNING AND IN THE EVENING 180 tablet 1 025 Active atorvastatin (Lipitor) 20 MG tabletIndications: Other hyperlipidemia TAKE 1 TABLET BY MOUTH AT BEDTIME 90 tablet 1 025 Active omeprazole (PriLOSEC) [address] capsuleIndications :Chronic gastroesophageal reflux disease TAKE 1 CAPSULE BY MOUTH TWICE DAILY IN THE MORNING AND IN THE EVENING BEFORE MEALS 180 capsule 1 025 Active TRUEplus Lancets 33G misc TEST BLOOD SUGAR TWICE DAILY 022 2024 Discontinued(M ed list cleanup (will not trigger notification to Pharmacy)) senna (Senokot) 8.6 MG tabletIndications: Chronic constipation TAKE 2 TABLETS BY MOUTH ONCE DAILY NEEDED FOR CONSTIPATION 180 tablet 3 023 2024 Discontinued(M ed list cleanup (will not trigger notification to Pharmacy)) Sodium Fluoride (PreviDent 5000 Plus) 1.1 % cream Apply 1 mg to teeth 3 times daily. 1 g 3 023 2024 Discontinued(M ed list cleanup (will not trigger notification to Pharmacy)) Ventolin HFA 108 (90 Base) MCG/ACT inhaler TAKE 2 PUFFS BY MOUTH EVERY 4 TO 6 HOURS NEEDED 022 2024 Discontinued(M ed list cleanup (will not trigger notification to Pharmacy)) Diclofenac Sodium 1 % gel Apply 2 g topically if needed in the morning, at noon, in the evening, and at bedtime (pain). 150 g 3 024 2024 Discontinued(M ed list cleanup (will not trigger notification to Pharmacy)) fluticasone (Flonase) 50 MCG/ACT nasal sprayIndications:S easonal allergic rhinitis due to other allergic trigger INSTILL 1 SPRAY IN EACH NOSTRIL ONCE DAILY IN THE MORNING 48 g 025 2024 Discontinued(M ed list cleanup (will not trigger notification to Pharmacy)) Active Problems Problem Noted Date Diagnosed Date [...] Encounters Date Type Department Care Team Description 03/11/2025 Telephone [facility] [address] [place] [phone] Reyna Lutz DO FYI 03/06/2025 Telephone [facility] [address] [place] [address] Francisca France MD No Show 03/06/2025 Telephone [facility] [address] [place] [address] Reyna Lutz DO Appointment Request; Hospital Follow-up 03/05/2025 Telephone [facility] [address] [place] [phone] Reyna Lutz DO 03/03/2025 Orders Only [facility] [address] [place] [phone] Reyna Lutz DO Bilateral hearing loss, unspecified hearing loss type (Primary Dx) 03/03/2025 Orders Only [facility] [place] [address] Reyna Lutz DO Abnormal CT of the chest (Primary Dx) 02/19/2025 Telephone [facility] [place] [address] Reyna Lutz DO FYI 02/18/2025 Orders Only [facility] [place] [address] Reyna Lutz DO Bilateral hearing loss, unspecified hearing loss type (Primary Dx) 02/17/2025 Telephone [facility] [place] [address] Reyna Lutz DO Referral 02/17/2025 Telephone [facility] [place] [address] Reyna Lutz DO Nurse Triage 02/11/2025 Patient Outreach [facility] [place] [facility] [address] Reyna Lutz DO Transition Of Care (Tcm) (HDF - Scheduled ) 02/07/2025 Orders Only GENERIC EXTERNAL DATA DEPARTMENT Provider, Generic External Data 02/05/2025 Orders Only GENERIC EXTERNAL DATA DEPARTMENT Provider, Generic External Data 02/05/2025 Travel 02/03/2025 Refill [facility] [place] [address] Reyna Lutz DO Chronic gastroesophageal reflux disease 01/29/2025 Telephone [facility] [place] [address] Reyna Lutz DO Cologuard Kit 12/31/2024 Refill [facility] [place] [address] Reyna Lutz DO Other hyperlipidemia 12/19/2024 Refill [facility] [place] [address] Reyna Lutz DO Essential hypertension, benign; Type 2 diabetes mellitus without complications ([facility]) from Last 3 Months Immunizations Immunization Administration Dates Next Due Hep B, adult [...] 90 10/21/2024 10:57 AM EDT Temperature 36.1 C (97 F) 10/21/2024 10:57 AM EDT Respiratory Rate 20 10/21/2024 10:57 AM EDT Oxygen Saturation 97% 10/21/2024 10:57 AM EDT Inhaled Oxygen Concentration - - Weight 80.3 kg (177 lb) 10/21/2024 10:57 AM EDT Height 160 cm (5' 3 ) 10/21/2024 10:57 AM EDT Body Mass Index 31.35 10/21/2024 10:57 AM EDT Plan of Treatment Upcoming Encounters Date Type Department Care Team (Late st Contact Info) Description 03/26/2025 2:15 PM EDT Office Visit [facility] [address] [place] [address] Francisca France MD [address] [place] [address] Health Maintenance Due Date Last Done Comments [...] 01/03/2023 Dental X-Ray: Bitewings 12/02/2023 11/30/2022, 09/06 Diabetes: Hemoglobin A1C 01/20/2025 025, 10/21/2024, 01/23/2024, Additional history exists Lipid Panel 01/22/2025 01/23/2024, 11/30/2020 Diabetes: Urine Protein Screening 01/31/2025 02/01/2024, 02/25/2020 Mammogram 02/07/2025 02/08/2024, 01/08, 12/17/2021, Additional history exists Influenza Vaccine (#1) 2025 , 05/06/2020, 05/20/2018, Additional history exists Alcohol/Substance Use Screening 10/21/2025 10/21/2024 Depression Screening 10/21/2025 10/21/2024, 10/22/19 25 Disability Screening 10/21/2025 10/21/2024 SDOH Screening 10/21/2025 10/21/2024 Tobacco Screening 10/21/2025 10/21/2024 DTaP/Tdap/Td Vaccines (2 - Td or Tdap) 06/12/2027 06/12/2017, 08/22/2002 Cervical Cancer Screening 10/22/2027 HPV/Cotest 10/22/2027 10/21/2024, 0407/2020, 10/08/2020 Pap Smear 10/22/2027 10/21/2024 RSV Patients and Patients Aged 60 years or older (1 - 1-dose 75+ series) 2048 Pneumococcal Vaccine: 50+ Years Completed 01/09/2023, 2019 HIV Screening Completed 01/23/2024, 110 03/2022, 02/25/2020 Hepatitis B Vaccines Completed 01/23/2024, [...] patient's age to complete this topic Meningococcal B Vaccine Aged Out No l onger eligible based on patient's age to complete [...] Procedure Name Priority Date/Time Associated Diagnosis Comments XR CHEST 1 VIEW Routine 02/08/2025 8:24 AM EDT MAGNESIUM Routine 02/07/2025 6:59 PM EDT LACTIC ACID Routine 02/07/2025 6:59 PM EDT COMPREHENSIVE METABOLIC PANEL Routine 02/07/2025 6:59 PM EDT CBC WITH AUTO DIFFERENTIAL Routine 02/07/2025 6:59 PM EDT URINALYSIS, COMPLETE, WITH REFLEX TO CULTURE Routine 02/05/2025 10:47 PM EDT VENOUS BLOOD GAS Routine 02/05/2025 9:[address] CHEST WO CONTRAST Routine 02/05/2025 9:[address] ABDOMEN PELVIS WO CONTRAST Routine 02/05/2025 9:17 PM EDT LACTIC ACID Routine 02/05/2025 9:13 PM EDT BLOOD CULTURE (SECOND) Routine 02/05/2025 9:13 PM EDT BLOOD CULTURE (FIRST) Routine 02/05/2025 9:13 PM EDT GLUCOSE, WHOLE BLOOD Routine 02/05/2025 7:31 PM EDT XR CHEST 2 VIEWS Routine 02/05/2025 7:02 PM EDT SLIDE REVIEW Routine 02/05/2025 6:06 PM EDT CBC WITH AUTO DIFFERENTIAL Routine 02/05/2025 6:06 PM EDT SARS COV2/INFLUENZA A/B AND RSV RNA QL NAAT Routine 02/05/2025 6:06 PM EDT CULTURE, URINE, ROUTINE Routine 02/05/2025 12:00 AM EDT POCT GLYCATED HEMOGLOBIN, TOTAL Routine 10/21/2024 10:59 AM EDT Type 2 diabetes mellitus without complication, without long-term current use of insulin (CMS/HCC) HPV DNA, LOW/HIGH RISK Routine 10/21/2024 12:00 AM EDT PAP SMEAR Routine 10/21/2024 12:00 AM EDT Encounter for gynecological examination without abnormal finding BI MAMMOGRAM SCREENING TOMOSYNTHESIS BILATERAL Routine 02/08/2024 [...] Recently Relevant to Health Maintenance Results * XR Chest 1 View (02/08/2025 8:24 AM EDT) Anatomical Region Laterality Modality Chest Radiographic Joyce ging 02/08/2025 8:24 AM EDT Narrative 02/08/2025 8:25 AM EDT [address] [address] XRay Report Signed Patient: Kelsey Lozano MR#: [id number] : 1975 Acct:[id number] Age/Sex: 49 / F ADM Date: 02/07/25 Loc: [facility] ROYAL-[address]: Everardo Gonzalez MD Ordering Physician: Everardo Gonzalez MD Date of Service: 02/08/25 Procedure(s): XR chest 1V Accession Number(s): [id number] cc: Reyna Lutz DO; Everardo Gonzalez MD CLINICAL HISTORY: sob 1 view chest x-ray Comparison: CT/SR - THORAX [id number] (ADULT) - 02/05/25 20:30 EDT Findings: Underexpanded lungs with mild interstitial prominence. Normal size heart. No acute fracture. IMPRESSION: Underexpanded lungs with mild interstitial prominence. This document has been electronically signed by: Alex Mckeon MD on 02/08/2025 08:24:52 Dictated By: Alex Mckeon MD Signed By: <Electronically signed by Alex Mckeon MD in OV> 02/08/25824 DD/ 3 TD/TT: 02/08/25823 Bumper Operator: Procedure Note Donotuseinterpreter, Image - 02/08/2025 [place] [address] XRay Report Signed Patient: Kelsey Lozano [facility]#: [id number] : 1975Acct:[id number] Age/Sex: 49 / FADM Date: 02/07/25 Loc: [facility]I [facility] Attending Dr: Everardo Gonzalez MD Ordering Physician: Everardo Gonzalez MD Date of Service: 02/08/25 Procedure(s): XR chest 1V Accession Number(s): [id number] cc: Reyna Lutz DO; Everardo Gonzalez MD CLINICAL HISTORY: sob 1 view chest x-ray Comparison: CT/SR - THORAX [id number] (ADULT) - 02/05/25 20:30 EDT Findings: Underexpanded lungs with mild interstitial prominence. Normal size heart. No acute fracture. IMPRESSION: Underexpanded lungs with mild interstitial prominence. This document has been electronically signed by: Alex Mckeon MD on 02/08/2025 08:24:52 Dictated By: Alex Mckeon MD Signed By: <Electronically signed by Alex Mckeon MD in OV> 02/08/25824 DD/ 3 TD/TT: 02/08/25823 Bumper Operator: us [facility] External Provider IMG XR PROCEDURES Edited Result - Final * (ABNORMAL) CBC auto differential (02/07/2025 6:59 PM EDT) Only the most recent of2 resultswithin the time period is included. White Blood Count 10.4 4.8 - 10.8 X10*3/uL [facility] Red Blood Count 5.09 4.20 - 5.50 X10*6/uL [facility] Hemoglobin 15.3 12.0 - 16.0 g/dl [facility] Hematocrit 45.3 37.0 - 47.0 % [facility] Mean Corpuscular Volume 89.0 80.0 - 98.0 fL [facility] Mean Corpuscular Hemoglobin 30.1 27.0 - 33.0 pg [facility] Mean Corpuscular HGB Conc 33.8 31.0 - 35.0 g/dl [facility] Red Cell Distribution Width 14.0 11.0 - 16.0 % [facility] Platelet Count 184 160 - 400 X10*3/uL [facility] Mean Platelet Volume 10.9 9.4 - 12.3 fL [facility] Neutrophils Percent Auto 71.2 45 - 73 % [facility] Imm Gran Pct Auto 0.8(H) 0.0 - 0.4 % [facility] Lymphocytes Percent Auto 13.5(L) 20 - 40 % [facility] Monocytes Percent Auto 14.0(H) 2 - 11 % [facility] Eosinophils Percent Auto 0.2 0 - 4 % [facility] Basophils Percent Auto 0.3 0 - 2 % [facility] NRBC Pct Auto 0.0 0.0 - 0.2 /100WBC [facility] Neutrophils Absolute Auto 7.4 2.0 - 8.3 x10*3/uL [facility] Imm Gran Abs Auto 0.08(H) 0.00 - 0.03 X10*3/uL [facility] Lymphocytes Absolute Auto 1.4 1.2 - 4.9 X10*3/uL [facility] Monocytes Absolute Auto 1.5(H) 0.1 - 1.2 X10*3/uL [facility] Eosinophils Absolute Auto 0.0 0.0 - 0.4 X10*3/uL [facility] Basophils Absolute Auto 0.0 0.0 - 0.2 X10*3/uL [facility] NRBC Abs Auto 0.000 0.0 - 0.012 X10*3/uL [facility] 02/07/2025 6:59 PM EDT 02/07/2025 7:04 PM EDT Generic External Data Provider LAB BLOOD ORDERAB LES Final Result Performing Organization Address City/[facility]/ZIP Co de Phone Number [facility] [address] [place] [phone] * Magnesium (02/07/2025 6:59 PM EDT) Pathologist [facility] Magnesium 2.3 1.6 - 2.6 mg/dL [facility] 02/07/2025 6:59 PM EDT 02/07/2025 7:04 PM EDT Generic External Data Provider LAB BLOOD ORDERAB LES Final Result Performing Organization Address City/[facility] Co de Phone Number [facility] [address] [place] [phone] * Lactic Acid (02/07/2025 6:59 PM EDT) Only the most recent of2 resultswithin the time period is included. Lactic Acid 1.3 0.5 - 2.0 mmol/L [facility] 02/07/2025 6:59 PM EDT 02/07/2025 7:04 PM EDT us Generic External Data Provider LAB BLOOD ORDERAB LES Final Result [facility] [address] [place], [place] [phone] * (ABNORMAL) Comprehensive Metabolic Panel (02/07/2025 6:59 PM EDT) Sodium 140 135 - 145 mmol/L [facility] Potassium 3.2(L) 3.3 - 5.1 mmol/L [facility] Chloride 95(L) 96 - 108 mmol/L [facility] Carbon Dioxide 33(H) 22 - 29 mmol/L [facility] Anion Gap 15 12 - 20 [facility] Urea Nitrogen (BUN) 11 9 - 16 mg/dL [facility] Creatinine, Serum 0.70 0.5 - 1.4 mg/dL [facility] Creatinine Clr Calc Pharmacy 95.5 [facility] Comment:Provided height and weight: 162.56 cm,77 kg.eGFR (calculated from the MDRD study equation) and eCrCl(calculated from the Cockcroft-Gault equation) are based ondifferent parameters and may not yield comparable results.If eCrCl result is absurd, please check patient'sheight/weight. Estimated Glomerular Filt Rate >60 [facility] Comment:Chronic Kidney Disea se: Estimated GFR < 60 mL/min/1.24d5Btykjn Kidney Disease: Estimated GFR < 15 mL/min/1.73m2 Glucose 152(H) 60 - 115 mg/dL [facility] Calcium 9.3 8.4 - 10.2 mg/dL [facility] Bilirubin, Total 1.2(H) 0.0 - 1.0 mg/dL [facility] Aspartate Amino Transferase 61(H) 5 - 31 U/L [facility] Alanine Aminotransferase 39(H) 0 - 31 U/L [facility] Total Protein 6.8 6.5 - 8.0 g/dL [facility] Albumin Level 3.5 3.5 - 5.0 g/dL [facility] Alkaline Phosphatase 138(H) 39 - 117 U/L [facility] 02/07/2025 6:59 PM EDT 02/07/2025 7:04 PM EDT us Generic External Data Provider LAB BLOOD ORDERAB LES Final Result [facility] [address] [place] [address] [phone] * (ABNORMAL) Urinalysis, Complete, with Reflex to Culture (02/05/2025 10:47 PM EDT) Color Urine Dark Yellow [facility] Appearance Urine Cloudy [facility] PH 5.5 5.0 - 9.0 [facility] Glucose Urine UA 500(A) Negative mg/dL [facility] Urine Blood Large (3+)(A) Negative [facility] Specific [place] - Urine 1.020 1.005 - 1.025 [facility] Urine Protein 100 (2+)(A) Neg-Trace mg/dL [facility] Urine Ketones Trace Negative mg/dL [facility] Nitrite Urine Positive(A) Negative [facility] Leukocyte Esterase Urine Moderate (2+)(A) Negative [facility] RBC Urine 6-10(A) 0 - 2 /HPF [facility] Urine WBC >50(A) 0 - 5 /HPF [facility] Urine Squamous Epithelial Cell 6-10 0 - 2 /HPF [facility] Urine Bacteria 3+ None Seen [facility] Hyaline Casts, Urine 11-20 0 - 2 /LPF [facility] 02/05/2025 10:4 7 PM EDT 02/05/2025 10:50 PM EDT Narrative [facility] - 02/05/2025 11:08 PM EDT Urine, Clean Catch us Generic External Data Provider LAB URINE ORDERAB LES Final Result Performing Organization Address [facility] Co de Phone Number [facility] [address] [place] [address] [phone] * (ABNORMAL) VENOUS BLOOD GAS (02/05/2025 9:25 PM EDT) VBG pH 7.42 7.32 - 7.43 [facility] Comment:METER #: [id number] additional_comment: CbJonesas VBG PCO2 55 mmHg [facility] Comment:METER #: [id number] additional_comment: CbJonesas VBG PO2 50 mmHg [facility] Comment:METER #: [id number] additional_comment: CbJonesas VBG Base Excess 9.3 mmol/L [facility] Comment:METER #: [id number] additional_comment: CbJonesas VBG HCO3 36(H) 22 - 26 mmol/L [facility] Comment:METER #: [id number] additional_comment: CbJ Carlos O2 Sat, Osmin 82.0 % [facility] Comment:METER #: [id number] additional_comment: CbJonesas 02/05/2025 9:25 PM EDT 02/05/2025 9:30 PM EDT us Generic External Data Provider LAB BLOOD ORDERAB LES Final Result Performing Organization Address [facility] Co de Phone Number [facility] [address] [place] [address] [phone] * CT Chest w/o Contrast (02/05/2025 9:18 PM EDT) Anatomical Region Laterality Modality Body, Chest Computed Tomogra phy 02/05/2025 9:18 PM EDT Narrative 02/05/2025 9:19 PM EDT [address] [address] [address] Scan Report Signed Patient: Kelsey Lozano MR#: [id number] : 1975 Acct:[id number] Age/Sex: 49 / F ADM Date: 02/05/25 Loc: HO.ED Attending Dr: Ordering Physician: Mata Tatum MD Date of Service: 02/05/25 Procedure(s): CT chest wo IV con Accession Number(s): [id number] cc: [facility]; Mata Tatum MD Report Number: [id number]: Total DLP = 956.00 mGy-cm CLINICAL HISTORY: Shortness a breath , pneumonia CT chest without contrast Comparison: Chest x-ray from 02/05/2025 Findings: Pulmonary opacities include lateral portion lingula and may reflect pneumonitis/pneumonia. Additional bibasilar atelectasis and scarring present. Mild emphysematous changes. No pleural effusion or pneumothorax. Mild mediastinal lipomatosis with trace pericardial effusion. Heart is within limits of normal. Nonenlarged mediastinal lymphadenopathy by noncontrast imaging. Degenerative changes include imaged shoulders and imaged spine. Please refer to separate report for CT abdomen and pelvis. IMPRESSION: 1. Mild pulmonary opacities nonspecific and may reflect pneumonitis/pneumonia particularly in the lingula. Recommend attention on follow-up to ensure resolution. 2. No pneumothorax or pleural effusion. This document has been electronically signed by: Ton Worley MD on 02/05/2025 21:18:45 Dictated By: Ton Worley MD Signed By: <Electronically signed by Ton Worley MD in OV> 02/05/252118 DD/ 17 TD/TT: 02/05/252117 Bumper Operator: Procedure Note Donotuseinterpreter, Image - 02/05/2025 [facility] [address] [place] [address] CT Scan Report Signed Patient: Kelsey Lozano MMR#: [id number] : 1975Acct:[id number] Age/Sex: 49 / FADM Date: 02/05/25 Loc: HO.ED Attending Dr: Ordering Physician: Mata Tatum MD Date of Service: 02/05/25 Procedure(s): CT chest wo IV con Accession Number(s): [id number] cc: [facility]; Mata Tatum MD Report Number: [id number]: Total DLP = 956.00 mGy-cm CLINICAL HISTORY: Shortness a breath , pneumonia CT chest without contrast Comparison: Chest x-ray from 02/05/2025 Findings: Pulmonary opacities include lateral portion lingula and may reflect pneumonitis/pneumonia. Additional bibasilar atelectasis and scarring present. Mild emphysematous changes. No pleural effusion or pneumothorax. Mild mediastinal lipomatosis with trace pericardial effusion. Heart is within limits of normal. Nonenlarged mediastinal lymphadenopathy by noncontrast imaging. Degenerative changes include imaged shoulders and imaged spine. Please refer to separate report for CT abdomen and pelvis. IMPRESSION: 1. Mild pulmonary opacities nonspecific and may reflect pneumonitis/pneumonia particularly in the lingula. Recommend attention on follow-up to ensure resolution. 2. No pneumothorax or pleural effusion. This document has been electronically signed by: Ton Worley MD on 02/05/2025 21:18:45 Dictated By: Ton Worley MD Signed By: <Electronically signed by Ton Worley MD in OV> 02/05/252118 DD/ 17 TD/TT: 02/05/252117 Bumper Operator: [facility] External Provider IMG CT PROCEDURES Final Result * CT Abdomen Pelvis w/o Contrast (02/05/2025 9:17 PM EDT) Anatomical Region Laterality Modality Body, Pelvis, Abdomen Computed T omography 02/05/2025 9:17 PM EDT Narrative 02/05/2025 9:19 PM EDT [address] [address] [address] Scan Report Signed Patient: Kelsey Lozano MR#: [id number] : 1975 Acct:[id number] Age/Sex: 49 / F ADM Date: 02/05/25 Loc: HO.ED Attending Dr: Ordering Physician: Mata Tatum MD Date of Service: 02/05/25 Procedure(s): CT abdomen pelvis wo IV con Accession Number(s): [id number] cc: [facility]; Mata Tatum MD Report Number: [id number]: Total DLP = 956.00 mGy-cm CLINICAL HISTORY: Upper abdominal pain , etiology?? CT abdomen and pelvis without contrast Comparison: None provided Findings: Please refer to chest CT for bases and thoracic findings. Mild fat deposition of the liver. Surface contours partly obscured by motion artifacts. Bilateral adrenal hyperplasia with 2 cm lipid rich adenoma of the left adrenal gland and 1.7 cm lipid rich adenoma of the right adrenal gland. The spleen is nonenlarged. Mild volume loss of the pancreas noted. No hydronephrosis. Mild perinephric stranding is nonspecific. Gallbladder is unremarkable for noncontrast CT. No small bowel obstruction. Wall thickening of the large intestine is nonspecific including the cecum. Appendicolith at the base of the appendix without additional or definite findings of acute appendicitis in this noncontrast study. Intrauterine device is in place. No adnexal soft tissue mass by noncontrast CT. Mild wall thickening of the urinary bladder is nonspecific and can be seen with cystitis. Degenerative changes include the hips, pubic symphysis, SI joints, and spine, including imaged facet arthropathy. IMPRESSION: 1. Perinephric stranding is nonspecific by noncontrast CT. No hydronephrosis. 2. Wall thickening of the large intestine is nonspecific and can be seen with colitis, including imaged cecum. 3. Appendicolith present. Please correlate for any potential appendicitis. This document has been electronically signed by: Ton Worley MD on 02/05/2025 21:17:44 Dictated By: Ton Worley MD Signed By: <Electronically signed by Ton Worley MD in OV> 02/05/252117 DD/ 16 TD/TT: 02/05/252116 Bumper Operator: Procedure Note Donotuseinterpreter, Image - 02/05/[address] [address] [address] Scan Report Signed Patient: Kelsey Lozano [facility]#: [id number] : 1975Acct:[id number] Age/Sex: 49 / FADM Date: 02/05/25 Loc: HO.ED Attending Dr: Ordering Physician: Mata Tatum MD Date of Service: 02/05/25 Procedure(s): CT abdomen pelvis wo IV con Accession Number(s): [id number] cc: [facility]; Mata Tatum MD Report Number: [id number]: Total DLP = 956.00 mGy-cm CLINICAL HISTORY: Upper abdominal pain , etiology?? CT abdomen and pelvis without contrast Comparison: None provided Findings: Please refer to chest CT for bases and thoracic findings. Mild fat deposition of the liver. Surface contours partly obscured by motion artifacts. Bilateral adrenal hyperplasia with 2 cm lipid rich adenoma of the left adrenal gland and 1.7 cm lipid rich adenoma of the right adrenal gland. The spleen is nonenlarged. Mild volume loss of the pancreas noted. No hydronephrosis. Mild perinephric stranding is nonspecific. Gallbladder is unremarkable for noncontrast CT. No small bowel obstruction. Wall thickening of the large intestine is nonspecific including the cecum. Appendicolith at the base of the appendix without additional or definite findings of acute appendicitis in this noncontrast study. Intrauterine device is in place. No adnexal soft tissue mass by noncontrast CT. Mild wall thickening of the urinary bladder is nonspecific and can be seen with cystitis. Degenerative changes include the hips, pubic symphysis, SI joints, and spine, including imaged facet arthropathy. IMPRESSION: 1. Perinephric stranding is nonspecific by noncontrast CT. No hydronephrosis. 2. Wall thickening of the large intestine is nonspecific and can be seen with colitis, including imaged cecum. 3. Appendicolith present. Please correlate for any potential appendicitis. This document has been electronically signed by: Ton Worley MD on 02/05/2025 21:17:44 Dictated By: Ton Worley MD Signed By: <Electronically signed by Ton Worley MD in OV> 02/05/252117 DD/ 16 TD/TT: 02/05/252116 Bumper Operator: us [facility] External Provider IMG CT PROCEDURES Final Result * Blood Culture (First) (02/05/2025 9:13 PM EDT) Blood Venous blood specimen / Unknown 02/05/2025 9:13 PM EDT 02/05/2025 9:22 PM EDT Comment:Blood Narrative [facility] - 02/08/2025 7:40 AM EDT Blood Culture (First) null Blood Culture (First) null Blood Culture (First) null Blood Culture (First) null Blood Culture (First) null Blood Culture (First) null Blood Culture (First) null Blood Culture (First) null Blood Culture (First) null Blood Culture (First) BC Positive/Drawn Blood Culture (First) 2 sets positive/2 sets drawn Blood Culture (First) GS - on external report Blood Culture (First) Gram-negative rods Escherichia coli Results of Blood Culture gram stain called to and read back by JOAN at 1119 on 02/06/25 by ISABELLA. Escherichia coli: Ampicillin <=2(S) Escherichia coli: Cefazolin (Non-Urine) <=1(S) Escherichia coli: Cefepime <=0.12(S) Escherichia coli: Ceftriaxone <=0.25(S) Escherichia coli: Ciprofloxacin <=0.06(S) Escherichia coli: Gentamicin <=1(S) Escherichia coli: Trimethoprim/Sulfamethoxazole <=20(S) Specimen Source: Blood us Generic External Data Provider LAB MICROBIOLOGY - GENERAL ORDERABLES Final Result Performing Organization Address City/State/[facility] Co de Phone Number [facility] [address] [place] [phone] * Blood Culture (Second) (02/05/2025 9:13 PM EDT) Blood Venous blood specimen / Unknown 02/05/2025 9:13 PM EDT 02/05/2025 9:22 PM EDT Comment:Blood Narrative [facility] - 02/09/2025 8:20 AM EDT Blood Culture (Second) null Blood Culture (Second) null Blood Culture (Second) null Blood Culture (Second) null Blood Culture (Second) null Blood Culture (Second) null Blood Culture (Second) null Blood Culture (Second) null Blood Culture (Second) null Blood Culture (Second) BC Positive/Drawn Blood Culture (Second) 2 sets positive/2 sets drawn Blood Culture (Second) GS - on external report Blood Culture (Second) Gram-negative rods Escherichia coli Refer [facility] ORG #1: Susceptibility testing of same organism(s) from Refer [facility] similar site will not be repeated within 4 days. Results of Blood Culture gram stain called to and read back by JOAN at 1123 on 02/06/25 by ISABELLA. Specimen Source: Blood Generic External Data Provider LAB MICROBIOLOGY - GENERAL ORDERABLES Final Result Performing Organization Address [facility] Co de Phone Number [facility] [address] [place] [address] [phone] * (ABNORMAL) Glucose, Whole Blood (02/05/2025 7:31 PM EDT) Glucose, Whole Blood 283(H) 60 - 115 mg/dL [facility] Comment:METER #: [id number] 02/05/2025 7:31 PM EDT 02/05/2025 7:35 PM EDT Generic External Data Provider LAB BLOOD ORDERAB LES Final Result Performing Organization Address [facility] Co de Phone Number [facility] [address] [place] [address] [phone] * XR Chest 2 Views (02/05/2025 7:02 PM EDT) Anatomical Region Laterality Modality Chest Radiographic Joyce ging 02/05/2025 7:02 PM EDT Narrative 02/05/2025 7:04 PM EDT [address] [address] XRay Report Signed Patient: Kelsey Lozano MR#: [id number] : 1975 Acct:[id number] Age/Sex: 49 / F ADM Date: 02/05/25 Loc: HO.ED Attending Dr: Ordering Physician: Frank Sesay Date of Service: 02/05/25 Procedure(s): XR chest 2V Accession Number(s): [id number] cc: [facility]; Frank Sesay CLINICAL HISTORY: cough 2 view chest x-ray Comparison: None provided Findings: No consolidation or effusion. Normal size heart. No acute fracture. IMPRESSION: 1. No acute findings. This document has been electronically signed by: Esau Weiner MD on 02/05/2025 19:02:55 Dictated By: Esau Weiner MD Signed By: <Electronically signed by Esau Weiner MD in OV> 02/05/251902 DD/ 01 TD/TT: 02/05/251901 Bumper Operator: Procedure Note Jensenter, Image - 02/05/2025 [place] [address] XRay Report Signed Patient: Kelsey Lozano [facility]#: [id number] : 1975Acct:[id number] Age/Sex: 49 / FADM Date: 02/05/25 Loc: .ED Attending Dr: Ordering Physician: Frank Sesay Date of Service: 02/05/25 Procedure(s): XR chest 2V Accession Number(s): [id number] cc: [facility]; Frank eSsay CLINICAL HISTORY: cough 2 view chest x-ray Comparison: None provided Findings: No consolidation or effusion. Normal size heart. No acute fracture. IMPRESSION: 1. No acute findings. This document has been electronically signed by: Esau Weiner MD on 02/05/2025 19:02:55 Dictated By: Esau Weiner MD Signed By: <Electronically signed by Esau Weiner MD in OV> 02/05/251902 DD/ 01 TD/TT: 02/05/251901 Bumper Operator: [facility] External Provider IMG XR PROCEDURES Final Result * Slide Review (02/05/2025 6:06 PM EDT) Slide Review VERIFIED [facility] 02/05/2025 6:06 PM EDT 02/05/2025 6:09 PM EDT Generic External Data Provider LAB BLOOD ORDERAB LES Final Result Performing Organization Address [facility] Co de Phone Number [facility] [address] [place] [phone] * SARS-CoV-2 RNA, Influenza A/B, and RSV RNA, Ql NAAT (02/05/2025 6:06 PM EDT) Influenza A PCR NEGATIVE Negative [facility] Influenza B PCR NEGATIVE Negative [facility] Resp Syncy Virus RNA Qual PCR NEGATIVE Negative [facility] SARS COV2 PCR NEGATIVE Negative [facility] Comment:All test results mus t be correlated with clinical findings.Negative results do not preclude SARS-CoV2, influenza Avirus, influenza B virus and/or RSV infectionand should not be used as the sole basis for treatment orother patient management decisions. Negative results must becombined with clinical observations, patient history, andepidemiological information.This test has not been evaluated for monitoring treatment ofinfection.This test has been authorized by the FDA under an EmergencyUse Authorization (EUA) for use by authorized laboratories.Testing performed on the [employer] GeneXpert utilizingreal-time RT-PCR.All SARS CoV2 and positive influenza A/B results arereported to [facility]. 02/05/2025 6:0 6 PM EDT 02/05/2025 6:09 PM EDT us Generic External Data Provider LAB MICROBIOLOGY - GENERAL ORDERABLES Final Result Performing Organization Address [facility]/ZIP Co de Phone Number [facility] [address] [place] [phone] * Culture, Urine, Routine (02/05/2025 12:00 AM EDT) Urine Urine specimen obtained by clean catch procedure / Unknown 02/05/2025 02/05/2025 Comment:UACC Narrative [facility] - 02/08/2025 7:33 AM EDT Escherichia coli Quant > 100,000 cfu/mL Escherichia coli: Ampicillin <=2(S) Escherichia coli: Cefazolin (Urine) <=1(S) Escherichia coli: Cefepime <=0.12(S) Escherichia coli: Ceftriaxone <=0.25(S) Escherichia coli: Ciprofloxacin <=0.06(S) Escherichia coli: Gentamicin <=1(S) Escherichia coli: Nitrofurantoin <=16(S) Escherichia coli: Trimethoprim/Sulfamethoxazole <=20(S) Specimen Source: Urine clean catch us Generic External Data Provider LAB MICROBIOLOGY - GENERAL ORDERABLES Final Result [facility] [address] [place] [phone] * (ABNORMAL) POCT HGB A1C (10/21/2024 10:59 AM EDT) Hemoglobin A1C 7.3(A) 4.0 - 6.0 % QC Media Lot # [id number] Lot# Expiration Date Blood 10/21/2024 10:5 9 AM EDT Reyna Lutz DO POINT OF CARE TEST ENTER/CL T ORDERABLES Final Result * HPV DNA, Low/High Risk (10/21/2024 12:00 AM EDT) HPV High Risk Negative Negative [facility] HPV Genotype 16 Negative Negative [facility] HPV Genotype 18 Negative Negative [facility] Comment:HPV testing performe d at [facility] (CLIA#[id number]), [address] [place] [phone].Testing for HPV was performed using the [employer] citibuddies0system. The presence of HPV in the female [...] DO LAB BLOOD ORDERABLES Final R esult [facility] [address] [place] [phone] * Pap Smear (10/21/2024 12:00 AM EDT) Swab Vaginal structure / Unknown 10/21/2024 10/22/2024 11:11 AM EDT Narrative [facility] - 10/24/2024 8:00 AM EDT ----- ------- Name: Kelsey Lozano Dmitry Age/Sex: 49/F : 1975 Unit#: [id number] Attend Dr: Reyna Lutz DO Re10/22/24 Status: DEP [place] [facility] [facility] [place] ----- ------- SPEC : [id number] RECD: 10/22/24 STATUS: WILLIAM ARANA NUM: [id number] JOANA: 10/21/24-[address]: Reyna Lutz DO ENTERED: 10/22/24 SP TYPE: Pap Smr OT DR: ORDERED: Pap Smear Interpretation Satisfactory for evaluation. Negative for intraepithelial lesion or malignancy. HPV High Risk: Negative HPV Genotyping 16: Negative HPV Genotyping 18: Negative Clinical Information LMP: Unknown date Previous PAP test: Unknown date/findings Other surgery: IUD Material Received ThinPrep-Vaginal ----- ------- Signed (signature on file) RADHA Catherine (ASCP) 10/24/24 0800 ----- ------- END OF REPORT us Reyna Lutz DO LAB CYTOLOGY ORDERABLES Adeola meyers Result [facility] [address] [place] [phone] * BI Mammogram Screening Tomosynthesis Bilateral (02/08/2024 2:30 PM EDT) Anatomical Region Laterality Modality Breast Bilateral Mammography 02/08/2024 2:30 PM EDT Narrative 03/06/2024 1:14 PM EDT [address] [place] [address] Mammography Report Signed Patient: Kelsey Lozano MR#: [id number] : 1975 Acct:[id number] Age/Sex: 48 / F ADM Date: 02/08/24 Loc: HO.MAMMO Attending Dr: Reyna Lutz DO Ordering Physician: Reyna Lutz DO Results: 1N egative Date of Service: 02/08/24 Follow Up: 1 Year From Orig ina Mammogram Procedure(s): MM tomosynthesis screening BI Accession Number(s): [id number] cc: Reyna Lutz DO EXAMINATION: MM SCREENING [...] 03/06/24 1311 DD/ 1430 TD/TT: 02/08/24 1448 Bumper Operator: Procedure Note Donotuseinterpreter, Image - 03/06/[address] [place] [address] Mammography Report Signed Patient: Kelsey Lozano [facility]#: [id number] : 1975Acct:[id number] Age/Sex: 48 / FADM Date: 02/08/24 Loc: HO.MAMMO Attending Dr: Reyna Lutz DO Ordering Physician: Reyna Lutzults: 1N egative Date of Service: 02/08/24Follow Up: 1 Year From Orig inal Mammogram Procedure(s): MM tomosynthesis screening BI Accession Number(s): [id number] cc: Reyna Lutz DO EXAMINATION: MM SCREENING [...] 03/06/24 1311 DD/ 1430 TD/TT: 02/08/24 1448 Bumper Operator: Reyna Lutz DO IMG BI PROCEDURES Edited Res ult - Final * Albumin, Random Urine W/Creatinine (02/01/2024 8:00 AM EDT) Creatinine, Urine 85.81 mg/dL [facility] Microalbumin Urine 10.0 mg/L [facility] Microalbum Creatinine Ratio Ur 11.6 <30 ug/mg cr [facility] Comment:Albumin/Creatinine R atio Reference Ranges: Normal: < 30 ug/mg creatinine Microalbuminuria: 30 - 300 ug/mg creatinineClinical Albuminuria: > 300 ug/mg creatinine Urine (Urine, Random) 02/01/2024 8:00 AM EDT 02/01/2024 12:08 PM EDT Narrative [facility] - 02/01/2024 12:40 PM EDT ORIGINALLY ORDERED UNDER ACCOUNT [id number] Reyna Lutz LAB URINE ORDERABLES Final R esult Performing Organization Address [facility]/ZIP Co de Phone Number [facility] [address] [place] [phone] * Hepatitis C Antibody with Reflex to HCV, RNA, Quantitative, Real-Time PCR (01/23/2024 1:04 PM EDT) Hepatitis C Antibody Nonreactive Nonreactive [facility] Comment:Antibodies to HCV no t detected; does not exclude early acuteHCV infection. Blood Venous blood specimen / Unknown 01/23/2024 1:04 PM EDT 01/23/2024 3:56 PM EDT Reyna Lutz LAB BLOOD ORDERABLES Final R esult Performing Organization Address [facility]/ZIP Co de Phone Number [facility] [address] [place] [phone] * HIV-1/2 Antigen and Antibodies, Fourth Generation, with Reflexes (01/23/2024 1:04 PM EDT) HIV AB/AG Nonreactive Nonreactive [facility] Comment:HIV-1 p24 Ag and/or HIV-1/HIV-2 Ab not detected.A test result that is nonreactive does not exclude thepossibility of exposure to or infection with HIV-1 and/orHIV-2. Nonreactive results in this assay for individualswith prior exposure to HIV-1 and/or HIV-2 may be due toantigen and antibody levels that are below the limit ofdetection of this assay.The [employer] HIV Ag/Ab Combo assay result andsupplemental assay results should be interpreted inconjunction with the patient's clinical presentation,history and other laboratory results. If the results areinconsistent with clinical evidence, additional testing issuggested to confirm the result. Blood Venous blood specimen / Unknown 01/23/2024 1:04 PM EDT 01/23/2024 3:56 PM EDT us Reyna Lutz DO LAB BLOOD ORDERABLES Final R esult [facility] [address] [place] [phone] * (ABNORMAL) Lipid Panel, Standard (01/23/2024 1:04 PM EDT) Triglycerides 141 <150 mg/dL [facility] Comment:Desirable Triglyceri de: less than 150 mg/dLBorderline High Triglyceride 150-199 mg/dLHigh Triglyceride: 200-499 mg/dLVery High Triglyceride: greater than or equal to 5OO mg/dL Cholesterol 210(H) <200 mg/dL [facility] Comment:Desirable Cholestero l: less than 200 mg/dLBorderline High Cholesterol: 200-239 mg/dLHigh Cholesterol: greater than 239 mg/dL LDL Cholesterol Calculated 133(H) <100 mg/dL [facility] Comment:Desirable LDL: less than 100 mg/dLNear Optimal/Above Optimal LDL: 110- 129 mg/dLBorderline High LDL: 130-159 mg/dLHigh LDL: 160-189 mg/dLVery High LDL: greater than or equal to 190 mg/dL HDL Cholesterol 49 >40 mg/dL [facility] Comment:Desirable HDL: great er than 40 mg/dL Note: This HDL assay may give artificially low results in patients with liver disease. Blood Venous blood specimen / Unknown 01/23/2024 1:04 PM EDT 01/23/2024 3:56 PM EDT us Reyna Lutz DO LAB BLOOD ORDERABLES Final R esult [facility] [address] [place] [phone] from Last 3 Months or Most Recently Relevant to Health Maintenance Insurance [facility] C3 DENTAL-[facility] MEDICAID STAND ADULT Care Teams Guest Service Host Relationship Specialty Start Date End Date Reyna Lutz DO [address] [place] [phone] PCP - General Family Medicine 11/26/19 Kerri A 02/12/25
--- OUTSIDE RECORDS SUMMARY | 2025-03-19 18:28 | XMS_ITS | Encounter Summary ---
Author Organization [employer] Address [address] [place] [address] [address] [place] [address] Care Team Providers Care Afternoon Babysitter Name Role Phone AlfredoReyna marmolejo Primary Care Provider [phone] Encounter Details Date Type Department Care Team (Late st Contact Info) Description 12/21/2022 Orders Only [facility] AD[facility]ENT[facility] [address] [place] [address] Rachna Mendez DDS [address] [place] [address] Social History Tobacco Use Types Packs/Day Years [...] 2:15 PM EDT Office Visit [facility] [address] [place] [address] Francisca France MD [address] [place] [address] documented as of this encounter Visit Diagnoses Not on filedocumented in this encounter Care Teams Afternoon Babysitter Relationship Specialty Start Date End Date Reyna Lutz DO [address] [place] [address] PCP - General Family Medicine 11/26/19 Kerri SHANKS 02/12/25 documented as of this encounter
--- OUTSIDE RECORDS SUMMARY | 2025-03-19 18:28 | XMS_ITS | Encounter Summary ---
Author Organization [employer] Address [address] [place] [address] 7 [place] [address] Care Team Providers Care Db2 Developer Name Role Phone Reyna Lutz DO Primary Care Provider [phone] Encounter Details Date Type Department Care Team (Late st Contact Info) Description 11/10/2022 Orders Only [facility]ED[facility] [address] [place], [place] [phone] Reyna Maradiaga LPN Social History Tobacco Use [...] Description 03/26/2025 2:15 PM EDT Office Visit [facility] MED[facility] [address] [place] [address] Francisca France MD [address] [place], [place] [phone] documented as of this encounter Visit Diagnoses Not on filedocumented in this encounter Care Teams Db2 Developer Relationship Specialty Start Date End Date Reyna Lutz DO [address] [place], [place] [phone] PCP - General Family Medicine 11/26/19 Kerri SHANKS 02/12/25 documented as of this encounter
--- OUTSIDE RECORDS SUMMARY | 2025-03-19 18:28 | XMS_ITS | Encounter Summary ---
Author Organization [employer] Address [address] [place] [address] 7 [place] [address] Care Team Providers Care Sample Hand Name Role Phone Reyna Lutz DO Primary Care Provider [phone] Encounter Details Date Type Department Care Team (Late st Contact Info) Description 07/22/2022 Orders Only [facility] PEDS [address] [place], [place] [phone] Reyna Maradiaga LPN Social History Tobacco Use [...] Office Visit [facility] MED[facility] [address] [place] [address] Francisca France MD [address] [place] [address] documented as of this encounter Visit Diagnoses Not on filedocumented in this encounter Care Teams Sample Hand Relationship Specialty Start Date End Date Reyna Lutz DO [address] [place], [place] [phone] PCP - General Family Medicine 11/26/19 Kerri SHANKS 02/12/25 documented as of this encounter
--- OUTSIDE RECORDS SUMMARY | 2025-03-19 18:28 | XMS_ITS | Clinical Summary ---
Author Organization [facility] Address [address] [place] [address] [place] [phone] Phone Care Team Providers Care Cutter Hot Knife Name Role Phone Reyna Lutz DO Primary Care Provider Social History Tobacco Use Types Packs/Day Years [...] 2019 ZOSTER VACCINES (1 of 2) 2023 INFLUENZA VACCINE (#1) 2025 COVID-19 VACCINE (1 - 2023-2 5 season) 2025 MAMMOGRAM 02/07/2026 02/08/2024, 02/02/2023 Adult Td,Tdap Booster [...] topic Medical Devices Not on file Insurance [facility] C3 ACO [facility] C3 ACO [facility] C3 ACO [facility] C3 ACO [facility] C3 ACO [facility] C3 ACO Care Teams Cutter Hot Knife Relationship Specialty Start Date End Date Reyna Lutz DO [address] [place] [address] PCP - General Family Medicine 03/25/24 Additional Source Comments The information contained in this document represents components of the legal health record. It is not the complete legal health record.[facility]
--- OUTSIDE RECORDS SUMMARY | 2025-03-19 18:28 | XMS_ITS | Encounter Summary ---
Author Organization [employer] Address [address] [place] [address] 7t [place] [address] Care Team Providers Care Busher Helper Name Role Phone Reyna Lutz DO Primary Care Provider [phone] Reason for Referral * Consultation (Routine) - Closed Specialty Diagnoses / Procedures Referred By Contac t Referred To Contact Neurology Diagnoses Myotonic dystrophy (CMS/HCC) Sowmya Marinelli MD [address] [place] [address] Phone: tel: fax: Dale Mina MD [address] [place] [address] [place] [address] Phone: tel: fax: Referral ID Status Reason Start Date Expiration Date V isits Requested Visits Authorized [id number] Closed Specialty Services Required 09/04/2024 09/04/2025 6 6 Encounter Details Date Type Department Care Team (Late st Contact Info) Description 08/27/2024 Orders Only [facility] [address] [place], [place] [phone] Sowmya Marinelli MD [address] [place], [place] [phone] Myotonic dystrophy (CMS/HCC) (Primary Dx) Social History [...] Description 03/26/2025 2:15 PM EDT Office Visit [facility] [address] [place] [address] Francisca France MD [address] [place] [address] Scheduled Referrals Name Type Priority Associated Diagnoses [...] documented as of this encounter Care Teams Busher Helper Relationship Specialty Start Date End Date Reyna Lutz DO [address] [place] [address] PCP - General Family Medicine 11/26/19 Kerri SHANKS 02/12/25 documented as of this encounter
== END 2025-03-19 15:38 | disposition home or self-care (01) ==
LOC: HO.MRI 15:37
PROVIDERS: PCP Family Medicine; Visit Provider Obstetrics & Gynecology
DX: N88.9 Noninflammatory disorder of cervix uteri, unspecified (principal)
CPT/HCPCS: 72197; A9585

== ENCOUNTER → 2025-03-19 15:45 | Outpatient (BNV) | payer MEDICAID, SELFPAY | PROVIDERS: PCP Family Medicine; Visit Provider Radiology Diagnostic Radiology | DX: D25.9 Leiomyoma of uterus, unspecified (principal); N88.8 Other specified noninflammatory disorders of cervix uteri | CPT/HCPCS: 72197 ==

== ENCOUNTER 2025-03-25 14:50 | Outpatient (AMB) | payer MEDICAID, SELFPAY ==
--- NOTE | 2025-03-25 14:50 | A.OFFVIS_ITS ---
Intake Visit Reasons: TV MRI results [phone] Allergies No Known Allergies (No Known Allergies*) Allergy (Verified 02/07/25 18:42) HPI Comments Details: The patient is schedule telehealth visit for follow-up of the pelvic MRI regarding abnormal CT findings on the cervix Pelvic MRI done recently showed the following: Uterus measures approximately 10.4 x 5.3 x 5 6 cm. There is a posterior fibroid measuring 3.4 x 3.0 x 2.8 cm. There is a 1.4 cm anterior fibroid and a 7 mm fundal fibroid. Additional smaller fibroids are noted. The junctional zone is not thickened. There is an IUD in place in the endometrial cavity. There are numerous nabothian cysts in the cervix measuring up to 1.2 cm in size. These likely account for the heterogeneous appearance of the cervix on prior contrast-enhanced CT. The cervical stroma appears preserved. Right ovary measures approximately 3.2 x 2.1 x 2.0 cm and is unremarkable. The left ovary is not definitely identified. No ascites is seen in the pelvis. There is no lymphadenopathy. There is a 1.7 cm cyst of the wall of the bladder dome. This is unchanged from multiple prior CT scans. There is possible wall thickening of the anorectal junction. MR/MR pelvis wo/w con IMPRESSION: 1. Fibroid uterus as described. 2. Multiple nabothian cysts in the cervix, likely accounting for the heterogeneous appearance on CT. 3. Possible thickening of the anorectal junction. Correlation with direct inspection is recommended. [facility] Medical History Urinary incontinence Restrictive lung disease Allergic rhinitis Paroxysmal cough Anxiety Depression Muscular dystrophy, emery-dreifuss Surgical History Hx of section H/O endoscopy Family History Unknown No family history of colorectal cancer Social History Household Members: Family Household Members Other:: Lives with her daughter (23-special needs) and her mother Housing: Apartment Do you presently have visiting nurse or other home services: No Alcohol intake: never Patient Tobacco Use Status: Never used Tobacco service: No Current occupational status: disabled Female Reproductive History Menstrual Age of Menarche: 11 Telehealth Telehealth Telehealth Platform: [employer] Location of provider rendering services: practice address Location of patient: address on file Patient Identification confirmed using: Name, : Yes Telehealth method: video Patient verbally consented to treatment: Yes Patient verbally consented to billing insurance company: Yes Patient informed of any privacy concerns related to visit: Yes Minutes spent on Phone/Video with Pt.: 5 Assessment & Plan Assessment & Plan (1) Uterine myoma: Comment: History of endometrial hyperplasia on Mirena IUD Elevated alpha fetoprotein Code(s): D25.9 - Leiomyoma of uterus, unspecified Category: Medical Plan: Discussed with the patient the findings on pelvic ultrasound & the risk of myosarcoma; in addition reviewed with the patient that malignancy and pre malignancy cannot be ruled out without hysterectomy for pathological evaluation ; furthermore, explained to the patient the limitation of pelvic ultrasound and endometrial biopsy in the setting. Discussed with the patient the options of treatment including expectant management versus hysterectomy; the pros and cons, risks benefits of each approach were discussed with the patient including the fact that in cases of myosarcoma, surgical treatment can lead to early diagnosis and positively affects the prognosis; after further discussion, the patient decided to proceed with expectant management. Will repeat pelvic ultrasound periodically. Instructions given to patient to call in case any of the following occurs: pressure symptoms, abnormal uterine bleeding, pelvic pain; and to schedule a six-months pelvic ultrasound (order placed) and a follow-up appointment . All questions answered, the patient verbalized understanding and agreed with the plan . (2) Abnormal cervix finding: Comment: on CT Code(s): N88.9 - Noninflammatory disorder of cervix uteri, unspecified Category: Medical Plan: Discussed with the patient the finding on MRI multiple nabothian cysts of the cervix, the patient was reassured (3) Abnormal MRI: Comment: Thickening of anorectal junction Code(s): R93.89 - Abnormal findings on diagnostic imaging of other specified body structures Category: Medical Plan: Discussed with the patient the abnormal finding on MRI showing thickening of ano rectal junction recommended direct inspection, recommended to the patient to call her PCP for further management. All questions answered, the patient verbalized understanding I spent a total of 20 minutes reviewing the chart, talking to the patient via video and documenting in the medical record. Coding Level of Care Code Tele Est Pt Level 3 (51243) Diagnoses Uterine myoma D25.9 Abnormal cervix finding N88.9 Abnormal MRI R93.89
--- OUTSIDE RECORDS SUMMARY | 2025-03-25 18:32 | XMS_ITS | Encounter Summary ---
Author Organization [employer] Address [address] [place] [address] 7 [place] [address] Care Team Providers Care Animator Name Role Phone Reyna Lutz DO Primary Care Provider [phone]- [phone] Encounter Details Date Type Department Care Team (Late st Contact Info) Description 07/20/2022 Orders Only [facility] [address] [place] [address] Malou Feliz LPN Social History Tobacco Use [...] Description 03/26/2025 2:15 PM EDT Office Visit [facility] [address] [place] [address] Francisca France MD [address] [place] [address] documented as of this encounter Visit Diagnoses Not on filedocumented in this encounter Care Teams Animator Relationship Specialty Start Date End Date Reyna Lutz DO [address] [place] [address] PCP - General Family Medicine 11/26/19 Kerri SHANKS 02/12/25 documented as of this encounter
--- OUTSIDE RECORDS SUMMARY | 2025-03-25 18:32 | XMS_ITS | Encounter Summary ---
Author Organization [employer] Address [address] [place] [address] 7 [place] [address] Care Team Providers Care Security And Privacy Consultant Name Role Phone Reyna Lutz DO Primary Care Provider [phone] Reason for Referral * Consultation (Routine) - Canceled Specialty Diagnoses / Procedures Referred By Roger mullins Referred To Contact Audiology Diagnoses Bilateral hearing loss, unspecified hearing loss type Reyna Lutz DO [address] [place] [address] Phone: tel: fax: Referral ID Status Reason Start Date Expiration Date Visits Requested Visits Authorized [id number] Canceled Specialty Services Required 03/03/2025 03/03/2026 1 1 Encounter Details Date Type Department Care Team (Late st Contact Info) Description 03/03/2025 Orders Only [facility] [address] [place] [address] Reyna Lutz DO [address] [place], [place] [phone] Bilateral hearing loss, unspecified hearing loss type [...] Description 03/26/2025 2:15 PM EDT Office Visit [facility] [address] [place] [address] Francisca France MD [address] [place], [place] [phone] Scheduled Referrals Name Type Priority Associated Diagnoses [...] documented as of this encounter Care Teams Security And Privacy Consultant Relationship Specialty Start Date End Date Reyna Lutz DO [address] [place] [address] PCP - General Family Medicine 11/26/19 Kerri SHANKS 02/12/25 documented as of this encounter
--- OUTSIDE RECORDS SUMMARY | 2025-03-25 18:32 | XMS_ITS | Encounter Summary ---
Author Organization [employer] Address [address] [place] [address] 7t [place] [address] Care Team Providers Care Toolroom Attendant Name Role Phone Reyna Lutz DO Primary Care Provider + [phone] Reason for Visit * Reason Onset Date Comments FYI 03/11/2025 Encounter Details Date Type Department Care Team ([facility] st Contact Info) Description 03/11/2025 Telephone [facility] [address] [place] [address] Reyna Lutz DO [address] [place] [address] Social History Tobacco Use Types Packs/Day Years [...] 1:41 PM EDT TC placed to Rachel ([facility] [phone] regarding below message. Rachel reported patient has [...] issue with transportation to have her call [facility] to arrange a Uber ride to [...] too high. Any questions contact pt at [phone] documented in this encounter Plan of Treatment Upcoming Encounters Date Type Department Care Team (Late st Contact Info) Description 03/26/2025 2:15 PM EDT Office Visit [facility] [address] [place] [address] Francisca France MD [address] [place] [address] documented as of this encounter Visit Diagnoses Not on filedocumented in this encounter Additional Health Concerns Assessment Noted Time PHQ-9 Depression Total Score: 5 10/22/19 25 11:40 AM EDT documented as of this encounter Care Teams Toolroom Attendant Relationship Specialty Start Date End Date Reyna Lutz DO [address] [place], [place] [phone] PCP - General Family Medicine 11/26/19 Kerri SHANKS 02/12/25 documented as of this encounter
--- OUTSIDE RECORDS SUMMARY | 2025-03-25 18:32 | XMS_ITS | Encounter Summary ---
Author Organization [employer] Address [address] [place] [address] 7 [place] [address] Care Team Providers Care Metal Bonder Name Role Phone Reyna Lutz DO Primary Care Provider [phone] Encounter Details Date Type Department Care Team (Late st Contact Info) Description 07/22/2022 Orders Only [facility] MED & PEDS [address] [place], [place] [phone] Reyna Maradiaga LPN Social History Tobacco Use [...] Description 03/26/2025 2:15 PM EDT Office Visit [facility] [address] [place] [address] Francisca France MD [address] [place] [address] documented as of this encounter Visit Diagnoses Not on filedocumented in this encounter Care Teams Metal Bonder Relationship Specialty Start Date End Date Reyna Lutz DO [address] [place], [place] [phone] PCP - General Family Medicine 11/26/19 Kerri SHANKS 02/12/25 documented as of this encounter
--- OUTSIDE RECORDS SUMMARY | 2025-03-25 18:32 | XMS_ITS | Encounter Summary ---
Author Organization [employer] Address [address] [place] [address] 7 [place] [address] Care Team Providers Care Repair Weaver Name Role Phone Reyna Lutz DO Primary Care Provider [phone]- [phone] Encounter Details Date Type Department Care Team (Late st Contact Info) Description 06/27/[address] [facility] [address] [place] [address] Malou Feliz LPN Social History Tobacco Use [...] Description 03/26/2025 2:15 PM EDT Office Visit [facility] [address] [place] [address] Francisca France MD [address] [place] [address] documented as of this encounter Visit Diagnoses Not on filedocumented in this encounter Care Teams Repair Weaver Relationship Specialty Start Date End Date Reyna Lutz DO [address] [place] [address] PCP - General Family Medicine 11/26/19 Kerri SHANKS 02/12/25 documented as of this encounter
--- OUTSIDE RECORDS SUMMARY | 2025-03-25 18:33 | XMS_ITS | Encounter Summary ---
Author Organization [employer] Address [address] [place] [address] 7 [place] [address] Care Team Providers Care Palletiser Operator Name Role Phone Mague Lutzfer Primary Care Provider [phone] Reason for Visit * Reason Onset Date Comments Appointment 09/26/2022 Kelsey Lozano 1975 Patient was seen 09/26 and was wondering if medication was sent to pharmacy please advise Encounter Details Date Type Department Care Team ([facility] st Contact Info) Description 09/26/2022 Telephone [facility] ADULT DENTAL [address] [place] [address] John Ortega DDS [address] [place] [address] Appointment (Kelsey Lozano 1975 Patient was seen [...] Description 03/26/2025 2:15 PM EDT Office Visit [facility] [address] [place], [place] [phone] Francisca France MD [address] [place], [place] [phone] documented as of this encounter Visit Diagnoses Not on filedocumented in this encounter Care Teams Palletiser Operator Relationship Specialty Start Date End Date Reyna Lutz DO [address] [place] [address] PCP - General Family Medicine 11/26/19 Kerri BEGUMA 02/12/25 documented as of this encounter
--- OUTSIDE RECORDS SUMMARY | 2025-03-25 18:33 | XMS_ITS | Encounter Summary ---
Author Organization [employer] Address [address] [place] [address] 7t [place] [address] Care Team Providers Care Endoscopy Specialty Technician Name Role Phone Reyna Lutz DO Primary Care Provider [phone] Reason for Referral * Consultation (Routine) - Closed Specialty Diagnoses / Procedures Referred By Contac t Referred To Contact Neurology Diagnoses Myotonic dystrophy (CMS/HCC) Sowmya Marinelli MD [address] [place] [address] Phone: tel: fax: Dale Mina MD [address] [place] [address] [place] [address] Phone: tel: fax: Referral ID Status Reason Start Date Expiration Date V isits Requested Visits Authorized [id number] Closed Specialty Services Required 09/04/2024 09/04/2025 6 6 Encounter Details Date Type Department Care Team (Late st Contact Info) Description 08/27/2024 Orders Only [facility] [address] [place], [place] [phone] Sowmya Marinelli MD [address] [place], [place] [phone] Myotonic dystrophy (CMS/HCC) (Primary Dx) Social History [...] Description 03/26/2025 2:15 PM EDT Office Visit [facility] [address] [place] [address] Francisca France MD [address] [place] [address] Scheduled Referrals Name Type Priority Associated Diagnoses [...] documented as of this encounter Care Teams Endoscopy Specialty Technician Relationship Specialty Start Date End Date Reyna Lutz DO [address] [place] [address] PCP - General Family Medicine 11/26/19 Kerri SHANKS 02/12/25 documented as of this encounter
--- OUTSIDE RECORDS SUMMARY | 2025-03-25 18:33 | XMS_ITS | Encounter Summary ---
Author Organization [employer] Address [address] [place] [address] 7t [place] [address] Care Team Providers Care Technical Solutions Consultant Name Role Phone Reyna Lutz DO Primary Care Provider [phone] Reason for Visit * Reason Onset Date Comments Nurse Triage 02/17/2025 Encounter Details Date Type Department Care Team ([facility] st Contact Info) Description 02/17/2025 Telephone [facility] [address] [place] [address] Reyna Lutz DO [address] [place] [address] Nurse Triage Social History Tobacco Use Types [...] Description 03/26/2025 2:15 PM EDT Office Visit [facility] [address] [place] [address] Francisca France MD [address] [place] [address] documented as of this encounter Visit Diagnoses Not on filedocumented in this encounter Additional Health Concerns Assessment Noted Time PHQ-9 Depression Total Score: 5 10/22/19 11:40 AM EDT documented as of this encounter Care Teams Technical Solutions Consultant Relationship Specialty Start Date End Date Reyna Lutz DO [address] [place] [address] PCP - General Family Medicine 11/26/19 Kerri SHANKS 02/12/25 documented as of this encounter
--- OUTSIDE RECORDS SUMMARY | 2025-03-25 18:33 | XMS_ITS | Encounter Summary ---
Author Organization [employer] Address [address] [place] [address] 7t [place] [address] Care Team Providers Care Rehab Aide Name Role Phone NeldaReyna Primary Care Provider [phone] Reason for Visit * Reason Onset Date Comments script for toothpaste 12/21/2022 Encounter Details Date Type Department Care Team (Late st Contact Info) Description 12/21/[address] [facility] ADULT DENTAL [address] [place] [address] Rachna Mendez, DDS [address] [place] [address] script for toothpaste Social History Tobacco Use [...] Description 03/26/2025 2:15 PM EDT Office Visit [facility] [address] [place], [place] [phone] Francisca France MD [address] [place], [place] [phone] documented as of this encounter Visit Diagnoses Not on filedocumented in this encounter Care Teams Rehab Aide Relationship Specialty Start Date End Date Reyna Lutz DO [address] [place] [address] PCP - General Family Medicine 11/26/19 Kerri BEGUMA 02/12/25 documented as of this encounter
--- OUTSIDE RECORDS SUMMARY | 2025-03-25 18:33 | XMS_ITS | Encounter Summary ---
Author Organization [employer] Address [address] [place] [address] 7t [place] [address] Care Team Providers Care Regional Forester Name Role Phone Reyna Lutz DO Primary Care Provider + [phone] Reason for Visit * Reason Onset Date Comments chart prep 03/25/2025 Encounter Details Date Type Department Care Team ([facility] st Contact Info) Description 03/25/2025 Telephone [facility] [address] [place] [address] Reyna Lutz DO [address] [place] [address] chart prep Social History Tobacco Use Types Packs/Day Years [...] encounter Miscellaneous Notes * Telephone Encounter - Effie Su [place] - 03/25/2025 1:22 PM EDT Chart Prep Labs: done Images: done Referrals: appointment pending Vaccines due: Covid, Flu, and Zoster Screenings: colonoscopy, mammogram, eye exam, and foot exam Overdue care gaps: A1c, Glucose, PHQ-9, and CJ-7 documented in this encounter Plan of Treatment Upcoming Encounters Date Type Department Care Team (Late st Contact Info) Description 03/26/2025 2:15 PM EDT Office Visit [facility] [address] [place] [address] Francisca France MD [address] [place] [address] documented as of this encounter Visit Diagnoses Not on filedocumented in this encounter Additional Health Concerns Assessment Noted Time PHQ-9 Depression Total Score: 5 10/22/19 25 11:40 AM EDT documented as of this encounter Care Teams Regional Forester Relationship Specialty Start Date End Date Reyna Lutz DO [address] [place] [address] PCP - General Family Medicine 11/26/19 Kerri SHANKS 02/12/25 documented as of this encounter
--- OUTSIDE RECORDS SUMMARY | 2025-03-25 18:33 | XMS_ITS | Encounter Summary ---
Author Organization [employer] Address [address] [place] [address] [address] [place] [address] Care Team Providers Care Shank Sander Name Role Phone Reyna Lutz DO Primary Care Provider + [phone] Reason for Visit * Reason Onset Date Comments Referral 08/27/2024 Encounter Details Date Type Department Care Team ([facility] st Contact Info) Description 08/27/2024 Telephone [facility] MEDICINE [address] [place] [address] Reyna Lutz DO [address] [place] [address] Referral Social History Tobacco Use Types Packs/Day [...] to go that far. Contact pt at [phone] documented in this encounter Plan of Treatment Upcoming Encounters Date Type Department Care Team (Late st Contact Info) Description 03/26/2025 2:15 PM EDT Office Visit [facility] MEDICINE [address] [place] [address] Francisca France MD [address] [place] [address] documented as of this encounter Visit Diagnoses Not on filedocumented in this encounter Additional Health Concerns Assessment Noted Time PHQ-9 Depression Total Score: 4 01/23/20 24 10:23 AM EDT documented as of this encounter Care Teams Shank Sander Relationship Specialty Start Date End Date Reyna Lutz DO [address] [place] [address] PCP - General Family Medicine 11/26/19 Keller A 02/12/25 documented as of this encounter
--- OUTSIDE RECORDS SUMMARY | 2025-03-25 18:33 | XMS_ITS | Encounter Summary ---
Author Organization [employer] Address [address] [place] [address] 7 [place] [address] Care Team Providers Care Chrome Cleaner Name Role Phone Reyna Lutz DO Primary Care Provider [phone] Encounter Details Date Type Department Care Team (Late st Contact Info) Description 08/16/2022 Orders Only [facility] MED & PEDS [address] [place], [place] [phone] Reyna Maradiaga LPN Social History Tobacco Use [...] Description 03/26/2025 2:15 PM EDT Office Visit [facility] MEDICINE [address] [place] [address] Francisca France MD [address] [place] [address] documented as of this encounter Visit Diagnoses Not on filedocumented in this encounter Care Teams Chrome Cleaner Relationship Specialty Start Date End Date Reyna Lutz DO [address] [place], [place] [phone] PCP - General Family Medicine 11/26/19 Kerri SHANKS 02/12/25 documented as of this encounter
--- OUTSIDE RECORDS SUMMARY | 2025-03-25 18:33 | XMS_ITS | Encounter Summary ---
Author Organization [employer] Address [address] [place] [address] [address]t [place] [address] Care Team Providers Care Vaccine Key Customer Leader Name Role Phone Reyna Lutz DO Primary Care Provider [phone] Encounter Details Date Type Department Care Team (Late Contact Info) Description 09/09/[address] [facility] MED & PEDS [address] [place], [place] [phone] Reyna Maradiaga LPN Social History Tobacco Use [...] 03/26/2025 2:15 PM EDT Office Visit [facility] [address] [place] [address] Francisca France MD [address] [place], [place] [phone] documented as of this encounter Visit Diagnoses Not on filedocumented in this encounter Care Teams Vaccine Key Customer Leader Relationship Specialty Start Date End Date Reyna Lutz DO 230 [place] [address] PCP - General Family Medicine 11/26/19 Kerri SHANKS 02/12/25 documented as of this encounter
--- OUTSIDE RECORDS SUMMARY | 2025-03-25 18:33 | XMS_ITS | Encounter Summary ---
Author Organization [employer] Address [address] [place] [address] 7 [place] [address] Care Team Providers Care Rewriter Name Role Phone NeldaReyna Primary Care Provider [phone] Reason for Visit * Reason Onset Date [...] (Late st Contact Info) Description 09/26/2022 Telephone [facility] ADULT DENTAL [address] [place] [address] Michael Jackson DDS [address] [place] [address] Appointment (Kelsey Alegrebo 1975 Patient was seen [...] Visit [facility] MEDICINE [address] [place] [address] Francisca France MD [address] [place] [address] documented as of this encounter Visit Diagnoses Not on filedocumented in this encounter Care Teams Rewriter Relationship Specialty Start Date End Date Reyna Lutz DO [address] [place] [address] PCP - General Family Medicine 11/26/19 Kerri BEGUMA 02/12/25 documented as of this encounter
--- OUTSIDE RECORDS SUMMARY | 2025-03-25 18:33 | XMS_ITS | Clinical Summary ---
Author Organization [employer] Address [address] [place] [address] 7[address] [place] [address] Care Team Providers Care Nutritionist Name Role Phone NeldaReyna Primary Care Provider [...] 2025 Active ergocalciferol (Vitamin D2) 1.25 MG (88211 UT) capsuleIndications :Vitamin D deficiency TAKE 1 CAPSULE BY MOUTH ONCE WEEKLY ON MONDAY MORNING 12 capsule 3 025 Active lidocaine (Lidoderm) 5 % patch APPLY 1 PATCH TOPICALLY TO SKIN, LEAVE ON FOR 12 HOURS AND OFF FOR 12 HOURS DIRECTED NEEDED FOR MILD PAIN 30 patch 3 025 Active nystatin (Mycostatin) 018253 UNIT/GM powder Apply topically 2 times daily. 180 g 3 025 2025 Active amLODIPine (Norvasc) 10 MG tabletIndications: Hypertension, unspecified type TAKE 1 TABLET BY MOUTH EVERY MORNING 90 tablet 1 025 Active FREESTYLE LITE test stripIndications:T ype 2 diabetes mellitus without complications ([facility]) USE DIRECTED TO TEST BLOOD SUGAR TWICE DAILY 100 strip 5 025 Active TRUEplus Lancets 33G miscIndications:Ty pe 2 diabetes mellitus without complications ([facility]) USE DIRECTED TO TEST BLOOD SUGAR TWICE [...] tabletIndications: Type 2 diabetes mellitus without complications ([facility]) TAKE 1 TABLET BY MOUTH TWICE DAILY [...] Encounters Date Type Department Care Team Description 03/25/2025 Telephone [facility] MEDICINE [address] [place] [phone] Reyna Lutz DO chart prep 03/19/2025 Orders Only [facility] External Provider, 03/11/2025 Telephone [facility] MEDICINE [address] [place] [address] Reyna Lutz DO FYI 03/06/2025 Telephone [facility]INE [address] [place] [address] Francisca France MD No Show 03/06/2025 Telephone [facility] [address] [place] [address] Reyna Lutz DO Appointment Request; Hospital Follow-up 03/05/2025 Telephone [facility] [address] [place] [address] Reyna Lutz DO 03/03/2025 Orders Only [facility] [place] [address] Reyna Lutz DO Bilateral hearing loss, unspecified hearing loss type (Primary Dx) 03/03/2025 Orders Only [facility] [place] [address] [address]a Lutz DO Abnormal CT of the chest (Primary Dx) 02/19/2025 Telephone [facility] [address] [facility] [place] [address] Reyna Lutz DO FYI 02/18/2025 Orders Only [facility] MEDICINE [address] [place] [address], [place] [address] Reyna Lutz DO Bilateral hearing loss, unspecified hearing loss type (Primary Dx) 02/17/2025 Telephone [facility] [place] [address] Reyna Lutz DO Referral 02/17/[address] [place] [address] Reyna Lutz DO Nurse Triage 02/11/2025 Patient Outreach [facility] [place] [address] Reyna Lutz DO Transition Of Care (Tcm) (HDF - Scheduled ) 02/07/2025 Orders Only GENERIC EXTERNAL DATA DEPARTMENT Provider, Generic External Data 02/05/2025 Orders Only GENERIC EXTERNAL DATA DEPARTMENT Provider, Generic External Data 02/05/2025 Travel 02/03/2025 Refill [facility] [place] [address] Reyna Lutz DO Chronic gastroesophageal reflux disease 01/29/2025 Telephone [facility] [address] [place] [address], [place] [address] Reyna Lutz DO Cologuard Kit 12/31/2024 Refill [facility] [place] [address] Reyna Lutz, Other hyperlipidemia from Last 3 Months Immunizations Immunization Administration [...] Description 03/26/2025 2:15 PM EDT Office Visit [facility] [address] [place] [address] Francisca France MD [address] [place] [address] Health Maintenance Due Date Last Done Comments [...] Procedure Name Priority Date/Time Associated Diagnosis Comments MR PELVIS W AND WO CONTRAST Routine 03/19/2025 4:00 PM EDT XR CHEST 1 VIEW Routine 02/08/2025 8:24 [...] Recently Relevant to Health Maintenance Results * MR Pelvis w/ and w/o Contrast (03/19/2025 4:00 PM EDT) Anatomical Region Laterality Modality Body, Pelvis Magnetic Resonan ce 03/19/2025 4:00 PM EDT Narrative 03/20/2025 7:36 AM EDT [place] [address] Magnetic Resonance Report Signed Patient: Kelsey Lozano MR#: [id number] : 1975 Acct:[id number] Age/Sex: 49 / F ADM Date: 03/19/25 Loc: .MRI Attending Dr: Jimenez Mitchell MD Ordering Physician: Jimenez Mitchell MD Date of Service: 03/19/25 Procedure(s): MR pelvis wo/w con Accession Number(s): [id number] cc: Reyna Lutz DO; Jimenez Mitchell MD Reason for Exam: N88.9 - Noninflammatory disorder of cervix uteri, unspecified EXAMINATION: MR PELVIS WITHOUT THEN WITH IV CONTRAST HISTORY: N88.9 - Noninflammatory disorder of cervix uteri, unspecified. TECHNIQUE: Axial T1, fat-suppressed T1, and fat suppressed T2, and sagittal and coronal T2-weighted MR images of the pelvis were obtained. Subsequently, sagittal and axial fat-suppressed T1-weighted images were obtained after the intravenous administration of 7.5 mL Gadavist. COMPARISON: Correlation is made with CT scans of the abdomen and pelvis dated 02/05/2025 and 10/22/2024. FINDINGS: Uterus measures approximately 10.4 x 5.3 x 5 6 cm. There is a posterior fibroid measuring 3.4 x 3.0 x 2.8 cm. There is a 1.4 cm anterior fibroid and a 7 mm fundal fibroid. Additional smaller fibroids are noted. The junctional zone is not thickened. There is an IUD in place in the endometrial cavity. There are numerous nabothian cysts in the cervix measuring up to 1.2 cm in size. These likely account for the heterogeneous appearance of the cervix on prior contrast-enhanced CT. The cervical stroma appears preserved. Right ovary measures approximately 3.2 x 2.1 x 2.0 cm and is unremarkable. The left ovary is not definitely identified. No ascites is seen in the pelvis. There is no lymphadenopathy. There is a 1.7 cm cyst of the wall of the bladder dome. This is unchanged from multiple prior CT scans. There is possible wall thickening of the anorectal junction. MR/MR pelvis wo/w con IMPRESSION: 1. Fibroid uterus as described. 2. Multiple nabothian cysts in the cervix, likely accounting for the heterogeneous appearance on CT. 3. Possible thickening of the anorectal junction. Correlation with direct inspection is recommended. Electronically signed by: Tung Montez MD 03/20/2025 07:33 AM EDT RP Dictated By: Tung Montez MD Signed By: <Electronically signed by Tung Montez MD in OV> 03/20/25 0733 DD/ 1600 TD/TT: 03/19/25 1619 Termite Treater Helper: Procedure Note Donotuseinterpreter, Image - 03/20/2025 [place] [address] Magnetic Resonance Report Signed Patient: Kelsey Lozano [facility]#: [id number] : 1975Acct:[id number] Age/Sex: 49 / FADM Date: 03/19/25 Loc: HO.MRI Attending Dr: Jimenez Mitchell MD Ordering Physician: Jimenez Mitchell MD Date of Service: 03/19/25 Procedure(s): MR pelvis wo/w con Accession Number(s): [id number] cc: Reyna Lutz DO; Jimenez Mitchell MD Reason for Exam: N88.9 - Noninflammatory disorder of cervix uteri,unspecified EXAMINATION: MR PELVIS WITHOUT THEN WITH IV CONTRAST HISTORY: N88.9 - Noninflammatory disorder of cervix uteri, unspecified. TECHNIQUE: Axial T1, fat-suppressed T1, and fat suppressed T2, and sagittal and coronal T2-weighted MR images of the pelvis were obtained. Subsequently, sagittal and axial fat-suppressed T1-weighted images were obtained after the intravenous administration of 7.5 mL Gadavist. COMPARISON: Correlation is made with CT scans of the abdomen and pelvis dated 02/05/2025 and 10/22/2024. FINDINGS: Uterus measures approximately 10.4 x 5.3 x 5 6 cm. There is a posterior fibroid measuring 3.4 x 3.0 x 2.8 cm. There is a 1.4 cm anterior fibroid and a 7 mm fundal fibroid. Additional smaller fibroids are noted. The junctional zone is not thickened. There is an IUD in place in the endometrial cavity. There are numerous nabothian cysts in the cervix measuring up to 1.2 cm in size. These likely account for the heterogeneous appearance of the cervix on prior contrast-enhanced CT. The cervical stroma appears preserved. Right ovary measures approximately 3.2 x 2.1 x 2.0 cm and is unremarkable. The left ovary is not definitely identified. No ascites is seen in the pelvis. There is no lymphadenopathy. There is a 1.7 cm cyst of the wall of the bladder dome. This is unchanged from multiple prior CT scans. There is possible wall thickening of the anorectal junction. MR/MR pelvis wo/w con IMPRESSION: 1. Fibroid uterus as described. 2. Multiple nabothian cysts in the cervix, likely accounting for the heterogeneous appearance on CT. 3. Possible thickening of the anorectal junction. Correlation with direct inspection is recommended. Electronically signed by: Tung Montez MD 03/20/2025 07:33 AM EDT Dictated By: Tung Montez MD Signed By: <Electronically signed by Tung Montez MD in OV> 03/20/25 0733 DD/ 1600 TD/TT: 03/19/25 1619 Termite Treater Helper: [facility] External Provider IMG MRI PROCEDURES Final Result * XR Chest 1 View (02/08/2025 8:24 AM EDT) Anatomical Region Laterality Modality Chest Radiographic Joyce ging 02/08/2025 8:24 AM EDT Narrative 02/08/2025 8:25 AM EDT [address] [address] XRay Report Signed Patient: Kelsey Loznao MR#: [id number] : 1975 Acct:[id number] Age/Sex: 49 / F ADM Date: 02/07/25 Loc: NERI ROYAL-[address]: Everardo Gonzalez MD Ordering Physician: Everardo Gonzalez MD Date of Service: 02/08/25 Procedure(s): XR chest 1V Accession Number(s): [id number] cc: Reyna Lutz DO; Everardo Gonzalez MD [...] in OV> 02/08/25824 DD/ 3 TD/TT: 02/08/25823 Termite Treater Helper: Procedure Note Donotuseinterpreter, Image - 02/08/2025 [place] [address] XRay Report Signed Patient: Kelsey Lozano MMR#: [id number] : 1975Acct:[id number] Age/Sex: 49 / FADM Date: 02/07/25 Loc: NERI ROYAL-[address]: Everardo Gonzalez MD Ordering Physician: Everardo Gonzalez MD Date of Service: 02/08/25 Procedure(s): XR chest 1V Accession Number(s): [id number] cc: Reyna Lutz DO; Everardo Gonzalez MD [...] in OV> 02/08/25824 DD/ 3 TD/TT: 02/08/25823 Termite Treater Helper: [facility] External Provider IMG XR PROCEDURES Edited Result - Final * (ABNORMAL) CBC auto differential (02/07/2025 6:59 PM EDT) Only the most recent of2 resultswithin the time period is included. White Blood Count 10.4 4.8 - 10.8 X10*3/uL [facility] Red Blood Count 5.09 4.20 - 5.50 X10*6/uL [facility] Hemoglobin 15.3 12.0 - 16.0 g/dl [facility] Hematocrit 45.3 37.0 - 47.0 % [facility] Mean Corpuscular Volume 89.0 80.0 - 98.0 fL [facility] Mean Corpuscular Hemoglobin 30.1 27.0 - 33.0 pg [facility] Mean Corpuscular HGB Conc 33.8 31.0 - 35.0 g/dl [facility] Red Cell Distribution Width 14.0 11.0 - 16.0 % [facility] Platelet Count 184 160 - 400 X10*3/uL [facility] Mean Platelet Volume 10.9 9.4 - 12.3 fL [facility] Neutrophils Percent Auto 71.2 45 - 73 % [facility] Imm Gran Pct Auto 0.8(H) 0.0 - 0.4 % [facility] Lymphocytes Percent Auto 13.5(L) 20 - 40 % [facility] Monocytes Percent Auto 14.0(H) 2 - 11 % [facility] Eosinophils Percent Auto 0.2 0 - 4 % [facility] Basophils Percent Auto 0.3 0 - 2 % [facility] NRBC Pct Auto 0.0 0.0 - 0.2 /100WBC [facility] Neutrophils Absolute Auto 7.4 2.0 - 8.3 x10*3/uL [facility] Imm Gran Abs Auto 0.08(H) 0.00 - 0.03 X10*3/uL [facility] Lymphocytes Absolute Auto 1.4 1.2 - 4.9 X10*3/uL [facility] Monocytes Absolute Auto 1.5(H) 0.1 - 1.2 X10*3/uL [facility] Eosinophils Absolute Auto 0.0 0.0 - 0.4 X10*3/uL [facility] Basophils Absolute Auto 0.0 0.0 - 0.2 X10*3/uL [facility] NRBC Abs Auto 0.000 0.0 - 0.012 X10*3/uL [facility] 02/07/2025 6:59 PM EDT 02/07/2025 7:04 PM EDT Generic External Data Provider LAB BLOOD ORDERAB LES Final Result Performing Organization Address [facility]/ZIP Co de Phone Number [facility] [address] [place] [phone] * Magnesium (02/07/2025 6:59 PM EDT) Magnesium 2.3 1.6 - 2.6 mg/dL [facility] 02/07/2025 6:59 PM EDT 02/07/2025 7:04 PM EDT Generic External Data Provider LAB BLOOD ORDERAB LES Final Result Performing Organization Address [facility] Co de Phone Number [facility] [address] [place] [phone] * Lactic Acid (02/07/2025 6:59 PM EDT) Only the most recent of2 resultswithin the time period is included. Lactic Acid 1.3 0.5 - 2.0 mmol/L [facility] 02/07/2025 6:59 PM EDT 02/07/2025 7:04 PM EDT us Generic External Data Provider LAB BLOOD ORDERAB LES Final Result [facility] [address] [place] [phone] * (ABNORMAL) Comprehensive Metabolic Panel (02/07/2025 6:59 PM EDT) Sodium 140 135 - 145 mmol/L [facility] Potassium 3.2(L) 3.3 - 5.1 mmol/L [facility] Chloride 95(L) 96 - 108 mmol/L [facility] Carbon Dioxide 33(H) 22 - 29 mmol/L [facility] Anion Gap 15 12 - 20 [facility] Urea Nitrogen (BUN) 11 9 - 16 mg/dL [facility] Creatinine, Serum 0.70 0.5 - 1.4 mg/dL [facility] Creatinine Clr Calc Pharmacy 95.5 [facility] Comment:Provided height and weight: 162.56 cm,77 kg.eGFR (calculated from the MDRD study equation) and eCrCl(calculated from the Cockcroft-Gault equation) are based ondifferent parameters and may not yield comparable results.If eCrCl result is absurd, please check patient'sheight/weight. Estimated Glomerular Filt Rate >60 [facility] Comment:Chronic Kidney Disea se: Estimated GFR < 60 mL/min/1.96n4Vfsxao Kidney Disease: Estimated GFR < 15 mL/min/1.73m2 Glucose 152(H) 60 - 115 mg/dL [facility] Calcium 9.3 8.4 - 10.2 mg/dL [facility] Bilirubin, Total 1.2(H) 0.0 - 1.0 mg/dL [facility] Aspartate Amino Transferase 61(H) 5 - 31 U/L [facility] Alanine Aminotransferase 39(H) 0 - 31 U/L [facility] Total Protein 6.8 6.5 - 8.0 g/dL [facility] Albumin Level 3.5 3.5 - 5.0 g/dL [facility] Alkaline Phosphatase 138(H) 39 - 117 U/L [facility] 02/07/2025 6:59 PM EDT 02/07/2025 7:04 PM EDT us Generic External Data Provider LAB BLOOD ORDERAB LES Final Result [facility] [address] [place] [phone] * (ABNORMAL) Urinalysis, Complete, with Reflex to Culture (02/05/2025 10:47 PM EDT) Color Urine Dark Yellow [facility] Appearance Urine Cloudy [facility] PH 5.5 5.0 - 9.0 [facility] Glucose Urine UA 500(A) Negative mg/dL [facility] Urine Blood Large (3+)(A) Negative [facility] Specific [place] - Urine 1.020 1.005 - 1.025 [facility] Urine Protein 100 (2+)(A) Neg-Trace mg/dL [facility] Urine Ketones Trace Negative mg/dL [facility] Nitrite Urine Positive(A) Negative [facility] Leukocyte Esterase Urine Moderate (2+)(A) Negative [facility] RBC Urine 6-10(A) 0 - 2 /HPF [facility] Urine WBC >50(A) 0 - 5 /HPF [facility] Urine Squamous Epithelial Cell 6-10 0 - 2 /HPF [facility] Urine Bacteria 3+ None Seen [facility] Hyaline Casts, Urine 11-20 0 - 2 /LPF [facility] 02/05/2025 10:4 7 PM EDT 02/05/2025 10:50 PM EDT Narrative [facility] - 02/05/2025 11:08 PM EDT Urine, Clean Catch us Generic External Data Provider LAB URINE ORDERAB LES Final Result Performing Organization Address [facility] Co de Phone Number [facility] [address] [place] [phone] * (ABNORMAL) VENOUS BLOOD GAS (02/05/2025 9:25 PM EDT) VBG pH 7.42 7.32 - 7.43 [facility] Comment:METER #: [id number] additional_comment: CbJonesas VBG PCO2 55 mmHg [facility] Comment:METER #: [id number] additional_comment: CbJonesas VBG PO2 50 mmHg [facility] Comment:METER #: [id number] additional_comment: CbJonesas VBG Base Excess 9.3 mmol/L [facility] Comment:METER #: [id number] additional_comment: CbJonesas VBG HCO3 36(H) 22 - 26 mmol/L [facility] Comment:METER #: [id number] additional_comment: Abiola O2 Sat, Osmin 82.0 % [facility] Comment:METER #: [id number] additional_comment: CbJonesas 02/05/2025 9:25 PM EDT 02/05/2025 9:30 PM EDT us Generic External Data Provider LAB BLOOD ORDERAB LES Final Result Performing Organization Address [facility] Co de Phone Number [facility] [address] [place] [phone] * CT Chest w/o Contrast (02/05/2025 9:18 PM EDT) Anatomical Region Laterality Modality Body, Chest Computed Tomogra phy 02/05/2025 9:18 PM EDT Narrative 02/05/2025 9:19 PM EDT [address] [address] [address] Scan Report Signed Patient: Kelsey Lozano MR#: [id number] : 1975 Acct:[id number] Age/Sex: 49 / F ADM Date: 02/05/25 Loc: HO.ED Attending Dr: Ordering Physician: Mata Tatum MD Date of Service: 02/05/25 Procedure(s): CT chest wo IV con Accession Number(s): [id number] cc: [facility]; Mata Tatum MD Report Number: [id number]: Total DLP = 956.00 mGy-cm CLINICAL HISTORY: [...] document has been electronically signed by: Ton Wroley MD on 02/05/2025 21:18:45 Dictated By: Ton Worley MD Signed By: <Electronically signed by Ton Worley MD in OV> 02/05/252118 DD/ 17 TD/TT: 02/05/252117 Termite Treater Helper: Procedure Note Donotuseinterpreter, Image - 02/05/[address] [address] [address] Scan Report Signed Patient: Kelsey Lozano MMR#: [id number] : 1975Acct:[id number] Age/Sex: 49 / FADM Date: 02/05/25 Loc: HO.ED Attending Dr: Ordering Physician: Mata Tatum MD Date of Service: 02/05/25 Procedure(s): CT chest wo IV con Accession Number(s): [id number] cc: [facility]; Mata Tatum MD Report Number: [id number]: Total DLP = 956.00 mGy-cm CLINICAL HISTORY: [...] in OV> 02/05/252118 DD/ 17 TD/TT: 02/05/252117 Termite Treater Helper: [facility] External Provider IMG CT PROCEDURES Final Result * CT Abdomen Pelvis w/o Contrast (02/05/2025 9:17 PM EDT) Anatomical Region Laterality Modality Body, Pelvis, Abdomen Computed T omography 02/05/2025 9:17 PM EDT Narrative 02/05/2025 9:19 PM EDT [address] [address] [address] Scan Report Signed Patient: Kelsey Lozano MR#: [id number] : 1975 Acct:[id number] Age/Sex: 49 / F ADM Date: 02/05/25 Loc: HO.ED Attending Dr: Ordering Physician: Mata Tatum MD Date of Service: 02/05/25 Procedure(s): CT abdomen pelvis wo IV con Accession Number(s): [id number] cc: [facility]; Mata Tatum MD Report Number: [id number]: Total DLP = 956.00 mGy-cm CLINICAL HISTORY: [...] in OV> 02/05/252117 DD/ 16 TD/TT: 02/05/252116 Termite Treater Helper: Procedure Note Donotuseinterpreter, Image - 02/05/[address] [place] [address] CT Scan Report Signed Patient: Kelsey Lozano [facility]#: [id number] : 1975Acct:[id number] Age/Sex: 49 / FADM Date: 02/05/25 Loc: HO.ED Attending Dr: Ordering Physician: Mata Tatum MD Date of Service: 02/05/25 Procedure(s): CT abdomen pelvis wo IV con Accession Number(s): [id number] cc: [facility]; Mata Tatum MD Report Number: [id number]: Total DLP = 956.00 mGy-cm CLINICAL HISTORY: [...] in OV> 02/05/252117 DD/ 16 TD/TT: 02/05/252116 Termite Treater Helper: [facility] External Provider IMG CT PROCEDURES Final Result * Blood Culture (First) (02/05/2025 9:13 PM EDT) Blood Venous blood specimen / Unknown 02/05/2025 9:13 PM EDT 02/05/2025 9:22 PM EDT Comment:Blood Narrative [facility] - 02/08/2025 7:40 AM EDT [...] Escherichia coli: Trimethoprim/Sulfamethoxazole <=20(S) Specimen Source: Blood Generic External Data Provider LAB MICROBIOLOGY - GENERAL ORDERABLES Final Result [facility] [address] [place] [phone] * Blood Culture (Second) (02/05/2025 9:13 PM EDT) Blood Venous blood specimen / Unknown 02/05/2025 9:13 PM EDT 02/05/2025 9:22 PM EDT Comment:Blood Narrative [facility] - 02/09/2025 8:20 AM EDT [...] Culture (Second) Gram-negative rods Escherichia coli Refer [facility] ORG #1: Susceptibility testing of same organism(s) from Refer [facility] similar site will not be repeated within 4 days. Results of Blood Culture gram stain called to and read back by JOAN at 1123 on 02/06/25 by ISABELLA. Specimen Source: Blood Generic External Data Provider LAB MICROBIOLOGY - GENERAL ORDERABLES Final Result Performing Organization Address City/[facility]/ZIP Co de Phone Number [facility] [address] [place] [phone] * (ABNORMAL) Glucose, Whole Blood (02/05/2025 7:31 PM EDT) Glucose, Whole Blood 283(H) 60 - 115 mg/dL [facility] Comment:METER #: [id number] 02/05/2025 7:31 PM EDT 02/05/2025 7:35 PM EDT Generic External Data Provider LAB BLOOD ORDERAB LES Final Result Performing Organization Address [facility]/ZIP Co de Phone Number [facility] [address] [place] [phone] * XR Chest 2 Views (02/05/2025 7:02 PM EDT) Anatomical Region Laterality Modality Chest Radiographic Joyce ging 02/05/2025 7:02 PM EDT Narrative 02/05/2025 7:04 PM EDT [address] [address] XRay Report Signed Patient: Kelsey Lozano MR#: [id number] : 1975 Acct:[id number] Age/Sex: 49 / F ADM Date: 02/05/25 Loc: .ED Attending Dr: Ordering Physician: Frank Sesay Date of Service: 02/05/25 Procedure(s): XR chest 2V Accession Number(s): [id number] cc: [facility]; Frank Sesay CLINICAL HISTORY: cough 2 view chest x-ray Comparison: None provided Findings: No consolidation or effusion. Normal size heart. No acute fracture. IMPRESSION: 1. No acute findings. This document has been electronically signed by: Esau Weiner MD on 02/05/2025 19:02:55 Dictated By: Esau Weiner MD Signed By: <Electronically signed by Esau Weiner MD in OV> 02/05/251902 DD/ 01 TD/TT: 02/05/251901 Termite Treater Helper: Procedure Note Jensenter, Image - 02/05/2025 [place] [address] XRay Report Signed Patient: Kelsey Lozano [facility]#: [id number] : 1975Acct:[id number] Age/Sex: 49 / FADM Date: 02/05/25 Loc: .ED Attending Dr: Ordering Physician: Frank Sesay Date of Service: 02/05/25 Procedure(s): XR chest 2V Accession Number(s): [id number] cc: [facility]; Frank Sesay CLINICAL HISTORY: cough 2 view chest x-ray Comparison: None provided Findings: No consolidation or effusion. Normal size heart. No acute fracture. IMPRESSION: 1. No acute findings. This document has been electronically signed by: Esau Weiner MD on 02/05/2025 19:02:55 Dictated By: Esau Weiner MD Signed By: <Electronically signed by Esau Weiner MD in OV> 02/05/251902 DD/ 01 TD/TT: 02/05/251901 Termite Treater Helper: us External Provider IMG XR PROCEDURES Final Result * Slide Review (02/05/2025 6:06 PM EDT) Slide Review VERIFIED [facility] 02/05/2025 6:06 PM EDT 02/05/2025 6:09 PM EDT Generic External Data Provider LAB BLOOD ORDERAB LES Final Result Performing Organization Address [facility] Co de Phone Number [facility] [address] [place] [phone] * SARS-CoV-2 RNA, Influenza A/B, and RSV RNA, Ql NAAT (02/05/2025 6:06 PM EDT) Influenza A PCR NEGATIVE Negative [facility] Influenza B PCR NEGATIVE Negative [facility] Resp Syncy Virus RNA Qual PCR NEGATIVE Negative [facility] SARS COV2 PCR NEGATIVE Negative [facility] Comment:All test results mus t be [...] use by authorized laboratories.Testing performed on the [employer] GeneXpert utilizingreal-time RT-PCR.All SARS CoV2 and positive influenza A/B results arereported to [facility]. 02/05/2025 6:06 PM EDT 02/05/2025 6:09 PM EDT Generic External Data Provider LAB MICROBIOLOGY - GENERAL ORDERABLES Final Result Performing Organization Address [facility]/ZIP Co de Phone Number [facility] [address] [place] [phone] * Culture, Urine, Routine (02/05/2025 12:00 AM EDT) Urine Urine specimen obtained by clean catch procedure / Unknown 02/05/2025 02/05/2025 Comment:UACC Narrative [facility] - 02/08/2025 7:33 AM EDT Escherichia coli Quant > 100,000 cfu/mL Escherichia coli: Ampicillin <=2(S) Escherichia coli: Cefazolin (Urine) <=1(S) Escherichia coli: Cefepime <=0.12(S) Escherichia coli: Ceftriaxone <=0.25(S) Escherichia coli: Ciprofloxacin <=0.06(S) Escherichia coli: Gentamicin <=1(S) Escherichia coli: Nitrofurantoin <=16(S) Escherichia coli: Trimethoprim/Sulfamethoxazole <=20(S) Specimen Source: Urine clean catch us Generic External Data Provider LAB MICROBIOLOGY - GENERAL ORDERABLES Final Result [facility] [address] [place] [address] [phone] * (ABNORMAL) POCT HGB A1C (10/21/2024 10:59 AM EDT) Hemoglobin A1C 7.3(A) 4.0 - 6.0 % QC Media Lot # [id number] Lot# Expiration Date Blood 10/21/2024 10:5 9 AM EDT Reyna Lutz DO POINT OF CARE TEST ENTER/CL T ORDERABLES Final Result * HPV DNA, Low/High Risk (10/21/2024 12:00 AM EDT) HPV High Risk Negative Negative [facility] HPV Genotype 16 Negative Negative [facility] HPV Genotype 18 Negative Negative [facility] Comment:HPV testing performe d at [facility] (CLIA#[id number]), [address] [place] [address].Testing for HPV was performed using the [employer] KIARA xAd0system. The presence of HPV in the female [...] DO LAB BLOOD ORDERABLES Final R esult [facility] [address] [place] [address] [phone] * Pap Smear (10/21/2024 12:00 AM EDT) Swab Vaginal structure / Unknown 10/21/2024 10/22/2024 11:11 AM EDT Narrative [facility] - 10/24/2024 8:00 AM EDT ----- ------- Name: Kelsey Lozano Age/Sex: 49/F : 1975 Unit#: [id number] Attend Dr: Reyna Lutz DO Re10/22/24 Status: DEP REF Location: HO.HHCLNP Disch: ----- ------- SPEC : [id number] RECD: 10/22/24 STATUS: WILLIAM ARANA NUM: [id number] JOANA: 10/21/24-[address] [facility] [address]: Reyna Lutz DO ENTERED: 10/22/248 SP TYPE: Pap Smr OTHR DR: ORDERED: Pap Smear Interpretation Satisfactory for [...] DO LAB CYTOLOGY ORDERABLES Adeola meyers Result [facility] [address] [place] [address] [phone] * BI Mammogram Screening Tomosynthesis Bilateral (02/08/2024 2:30 PM EDT) Anatomical Region Laterality Modality Breast Bilateral Mammography 02/08/2024 2:30 PM EDT Narrative 03/06/2024 1:14 PM EDT Kerri [facility] [address] [place], [place] [address] Mammography Report Signed Patient: Kelsey Lozano MR#: [id number] : 1975 Acct:[id number] Age/Sex: 48 / F ADM Date: 02/08/24 Loc: LAURA Attending Dr: Reyna Lutz DO Ordering Physician: Reyna Lutz DO Results: 1N egative Date of Service: 02/08/24 Follow Up: 1 Year From Orig inal Mammogram Procedure(s): MM tomosynthesis screening BI Accession Number(s): [id number] cc: Reyna Lutz DO EXAMINATION: MM SCREENING [...] 03/06/24 1311 DD/ 1430 TD/TT: 02/08/24 1448 Termite Treater Helper: Procedure Note Donotuseinterpreter, Image - 03/06/2024 [facility] [address] [place], [place] [address] Mammography Report Signed Patient: Kelsey Lozano MMR#: [id number] : 1975Acct:[id number] Age/Sex: 48 / FADM Date: 02/08/24 Loc: HO.MAMMO Attending Dr: Reyna Lutz DO Ordering Physician: Reyna Lutzults: 1N egative Date of Service: 02/08/24Follow Up: 1 Year From Orig ina Mammogram Procedure(s): MM tomosynthesis screening BI Accession Number(s): [id number] cc: Reyna Lutz DO EXAMINATION: MM SCREENING [...] 03/06/24 1311 DD/ 1430 TD/TT: 02/08/24 1448 Termite Treater Helper: Reyna Lutz DO IMG BI PROCEDURES Edited Res ult - Final * Albumin, Random Urine W/Creatinine (02/01/2024 8:00 AM EDT) Creatinine, Urine 85.81 mg/dL [facility] Microalbumin Urine 10.0 mg/L [facility] Microalbum Creatinine Ratio Ur 11.6 <30 ug/mg cr [facility] Comment:Albumin/Creatinine R atio Reference Ranges: Normal: < 30 ug/mg creatinine Microalbuminuria: 30 - 300 ug/mg creatinineClinical Albuminuria: > 300 ug/mg creatinine Urine (Urine, Random) 02/01/2024 8:00 AM EDT 02/01/2024 12:08 PM EDT Narrative [facility] - 02/01/2024 12:40 PM EDT ORIGINALLY ORDERED UNDER ACCOUNT [id number] us Reyna Lutz DO LAB URINE ORDERABLES Final R esult Performing Organization Address [facility]/ZIP Co de Phone Number [facility] [address] [place] [address] [phone] * Hepatitis C Antibody with Reflex to HCV, RNA, Quantitative, Real-Time PCR (01/23/2024 1:04 PM EDT) Hepatitis C Antibody Nonreactive Nonreactive [facility] Comment:Antibodies to HCV no t detected; does not exclude early acuteHCV infection. Blood Venous blood specimen / Unknown 01/23/2024 1:04 PM EDT 01/23/2024 3:56 PM EDT us Reyna Lutz DO LAB BLOOD ORDERABLES Final R esult Performing Organization Address [facility] Co de Phone Number [facility] [address] [place] [address] [phone] * HIV-1/2 Antigen and Antibodies, Fourth Generation, with Reflexes (01/23/2024 1:04 PM EDT) HIV AB/AG Nonreactive Nonreactive [facility] Comment:HIV-1 p24 Ag and/or HIV-1/HIV-2 Ab not detected.A test result that is nonreactive does not exclude thepossibility of exposure to or infection with HIV-1 and/orHIV-2. Nonreactive results in this assay for individualswith prior exposure to HIV-1 and/or HIV-2 may be due toantigen and antibody levels that are below the limit ofdetection of this assay.The [employer] HIV Ag/Ab Combo assay result andsupplemental assay results should be interpreted inconjunction with the patient's clinical presentation,history and other laboratory results. If the results areinconsistent with clinical evidence, additional testing issuggested to confirm the result. Blood Venous blood specimen / Unknown 01/23/2024 1:04 PM EDT 01/23/2024 3:56 PM EDT us Reyna Lutz DO LAB BLOOD ORDERABLES Final R esult [facility] [address] [place] [phone] * (ABNORMAL) Lipid Panel, Standard (01/23/2024 1:04 PM EDT) Triglycerides 141 <150 mg/dL [facility] Comment:Desirable Triglyceri de: less than 150 mg/dLBorderline High Triglyceride 150-199 mg/dLHigh Triglyceride: 200-499 mg/dLVery High Triglyceride: greater than or equal to 5OO mg/dL Cholesterol 210(H) <200 mg/dL [facility] Comment:Desirable Cholestero l: less than 200 mg/dLBorderline High Cholesterol: 200-239 mg/dLHigh Cholesterol: greater than 239 mg/dL LDL Cholesterol Calculated 133(H) <100 mg/dL [facility] Comment:Desirable LDL: less than 100 mg/dLNear Optimal/Above Optimal LDL: 110- 129 mg/dLBorderline High LDL: 130-159 mg/dLHigh LDL: 160-189 mg/dLVery High LDL: greater than or equal to 190 mg/dL HDL Cholesterol 49 >40 mg/dL [facility] Comment:Desirable HDL: great er than 40 mg/dL Note: This HDL assay may give artificially low results in patients with liver disease. Blood Venous blood specimen / Unknown 01/23/2024 1:04 PM EDT 01/23/2024 3:56 PM EDT Reyna Lutz DO LAB BLOOD ORDERABLES Final R esult [facility] [address] [place] [phone] from Last 3 Months or Most Recently Relevant to Health Maintenance Insurance C3 [facility] MEDICAID STAND ADULT Care Teams Nutritionist Relationship Specialty Start Date End Date Reyna Lutz DO [address] [place] [phone] PCP - General Family Medicine 11/26/19 Kerri A 02/12/25
--- OUTSIDE RECORDS SUMMARY | 2025-03-25 18:33 | XMS_ITS | Encounter Summary ---
Author Organization [employer] Address [address] [place] [address] 7t [place] [address] Care Team Providers Care Gift Officer Name Role Phone AlfredoReyna marmolejo Primary Care Provider [phone]- [phone] Encounter Details Date Type Department Care Team (Late st Contact Info) Description 12/21/2022 Orders Only [facility] [address] [place] [address] Rachna Mendez DDS [address] [place] [address] Social History Tobacco Use Types Packs/Day Years [...] Description 03/26/2025 2:15 PM EDT Office Visit [facility] [address] [place] [address] Francisca France MD [address] [place] [address] documented as of this encounter Visit Diagnoses Not on filedocumented in this encounter Care Teams Gift Officer Relationship Specialty Start Date End Date Reyna Lutz DO [address] [place] [address] PCP - General Family Medicine 11/26/19 Kerri SHANKS 02/12/25 documented as of this encounter
--- OUTSIDE RECORDS SUMMARY | 2025-03-25 18:33 | XMS_ITS | Encounter Summary ---
Author Organization [employer] Address [address] [place] [address] 7 [place] [address] Care Team Providers Care Blasting Cap Assembler Name Role Phone AlfredoReyna marmolejo Primary Care Provider [phone]- [phone] Encounter Details Date Type Department Care Team (Late st Contact Info) Description 09/09/2022 Abstract [facility] [address] [place] [address] Rachna Mendez DDS [address] [place] [address] Social History Tobacco Use Types Packs/Day Years [...] Office Visit [facility] [address] [place] [address] Francisca France MD [address] [place] [address] documented as of this encounter Visit Diagnoses Not on filedocumented in this encounter Care Teams Blasting Cap Assembler Relationship Specialty Start Date End Date Reyna Lutz DO [address] [place] [address] PCP - General Family Medicine 11/26/19 Kerri SHANKS 02/12/25 documented as of this encounter
--- OUTSIDE RECORDS SUMMARY | 2025-03-25 18:33 | XMS_ITS | Encounter Summary ---
Author Organization [employer] Address [address] [facility] 7t [place] [address] Care Team Providers Care Restaurant Mgr Name Role Phone CatalinaReyna raines Primary Care Provider + [phone] Encounter Details Date Type Department Care Team (Late st Contact Info) Description 03/19/2025 Orders Only [facility] External Provider, [facility] Social History Tobacco Use Types Packs/Day Years [...] Office Visit [facility] [address] [place], [place] [phone] Francisca France MD [address] [place] [address] documented as of this encounter Procedures Procedure Name Priority Date/Time Associated Diagnosis Comments MR PELVIS W AND WO CONTRAST Routine 03/19/2025 4:00 PM EDT documented in this encounter Results * MR Pelvis w/ and w/o Contrast (03/19/2025 4:00 PM EDT) Anatomical Region Laterality Modality Body, Pelvis Magnetic Resonan ce 03/19/2025 4:00 PM EDT Narrative 03/20/2025 7:36 AM EDT [address] [address] Magnetic Resonance Report Signed Patient: Kelsey Lozano MR#: [id number] : 1975 Acct:[id number] Age/Sex: 49 / F ADM Date: 03/19/25 Loc: HO.MRI Attending Dr: Jimenez Mitchell MD Ordering Physician: Jimenez Mitchell MD Date of Service: 03/19/25 Procedure(s): MR pelvis wo/w con Accession Number(s): [id number] cc: Reyna Lutz Marc J MD Reason for Exam: N88.9 - Noninflammatory [...] 03/20/25 0733 DD/ 1600 TD/TT: 03/19/25 1619 Radio Frequency Technician: Procedure Note Donotuseinterpreter, Image - 03/20/2025 [place] [address] Magnetic Resonance Report Signed Patient: Kelsey Lozano [facility]#: [id number] : 1975Acct:[id number] Age/Sex: 49 / FADM Date: 03/19/25 Loc: .MRI Attending Dr: Jimenez Mitchell MD Ordering Physician: Jimenez Mitchell MD Date of Service: 03/19/25 Procedure(s): MR pelvis wo/w con Accession Number(s): [id number] cc: Reyna Lutz DO; Jimenez Mitchell MD [...] 03/20/25 0733 DD/ 1600 TD/TT: 03/19/25 1619 Radio Frequency Technician: [facility] External Provider IMG MRI PROCEDURES Final Result documented in this encounter Visit Diagnoses Not on filedocumented in this encounter Additional Health Concerns Assessment Noted Time PHQ-9 Depression Total Score: 5 10/22/19 11:40 AM EDT documented as of this encounter Care Teams Restaurant Mgr Relationship Specialty Start Date End Date Reyna Lutz DO [address] [place] [address] PCP - General Family Medicine 11/26/19 [place] 02/12/25 documented as of this encounter
--- OUTSIDE RECORDS SUMMARY | 2025-03-25 18:33 | XMS_ITS | Clinical Summary ---
Author Organization [facility] Address [address] [place] [address] [place] [phone] Phone Care Team Providers Care Tax Analyst Name Role Phone Reyna Lutz DO [...] topic Medical Devices Not on file Insurance [facility] [employer] Care Teams Tax Analyst Relationship Specialty Start Date End Date Reyna Lutz DO [address] [place] [address] PCP - General Family Medicine 03/25/24 Additional Source Comments The information contained in this document represents components of the legal health record. It is not the complete legal health record.[facility]
--- OUTSIDE RECORDS SUMMARY | 2025-03-25 18:33 | XMS_ITS | Encounter Summary ---
Author Organization [employer] Address [address] [place] [address] 7t [place] [address] Care Team Providers Care Fill Technician Name Role Phone Reyna Lutz DO Primary Care Provider [phone] Reason for Visit * Reason Comments Med Refill Encounter Details Date Type Department Care Team (Late st Contact Info) Description 01/16/2023 Refill [facility] [address] [place] [phone] Reyna Lutz DO [address] [place] [address] Pain Social History Tobacco Use Types Packs/Day [...] Description 03/26/2025 2:15 PM EDT Office Visit [facility] [address] [place] [address] Francisca France MD [address] [place] [address] documented as of this encounter Visit Diagnoses Diagnosis Pain Generalized pain documented in this encounter Additional Health Concerns Assessment Noted Time PHQ-9 Depression Total Score: 5 01/10/20 23 10:49 AM EDT documented as of this encounter Care Teams Fill Technician Relationship Specialty Start Date End Date Reyna Lutz DO [address] [place] [address] PCP - General Family Medicine 11/26/19 Kerri SHANKS 02/12/25 documented as of this encounter
--- OUTSIDE RECORDS SUMMARY | 2025-03-25 18:33 | XMS_ITS | Encounter Summary ---
Author Organization [employer] Address [address] [place] [address] 7t [place] [address] Care Team Providers Care Twisting Machine Operator Name Role Phone Reyna Lutz DO Primary Care Provider [phone]- [phone] Reason for Visit * Reason Onset Date Comments Med Refill 10/05/2022 Encounter Details Date Type Department Care Team (Late st Contact Info) Description 10/05/2022 Refill [facility] [address] [place] [address] Reyna Lutz DO [address] [place] [address] Acute bilateral low back pain without sciatica [...] 50 MG tablet To be sent to [facility] [address], [place] [address]. Administrative Services Assistant sees medication was sentto [facility] at [address], [place], [facility] but pharmacy advise pt that they are currently out of this medication. Please contact pt at [phone] documented in this encounter Plan of Treatment Upcoming Encounters Date Type Department Care Team (Late st Contact Info) Description 03/26/2025 2:15 PM EDT Office Visit [facility] [address] [place] [address] Francisca France MD [address] [place] [address] documented as of this encounter Visit Diagnoses Diagnosis Acute bilateral low back pain without sciatica documented in this encounter Care Teams Twisting Machine Operator Relationship Specialty Start Date End Date Reyna Lutz DO [address] [place] [phone] PCP - General Family Medicine 11/26/19 Kerri BEGUMA 02/12/25 documented as of this encounter
--- OUTSIDE RECORDS SUMMARY | 2025-03-25 18:33 | XMS_ITS | Encounter Summary ---
Author Organization [employer] Address [address] [place] [address] 7 [place] [address] Care Team Providers Care Pulverizer Operator Name Role Phone Reyna Lutz DO Primary Care Provider [phone] Encounter Details Date Type Department Care Team (Late st Contact Info) Description 11/10/2022 Orders Only [facility] [address] [place], [place] [phone] Reyna Maradiaga LPN Social History Tobacco Use [...] Description 03/26/2025 2:15 PM EDT Office Visit [facility] [address] [place] [address] Francisca France MD [address] [place], [place] [phone] documented as of this encounter Visit Diagnoses Not on filedocumented in this encounter Care Teams Pulverizer Operator Relationship Specialty Start Date End Date Reyna Lutz DO [address] [place], [place] [phone] PCP - General Family Medicine 11/26/19 Kerri SHANKS 02/12/25 documented as of this encounter
--- OUTSIDE RECORDS SUMMARY | 2025-03-25 18:33 | XMS_ITS | Encounter Summary ---
Author Organization [employer] Address [address] [place] [address] [address]t [place] [address] Care Team Providers Care Electromedical Equipment Repairer Name Role Phone AlfredoReyna marmolejo Primary Care Provider [phone] Encounter Details Date Type Department Care Team (Late st Contact Info) Description 09/15/2022 Orders Only [facility] [address] [place] [phone] Malou Feliz LPN Social History Tobacco Use [...] 03/26/2025 2:15 PM EDT Office Visit [facility] [address] [place] [address] Francisca France MD [address] [place], [place] [phone] documented as of this encounter Visit Diagnoses Not on filedocumented in this encounter Care Teams Electromedical Equipment Repairer Relationship Specialty Start Date End Date Reyna Lutz DO [address] [place] [phone] PCP - General Family Medicine 11/26/19 Kerri SHANKS 02/12/25 documented as of this encounter
== END 2025-03-25 15:28 | disposition home or self-care (01) ==
LOC: HO.HWS 14:50
PROVIDERS: PCP Family Medicine; Visit Provider Obstetrics & Gynecology
DX: D25.9 Leiomyoma of uterus, unspecified (principal); N88.9 Noninflammatory disorder of cervix uteri, unspecified; R93.89 Abnormal findings on diagnostic imaging of other specified body structures
CPT/HCPCS: 99213

== ENCOUNTER 2025-04-25 15:13 | Outpatient (REF) | payer MEDICAID, SELFPAY ==
--- NOTE | ~2025-04-25 | MM_ITS ---
EXAMINATION: MM SCREENING DIGITAL BREAST TOMOSYNTHESIS, BILATERAL CLINICAL INFORMATION: Screening. Asymptomatic. COMPARISON: Mammography: Comparison is made with available priors TECHNIQUE: Digital breast mammography with tomosynthesis is performed in both the craniocaudal and mediolateral oblique views along with computer-aided detection (CAD). FINDINGS: There are scattered areas of fibroglandular density. There are no significant masses, abnormal calcifications, or other abnormalities. MM/MM tomosynthesis screening BI IMPRESSION: No mammographic evidence of malignancy. ASSESSMENT: BI-RADS Category 1: Negative RECOMMENDATION: Routine annual mammography screening. 1 year F/U This examination should not preclude the clinical evaluation of a suspicious palpable abnormality. This patient's information was entered into a reminder system with a target due date for their next mammogram. Electronically signed by: Deborah Townsend DO 04/28/2025 05:36 PM EDT
--- OUTSIDE RECORDS SUMMARY | 2025-04-25 17:43 | XMS_ITS | Clinical Summary ---
Author Organization [facility] Address [address] [place] [address] [place] [phone] Phone Care Team Providers Care Garden Worker Name Role Phone Reyna Lutz DO Primary [...] VACCINE (#1) 2025 COVID-19 VACCINE (1 - 2024-2 6 season) 2025 MAMMOGRAM 02/07/2026 02/08/2024, 02/02/2023 Adult Td,Tdap Booster 06/12/2027 06/12/2017 LIPID PANEL 01/22/2029 01/23/2024 RSV VACCINE (1 - 1-dose 75+ series) 2048 HEPATITIS A VACCINES Aged Out No long [...] topic Medical Devices Not on file Insurance [facility] C3 [employer] [facility] C[facility] [employer] [facility] C3 ACO [facility] C3 ACO Care Teams Garden Worker Relationship Specialty Start Date End Date Reyna Lutz DO [address] [place] [address] PCP - General Family Medicine 03/25/24 Additional Source Comments The information contained in this document represents components of the legal health record. It is not the complete legal health record.[facility]
== END 2025-04-25 15:14 | disposition home or self-care (01) ==
LOC: HO.MAMMO 15:13
PROVIDERS: PCP Family Medicine; Visit Provider Family Medicine
DX: Z12.31 Encounter for screening mammogram for malignant neoplasm of breast (principal)
CPT/HCPCS: 77063; 77067

== ENCOUNTER → 2025-04-25 15:15 | Outpatient (BNV) | payer MEDICAID, SELFPAY | PROVIDERS: PCP Family Medicine; Visit Provider Internal Medicine | DX: Z12.31 Encounter for screening mammogram for malignant neoplasm of breast (principal) | CPT/HCPCS: 77063; 77067 ==

== ENCOUNTER 2025-05-06 16:17 | Outpatient (REF) | payer MEDICAID, SELFPAY ==
--- NOTE | ~2025-05-06 | US_ITS ---
EXAMINATION: US PELVIS CLINICAL INFORMATION: D25.9 - Leiomyoma of uterus, unspecified COMPARISON: MRI 03/19/2025 TECHNIQUE: Ultrasound of the pelvis is performed using both transabdominal and transvaginal transducers along with Doppler. Transvaginal imaging is performed due to inadequate visualization transabdominally. FINDINGS: Uterus: The uterus is retroflexed and measures 8.1 x 4.7 x 5.3 cm. The double wall endometrial thickness is 3 mm. Subserosal intramural leiomyoma is present in the upper posterior body measuring 3.5 x 3.0 x 3.6 cm previously 3.4 x 3.0 x 2.8 cm. There is an IUD in the upper uterine cavity. Adnexa: Right ovary was not visualized Left ovary is not visualized US/US pelvic and transvaginal IMPRESSION: Subserosal and intramural leiomyoma is noted in the posterior upper body of the uterus measuring up to 3.6 cm. IUD Electronically signed by: Hector Burnett MD 05/06/2025 05:17 PM EDT
--- OUTSIDE RECORDS SUMMARY | 2025-05-06 20:10 | XMS_ITS | Encounter Summary ---
Author Organization [employer] Address [address] [place] [address] Care Team Providers Care Field Services Manager Name Role Phone Reyna Lutz DO Primary Care Provider [phone]- [phone] Encounter Details Date Type Department Care Team (Late st Contact Info) Description 07/20/2022 Orders Only [facility] [address] [place] [phone] Malou Feliz LPN Social History Tobacco Use [...] Care Team (Late st Contact Info) Description 05/09/2025 2:30 PM EDT Office Visit [facility] [address] [place] [address] Ton Braga FNP [address] [place] [phone] documented as of this encounter Visit Diagnoses Not on filedocumented in this encounter Care Teams Field Services Manager Relationship Specialty Start Date End Date Reyna Lutz DO [address] [place] [address] PCP - General Family Medicine [facility]13[facility]25 documented as of this encounter
--- OUTSIDE RECORDS SUMMARY | 2025-05-06 20:10 | XMS_ITS | Encounter Summary ---
Author Organization [employer] Address [address] [facility] 7t [place] [address] Care Team Providers Care Compliance Reviewer Name Role Phone Reyna Lutz DO Primary Care Provider + [phone] Reason for Visit * Reason Onset Date Comments Referral 08/27/2024 Encounter Details Date Type Department Care Team ([facility] st Contact Info) Description 08/27/2024 Telephone [facility] [address] [place] [address] Reyna Lutz DO [address] [place] [address] Referral Social History Tobacco Use Types Packs/Day [...] to go that far. Contact pt at [phone] documented in this encounter Plan of Treatment Upcoming Encounters Date Type Department Care Team (Late st Contact Info) Description 05/09/2025 2:30 PM EDT Office Visit [facility] [address] [place], [place] [phone] Ton Braga FNP [address] [place] [address] documented as of this encounter Visit Diagnoses Not on filedocumented in this encounter Additional Health Concerns Assessment Noted Time PHQ-9 Depression Total Score: 4 01/23/20 24 10:23 AM EDT documented as of this encounter Care Teams Compliance Reviewer Relationship Specialty Start Date End Date Reyna Lutz DO [address] [place], [place] [phone] PCP - General Family Medicine [facility]26[facility]19 [facility] 04/13/25 documented as of this encounter
--- OUTSIDE RECORDS SUMMARY | 2025-05-06 20:10 | XMS_ITS | Encounter Summary ---
Author Organization [employer] Address [address] [place] [address] 7 [place] [address] Care Team Providers Care Car Wash Attendant Name Role Phone Reyna Lutz DO Primary Care Provider [phone] Encounter Details Date Type Department Care Team (Late st Contact Info) Description 09/09/2022 Abstract [facility] ADULT DENTAL [address] [place] [address] Rachna Mendez DDS [address] [place] [address] Social History Tobacco Use Types Packs/Day Years [...] Description 05/09/2025 2:30 PM EDT Office Visit [facility] MEDICINE [address] [place] [address] Ton Braga FNP [address] [place] [address] documented as of this encounter Visit Diagnoses Not on filedocumented in this encounter Care Teams Car Wash Attendant Relationship Specialty Start Date End Date Reyna Lutz DO [address] [place] [id number] PCP - General Family Medicine 11/26/19 Kerri SHANKS 02/12/25 04/13/25 documented as of this encounter
--- OUTSIDE RECORDS SUMMARY | 2025-05-06 20:10 | XMS_ITS | Encounter Summary ---
Author Organization [employer] Address [address] [place] [address] 7 [place] [address] Care Team Providers Care Tile Mechanic Helper Name Role Phone Reyna Lutz DO Primary Care Provider [phone] Encounter Details Date Type Department Care Team (Late st Contact Info) Description 08/16/2022 Orders Only [facility] CHC MED & PEDS [address] [place], [place] [phone] Reyna Maradiaga LPN Social History Tobacco Use [...] Description 05/09/2025 2:30 PM EDT Office Visit [facility] MEDICINE [address] [place] [address] Ton Braga FNP [address] [place] [address] documented as of this encounter Visit Diagnoses Not on filedocumented in this encounter Care Teams Tile Mechanic Helper Relationship Specialty Start Date End Date Reyna Lutz DO [address] [place] [address] PCP - General Family Medicine [facility] 04/13/25 documented as of this encounter
--- OUTSIDE RECORDS SUMMARY | 2025-05-06 20:10 | XMS_ITS | Encounter Summary ---
Author Organization [employer] Address [address] [facility] 7t [place] [address] Care Team Providers Care Kiln Maintenance Name Role Phone Reyna Lutz DO Primary Care Provider + [phone] Reason for Visit * Reason Onset Date Comments Nurse Triage 02/17/2025 Encounter Details Date Type Department Care Team ([facility] st Contact Info) Description 02/17/2025 Telephone [facility] MEDICINE [address] [place] [address] Reyna Lutz DO [address] [place] [address] Nurse Triage Social History Tobacco Use Types [...] Description 05/09/2025 2:30 PM EDT Office Visit [facility] MEDICINE [address] [place], [place] [phone] Ton Braga FNP [address] [place], [place] [phone] documented as of this encounter Visit Diagnoses Not on filedocumented in this encounter Additional Health Concerns Assessment Noted Time PHQ-9 Depression Total Score: 5 10/22/19 11:40 AM EDT documented as of this encounter Care Teams Kiln Maintenance Relationship Specialty Start Date End Date Reyna Lutz DO [address] [place] [phone] PCP - General Family Medicine 11/26/19 Kerri BEGUMA 02/12/25 04/13/25 documented as of this encounter
--- OUTSIDE RECORDS SUMMARY | 2025-05-06 20:10 | XMS_ITS | Encounter Summary ---
Author Organization [employer] Address [address] [place] [address] [address] [place] [address] Care Team Providers Care Retail And Promotions Coordinator Name Role Phone Reyna Lutz DO Primary Care Provider + [phone] Reason for Visit * Reason Comments Med Refill Encounter Details Date Type Department Care Team (Late Contact Info) Description 01/16/2023 Refill [facility] MEDICINE [address] [place] [id number] Reyna Lutz DO [address] [place], [place] [phone] Pain Social History Tobacco Use Types Packs/Day [...] Encounters Date Type Department Care Team (Late Contact Info) Description 05/09/2025 2:30 PM EDT Office Visit [facility] MEDICINE [address] [place] [address] Ton Braga, MARANDA [address] [place] [address] documented as of this encounter Visit Diagnoses Diagnosis Pain Generalized pain documented in this encounter Additional Health Concerns Assessment Noted Time PHQ-9 Depression Total Score: 5 01/10/20 23 10:49 AM EDT documented as of this encounter Care Teams Retail And Promotions Coordinator Relationship Specialty Start Date End Date Reyna Lutz DO [address] [place] [address] PCP - General Family Medicine 11/26/19 Kerri SHANKS 02/12/25 04/13/25 documented as of this encounter
--- OUTSIDE RECORDS SUMMARY | 2025-05-06 20:10 | XMS_ITS | Clinical Summary ---
Author Organization [facility] Address [address] [place] [address] [place] [phone] Phone Care Team Providers Care Dog Track Kennel Manager Name Role Phone Reyna Lutz DO [...] topic Medical Devices Not on file Insurance [facility] [employer] [employer] [employer] [employer] [facility] [employer] [facility] [employer] Care Teams Dog Track Kennel Manager Relationship Specialty Start Date End Date Reyna Lutz DO [address] [place] [address] PCP - General Family Medicine 03/25/24 Additional Source Comments The information contained in this document represents components of the legal health record. It is not the complete legal health record.[facility]
--- OUTSIDE RECORDS SUMMARY | 2025-05-06 20:10 | XMS_ITS | Encounter Summary ---
Author Organization [employer] Address [address] [place] [address] [address] [place] [address] Care Team Providers Care Junior Net Developer Name Role Phone Reyna Lutz DO Primary Care Provider [phone] Encounter Details Date Type Department Care Team (Late st Contact Info) Description 09/15/2022 Orders Only [facility] MEDICINE [address] [place] [phone] Malou Feliz LPN Social History Tobacco Use [...] Description 05/09/2025 2:30 PM EDT Office Visit [facility] MEDICINE [address] [place] [address] [phone] Ton Braga FNP [address] [place] [address] documented as of this encounter Visit Diagnoses Not on filedocumented in this encounter Care Teams Junior Net Developer Relationship Specialty Start Date End Date Reyna Lutz DO [address] [place] [address] PCP - General Family Medicine 11/26/19 Kerri SHANKS 02/12/25 04/13/25 documented as of this encounter
--- OUTSIDE RECORDS SUMMARY | 2025-05-06 20:10 | XMS_ITS | Encounter Summary ---
Author Organization [employer] Address [address] [facility] 7t [place] [address] Care Team Providers Care Triple Drum Operator Name Role Phone Reyna Lutz DO Primary Care Provider [phone] Reason for Visit * Reason Onset Date Comments script for toothpaste 12/21/2022 Encounter Details Date Type Department Care Team ([facility] st Contact Info) Description 12/21/2022 Telephone [facility] ADULT DENTAL [address] [place] [address] Rachna Mendez, DDS [address] [place] [address] script for toothpaste Social History Tobacco Use [...] 2:30 PM EDT Office Visit [facility] MEDICINE [address] [place], [place] [phone] Ton Braga FNP [address] [place], [place] [phone] documented as of this encounter Visit Diagnoses Not on filedocumented in this encounter Care Teams Triple Drum Operator Relationship Specialty Start Date End Date Reyna Lutz DO [address] [place] [address] [phone] PCP - General Family Medicine 11/26/19 Kerri BEGUMA 02/12/25 04/13/25 documented as of this encounter
--- OUTSIDE RECORDS SUMMARY | 2025-05-06 20:10 | XMS_ITS | Encounter Summary ---
Author Organization [employer] Address [address] [place] [address] [address] [place] [address] Care Team Providers Care Production Crew Supervisor Name Role Phone Reyna Lutz DO Primary Care Provider Reason for Referral * Consultation (Routine) - Canceled Specialty Diagnoses / Procedures Referred By Contjanine t Referred To Contact Audiology Diagnoses Bilateral hearing loss, unspecified hearing loss type Reyna Lutz DO [address] [place] [address] Phone: tel: fax: Referral ID Status Reason Start Date Expiration Date Visits Requested Visits Authorized [id number] Canceled Specialty Services Required 03/03/2025 03/03/2026 1 1 Encounter Details Date Type Department Care Team (Late st Contact Info) Description 03/03/2025 Orders Only [facility] MEDICINE [address] [place] [address] Reyna Lutz DO [address] [place], [place] [phone] Bilateral hearing loss, unspecified hearing loss type [...] Description 05/09/2025 2:30 PM EDT Office Visit [facility] MEDICINE [address] [place] [address] Ton Braga FNP [address] [place] [address] Scheduled Referrals Name Type Priority Associated Diagnoses [...] documented as of this encounter Care Teams Production Crew Supervisor Relationship Specialty Start Date End Date Reyna Lutz DO [address] [place] [id number] PCP - General Family Medicine 11/26/19 Kerri SHANKS 02/12/25 04/13/25 documented as of this encounter
--- OUTSIDE RECORDS SUMMARY | 2025-05-06 20:10 | XMS_ITS | Clinical Summary ---
Author Organization [employer] Address [address] [facility] [address] [place] [address] Care Team Providers Care Lead Trainer Name Role Phone Mague Lutzfer Primary Care Provider Allergies No known active allergies Medications latanoprost (Xalatan) 0.005 % ophthalmic solution PLACE 1 DROP IN EACH EYE AT BEDTIME 2 Active Levonorgestrel (Liletta, 52 MG,) 20.1 MCG/DAY intrauterine device November 2016 placement 7 Active acetaminophen (Tylenol 8 Hour) 650 MG ER tablet TAKE 1 TABLET BY MOUTH EVERY 8 HOURS NEEDED FOR FOR MILD PAIN. DO NOT BREAK, CRUSH, DISSOLVE OR CHEW 40 tablet 1 4 Active albuterol 108 (90 Base) MCG/ACT inhalerIndications :Cough, unspecified type,Influenza A Inhale 2 puffs every 4 (four) hours if needed for wheezing. 18 g 5 08/12/19 26 Active ergocalciferol (Vitamin D2) 1.25 MG (65273 UT) capsuleIndications :Vitamin D deficiency TAKE 1 CAPSULE BY MOUTH ONCE WEEKLY ON MONDAY MORNING 12 capsule 3 5 Active lidocaine (Lidoderm) 5 % patch APPLY 1 PATCH TOPICALLY TO SKIN, LEAVE ON FOR 12 HOURS AND OFF FOR 12 HOURS DIRECTED NEEDED FOR MILD PAIN 30 patch 3 5 Active nystatin (Mycostatin) 672369 UNIT/GM powder Apply topically 2 times daily. 180 g 3 5 10/24/19 26 Active amLODIPine (Norvasc) 10 MG tabletIndications: Hypertension, unspecified type TAKE 1 TABLET BY MOUTH EVERY MORNING 90 tablet 1 5 Active FREESTYLE LITE test stripIndications:T ype 2 diabetes mellitus without complications (HCC) USE DIRECTED TO TEST BLOOD SUGAR TWICE DAILY 100 strip 5 5 Active TRUEplus Lancets 33G miscIndications:Ty pe 2 diabetes mellitus without complications (HCC) USE DIRECTED TO TEST BLOOD SUGAR TWICE DAILY 100 each 5 5 Active oxybutynin XL (Ditropan-XL) 5 MG 24 hr tablet TAKE 1 TABLET BY MOUTH EVERY MORNING 90 tablet 1 5 Active baclofen (Lioresal) 10 MG tablet TAKE 1 TABLET BY MOUTH THREE TIMES DAILY IN THE MORNING, AT NOON, AND AT BEDTIME 60 tablet 1 5 Active lisinopril 10 MG tabletIndications: Essential hypertension, benign TAKE 1 TABLET BY MOUTH AT BEDTIME 90 tablet 1 5 Active metFORMIN (Glucophage) 500 MG tabletIndications: Type 2 diabetes mellitus without complications (HCC) TAKE 1 TABLET BY MOUTH TWICE DAILY IN THE MORNING AND IN THE EVENING 180 tablet 1 5 Active atorvastatin (Lipitor) 20 MG tabletIndications: Other hyperlipidemia TAKE 1 TABLET BY MOUTH AT BEDTIME 90 tablet 1 5 Active FREESTYLE LITE test stripIndications:T ype 2 diabetes mellitus with hyperglycemia, without long-term current use of insulin (HCC) Use to test blood sugar 1 times daily 100 each 12 5 03/26/20 26 Active Lancets miscIndications:Ty pe 2 diabetes mellitus with hyperglycemia, without long-term current use of insulin (HCC) Use to test blood sugar 1 times daily 100 each 5 Active Alcohol Swabs 70 % padsIndications:Ty pe 2 diabetes mellitus with hyperglycemia, without long-term current use of insulin (HCC) Use to test blood sugar 1 times daily 100 each 5 Active Blood Glucose Monitoring Suppl (FreeStyle [place] Lite) w/Device kitIndications:Typ e 2 diabetes mellitus with hyperglycemia, without long-term current use of insulin (HCC) Use to test blood sugar 1 times daily 1 kit 5 Active Active Problems Problem Noted Date Diagnosed Date Hypoxia, sleep related 03/26/2025 Assessment & Plan (03/26/2025 4:12 PM EDT): Patient tells me she have to try to go for sleep studies at the hospital and she always work out so that underwent that she was advised home sleep studies but even that 1 is challenging 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, I will try one more time reporting home sleep studies Fall 01/25/2024 Assessment & Plan (01/25/2024 11:45 [...] prn no improvement of sxs after 3d Pyelonephritis 10/04/2022 Assessment & Plan (03/26/2025 4:11 PM EDT): Resolved Dental caries 09/23/2022 Endometrial hyperplasia 09/05/2022 Adrenal adenoma, left 09/05/2022 Anxiety 09/05/2022 Hirsutism 09/05/2022 Type 2 diabetes mellitus 09/05/2022 Assessment & Plan (03/26/2025 4:11 PM EDT): Extensive counseling about diabetic diet done today Continue with metformin 500 mg twice daily Glucometer and supplies prescribed today Follow-up with PCP Fatty liver 09/05/2022 IBS (irritable bowel syndrome) 12/21/2017 Nephrolithiasis 10/19/2017 Essential hypertension 11/16/2010 Allergic rhinitis 10/22/2007 Major depression, recurrent, chronic 10/17/2005 Myotonic dystrophy (CMS/HCC) 10/17/2005 Overview (01/09/2023): Followed by Dr. Guerrero - [facility]. Yearly EKG, glucose, TSH Assessment & Plan (03/26/2025 4:12 PM EDT): Continue to follow with specialist Resolved Problems Problem Noted Date Diagnosed Date Resolved Date Frontal balding 01/09/2023 01/09/2023 Asthma 09/05/2022 01/09/2023 Elevated liver enzymes 10/19/201701/09 Acid reflux 04/04/2017 01/09/2023 Wheezing 10/22/2007 01/09/2023 Encounters Date Type Department Care Team Description 04/25/2025 Orders Only [facility] [place] [address] Reyna Lutz DO 04/11/2025 Telephone [facility] [place] [address] Reyna Lutz DO Pre-op Exam 04/09/2025 Telephone [facility] [place] [address] Reyna Lutz DO telephone call 03/26/2025 2:15 PM EDT Office Visit [facility] [place] [address] Francisca France MD Hypoxia, sleep related (Primary Dx); Myotonic dystrophy, type 1 (CMS/HCC); Type 2 diabetes mellitus with hyperglycemia, without long-term current use of insulin ([facility]); Pyelonephritis; Myotonic dystrophy ([facility]) 03/26/2025 Travel 03/25/2025 Telephone [facility] [place] [facility] [address] Reyna Lutz DO chart prep 03/19/2025 Orders Only [facility] External Provider, [facility] 03/11/2025 Telephone [facility] [address] [place] [address] Reyna Lutz DO FYI 03/06/2025 Telephone [facility] [address] [place] [phone] Francisca France MD No Show 03/06/[address] [address] Reyna Lutz DO Appointment Request; Hospital Follow-up 03/05/2025 Telephone [facility] [address] [place] [phone] Reyna Lutz DO 03/03/2025 Orders Only [facility] [address] [place] [phone] Reyna Lutz DO Bilateral hearing loss, unspecified hearing loss type (Primary Dx) 03/03/2025 Orders Only [facility] [address] [place] [phone] Reyna Lutz DO Abnormal CT of the chest (Primary Dx) 02/19/2025 Telephone [facility] [address] [place] [phone] Reyna Lutz DO FYI 02/18/2025 Orders Only [facility] [address] [place] [phone] Reyna Lutz DO Bilateral hearing loss, unspecified hearing loss type (Primary Dx) 02/17/2025 Telephone [facility] [address] [place] [phone] Reyna Lutz DO Referral 02/17/2025 Telephone [facility] [address] [place] [phone] Reyna Lutz DO Nurse Triage 02/11/2025 Patient Outreach [facility] [address] [place] [address] Reyna Lutz DO Transition Of Care (Tcm) (HDF - Scheduled ) 02/07/2025 Orders Only GENERIC EXTERNAL DATA DEPARTMENT Provider, Generic External Data 02/05/2025 Orders Only GENERIC EXTERNAL DATA DEPARTMENT Provider, Generic External Data 02/05/2025 Travel 02/03/2025 Refill [facility] [address] [place] [address] Reyna Lutz DO Chronic gastroesophageal reflux disease from Last 3 Months Immunizations Immunization Administration [...] Sign Reading Time Taken Comments Blood Pressure 120/80 03/26/2025 1:57 PM EDT Pulse 102 03/26/2025 1:57 PM EDT Temperature 36 C (96.8 F) 03/26/2025 1:57 PM EDT Respiratory Rate 18 03/26/2025 1:57 PM EDT Oxygen Saturation 97% 03/26/2025 1:57 PM EDT Inhaled Oxygen Concentration - - Weight 80 kg (176 lb 6.4 oz) 03/26/2025 1:57 PM EDT Height 160 cm (5' 3 ) 03/26/2025 1:57 PM EDT Body Mass Index 31.25 03/26/2025 1:57 PM EDT Plan of Treatment Upcoming Encounters Date Type Department Care Team (Late st Contact Info) Description 05/09/2025 2:30 PM EDT Office Visit [facility] [address] [place] [address] 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, 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 [address] [place] [address] Health Maintenance Due Date Last Done Comments [...] Diabetes: Urine Protein Screening 01/31/2025 02/01/2024, 02/25/2020 Influenza Vaccine (#1) 2025 , 05/06/2020, 05/20/2018, Additional history exists Alcohol/Substance Use Screening 10/21/2025 10/21/2024 Depression Screening 10/21/2025 10/21/2024, 10/22/19 25 Disability Screening 10/21/2025 10/21/2024 SDOH Screening 10/21/2025 10/21/2024 Tobacco Screening 03/26/2026 03/26/2025 Mammogram 04/25/2026 04/25/2025, 08/0 07/2023, 02/02/2023, Additional history exists DTaP/Tdap/Td Vaccines (2 - Td or Tdap) 06/12/2027 06/12/2017, 08/22/2002 Cervical Cancer Screening 10/22/2027 HPV/Cotest 10/22/2027 10/21/2024, 07/2020, 10/08/2020 Pap Smear 10/22/2027 10/21/2024 RSV Patients [...] Procedure Name Priority Date/Time Associated Diagnosis Comments US PELVIS TRANSVAGINAL Routine 05/06/2025 4:35 PM EDT BI MAMMOGRAM SCREENING TOMOSYNTHESIS BILATERAL Routine 04/25/2025 3:17 PM EDT MR PELVIS W AND WO CONTRAST Routine [...] Encounter for gynecological examination without abnormal finding ALBUMIN, RANDOM URINE W/CREATININE Routine 02/01/2024 8:00 [...] Recently Relevant to Health Maintenance Results * US Pelvis Transvaginal (05/06/2025 4:35 PM EDT) Anatomical Region Laterality Modality Pelvis Ultrasound 05/06/2025 4:35 PM EDT Narrative 05/06/2025 5:20 PM EDT [place] [address] Ultrasound Report Signed Patient: Kelsey Lozano MR#: [id number] : 1975 Acct:[id number] Age/Sex: 49 / F ADM Date: 05/06/25 Loc: .US Attending Dr: Jimenez Mitchell MD Ordering Physician: Jimenez Mitchell MD Date of Service: 05/06/25 Procedure(s): US pelvic and transvaginal Accession Number(s): [id number] cc: Reyna Lutz DO; Jimenez Mitchell MD Reason for Exam: D25.9 - Leiomyoma of uterus, unspecified EXAMINATION: US PELVIS CLINICAL INFORMATION: D25.9 - Leiomyoma of uterus, unspecified COMPARISON: MRI 03/19/2025 TECHNIQUE: Ultrasound of the pelvis is performed using both transabdominal and transvaginal transducers along with Doppler. Transvaginal imaging is performed due to inadequate visualization transabdominally. FINDINGS: Uterus: The uterus is retroflexed and measures 8.1 x 4.7 x 5.3 cm. The double wall endometrial thickness is 3 mm. Subserosal intramural leiomyoma is present in the upper posterior body measuring 3.5 x 3.0 x 3.6 cm previously 3.4 x 3.0 x 2.8 cm. There is an IUD in the upper uterine cavity. Adnexa: Right ovary was not visualized Left ovary is not visualized US/US pelvic and transvaginal IMPRESSION: Subserosal and intramural leiomyoma is noted in the posterior upper body of the uterus measuring up to 3.6 cm. IUD Electronically signed by: Hector Burnett MD 05/06/2025 05:17 PM EDT Dictated By: Hector Burnett MD Signed By: <Electronically signed by Hector Burnett MD in OV> 05/06/25 1717 DD/ 1635 TD/TT: 05/06/25 1650 Measurement Specialist: Procedure Note Donotuseinterpreter, Image - 05/06/2025 [place] [address] Ultrasound Report Signed Patient: Kelsey Lozano MMR#: [id number] : 1975Acct:[id number] Age/Sex: 49 / FADM Date: 05/06/25 Loc: HO.US Attending Dr: Jimenez Mitchell MD Ordering Physician: Jimenez Mitchell MD Date of Service: 05/06/25 Procedure(s): US pelvic and transvaginal Accession Number(s): [id number] cc: Reyna Lutz Marc J MD Reason for Exam: D25.9 - Leiomyoma of uterus, unspecified EXAMINATION: US PELVIS CLINICAL INFORMATION: D25.9 - Leiomyoma of uterus, unspecified COMPARISON: MRI 03/19/2025 TECHNIQUE: Ultrasound of the pelvis is performed using both transabdominal and transvaginal transducers along with Doppler. Transvaginal imaging is performed due to inadequate visualization transabdominally. FINDINGS: Uterus: The uterus is retroflexed and measures 8.1 x 4.7 x 5.3 cm. The double wall endometrial thickness is 3 mm. Subserosal intramural leiomyoma is present in the upper posterior body measuring 3.5 x 3.0 x 3.6 cm previously 3.4 x 3.0 x 2.8 cm. There is an IUD in the upper uterine cavity. Adnexa: Right ovary was not visualized Left ovary is not visualized US/US pelvic and transvaginal IMPRESSION: Subserosal and intramural leiomyoma is noted in the posterior upper body of the uterus measuring up to 3.6 cm. IUD Electronically signed by: Hector Burnett MD 05/06/2025 05:17 PM EDT Dictated By: Hector Burnett MD Signed By: <Electronically signed by Hector Burnett MD in OV> 05/06/25 1717 DD/ 1635 TD/TT: 05/06/25 1650 Measurement Specialist: us [facility] External Provider IMG US PROCEDURES Final Result * BI Mammogram Screening Tomosynthesis Bilateral (04/25/2025 3:17 PM EDT) Anatomical Region Laterality Modality Breast Bilateral Mammography 04/25/2025 3:17 PM EDT Narrative 04/28/2025 5:39 PM EDT [address] [place] [address] Mammography Report Signed Patient: Kelsey Lozano MR#: [id number] : 1975 Acct:[id number] Age/Sex: 49 / F ADM Date: 04/25/25 Loc: HO.MAMMO Attending Dr: Reyna Lutz DO Ordering Physician: Reyna Lutz DO Results: 1N egative Date of Service: 04/25/25 Follow Up: 1 Year From [facility] Mammogram Procedure(s): MM tomosynthesis screening BI Accession Number(s): [id number] cc: Reyna Lutz DO Reason For Exam: SCREENING EXAMINATION: MM SCREENING DIGITAL BREAST TOMOSYNTHESIS, BILATERAL CLINICAL INFORMATION: Screening. Asymptomatic. COMPARISON: Mammography: Comparison is made with available priors TECHNIQUE: Digital breast mammography with tomosynthesis is performed in both the craniocaudal and mediolateral oblique views along with computer-aided detection (CAD). FINDINGS: There are scattered areas of fibroglandular density. There are no significant masses, abnormal calcifications, or other abnormalities. MM/MM tomosynthesis screening BI IMPRESSION: No mammographic evidence of malignancy. ASSESSMENT: BI-RADS Category 1: Negative RECOMMENDATION: Routine annual mammography screening. 1 year F/U This examination should not preclude the clinical evaluation of a suspicious palpable abnormality. This patient's information was entered into a reminder system with a target due date for their next mammogram. Electronically signed by: Deborah Townsend DO 04/28/2025 05:36 PM EDT RP Dictated By: Deborah Townsend DO Signed By: <Electronically signed by Deborah Townsedn DO in OV> 04/28/25 1736 DD/ 1517 TD/TT: 04/25/25 1535 Measurement Specialist: Procedure Note Donotuseinterpreter, Image - 04/28/2025 [facility] [address] [place] [address] Mammography Report Signed Patient: Kelsey Lozano MMR#: [id number] : 1975Acct:[id number] Age/Sex: 49 / FADM Date: 04/25/25 Loc: HO.MAMMO Attending Dr: Reyna Lutz DO Ordering Physician: Reyna Lutzults: 1N egative Date of Service: 04/25/25Follow Up: 1 Year From [facility] Mammogram Procedure(s): MM tomosynthesis screening BI Accession Number(s): [id number] cc: Reyna Lutz DO Reason For Exam: SCREENING EXAMINATION: MM SCREENING DIGITAL BREAST TOMOSYNTHESIS, BILATERAL CLINICAL INFORMATION: Screening. Asymptomatic. COMPARISON: Mammography: Comparison is made with available priors TECHNIQUE: Digital breast mammography with tomosynthesis is performed in both the craniocaudal and mediolateral oblique views along with computer-aided detection (CAD). FINDINGS: There are scattered areas of fibroglandular density. There are no significant masses, abnormal calcifications, or other abnormalities. MM/MM tomosynthesis screening BI IMPRESSION: No mammographic evidence of malignancy. ASSESSMENT: BI-RADS Category 1: Negative RECOMMENDATION: Routine annual mammography screening. 1 year F/U This examination should not preclude the clinical evaluation of a suspicious palpable abnormality. This patient's information was entered into a reminder system with a target due date for their next mammogram. Electronically signed by: Deborah Townsend DO 04/28/2025 05:36 PM EDT Dictated By: Deborah Townsend DO Signed By: <Electronically signed by Deborah Townsend DO in OV> 04/28/25 1736 DD/ 1517 TD/TT: 04/25/25 1535 Measurement Specialist: us Reyna Lutz DO IMG BI PROCEDURES Edited Res ult - Final * MR Pelvis w/ and w/o Contrast (03/19/2025 4:00 PM EDT) Anatomical Region Laterality Modality Body, Pelvis Magnetic Resonan ce 03/19/2025 4:00 PM EDT Narrative 03/20/2025 7:36 AM EDT [place] [address] Magnetic Resonance Report Signed Patient: Kelsey Lozano MR#: [id number] : 1975 Acct:[id number] Age/Sex: 49 / F ADM Date: 03/19/25 Loc: .MRI Attending Dr: Jimenez Mitchell MD Ordering Physician: Jimenez Mitchell MD Date of Service: 03/19/25 Procedure(s): MR pelvis wo/w con Accession Number(s): [id number] cc: Reyna Lutz DO; Jimenez Mitchell MD [...] 03/20/25 0733 DD/ 1600 TD/TT: 03/19/25 1619 Measurement Specialist: Procedure Note Donotuseinterpreter, Image - 03/20/[address] [address] Magnetic Resonance Report Signed Patient: Kelsey Lozano [facility]#: [id number] : 1975Acct:[id number] Age/Sex: 49 / FADM Date: 03/19/25 Loc: HO.MRI Attending Dr: Jimenez Mitchell MD Ordering Physician: Jimenez Mitchell MD Date of Service: 03/19/25 Procedure(s): MR pelvis wo/w con Accession Number(s): [id number] cc: Reyna Lutz DO; Jimenez Mitchell MD [...] 03/20/25 0733 DD/ 1600 TD/TT: 03/19/25 1619 Measurement Specialist: us [facility] External Provider IMG MRI PROCEDURES Final Result * XR Chest 1 View (02/08/2025 8:24 AM EDT) Anatomical Region Laterality Modality Chest Radiographic Joyce ging 02/08/2025 8:24 AM EDT Narrative 02/08/2025 8:25 AM EDT [place] [address] XRay Report Signed Patient: Kelsey Lozano MR#: [id number] : 1975 Acct:[id number] Age/Sex: 49 / F ADM Date: 02/07/25 [facility]: Everardo Gonzalez MD Ordering Physician: Everardo Gonzalez MD Date of Service: 02/08/25 Procedure(s): XR chest 1V Accession Number(s): [id number] cc: Reyna Lutz DO; Everardo Gonzalez MD [...] in OV> 02/08/25824 DD/ 3 TD/TT: 02/08/25823 Measurement Specialist: Procedure Note Donotuseinterpreter, Image - 02/08/[address] [address] XRay Report Signed Patient: Kelsey Lozano [facility]#: [id number] : 1975Acct:[id number] Age/Sex: 49 / FADM Date: 02/07/25 Loc: [facility]-[address]: Everardo Gonzalez MD Ordering Physician: Everardo Gonzalez MD Date of Service: 02/08/25 Procedure(s): XR chest 1V Accession Number(s): [id number] cc: Reyna Lutz DO; Everardo Gonzalez MD [...] in OV> 02/08/25824 DD/ 3 TD/TT: 02/08/25823 Measurement Specialist: [facility] External Provider IMG XR PROCEDURES Edited Result - Final * (ABNORMAL) CBC auto differential (02/07/2025 6:59 PM EDT) Only the most recent of2 resultswithin the time period is included. White Blood Count 10.4 4.8 - 10.8 X10*3/uL [facility] Red Blood Count 5.09 4.20 - 5.50 X10*6/uL [facility] Hemoglobin 15.3 12.0 - 16.0 g/dl [facility] Hematocrit 45.3 37.0 - 47.0 % [facility] Mean Corpuscular Volume 89.0 80.0 - 98.0 fL [facility] Mean Corpuscular Hemoglobin 30.1 27.0 - 33.0 pg [facility] Mean Corpuscular HGB Conc 33.8 31.0 - 35.0 g/dl [facility] Red Cell Distribution Width 14.0 11.0 - 16.0 % [facility] Platelet Count 184 160 - 400 X10*3/uL [facility] Mean Platelet Volume 10.9 9.4 - 12.3 fL [facility] Neutrophils Percent Auto 71.2 45 - 73 % [facility] Imm Gran Pct Auto 0.8(H) 0.0 - 0.4 % [facility] Lymphocytes Percent Auto 13.5(L) 20 - 40 % [facility] Monocytes Percent Auto 14.0(H) 2 - 11 % [facility] Eosinophils Percent Auto 0.2 0 - 4 % [facility] Basophils Percent Auto 0.3 0 - 2 % [facility] NRBC Pct Auto 0.0 0.0 - 0.2 /100WBC [facility] Neutrophils Absolute Auto 7.4 2.0 - 8.3 x10*3/uL [facility] Imm Gran Abs Auto 0.08(H) 0.00 - 0.03 X10*3/uL [facility] Lymphocytes Absolute Auto 1.4 1.2 - 4.9 X10*3/uL [facility] Monocytes Absolute Auto 1.5(H) 0.1 - 1.2 X10*3/uL [facility] Eosinophils Absolute Auto 0.0 0.0 - 0.4 X10*3/uL [facility] Basophils Absolute Auto 0.0 0.0 - 0.2 X10*3/uL [facility] NRBC Abs Auto 0.000 0.0 - 0.012 X10*3/uL [facility] 02/07/2025 6:59 PM EDT 02/07/2025 7:04 PM EDT us Generic External Data Provider LAB BLOOD ORDERAB LES Final Result Performing Organization Address [facility]/ZIP Co de Phone Number [facility] [address] [place] [phone] * Magnesium (02/07/2025 6:59 PM EDT) Pathologist [facility] Magnesium 2.3 1.6 - 2.6 mg/dL [facility] 02/07/2025 6:59 PM EDT 02/07/2025 7:04 PM EDT Generic External Data Provider LAB BLOOD ORDERAB LES Final Result Performing Organization Address [facility] Co de Phone Number [facility] [address] [place] [phone] * Lactic Acid (02/07/2025 6:59 PM EDT) Only the most recent of2 resultswithin the time period is included. Pathologist [facility] Lactic Acid 1.3 0.5 - 2.0 mmol/L [facility] 02/07/2025 6:59 PM EDT 02/07/2025 7:04 PM EDT Generic External Data Provider LAB BLOOD ORDERAB LES Final Result Performing Organization Address [facility]/ZIP Co de Phone Number [facility] [address] [place] [phone] * (ABNORMAL) Comprehensive Metabolic Panel (02/07/2025 6:59 PM EDT) Pathologist [facility] Sodium 140 135 - 145 mmol/L [facility] Potassium 3.2(L) 3.3 - 5.1 mmol/L [facility] Chloride 95(L) 96 - 108 mmol/L [facility] Carbon Dioxide 33(H) 22 - 29 mmol/L [facility] Anion Gap 15 12 - 20 [facility] Urea Nitrogen (BUN) 11 9 - 16 mg/dL [facility] Creatinine, Serum 0.70 0.5 - 1.4 mg/dL [facility] Creatinine Clr Calc Pharmacy 95.5 [facility] Comment:Provided height and weight: 162.56 cm,77 kg.eGFR (calculated from the MDRD study equation) and eCrCl(calculated from the Cockcroft-Gault equation) are based ondifferent parameters and may not yield comparable results.If eCrCl result is absurd, please check patient'sheight/weight. Estimated Glomerular Filt Rate >60 [facility] Comment:Chronic Kidney Disea se: Estimated GFR < 60 mL/min/1.07b5Aobvlf Kidney Disease: Estimated GFR < 15 mL/min/1.73m2 Glucose 152(H) 60 - 115 mg/dL [facility] [facility] Calcium 9.3 8.4 - 10.2 mg/dL [facility] Bilirubin, Total 1.2(H) 0.0 - 1.0 mg/dL [facility] Aspartate Amino Transferase 61(H) 5 - 31 U/L [facility] Alanine Aminotransferase 39(H) 0 - 31 U/L [facility] Total Protein 6.8 6.5 - 8.0 g/dL [facility] Albumin Level 3.5 3.5 - 5.0 g/dL [facility] Alkaline Phosphatase 138(H) 39 - 117 U/L [facility] 02/07/2025 6:59 PM EDT 02/07/2025 7:04 PM EDT us Generic External Data Provider LAB BLOOD ORDERAB LES Final Result [facility] [address], [place] [phone] * (ABNORMAL) Urinalysis, Complete, with Reflex to Culture (02/05/2025 10:47 PM EDT) Color Urine Dark Yellow [facility] Appearance Urine Cloudy [facility] PH 5.5 5.0 - 9.0 [facility] Glucose Urine UA 500(A) Negative mg/dL [facility] Urine Blood Large (3+)(A) Negative [facility] Specific Armstrong - Urine 1.020 1.005 - 1.025 [facility] Urine Protein 100 (2+)(A) Neg-Trace mg/dL [facility] Urine Ketones Trace Negative mg/dL [facility] Nitrite Urine Positive(A) Negative [facility] Leukocyte Esterase Urine Moderate (2+)(A) Negative [facility] RBC Urine 6-10(A) 0 - 2 /HPF [facility] Urine WBC >50(A) 0 - 5 /HPF [facility] Urine Squamous Epithelial Cell 6-10 0 - 2 /HPF [facility] Urine Bacteria 3+ None Seen [facility] Hyaline Casts, Urine 11-20 0 - 2 /LPF [facility] 02/05/2025 10:4 7 PM EDT 02/05/2025 10:50 PM EDT Narrative [facility] - 02/05/2025 11:08 PM EDT Urine, Clean Catch us Generic External Data Provider LAB URINE ORDERAB LES Final Result Performing Organization Address City/State/[facility] Co de Phone Number [facility] [address] [place] [phone] * (ABNORMAL) VENOUS BLOOD GAS (02/05/2025 9:25 PM EDT) VBG pH 7.42 7.32 - 7.43 [facility] Comment:METER #: [id number] additional_comment: CbJonesas VBG PCO2 55 mmHg [facility] Comment:METER #: [id number] additional_comment: CbJonesas VBG PO2 50 mmHg [facility] Comment:METER #: [id number] additional_comment: CbJonesas VBG Base Excess 9.3 mmol/L [facility] Comment:METER #: [id number] additional_comment: CbJonesas VBG HCO3 36(H) 22 - 26 mmol/L [facility] Comment:METER #: [id number] additional_comment: CbJonesas O2 Sat, Osmin 82.0 % [facility] Comment:METER #: [id number] additional_comment: CbJonesas 02/05/2025 9:25 PM EDT 02/05/2025 9:30 PM EDT us Generic External Data Provider LAB BLOOD ORDERAB LES Final Result Performing Organization Address City/State/[facility] Co de Phone Number [facility] [address] [place] [phone] * CT Chest w/o Contrast (02/05/2025 9:18 PM EDT) Anatomical Region Laterality Modality Body, Chest Computed Tomogra phy 02/05/2025 9:18 PM EDT Narrative 02/05/2025 9:19 PM EDT [place] [address] CT Scan Report Signed Patient: Kelsey Lozano MR#: [id number] : 1975 Acct:[id number] Age/Sex: 49 / F ADM Date: 02/05/25 Loc: .ED Attending Dr: Ordering Physician: Mata Tatum MD Date of Service: 02/05/25 Procedure(s): CT chest wo IV con Accession Number(s): [id number] cc: [facility]; Mata Tatum MD Report Number: [id number]: Total DLP = 956.00 mGy-cm CLINICAL HISTORY: [...] in OV> 02/05/252118 DD/ 17 TD/TT: 02/05/252117 Measurement Specialist: Procedure Note Donotuseinterpreter, Image - 02/05/[address] [address] [address] Scan Report Signed Patient: Kelsey Lozano MMR#: [id number] : 1975Acct:[id number] Age/Sex: 49 / FADM Date: 02/05/25 Loc: HO.ED Attending Dr: Ordering Physician: Mata Tatum MD Date of Service: 02/05/25 Procedure(s): CT chest wo IV con Accession Number(s): [id number] cc: [facility]; Mata Tatum MD Report Number: [id number]: Total DLP = 956.00 mGy-cm CLINICAL HISTORY: [...] in OV> 02/05/252118 DD/ 17 TD/TT: 02/05/252117 Measurement Specialist: [facility] External Provider IMG CT PROCEDURES Final Result * CT Abdomen Pelvis w/o Contrast (02/05/2025 9:17 PM EDT) Anatomical Region Laterality Modality Body, Pelvis, Abdomen Computed T omography 02/05/2025 9:17 PM EDT Narrative 02/05/2025 9:19 PM EDT [place] [address] CT Scan Report Signed Patient: Kelsey Lozano MR#: [id number] : 1975 Acct:[id number] Age/Sex: 49 / F ADM Date: 02/05/25 Loc: HO.ED Attending Dr: Ordering Physician: Mata Tatum MD Date of Service: 02/05/25 Procedure(s): CT abdomen pelvis wo IV con Accession Number(s): [id number] cc: [facility]; Mata Tatum MD Report Number: [id number]: Total DLP = 956.00 mGy-cm CLINICAL HISTORY: [...] in OV> 02/05/252117 DD/ 16 TD/TT: 02/05/252116 Measurement Specialist: Procedure Note Donotuseinterpreter, Image - 02/05/[address] [place] [address] [address] Scan Report Signed Patient: Kelsey Lozano [facility]#: [id number] : 1975Acct:[id number] Age/Sex: 49 / FADM Date: 02/05/25 Loc: HO.ED Attending Dr: Ordering Physician: Mata Tatum MD Date of Service: 02/05/25 Procedure(s): CT abdomen pelvis wo IV con Accession Number(s): [id number] cc: [facility]; Mata Tatum MD Report Number: [id number]: Total DLP = 956.00 mGy-cm CLINICAL HISTORY: [...] MD on 02/05/2025 21:17:44 Dictated By: Ton oWrley MD Signed By: <Electronically signed by Ton Worley MD in OV> 02/05/252117 DD/ 16 TD/TT: 02/05/252116 Measurement Specialist: [facility] External Provider IMG CT PROCEDURES Final Result * Blood Culture (First) (02/05/2025 9:13 PM EDT) Blood Venous blood specimen / Unknown 02/05/2025 9:13 PM EDT 02/05/2025 9:22 PM EDT Comment:Blood Narrative [facility] - 02/08/2025 7:40 AM EDT [...] GENERAL ORDERABLES Final Result Performing Organization Address City/[facility]/ZIP Co de Phone Number [facility] [address] [place] [phone] * Blood Culture (Second) (02/05/2025 9:13 PM EDT) Blood Venous blood specimen / Unknown 02/05/2025 9:13 PM EDT 02/05/2025 9:22 PM EDT Comment:Blood Narrative [facility] - 02/09/2025 8:20 AM EDT [...] Culture (Second) Gram-negative rods Escherichia coli Refer [facility] ORG #1: Susceptibility testing of same organism(s) from Refer [facility] similar site will not be repeated within 4 days. Results of Blood Culture gram stain called to and read back by JOAN at 1123 on 02/06/25 by ISABELLA. Specimen Source: Blood Generic External Data Provider LAB MICROBIOLOGY - GENERAL ORDERABLES Final Result [facility] [address] [place] [phone] * (ABNORMAL) Glucose, Whole Blood (02/05/2025 7:31 PM EDT) Glucose, Whole Blood 283(H) 60 - 115 mg/dL [facility] Comment:METER #: [id number] 02/05/2025 7:31 PM EDT 02/05/2025 7:35 PM EDT us Generic External Data Provider LAB BLOOD ORDERAB LES Final Result [facility] [address] [place] [address] [phone] * XR Chest 2 Views (02/05/2025 7:02 PM EDT) Anatomical Region Laterality Modality Chest Radiographic Joyce ging 02/05/2025 7:02 PM EDT Narrative 02/05/2025 7:04 PM EDT [place] [address] XRay Report Signed Patient: Kelsey Lozano MR#: [id number] : 1975 Acct:[id number] Age/Sex: 49 / F ADM Date: 02/05/25 Loc: .ED Attending Dr: Ordering Physician: Frank Sesay Date of Service: 02/05/25 Procedure(s): XR chest 2V Accession Number(s): [id number] cc: [facility]; Frank Sesay CLINICAL HISTORY: cough 2 view chest x-ray Comparison: None provided Findings: No consolidation or effusion. Normal size heart. No acute fracture. IMPRESSION: 1. No acute findings. This document has been electronically signed by: Esau Weiner MD on 02/05/2025 19:02:55 Dictated By: Esau Weiner MD Signed By: <Electronically signed by Esau Weiner MD in OV> 02/05/251902 DD/ 01 TD/TT: 02/05/251901 Measurement Specialist: Procedure Note Donotuseinterpreter, Image - 02/05/2025 [place] [address] XRay Report Signed Patient: Kelsey Lozano MMR#: [id number] : 1975Acct:[id number] Age/Sex: 49 / FADM Date: 02/05/25 Loc: HO.ED Attending Dr: Ordering Physician: Frank Sesay Date of Service: 02/05/25 Procedure(s): XR chest 2V Accession Number(s): [id number] cc: [facility]; Frank Sesay CLINICAL HISTORY: cough 2 view chest x-ray Comparison: None provided Findings: No consolidation or effusion. Normal size heart. No acute fracture. IMPRESSION: 1. No acute findings. This document has been electronically signed by: Esau Weiner MD on 02/05/2025 19:02:55 Dictated By: Esau Weiner MD Signed By: <Electronically signed by Esau Weiner MD in OV> 02/05/251902 DD/ 01 TD/TT: 02/05/251901 Measurement Specialist: [facility] External Provider IMG XR PROCEDURES Final Result * Slide Review (02/05/2025 6:06 PM EDT) Slide Review VERIFIED [facility] 02/05/2025 6:06 PM EDT 02/05/2025 6:09 PM EDT Generic External Data Provider LAB BLOOD ORDERAB LES Final Result [facility] [address] [place] [phone] * SARS-CoV-2 RNA, Influenza A/B, and RSV RNA, Ql NAAT (02/05/2025 6:06 PM EDT) Influenza A PCR NEGATIVE Negative [facility] Influenza B PCR NEGATIVE Negative [facility] Resp Syncy Virus RNA Qual PCR NEGATIVE Negative [facility] SARS COV2 PCR NEGATIVE Negative [facility] Comment:All test results mus t [...] use by authorized laboratories.Testing performed on the [employer] GeneXpert utilizingreal-time RT-PCR.All SARS CoV2 and positive influenza A/B results arereported to [facility]. 02/05/2025 6:06 PM EDT 02/05/2025 6:09 PM EDT Generic External Data Provider LAB MICROBIOLOGY - GENERAL ORDERABLES Final Result Performing Organization Address [facility]/ZIP Co de Phone Number [facility] [address] [place] [phone] * Culture, Urine, Routine (02/05/2025 12:00 AM EDT) Urine Urine specimen obtained by clean catch procedure / Unknown 02/05/2025 02/05/2025 Comment:UACC Narrative [facility] - 02/08/2025 7:33 AM EDT Escherichia coli Quant > 100,000 cfu/mL Escherichia coli: Ampicillin <=2(S) Escherichia coli: Cefazolin (Urine) <=1(S) Escherichia coli: Cefepime <=0.12(S) Escherichia coli: Ceftriaxone <=0.25(S) Escherichia coli: Ciprofloxacin <=0.06(S) Escherichia coli: Gentamicin <=1(S) Escherichia coli: Nitrofurantoin <=16(S) Escherichia coli: Trimethoprim/Sulfamethoxazole <=20(S) Specimen Source: Urine clean catch Generic External Data Provider LAB MICROBIOLOGY - GENERAL ORDERABLES Final Result Performing Organization Address [facility]/ZIP Co de Phone Number [facility] [address] [place] [phone] * (ABNORMAL) POCT HGB A1C (10/21/2024 10:59 AM EDT) Hemoglobin A1C 7.3(A) 4.0 - 6.0 % QC Media Lot # [id number] Lot# Expiration Date ,284,354 Blood 10/21/2024 10:5 9 AM EDT Reyna Lutz DO POINT OF CARE TEST ENTER/CL T ORDERABLES Final Result * HPV DNA, Low/High Risk (10/21/2024 12:00 AM EDT) HPV High Risk Negative Negative [facility] HPV Genotype 16 Negative Negative [facility] HPV Genotype 18 Negative Negative [facility] Comment:HPV testing performe d at [facility] (CLIA#[id number]), [address] [place] [address].Testing for HPV was performed using the [employer] OpenVPN0system. The presence of HPV in the female [...] DO LAB BLOOD ORDERABLES Final R esult [facility] [address] [place] [phone] * Pap Smear (10/21/2024 12:00 AM EDT) Swab Vaginal structure / Unknown 10/21/2024 10/22/2024 11:11 AM EDT Narrative [facility] - 10/24/2024 8:00 AM EDT ----- ------- Name: Kelsey Lozano Age/Sex: 49/F : 1975 Unit#: [id number] Attend Dr: Reyna Lutz DO Re10/22/24 Status: [facility] ------- SPEC : [id number] RECD: 10/22/24-1111 STATUS: WILLIAM REQ NUM: [id number] JOANA: 10/21/24-[address] [facility] [address]: Reyna Lutz DO ENTERED: 10/22/24-1128 SP TYPE: Pap Smr OTHR DR: ORDERED: Pap Smear Interpretation Satisfactory for evaluation. Negative for intraepithelial lesion or malignancy. HPV High Risk: Negative HPV Genotyping 16: Negative HPV Genotyping 18: Negative Clinical Information LMP: Unknown date Previous PAP test: Unknown date/findings Other surgery: IUD Material Received ThinPrep-Vaginal ----- ------- Signed (signature on file) RADHA Catherine (ASCP) 10/24/24 0800 ----- ------- END OF REPORT Reyna CatalinaPrime Focus DO LAB CYTOLOGY ORDERABLES Adeola l Result Performing Organization Address City/[facility] Co de Phone Number [facility] [address] [place] [phone] * Albumin, Random Urine W/Creatinine (02/01/2024 8:00 AM EDT) Creatinine, Urine 85.81 mg/dL [facility] Microalbumin Urine 10.0 mg/L [facility] Microalbum Creatinine Ratio Ur 11.6 <30 ug/mg cr [facility] Comment:Albumin/Creatinine R atio Reference Ranges: Normal: < 30 ug/mg creatinine Microalbuminuria: 30 - 300 ug/mg creatinineClinical Albuminuria: > 300 ug/mg creatinine Urine (Urine, Random) 02/01/2024 8:00 AM EDT 02/01/2024 12:08 PM EDT Narrative [facility] - 02/01/2024 12:40 PM EDT ORIGINALLY ORDERED UNDER ACCOUNT [id number] Reyna Nelda [employer] LAB URINE ORDERABLES Final R esult Performing Organization Address [facility] Co de Phone Number [facility] [address] [place] [phone] * Hepatitis C Antibody with Reflex to HCV, RNA, Quantitative, Real-Time PCR (01/23/2024 1:04 PM EDT) Hepatitis C Antibody Nonreactive Nonreactive [facility] Comment:Antibodies to HCV no t detected; does not exclude early acuteHCV infection. Blood Venous blood specimen / Unknown 01/23/2024 1:04 PM EDT 01/23/2024 3:56 PM EDT Reyna Lutz [employer] LAB BLOOD ORDERABLES Final R esult Performing Organization Address [facility]/ZIP Co de Phone Number [facility] [address] [place] [phone] * HIV-1/2 Antigen and Antibodies, Fourth Generation, with Reflexes (01/23/2024 1:04 PM EDT) HIV AB/AG Nonreactive Nonreactive [facility] Comment:HIV-1 p24 Ag and/or HIV-1/HIV-2 Ab not detected.A test result that is nonreactive does not exclude thepossibility of exposure to or infection with HIV-1 and/orHIV-2. Nonreactive results in this assay for individualswith prior exposure to HIV-1 and/or HIV-2 may be due toantigen and antibody levels that are below the limit ofdetection of this assay.The Need Fixed HIV Ag/Ab Combo assay result andsupplemental assay results should be interpreted inconjunction with the patient's clinical presentation,history and other laboratory results. If the results areinconsistent with clinical evidence, additional testing issuggested to confirm the result. Blood Venous blood specimen / Unknown 01/23/2024 1:04 PM EDT 01/23/2024 3:56 PM EDT Reyna Jurjaleel DO LAB BLOOD ORDERABLES Final R esult Performing Organization Address City/[facility]/ZIP Co de Phone Number [facility] [address] [place] [phone] * (ABNORMAL) Lipid Panel, Standard (01/23/2024 1:04 PM EDT) Triglycerides 141 <150 mg/dL [facility] Comment:Desirable Triglyceri de: less than 150 mg/dLBorderline High Triglyceride 150-199 mg/dLHigh Triglyceride: 200-499 mg/dLVery High Triglyceride: greater than or equal to 5OO mg/dL Cholesterol 210(H) <200 mg/dL [facility] Comment:Desirable Cholestero l: less than 200 mg/dLBorderline High Cholesterol: 200-239 mg/dLHigh Cholesterol: greater than 239 mg/dL LDL Cholesterol Calculated 133(H) <100 mg/dL [facility] Comment:Desirable LDL: less than 100 mg/dLNear Optimal/Above Optimal LDL: 110- 129 mg/dLBorderline High LDL: 130-159 mg/dLHigh LDL: 160-189 mg/dLVery High LDL: greater than or equal to 190 mg/dL HDL Cholesterol 49 >40 mg/dL [facility] Comment:Desirable HDL: great er than 40 mg/dL Note: This HDL assay may give artificially low results in patients with liver disease. Blood Venous blood specimen / Unknown 01/23/2024 1:04 PM EDT 01/23/2024 3:56 PM EDT us Reyna Lutz DO LAB BLOOD ORDERABLES Final R esult [facility] [address] [place] [address] [phone] from Last 3 Months or Most Recently Relevant to Health Maintenance Insurance [facility] [place] AD[place] Care Teams Lead Trainer Relationship Specialty Start Date End Date Reyna Lutz DO [address] [place] [phone] PCP - General Family Medicine 11/26/19
--- OUTSIDE RECORDS SUMMARY | 2025-05-06 20:10 | XMS_ITS | Encounter Summary ---
Author Organization [employer] Address [address] [facility] 7 [place] [address] Care Team Providers Care Miner Helper Name Role Phone Mague Lutzfer Primary Care Provider [phone] Reason for Visit * Reason Onset Date [...] (Late st Contact Info) Description 09/26/2022 Telephone [facility] ADULT D[facility]AL [address] [place], [place] [phone] Michael Jackson DDS [address] [place] [address] Appointment (Kelsey Alegrebo 1975 Patient was seen [...] Description 05/09/2025 2:30 PM EDT Office Visit [facility] MEDICINE [address] [place], [place] [phone] Ton Braga FNP [address] [place] [address] documented as of this encounter Visit Diagnoses Not on filedocumented in this encounter Care Teams Miner Helper Relationship Specialty Start Date End Date Reyna Lutz DO [address] [place] [address] PCP - General Family Medicine 11/26/19 Kerri BEGUMA 02/12/25 04/13/25 documented as of this encounter
--- OUTSIDE RECORDS SUMMARY | 2025-05-06 20:10 | XMS_ITS | Encounter Summary ---
Author Organization [employer] Address [address] [facility] [address] [place] [address] Care Team Providers Care Hydro Technician Name Role Phone Reyna Lutz DO Primary Care Provider [phone] Reason for Visit * Reason Onset Date Comments Med Refill 10/05/2022 Encounter Details Date Type Department Care Team (Late st Contact Info) Description 10/05/2022 Refill [facility] MED[facility]INE [address] [place] [address] Reyna Lutz DO [address] [place] [address] Acute bilateral low back pain without sciatica [...] 50 MG tablet To be sent to [facility] [address], [place] [address]. Health Informatics Specialist sees medication was sentto [facility] at [address], [place], [address] but pharmacy advise pt that they are currently out of this medication. Please contact pt at [phone] documented in this encounter Plan of Treatment Upcoming Encounters Date Type Department Care Team (Late st Contact Info) Description 05/09/2025 2:30 PM EDT Office Visit [facility] MEDICINE [address] [place] [address] Ton Braga FNP [address] [place] [address] documented as of this encounter Visit Diagnoses Diagnosis Acute bilateral low back pain without sciatica documented in this encounter Care Teams Hydro Technician Relationship Specialty Start Date End Date Reyna Lutz DO [address] [place] [phone] PCP - General Family Medicine 11/26/19 Kerri BEGUMA 02/12/25 04/13/25 documented as of this encounter
--- OUTSIDE RECORDS SUMMARY | 2025-05-06 20:10 | XMS_ITS | Encounter Summary ---
Author Organization [employer] Address [address] [place] [address] Care Team Providers Care Upsetter Setter Up Name Role Phone Reyna Lutz DO Primary Care Provider [phone] Encounter Details Date Type Department Care Team (Late st Contact Info) Description 06/27/2022 Orders Only [facility] [address] [place] [address] Malou Feliz LPN Social History Tobacco Use [...] Description 05/09/2025 2:30 PM EDT Office Visit [facility] MEDICINE [address] [place] [address] Ton Braga FNP [address] [place] [address] documented as of this encounter Visit Diagnoses Not on filedocumented in this encounter Care Teams Upsetter Setter Up Relationship Specialty Start Date End Date Reyna Lutz DO [address] [place] [address] PCP - General Family Medicine [facility] 04/13/25 documented as of this encounter
--- OUTSIDE RECORDS SUMMARY | 2025-05-06 20:10 | XMS_ITS | Encounter Summary ---
Author Organization [employer] Address [address] [place] [address] [address] [place] [address] Care Team Providers Care Personal Fitness Trainer Name Role Phone Mague uLtzfer Primary Care Provider [phone] Encounter Details Date Type Department Care Team (Late st Contact Info) Description 12/21/2022 Orders Only [facility] ADULT DENTAL [address] [place] [address] Rachna Mendez DDS [address] [place] [address] Social History Tobacco Use Types Packs/Day Years [...] 05/09/2025 2:30 PM EDT Office Visit [facility] MEDICINE [address] [place] [address] Ton Braga FNP [address] [place] [address] documented as of this encounter Visit Diagnoses Not on filedocumented in this encounter Care Teams Personal Fitness Trainer Relationship Specialty Start Date End Date Reyna Lutz DO [address] [place] [phone] PCP - General Family Medicine 11/26/19 Kerri SHANKS 02/12/25 04/13/25 documented as of this encounter
--- OUTSIDE RECORDS SUMMARY | 2025-05-06 20:10 | XMS_ITS | Encounter Summary ---
Author Organization [employer] Address [address] [place] [address] [address] [place] [address] Care Team Providers Care Market Research Intern Name Role Phone Reyna Lutz DO Primary Care Provider [phone] Encounter Details Date Type Department Care Team (Late st Contact Info) Description 07/22/2022 Orders Only [facility] [address] [place], [place] [phone] Reyna Maradiaga LPN Social History Tobacco Use [...] Description 05/09/2025 2:30 PM EDT Office Visit [facility] MEDICINE [address] [place] [address] Ton Braga FNP [address] [place] [address] documented as of this encounter Visit Diagnoses Not on filedocumented in this encounter Care Teams Market Research Intern Relationship Specialty Start Date End Date Reyna Lutz DO [address] [place] [address] PCP - General Family Medicine [facility]26[facility] 04/13/25 documented as of this encounter
--- OUTSIDE RECORDS SUMMARY | 2025-05-06 20:10 | XMS_ITS | Encounter Summary ---
Author Organization [employer] Address [address] [facility] 7t [place] [address] Care Team Providers Care Crystal Lapper Name Role Phone Reyna Lutz DO Primary Care Provider Reason for Visit * Reason Onset Date Comments Appointment 09/26/2022 Kelsey Lozano 1975 Patient was seen 09/26 and was wondering if medication was sent to pharmacy please advise Encounter Details Date Type Department Care Team ([facility] Contact Info) Description 09/26/2022 Telephone [facility] [address] [place] [address] John Ortega, DDS [address] [place] [address] Appointment (Kelsey Lozano 1975 Patient was seen [...] Description 05/09/2025 2:30 PM EDT Office Visit [facility] [address] [place] [address] Ton Braga FNP [address] [place], [place] [phone] documented as of this encounter Visit Diagnoses Not on filedocumented in this encounter Care Teams Crystal Lapper Relationship Specialty Start Date End Date Reyna Lutz DO [address] [place] [address] [id number] PCP - General Family Medicine 11/26/19 Kerri BEGUMA 02/12/25 04/13/25 documented as of this encounter
--- OUTSIDE RECORDS SUMMARY | 2025-05-06 20:10 | XMS_ITS | Encounter Summary ---
Author Organization [employer] Address 75 [facility] 7t [place] [address] Care Team Providers Care Bottom Liquor Attendant Name Role Phone Reyna Lutz DO Primary Care Provider [phone] Reason for Referral * Consultation (Routine) - Closed Specialty Diagnoses / Procedures Referred By Contac t Referred To Contact Neurology Diagnoses Myotonic dystrophy (CMS/HCC) (HCC) Sowmya Marinelli MD [address] [place] [address] Phone: tel: fax: Dale Mina MD [address] [place] [address] [place] [address] Phone: tel: fax: Referral ID Status Reason Start Date Expiration Date V isits Requested Visits Authorized [id number] Closed Specialty Services Required 09/04/2024 09/04/2025 6 6 Encounter Details Date Type Department Care Team (Late st Contact Info) Description 08/27/2024 Orders Only [facility] [address] [place] [address] [phone] Sowmya Marinelli MD [address] [place], [place] [phone] Myotonic dystrophy (CMS/HCC) (Primary Dx) Social History [...] Office Visit [facility] [address] [place] [address] Ton Braga FNP [address] [place] [address] Scheduled Referrals Name Type Priority Associated Diagnoses Orde r Schedule Referral to Neurology Outpatient Referral Routine Myotonic dystrophy (CMS/HCC) Expected: 08/27/2024 (Approximate), Expires: 08/27/2025 documented as of this encounter Visit Diagnoses Diagnosis 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
--- OUTSIDE RECORDS SUMMARY | 2025-05-06 20:10 | XMS_ITS | Encounter Summary ---
Author Organization [employer] Address [address] [facility] 7t [place] [address] Care Team Providers Care Grinder Operator Surface Tool Name Role Phone Reyna Lutz DO Primary Care Provider + [phone] Reason for Visit * Reason Onset Date Comments FYI 03/11/2025 Encounter Details Date Type Department Care Team ([facility] st Contact Info) Description 03/11/2025 Telephone [facility] [address] [place] [address] Reyna Lutz DO [address] [place] [address] FY Social History Tobacco Use Types Packs/Day Years [...] 1:41 PM EDT TC placed to Rachel (Kerri SHANKS) [phone] regarding below message. Rachel reported patient has [...] issue with transportation to have her call [facility] to arrange a Uber ride to her appt. RN informed Rachel amessage will be sent to her PCP and the provider that is going to see her on 03/26/25. Rachel verbalized understanding. PT to F/U PRN. * Telephone Encounter - Farhan Joy - 03/11/2025 2:40 PM EDT Tc from rachel with [facility] reporting that the pt BP was 140/96. They are also reporting that pt Is not taking medication and they're duafolic is too high. Any questions contact pt at [phone] documented in this encounter Plan of Treatment Upcoming Encounters Date Type Department Care Team (Late st Contact Info) Description 05/09/2025 2:30 PM EDT Office Visit [facility] [address] [place] [address] Ton Braga FNP [address] [place] [address] documented as of this encounter Visit Diagnoses Not on filedocumented in this encounter Additional Health Concerns Assessment Noted Time PHQ-9 Depression Total Score: 5 10/22/19 11:40 AM EDT documented as of this encounter Care Teams Grinder Operator Surface Tool Relationship Specialty Start Date End Date Reyna Lutz DO [address] [place] [address] PCP - General Family Medicine 11/26/19 Kerri BEGUMA 02/12/25 04/13/25 documented as of this encounter
--- OUTSIDE RECORDS SUMMARY | 2025-05-06 20:10 | XMS_ITS | Encounter Summary ---
Author Organization [employer] Address [address] [place] [address] [address] [place] [address] Care Team Providers Care Tire Beader Maker Name Role Phone Reyna Lutz DO Primary Care Provider [phone] Encounter Details Date Type Department Care Team (Late Contact Info) Description 09/09/2022 Orders Only [facility] [address] [place] [address] Reyna Maradiaga LPN Social History Tobacco Use [...] Description 05/09/2025 2:30 PM EDT Office Visit [facility] [address] [place] [address] Ton Braga FNP [address] [place] [address] documented as of this encounter Visit Diagnoses Not on filedocumented in this encounter Care Teams Tire Beader Maker Relationship Specialty Start Date End Date Reyna Lutz DO [address] [place] [address] PCP - General Family Medicine 11/26/19 Kerri SHANKS 02/12/25 04/13/25 documented as of this encounter
--- OUTSIDE RECORDS SUMMARY | 2025-05-06 20:10 | XMS_ITS | Encounter Summary ---
Author Organization [employer] Address [address] [place] [address] 7 [place] [address] Care Team Providers Care Referral Rn Name Role Phone Reyna Lutz DO Primary Care Provider [phone] Encounter Details Date Type Department Care Team (Late st Contact Info) Description 11/10/2022 Orders Only [facility]S [address] [place] [address] Reyna Maradiaga LPN Social History Tobacco Use [...] Description 05/09/2025 2:30 PM EDT Office Visit [facility] [address] [place] [address] Ton Braga FNP [address] [place] [address] documented as of this encounter Visit Diagnoses Not on filedocumented in this encounter Care Teams Referral Rn Relationship Specialty Start Date End Date Reyna Lutz DO [address] [place] [address] PCP - General Family Medicine 11/26/19 Kerri SHANKS 02/12/25 04/13/25 documented as of this encounter
== END 2025-05-06 16:18 | disposition home or self-care (01) ==
LOC: HO.US 16:17
PROVIDERS: PCP Family Medicine; Visit Provider Obstetrics & Gynecology
DX: D25.9 Leiomyoma of uterus, unspecified (principal)
CPT/HCPCS: 76830; 76856

== ENCOUNTER → 2025-05-06 16:19 | Outpatient (BNV) | payer MEDICAID, SELFPAY | PROVIDERS: PCP Family Medicine; Visit Provider Radiology Diagnostic Radiology | DX: D25.2 Subserosal leiomyoma of uterus (principal) | CPT/HCPCS: 76830; 76856 ==

== ENCOUNTER 2025-05-27 14:10 | Outpatient (AMB) | payer MEDICAID, SELFPAY ==
--- OUTSIDE RECORDS SUMMARY | 2025-05-26 11:30 | XMS_ITS | Encounter Summary ---
Author Organization [employer] Address [address] [facility] 7t [place] [address] Care Team Providers Care Schedule Clerk Name Role Phone Reyna Lutz DO Primary Care Provider + [phone] Encounter Details Date Type Department Care Team (Late st Contact Info) Description 05/26/2025 11:30 AM EST Office Visit [facility] [address] [place] [address] Reyna Lutz DO [address] [place] [address] Type 2 diabetes mellitus with hyperglycemia, without long-term current use of insulin (HCC) (Primary Dx); Essential hypertension; Other hyperlipidemia; Fatty liver; Major depression, recurrent, chronic (CMS/HCC); Anxiety; Myotonic dystrophy (CMS/HCC) (HCC); Chronic gastritis without bleeding, unspecified gastritis type; Endometrial hyperplasia; Urinary incontinence, unspecified type; Chronic bilateral low back pain without sciatica; Abnormal MRI, pelvis; Healthcare maintenance Social History Tobacco Use Types Packs/Day Years Used Date Smoking Tobacco: Never Passive Smoke Exposure: Never Smokeless Tobacco: Never Alcohol Use Standard Drinks/Week Comments Never 0 (1 standard drink = 0.6 oz pur e alcohol) Depression Answer Date Recorded Patient Health Questionnaire-9 Score 10 05/27/2025 Patient Health Questionnaire-9 Score 10 05/27/2025 Last PHQ-9: Questionnaire Data Not on file 1 07/27/2024 Housing Stability Answer Date Recorded What is [...] Answer Date Recorded Patient Health Questionnaire-2 Score 4 05/27/2025 Internet Access Answer Date Recorded Internet Access [...] Sign Reading Time Taken Comments Blood Pressure 136/80 05/26/2025 11:56 AM EST Pulse 90 05/26/2025 11:56 AM EST Temperature 36.2 C (97.1 F) 05/26/2025 11:56 AM EST Respiratory Rate 21 05/26/2025 11:56 AM EST Oxygen Saturation 96% 05/26/2025 11:56 AM EST Inhaled Oxygen Concentration - - Weight 80.3 kg (177 lb) 05/26/2025 11:56 AM EST Height 160 cm (5' 3 ) 05/26/2025 11:56 AM EST Body Mass Index 31.35 05/26/2025 11:56 AM EST documented in this encounter Functional Status * Over the past 2 weeks, how often have you been bothered by any of the following problems? Question Answer Date of Assessment Author Patient Health Questionnaire -2 Score 4 05/27/2025 1:40 PM So Maharaj MA * Little interest or pleasure in doing things Answer Date of Assessment Author More than half the days 05/27/2025 1:40 PM So Chung MA * Feeling down, depressed, or hopeless Answer Date of Assessment Author More than half the days 05/27/2025 1:40 PM So Chung MA * Trouble falling or staying asleep, or sleeping too much Answer Date of Assessment Author More than half the days 05/27/2025 1:40 PM So Chung MA * Feeling tired or having little energy Answer Date of Assessment Author More than half the days 05/27/2025 1:40 PM So Chung MA * Poor appetite or overeating Answer Date of Assessment Author Not at all 05/27/2025 1:40 PM Eric Mahraaj MA * Feeling bad about yourself - or that you are a failure or have let yourself or your family down Answer Date of Assessment Author More than half the days 05/27/2025 1:40 PM So Chung MA * Trouble concentrating on things, such as reading the newspaper or watching television Answer Date of Assessment Author Not at all 05/27/2025 1:40 PM Eric Maharaj MA * Moving or speaking so slowly that other people could have noticed? Or the opposite - being so fidgety or restless that you have been moving around a lot more than usual. Answer Date of Assessment Author Not at all 05/27/2025 1:40 PM Eric Maharaj MA * Thoughts that you would be better off or hurting yourself in some way Answer Date of Assessment Author Not at all 05/27/2025 1:40 PM Eric Maharaj MA * Patient Health Questionnaire-9 Score Answer Date of Assessment Author 10 05/27/2025 1:40 PM Eric Maharaj MA * Over the last 2 weeks, how often have you been bothered by any of the following problems? Question Answer Date of Assessment Author Feeling nervous, anxious, or on edge 2 05/27/2025 1:40 PM EST So Galvan MA Not being able to stop or co ntrol worrying 2 05/27/2025 1:40 PM So Maharaj MA Worrying too much about diff erent things 2 05/27/2025 1:40 PM So Maharaj MA Trouble relaxing 2 05/27/2025 1:40 PM EST So Alonso MA Being so restless that it is hard to sit still 2 05/27/2025 1:40 PM So Maharaj MA Becoming easily annoyed or irritable 2 05/27/2025 1:40 PM So Maharaj MA Feeling afraid as if somethi ng awful might happen 2 05/27/2025 1:40 PM So Maharaj MA CJ-7 Total Score 14 05/27/2025 1:40 PM So Maharaj MA * How difficult have these problems made it for you to do your work, take care of things at home, or get along with other people? Answer Date of Assessment Author Somewhat difficult 05/27/2025 1:40 PM So Maharaj MA documented as of this encounter Plan of Treatment Scheduled Orders Name Type Priority Associated Diagnoses Orde r Schedule T4, Free Lab Routine Type 2 diabetes mellitus with hyperglycemia, without long-term current use of insulin (HCC) Expected: 05/26/2025 (Approximate), Expires: 05/26/2026 Vitamin D, 25-Hydroxy, Total, Immunoassay Lab Routine Type 2 diabetes mellitus with hyperglycemia, without long-term current use of insulin (HCC) Expected: 05/26/2025 (Approximate), Expires: 05/26/2026 Lipid Panel, Standard Lab Routine Type 2 diabetes mellitus with hyperglycemia, without long-term current use of insulin (HCC) Expected: 05/26/2025 (Approximate), Expires: 05/26/2026 TSH Lab Routine Type 2 diabetes mellitus with hyperglycemia, without long-term current use of insulin (HCC) Expected: 05/26/2025 (Approximate), Expires: 05/26/2026 Hepatic Function Panel Lab Routine Type 2 diabetes mellitus with hyperglycemia, without long-term current use of insulin (HCC) Expected: 05/26/2025 (Approximate), Expires: 05/26/2026 Hemoglobin A1c Lab Routine Type 2 diabetes mellitus with hyperglycemia, without long-term current use of insulin (HCC) Expected: 05/26/2025 (Approximate), Expires: 05/26/2026 Basic Metabolic Panel Lab Routine Type 2 diabetes mellitus with hyperglycemia, without long-term current use of insulin (HCC) Expected: 05/26/2025 (Approximate), Expires: 05/26/2026 CBC Lab Routine Type 2 diabetes mellitus with hyperglycemia, without long-term current use of insulin (HCC) Expected: 05/26/2025, Expires: 05/26/2026 Albumin, Random Urine W/Creatinine Lab Routine Type 2 diabetes mellitus with hyperglycemia, without long-term current use of insulin (HCC) Expected: 05/26/2025 (Approximate), Expires: 05/26/2026 Hepatitis B surface antigen, EIA Lab Routine Healthcare maintenance Expected: 05/26/2025 (Approximate), Expires: 05/26/2026 Chlamydia/N. Gonorrhoeae RNA, TMA, Urogenitial Microbiology Routine Healthcare maintenance Ordered: 05/26/2025 HIV-1/2 Antigen and Antibodies, Fourth Generation, with Reflexes Lab Routine Healthcare maintenance Expected: 05/26/2025 (Approximate), Expires: 05/26/2026 Hepatitis C Antibody with Reflex to HCV, RNA, Quantitative, Real-Time PCR Lab Routine Healthcare maintenance Expected: 05/26/2025, Expires: 05/26/2026 RPR (Monitor) with Reflex to Titer Lab Routine Healthcare maintenance Expected: 05/26/2025, Expires: 05/26/2026 Hepatitis B Surface Antibody, Qualitative Lab Routine Healthcare maintenance Expected: 05/26/2025 (Approximate), Expires: 05/26/2026 Alpha-Fetoprotein, Tumor Marker Lab Routine Fatty liver Expected: 05/26/2025 (Approximate), Expires: 05/26/2026 documented as of this encounter Goals Goal Patient Goal Type Associated Problems Recent Progress Patient-Stated? Author Help patients manage their type 2 diabetes Care Plan Help patients manage their type 2 diabetes No So Galvan MA Weekly blood pressure task Care Plan Weekly blood pressure task No So Galvan MA Help patients manage their type 2 diabetes Care Plan Help patients manage their type 2 diabetes No So Galvan MA Patient has chronic kidney disease Care Plan Patient has chronic kidney disease No So Galvan MA Weekly blood pressure task Care Plan Weekly blood pressure task No So Galvan MA Patient has chronic kidney disease Care Plan Patient has chronic kidney disease No So Galvan MA Weekly blood pressure task Care Plan Weekly blood pressure task No So Galvan MA Weekly blood pressure task Care Plan Weekly blood pressure task No So Galvan MA Patient has chronic kidney disease Care Plan Patient has chronic kidney disease No So Galvan MA Patient has chronic kidney disease Care Plan Patient has chronic kidney disease No So Galvan MA documented as of this encounter Procedures Procedure Name Priority Date/Time Associated Diagnosis Comments POCT GLYCATED HEMOGLOBIN, TOTAL Routine 05/26/2025 12:19 PM EST Type 2 diabetes mellitus with hyperglycemia, without long-term current use of insulin (HCC) POCT GLUCOSE Routine 05/26/2025 12:18 PM EST Type 2 diabetes mellitus with hyperglycemia, without long-term current use of insulin (HCC) documented in this encounter Results * (ABNORMAL) POCT Hgb A1c (05/26/2025 12:19 PM EST) Pathologist [facility] Hemoglobin A1C 7.3(A) 4.0 - 5.7 % QC Media Lot # [id number] Lot# Expiration Date 5,027 Blood 05/26/2025 12:1 9 PM EST Reyna Lutz DO POINT OF CARE TEST ENTER/CL T ORDERABLES Final Result * POCT Glucose (05/26/2025 12:18 PM EST) Pathologist [facility] Glucose Blood, POC 146 60 - 200 mg/dL QC Media Lot # [id number] Lot# Expiration Date [id number] Blood Capillary blood specimen / Unknown 05/26/2025 12:18 PM EST Reyna Lutz DO POINT OF CARE TEST ENTER/CL T ORDERABLES Final Result documented in this encounter Visit Diagnoses Diagnosis Type 2 diabetes mellitus with hyperglycemia, without long-term current use of insulin (HCC)- Primary Essential hypertension Unspecified essential hypertension Other hyperlipidemia Fatty liver Other chronic nonalcoholic liver disease Major depression, recurrent, chronic (CMS/HCC) Anxiety Anxiety state, unspecified 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 Chronic gastritis without bleeding, unspecified gastritis type Endometrial hyperplasia Urinary incontinence, unspecified type Chronic bilateral low back pain without sciatica Abnormal MRI, pelvis Healthcare maintenance documented in this encounter Additional Health Concerns Active Problems Noted Date Diagnosed Date Help patients manage their type 2 diabetes 05/23 Weekly blood pressure task 05/23/2025 Help patients manage their type 2 diabetes 05/23 Patient has chronic kidney disease 05/23/2025 Weekly blood pressure task 05/23/2025 Patient has chronic kidney disease 05/23/2025 Weekly blood pressure task 05/23/2025 Weekly blood pressure task 05/23/2025 Patient has chronic kidney disease 05/23/2025 Patient has chronic kidney disease 05/23/2025 Assessment Noted Time PHQ-9 Depression Total Score: 10 025 1:40 PM EST documented as of this encounter Care Teams Schedule Clerk Relationship Specialty Start Date End Date Reyna Lutz DO [address] [place] [address] PCP - General Family Medicine 11/26/19 documented as of this encounter
--- NOTE | 2025-05-27 14:11 | MHC.OFFVIS ---
Intake Visit Reasons: MRI/Ultrasound follow up Allergies No Known Allergies (No Known Allergies*) Allergy (Verified 02/07/25 18:42) HPI Comments Details: The patient is scheduled a telehealth visit for ultrasound follow-up regarding myomas with no complaints no pelvic pressure or pain or abnormal bleeding. Pelvic ultrasound done recently showed the following: Uterus: The uterus is retroflexed and measures 8.1 x 4.7 x 5.3 cm. The double wall endometrial thickness is 3 mm. Subserosal intramural leiomyoma is present in the upper posterior body measuring 3.5 x 3.0 x 3.6 cm previously 3.4 x 3.0 x 2.8 cm. There is an IUD in the upper uterine cavity. Adnexa: Right ovary was not visualized Left ovary is not visualized US/US pelvic and transvaginal IMPRESSION: Subserosal and intramural leiomyoma is noted in the posterior upper body of the uterus measuring up to 3.6 cm. IUD PFSH Medical History Urinary incontinence Restrictive lung disease Allergic rhinitis Paroxysmal cough Anxiety Depression Muscular dystrophy, emery-dreifuss Surgical History Hx of section H/O endoscopy Family History Unknown No family history of colorectal cancer Social History Household Members: Family Household Members Other:: Lives with her daughter (23-special needs) and her mother Housing: Apartment Do you presently have visiting nurse or other home services: No Alcohol intake: never Patient Tobacco Use Status: Never used Tobacco service: No Current occupational status: disabled Female Reproductive History Menstrual Age of Menarche: 11 Review of Systems Const All systems reviewed & are unremarkable except as noted in HPI and below Reports as per HPI and Reports no additional complaints GI Reports no additional complaints Reports no additional complaints Telehealth Telehealth Telehealth Platform: [employer] Location of provider rendering services: practice address Location of patient: address on file Patient Identification confirmed using: Name, : Yes Telehealth method: video Patient verbally consented to treatment: Yes Patient verbally consented to billing insurance company: Yes Patient informed of any privacy concerns related to visit: Yes Minutes spent on Phone/Video with Pt.: 4 Assessment & Plan Assessment & Plan (1) Uterine myoma: Code(s): D25.9 - Leiomyoma of uterus, unspecified Category: Medical Plan: Discussed with the patient the findings on pelvic ultrasound & the risk of myosarcoma; in addition reviewed with the patient that malignancy and pre malignancy cannot be ruled out without hysterectomy for pathological evaluation ; furthermore, explained to the patient the limitation of pelvic ultrasound and endometrial biopsy in the setting. Discussed with the patient the options of treatment including expectant management versus hysterectomy; the pros and cons, risks benefits of each approach were discussed with the patient including the fact that in cases of myosarcoma, surgical treatment can lead to early diagnosis and positively affects the prognosis; after further discussion, the patient decided to proceed with expectant management. Will repeat pelvic ultrasound periodically. Instructions given to patient to call in case any of the following occurs: pressure symptoms, abnormal uterine bleeding, pelvic pain; and to schedule a six-months pelvic ultrasound (order placed) and a follow-up appointment . All questions answered, the patient verbalized understanding and agreed with the plan . I spent a total of 20 minutes reviewing the chart, talking to the patient via video and documenting in the medical record. Orders: Orders US pelvic and transvaginal 1 Year D25.9 - Leiomyoma of uterus, unspecified Coding Level of Care Code Tele Est Pt Level 3 (50195) Diagnoses Uterine myoma D25.9
--- OUTSIDE RECORDS SUMMARY | 2025-05-28 09:16 | XMS_ITS | Encounter Summary ---
Author Organization [employer] Address [address] [place] [address] [address] [place] [address] Care Team Providers Care Marketing Sales Representative Name Role Phone Reyna Lutz DO Primary Care Provider Reason for Referral * Consultation (Routine) - Canceled Specialty Diagnoses / Procedures Referred By Contjanine t Referred To Contact Audiology Diagnoses Bilateral hearing loss, unspecified hearing loss type Reyna Lutz DO [address] [place] [address] Phone: tel: fax: Referral ID Status Reason Start Date Expiration Date Visits Requested Visits Authorized [id number] Canceled Specialty Services Required 03/03/2025 03/03/2026 1 1 Encounter Details Date Type Department Care Team (Late st Contact Info) Description 03/03/2025 Orders Only [facility] MEDICINE [address] [place] [address] Reyna Lutz DO [address] [place], [place] [id number] Bilateral hearing loss, unspecified hearing loss type [...] documented as of this encounter Care Teams Marketing Sales Representative Relationship Specialty Start Date End Date Reyna Lutz DO [address] [place] [address] PCP - General Family Medicine 11/26/19 Kerri SHANKS 02/12/25 04/13/25 documented as of this encounter
--- OUTSIDE RECORDS SUMMARY | 2025-05-28 09:16 | XMS_ITS | Encounter Summary ---
Author Organization [employer] Address [address] [facility] 7t [place] [address] Care Team Providers Care Hand Kiss Setter Name Role Phone Reyna Lutz DO Primary Care Provider + [phone] Reason for Visit * Reason Onset Date Comments FYI 03/11/2025 Encounter Details Date Type Department Care Team ([facility] st Contact Info) Description 03/11/2025 Telephone [facility] MEDICINE 230 [place] [address] Reyna Lutz DO 230 [place] [address] FY Social History Tobacco Use Types Packs/Day [...] EDT TC placed to Rachel (Kerri SHANKS) [phone] regarding below message. Rachel reported patient has [...] issue with transportation to have her call [facility] to arrange a Uber ride to [...] too high. Any questions contact pt at [phone] documented in this encounter Plan of Treatment Not on file documented as of this encounter Visit Diagnoses Not on filedocumented in this encounter Additional Health Concerns Assessment Noted Time PHQ-9 Depression Total Score: 5 10/22/19 11:40 AM EDT documented as of this encounter Care Teams Hand Kiss Setter Relationship Specialty Start Date End Date Reyna Lutz DO 230 [place] [address] PCP - General Family Medicine 11/26/19 Kerri SHANKS 02/12/25 04/13/25 documented as of this encounter
--- OUTSIDE RECORDS SUMMARY | 2025-05-28 09:17 | XMS_ITS | Encounter Summary ---
Author Organization [employer] Address [address] [place] [address] 7t [place] [address] Care Team Providers Care Director Of Head Start Name Role Phone Reyna Lutz DO Primary Care Provider [phone] Encounter Details Date Type Department Care Team (Late st Contact Info) Description 07/20/2022 Orders Only [facility] MEDICINE 230 [place] [address] Malou Feliz LPN Social History Tobacco Use [...] in this encounter Care Teams Director Of Head Start Relationship Specialty Start Date End Date Reyna Lutz DO 230 [place] [address] PCP - General Family Medicine 11/26/19 Kerri BEGUMA 02/12/25 04/13/25 documented as of this encounter
--- OUTSIDE RECORDS SUMMARY | 2025-05-28 09:17 | XMS_ITS | Encounter Summary ---
Author Organization [employer] Address [address] [place] [address] 7t [place] [address] Care Team Providers Care Client Advocate Name Role Phone Reyna Lutz DO Primary Care Provider [phone] Encounter Details Date Type Department Care Team (Late st Contact Info) Description 06/27/2022 Orders Only [facility] 230 [place] [address] Malou Feliz LPN Social History Tobacco Use [...] on filedocumented in this encounter Care Teams Client Advocate Relationship Specialty Start Date End Date Reyna Lutz DO 230 [place] [address] PCP - General Family Medicine 11/26/19 Kerri BEGUMA 02/12/25 04/13/25 documented as of this encounter
--- OUTSIDE RECORDS SUMMARY | 2025-05-28 09:18 | XMS_ITS | Encounter Summary ---
Author Organization [employer] Address [address] [facility] 7t [place] [address] Care Team Providers Care Sales Operations Assistant Name Role Phone Reyna Lutz DO Primary Care Provider + [phone] Reason for Visit * Reason Onset Date Comments Nurse Triage 02/17/2025 Encounter Details Date Type Department Care Team ([facility] st Contact Info) Description 02/17/2025 Telephone [facility] MEDICINE 230 [place] [address] Reyna Lutz DO 230 [place] [address] Nurse Triage Social History Tobacco Use Types [...] documented as of this encounter Care Teams Sales Operations Assistant Relationship Specialty Start Date End Date Reyna Lutz DO [address] [place] [address] PCP - General Family Medicine 11/26/19 Kerri SHANKS 02/12/25 04/13/25 documented as of this encounter
--- OUTSIDE RECORDS SUMMARY | 2025-05-28 09:18 | XMS_ITS | Encounter Summary ---
Author Organization [employer] Address [address] [facility] 7t [place] [address] Care Team Providers Care Dairy Feed Worker Name Role Phone Reyna Lutz DO Primary Care Provider Encounter Details Date Type Department Care Team (Late st Contact Info) Description 07/22/2022 Orders Only [facility] MED & PEDS [address] [place] [address] Reyna Maradiaga LPN Social History Tobacco Use [...] on filedocumented in this encounter Care Teams Dairy Feed Worker Relationship Specialty Start Date End Date Reyna Lutz DO [address] [place] [address] PCP - General Family Medicine 11/26/19 Kerri BEGUMA 02/12/25 04/13/25 documented as of this encounter
--- OUTSIDE RECORDS SUMMARY | 2025-05-28 09:20 | XMS_ITS | Encounter Summary ---
Author Organization [employer] Address [address] [facility] 7t [place] [address] Care Team Providers Care Resistor Tester Name Role Phone Reyna Lutz DO Primary Care Provider [phone] Encounter Details Date Type Department Care Team (Late st Contact Info) Description 09/09/2022 Orders Only [facility] CH[facility] MED & PEDS [address] [place] [address] Reyna Maradiaga LPN Social History Tobacco Use [...] on filedocumented in this encounter Care Teams Resistor Tester Relationship Specialty Start Date End Date Reyna Lutz DO [address] [place] [address] PCP - General Family Medicine 11/26/19 [facility] 02/12/25 04/13/25 documented as of this encounter
--- OUTSIDE RECORDS SUMMARY | 2025-05-28 09:20 | XMS_ITS | Encounter Summary ---
Author Organization [employer] Address [address] [facility] 7t [place] [address] Care Team Providers Care News Specialist Name Role Phone Reyna Lutz DO Primary Care Provider [phone] Encounter Details Date Type Department Care Team (Late st Contact Info) Description 08/16/2022 Orders Only [facility] CHC MED & PEDS [address] [place] [address] Reyna Maradiaga LPN Social History Tobacco Use [...] filedocumented in this encounter Care Teams News Specialist Relationship Specialty Start Date End Date Reyna Lutz DO [address] [place] [address] PCP - General Family Medicine 11/26/19 Kerri BEGUMA 02/12/25 04/13/25 documented as of this encounter
--- OUTSIDE RECORDS SUMMARY | 2025-05-28 09:21 | XMS_ITS | Encounter Summary ---
Author Organization [employer] Address [address] [facility] [address] 7t [place] [address] Care Team Providers Care Seed Potato Arranger Name Role Phone Nelda Reyna Primary Care Provider + [phone] Encounter Details Date Type Department Care Team (Latest Contact Info) Description 05/26/2025 Travel Social History Tobacco Use Types Packs/Day [...] on file documented as of this encounter Goals Goal [...] Care Plan Patient has chronic kidney disease So [place] Patient has chronic kidney disease Care Plan Patient has chronic kidney disease No So Galvan [place] documented as of this encounter Visit Diagnoses Not on filedocumented in this encounter Additional Health Concerns Active [...] documented as of this encounter Care Teams Seed Potato Arranger Relationship Specialty Start Date End Date Reyna Lutz DO 230 [place] [address] PCP - General Family Medicine 11/26/19 documented as of this encounter
--- OUTSIDE RECORDS SUMMARY | 2025-05-28 09:21 | XMS_ITS | Encounter Summary ---
Author Organization [employer] Address [address] [place] [address] 7 [place] [address] Care Team Providers Care Solar Design Engineer Name Role Phone Reyna Lutz DO Primary Care Provider [phone] Encounter Details Date Type Department Care Team (Late st Contact Info) Description 09/09/2022 Abstract [facility] ADULT DENTAL [address] [place] [address] Rachna Mendez DDS [address] [place] [address] Social History Tobacco Use Types Packs/Day Years [...] on filedocumented in this encounter Care Teams Solar Design Engineer Relationship Specialty Start Date End Date Reyna Lutz DO 230 [place] [address] PCP - General Family Medicine 11/26/19 Kerri SHANKS 02/12/25 04/13/25 documented as of this encounter
--- OUTSIDE RECORDS SUMMARY | 2025-05-28 09:22 | XMS_ITS | Encounter Summary ---
Author Organization [employer] Address [address] [facility] 7t [place] [address] Care Team Providers Care Business Services Specialist Sales Name Role Phone Reyna Lutz DO Primary Care Provider + [phone] Reason for Visit * Reason Onset Date Comments Chart Prep 05/23/2025 Encounter Details Date Type Department Care Team ([facility] st Contact Info) Description 05/23/2025 Telephone [facility] MEDICINE 230 [place] [address] Reyna Lutz DO 230 [place] [address] Chart Prep Social History Tobacco Use Types Packs/Day Years [...] encounter Miscellaneous Notes * Telephone Encounter - So Galvan [place] - 05/23/2025 2:05 PM EST Chart Prep Labs: done Images: done Referrals: complete Vaccines due: Covid, Flu, Hep A, RSV, and Zoster Screenings: colonoscopy, eye exam, and foot exam Overdue care gaps: A1c, Glucose, PHQ-9 and CJ-7 documented in this encounter Plan of Treatment Not on file documented as of this encounter Goals Goal Patient Goal Type Associated Problems Recent Progress Patient-Stated? Author Help patients manage their type 2 diabetes Care Plan Help patients manage their type 2 diabetes So [place] Weekly blood pressure task Care Plan Weekly blood pressure task So [place] Help patients manage their type 2 diabetes Care Plan Help patients manage their type 2 diabetes So [place] Patient has chronic kidney disease Care Plan Patient has chronic kidney disease So [place] Weekly blood pressure task Care Plan [...] documented as of this encounter Care Teams Business Services Specialist Sales Relationship Specialty Start Date End Date Reyna Lutz DO [address] [place] [address] PCP - General Family Medicine 11/26/19 documented as of this encounter
--- OUTSIDE RECORDS SUMMARY | 2025-05-28 09:24 | XMS_ITS | Encounter Summary ---
Author Organization [employer] Address [address] [place] [address] 7t [place] [address] Care Team Providers Care White Sugar Supervisor Name Role Phone Reyna Lutz DO Primary Care Provider Encounter Details Date Type Department Care Team (Late st Contact Info) Description 09/15/2022 Orders Only [facility] MEDICINE 230 [place] [address] Malou Feliz LPN Social History Tobacco Use [...] on filedocumented in this encounter Care Teams White Sugar Supervisor Relationship Specialty Start Date End Date Reyna Lutz DO 230 [place], [place] [phone] PCP - General Family Medicine [facility]19 [facility] 04/13/25 documented as of this encounter
--- OUTSIDE RECORDS SUMMARY | 2025-05-28 09:24 | XMS_ITS | Encounter Summary ---
Author Organization [employer] Address [address] [facility] 7 [place] [address] Care Team Providers Care Cuff Folder Name Role Phone Reyna Lutz DO Primary [...] (Late st Contact Info) Description 09/26/2022 Telephone [facility] ADULT DENTAL 230 [place], [place] [phone] Michael Jackson DDS [address] [place] [address] Appointment (Kelsey Alegrebo 1975 Patient was seen [...] on filedocumented in this encounter Care Teams Cuff Folder Relationship Specialty Start Date End Date Reyna Lutz DO 230 [place] [address] PCP - General Family Medicine 11/26/19 Kerri SHANKS 02/12/25 04/13/25 documented as of this encounter
--- OUTSIDE RECORDS SUMMARY | 2025-05-28 09:25 | XMS_ITS | Encounter Summary ---
Author Organization [employer] Address [address] [facility] 7t [place] [address] Care Team Providers Care Chief Optometry Service Name Role Phone Reyna Lutz DO Primary Care Provider [phone] Reason for Visit * Reason Onset Date Comments Appointment 09/26/2022 Kelsey Lozano 1975 Patient was seen 09/26 and was wondering if medication was sent to pharmacy please advise Encounter Details Date Type Department Care Team ([facility] Contact Info) Description 09/26/2022 Telephone [facility] ADULT DENTAL [address] [place] [address] John Ortega, DDS [address] [place] [address] Appointment (Kelsey Lozano 1975 Patient was seen [...] on filedocumented in this encounter Care Teams Chief Optometry Service Relationship Specialty Start Date End Date Reyna Lutz DO [address] [place] [address] PCP - General Family Medicine 11/26/19 Kerri SHANKS 02/12/25 04/13/25 documented as of this encounter
--- OUTSIDE RECORDS SUMMARY | 2025-05-28 09:25 | XMS_ITS | Encounter Summary ---
Author Organization [employer] Address [address] [facility] 7t [place] [address] Care Team Providers Care Remote Sensing Program Manager Name Role Phone Reyna Lutz DO Primary Care Provider [phone] Reason for Visit * Reason Onset Date Comments Med Refill 10/05/2022 Encounter Details Date Type Department Care Team (Late st Contact Info) Description 10/05/2022 Refill [facility] MEDICINE [address] [place] [address] Reyna Lutz DO [address] [place] [address] Acute bilateral low back pain without sciatica [...] 50 MG tablet To be sent to [facility] [address] [facility], [place] [address]. Boiler Fireman sees medication was sentto [facility] at [address], [place], [address] but pharmacy advise pt that they are currently out of this medication. Please contact pt at [phone] documented in this encounter Plan of Treatment Not on file documented as of this encounter Visit Diagnoses Diagnosis Acute bilateral low back pain without sciatica documented in this encounter Care Teams Remote Sensing Program Manager Relationship Specialty Start Date End Date Reyna Lutz DO [address] [place] [address] PCP - General Family Medicine 11/26/19 Kerri BEGUMA 02/12/25 04/13/25 documented as of this encounter
--- OUTSIDE RECORDS SUMMARY | 2025-05-28 09:27 | XMS_ITS | Encounter Summary ---
Author Organization [employer] Address [address] [facility] 7t [place] [address] Care Team Providers Care Knitting Demonstrator Name Role Phone Reyna Lutz DO Primary Care Provider Encounter Details Date Type Department Care Team (Late st Contact Info) Description 11/10/2022 Orders Only [facility] MED & PEDS [address] [place] [address] Reyna Maradiaga LPN Social History Tobacco Use [...] on filedocumented in this encounter Care Teams Knitting Demonstrator Relationship Specialty Start Date End Date Reyna Lutz DO [address] [place] [address] PCP - General Family Medicine 11/26/19 Kerri BEGUMA 02/12/25 04/13/25 documented as of this encounter
--- OUTSIDE RECORDS SUMMARY | 2025-05-28 09:28 | XMS_ITS | Encounter Summary ---
Author Organization [employer] Address [address] [place] [address] 7t [place] [address] Care Team Providers Care Molder Trimmer Name Role Phone Reyna Lutz DO Primary Care Provider [phone] Encounter Details Date Type Department Care Team ([facility] st Contact Info) Description 12/21/2022 Orders Only [facility] ADULT DENTAL [address] [place] [address] Rachna Mendez DDS [address] [place] [address] Social History Tobacco Use Types Packs/Day Years [...] on filedocumented in this encounter Care Teams Molder Trimmer Relationship Specialty Start Date End Date Reyna Lutz DO [address] [place] [address] PCP - General Family Medicine 5/19/20 Kerri SHANKS 02/12/25 04/13/25 documented as of this encounter
--- OUTSIDE RECORDS SUMMARY | 2025-05-28 09:28 | XMS_ITS | Encounter Summary ---
Author Organization [employer] Address [address] [facility] 7t [place] [address] Care Team Providers Care Aluminum Pourer Name Role Phone Reyna Lutz DO Primary Care Provider [phone] Reason for Visit * Reason Onset Date Comments script for toothpaste 12/21/2022 Encounter Details Date Type Department Care Team ([facility] st Contact Info) Description 12/21/2022 Telephone C ADULT DENTAL 230 [place] [address] Rachna Mendez, DDS 230 [place] [address] script for toothpaste Social History Tobacco Use [...] on filedocumented in this encounter Care Teams Aluminum Pourer Relationship Specialty Start Date End Date Reyna Lutz DO [address] [place] [address] PCP - General Family Medicine 11/26/19 Kerri SHANKS 02/12/25 04/13/25 documented as of this encounter
--- OUTSIDE RECORDS SUMMARY | 2025-05-28 09:28 | XMS_ITS | Encounter Summary ---
Author Organization [employer] Address [address] [facility] 7t [place] [address] Care Team Providers Care Correspondence School Teacher Name Role Phone Reyna Lutz DO Primary Care Provider + [phone] Reason for Visit * Reason Comments Med Refill Encounter Details Date Type Department Care Team ([facility] st Contact Info) Description 01/16/2023 Refill [facility] MEDICINE 230 [place] [address] Reyna Lutz DO [address] [place] [address] Pain Social History Tobacco Use Types Packs/Day [...] documented as of this encounter Care Teams Correspondence School Teacher Relationship Specialty Start Date End Date Reyna Lutz DO [address] [place] [address] PCP - General Family Medicine 11/26/19 Kerri SHANKS 02/12/25 04/13/25 documented as of this encounter
--- OUTSIDE RECORDS SUMMARY | 2025-05-28 09:29 | XMS_ITS | Encounter Summary ---
Author Organization [employer] Address [address] [facility] 7t [place] [address] Care Team Providers Care Institutional Commodity Analyst Name Role Phone Reyna Lutz DO Primary Care Provider + [phone] Reason for Visit * Reason Onset Date Comments Referral 08/27/2024 Encounter Details Date Type Department Care Team ([facility] st Contact Info) Description 08/27/2024 Telephone [facility] MEDICINE [address] [place] [address] Reyna Lutz DO 230 [place] [address] Referral Social History Tobacco Use Types Packs/Day [...] to go that far. Contact pt at [phone] documented in this encounter Plan of Treatment Not on file documented as of this encounter Visit Diagnoses Not on filedocumented in this encounter Additional Health Concerns Assessment Noted Time PHQ-9 Depression Total Score: 4 01/23/20 24 10:23 AM EDT documented as of this encounter Care Teams Institutional Commodity Analyst Relationship Specialty Start Date End Date Reyna Lutz DO [address] [place] [address] PCP - General Family Medicine 11/26/19 Kerri BEGUMA 02/12/25 04/13/25 documented as of this encounter
--- OUTSIDE RECORDS SUMMARY | 2025-05-28 09:29 | XMS_ITS | Encounter Summary ---
Author Organization [employer] Address [address] [facility] 7t [place] [address] Care Team Providers Care Wire Mesh Filter Fabricator Name Role Phone Reyna Lutz DO Primary Care Provider [phone] Reason for Referral * Consultation (Routine) - Closed Specialty Diagnoses / Procedures Referred By Contac t Referred To Contact Neurology Diagnoses Myotonic dystrophy (CMS/HCC) (HCC) Sowmya Marinelli MD [address] [place] [address] Phone: tel: fax: Dale Mina MD [address] [place] [address] [place] [address] Phone: tel: fax: Referral ID Status Reason Start Date Expiration Date V isits Requested Visits Authorized [id number] Closed Specialty Services Required 09/04/2024 09/04/2025 6 6 Encounter Details Date Type Department Care Team (Late st Contact Info) Description 08/27/2024 Orders Only [facility] MEDICINE [address] [place] [phone] Sowmya Marinelli MD [address] [place], [place] [phone] Myotonic dystrophy (CMS/HCC) (Primary Dx) Social History [...] as of this encounter Care Teams Wire Mesh Filter Fabricator Relationship Specialty Start Date End Date Reyna Lutz DO [address] [place] [address] PCP - General Family Medicine 11/26/19 Kerri SHANKS 02/12/25 04/13/25 documented as of this encounter
--- OUTSIDE RECORDS SUMMARY | 2025-05-28 09:29 | XMS_ITS | Clinical Summary ---
Author Organization [facility] Address [address] [place] [address] [place] [address] Phone Care Team Providers Care Manager Study Name Role Phone Reyna Lutz DO Primary Care Provider [phone] Social History Tobacco Use Types Packs/Day Years [...] patient's age to complete this topic IPV VACCINES Aged Out No longer eligi ble based on patient's age to complete this topic MENINGOCOCCAL VACCINES (ACWY) Aged Out No longer eligible based on patient's age to complete this topic MENINGOCOCCAL VACCINES (B) Aged Out N o longer eligible based on patient's age to complete this topic Medical Devices Not on file Insurance [facility] [facility] [employer] [facility] C3 ACO Care Teams Manager Study Relationship Specialty Start Date End Date Reyna Lutz DO [address] [facility] [place] [address] PCP - General Family Medicine 03/25/24 Additional Source Comments The information contained in this document represents components of the legal health record. It is not the complete legal health record.[facility]
--- OUTSIDE RECORDS SUMMARY | 2025-05-28 09:30 | XMS_ITS | Clinical Summary ---
Author Organization [employer] Address [address] [facility] [address] [place] [address] Care Team Providers Care Crime Prevention Police Officer Name Role Phone Mague Lutzfer Primary Care Provider Allergies No known active allergies Medications latanoprost (Xalatan) 0.005 % ophthalmic solution PLACE 1 DROP IN EACH EYE AT BEDTIME 03/21/20 22 Active Levonorgestrel (Liletta, 52 MG,) 20.1 MCG/DAY intrauterine device November 2016 placement 11/04/19 17 Active acetaminophen (Tylenol 8 Hour) 650 MG ER tablet TAKE 1 TABLET BY MOUTH EVERY 8 HOURS NEEDED FOR FOR MILD PAIN. DO NOT BREAK, CRUSH, DISSOLVE OR CHEW 40 tablet 1 10/27/19 24 Active albuterol 108 (90 Base) MCG/ACT inhalerIndication s:Cough, unspecified type,Influenza A Inhale 2 puffs every 4 (four) hours if needed for wheezing. 18 g 08/12/19 25 2025 Active ergocalciferol (Vitamin D2) 1.25 MG (52999 UT) capsuleIndication s:Vitamin D deficiency TAKE 1 CAPSULE BY MOUTH ONCE WEEKLY ON MONDAY MORNING 12 capsule 3 09/18/19 25 Active nystatin (Mycostatin) 270315 UNIT/GM powder Apply topically 2 times daily. 180 g 3 10/24/19 25 2025 Active amLODIPine (Norvasc) 10 MG tabletIndications :Hypertension, unspecified type TAKE 1 TABLET BY MOUTH EVERY MORNING 90 tablet 1 10/25/19 25 Active FREESTYLE LITE test stripIndications: Type 2 diabetes mellitus without complications (HCC) USE DIRECTED TO TEST BLOOD SUGAR TWICE DAILY 100 strip 5 05/06/20 25 Active TRUEplus Lancets 33G miscIndications:T ype 2 diabetes mellitus without complications (HCC) USE DIRECTED TO TEST BLOOD SUGAR TWICE DAILY 100 each 5 11/13/19 25 Active oxybutynin XL (Ditropan-XL) 5 MG 24 hr tablet TAKE 1 TABLET BY MOUTH EVERY MORNING 90 tablet 1 11/22/19 25 Active baclofen (Lioresal) 10 MG tablet TAKE 1 TABLET BY MOUTH THREE TIMES DAILY IN THE MORNING, AT NOON, AND AT BEDTIME 60 tablet 1 11/26/19 25 Active lisinopril 10 MG tabletIndications :Essential hypertension, benign TAKE 1 TABLET BY MOUTH AT BEDTIME 90 tablet 1 12/20/19 25 Active metFORMIN (Glucophage) 500 MG tabletIndications :Type 2 diabetes mellitus without complications (HCC) TAKE 1 TABLET BY MOUTH TWICE DAILY IN THE MORNING AND IN THE EVENING 180 tablet 1 12/20/19 25 Active atorvastatin (Lipitor) 20 MG tabletIndications :Other hyperlipidemia TAKE 1 TABLET BY MOUTH AT BEDTIME 90 tablet 1 01/02/20 25 Active FREESTYLE LITE test stripIndications: Type 2 diabetes mellitus with hyperglycemia, without long-term current use of insulin (HCC) Use to test blood sugar 1 times daily 100 each 12 03/26/20 25 2025 Active Lancets miscIndications:T ype 2 diabetes mellitus with hyperglycemia, without long-term current use of insulin (HCC) Use to test blood sugar 1 times daily 100 each 03/26/20 25 Active Alcohol Swabs 70 % padsIndications:T ype 2 diabetes mellitus with hyperglycemia, without long-term current use of insulin (HCC) Use to test blood sugar 1 times daily 100 each 03/26/20 25 Active Blood Glucose Monitoring Suppl (FreeStyle Regan Lite) w/Device kitIndications:Ty pe 2 diabetes mellitus with hyperglycemia, without long-term current use of insulin ([facility]) Use to test blood sugar 1 times daily 1 kit 03/26/20 Active traZODone (Desyrel) 50 MG tablet Take 50 mg by mouth if needed at bedtime for sleep. Active sertraline (Zoloft) 25 MG tablet Take 1 tablet (25 mg) by mouth Once per day. 30 tablet 1 05/26/20 25 2025 Active hydrOXYzine pamoate (Vistaril) 25 MG capsule Take 1 capsule (25 mg) by mouth every 6 (six) hours if needed for anxiety. 30 capsule 1 05/26/20 25 2025 Active lidocaine (Lidoderm) 5 % patch APPLY 1 PATCH TOPICALLY TO SKIN, LEAVE ON FOR 12 HOURS AND OFF FOR 12 HOURS DIRECTED NEEDED FOR MILD PAIN 30 patch 3 09/25/19 25 2024 Discontinued(M ed list cleanup (will not trigger notification to Pharmacy)) Active Problems Problem Noted Date Diagnosed Date Hyperlipidemia 05/26/2025 Urinary incontinence 05/26/2025 Hypoxia, sleep related 03/26/2025 Assessment & Plan (03/26/2025 4:12 PM EDT): Patient tells me she have to try to go for sleep studies at the hospital and she always work out so that underwent that she was advised home sleep studies but even that 1 is challenging for her to follow the instructions and brick picker and return the device, I will try one more time reporting home sleep studies BMI 31.0-31.9,adult 01/23/2024 Chronic gastritis 01/09/2023 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 Guerrero - [facility]. Yearly EKG, glucose, TSH Assessment & Plan (03/26/2025 4:12 PM EDT): Continue to follow with specialist Resolved Problems Problem Noted Date Diagnosed Date Resolved Date Fall 01/25/2024 05/26/2025 Assessment & Plan (01/25/2024 11:45 AM EDT): At home, ro hip fracture Order Xrays Take tylenol 500 mg q8h prn pain alternated with Ibuprofen 400 mg q8h prn pain Apply heat to affected area Ambulation with walker, we discussed re fall prevention. Left hip pain 01/25/2024 05/26/2025 Assessment & Plan (01/25/2024 11:45 AM EDT): Sec to fall, see fall Will ro fracture, order Xray. Acute bilateral low back josé n without sciatica 01/25/2024 05/26/2025 Assessment & Plan (01/25/2024 11:45 AM EDT): Exacerbation of chronic LBP sp fall, see fall. Frontal balding 01/09/2023 01/09/2023 Asthma 09/05/2022 01/09/2023 Elevated liver enzymes 10/19/201701/09 Acid reflux 04/04/2017 01/09/2023 Wheezing 10/22/2007 01/09/2023 Encounters Date Type Department Care Team Description 05/26/2025 11:30 AM EST Office Visit [address] [address] Reyna Lutz DO Type 2 diabetes mellitus with hyperglycemia, without long-term current use of insulin (HCC) (Primary Dx); Essential hypertension; Other hyperlipidemia; Fatty liver; Major depression, recurrent, chronic (CMS/HCC); Anxiety; Myotonic dystrophy (CMS/HCC) (HCC); Chronic gastritis without bleeding, unspecified gastritis type; Endometrial hyperplasia; Urinary incontinence, unspecified type; Chronic bilateral low back pain without sciatica; Abnormal MRI, pelvis; Healthcare maintenance 05/26/2025 Travel 05/23/[address] [address] Reyna Lutz DO Chart Prep 05/19/2025 Patient Outreach [address] [address] Reyna Lutz DO Pre-visit Planning (SDOH screening was completed on 10/21/2024) 05/09/[address] [address] Reyna Lutz DO Error (VOID this visit) 05/09/[address] [address] Reyna Lutz DO February05/08/[address] [facility] [address] [place] [address] Reyna Lutz DO Chart Prep 04/25/2025 Orders Only [address] [address] Reyna Lutz DO 04/11/[address] [address] Reyna Lutz DO Pre-op Exam 04/09/[address] [address] Reyna Lutz DO telephone call 03/26/2025 2:15 PM EDT Office Visit [address] [address] Francisca France MD Hypoxia, sleep related (Primary Dx); Myotonic dystrophy, type 1 ([facility]); Type 2 diabetes mellitus with hyperglycemia, without long-term current use of insulin ([facility]); Pyelonephritis; Myotonic dystrophy ([facility]) 03/26/2025 Travel 03/25/2025 Telephone [facility] [address] [place] [address] Reyna Lutz DO chart prep 03/19/2025 Orders Only [facility] External Provider, [facility] 03/11/2025 Telephone [facility] [address] [place] [address] Reyna Lutz DO FYI 03/06/2025 Telephone [facility] [address] [place] [address] Francisca France MD No Show 03/06/[address] [address] Reyna Lutz DO Appointment Request; Hospital Follow-up 03/05/2025 Telephone [facility] [address] [place] [address] Reyna Lutz DO 03/03/2025 Orders Only [address] [address] Reyna Lutz DO Bilateral hearing loss, unspecified hearing loss type (Primary Dx) 03/03/2025 Orders Only [address] [address] Reyna Lutz DO Abnormal CT of the chest (Primary Dx) from Last 3 Months Immunizations Immunization Administration [...] your housing situation today? I have aaron rashmi 04/28/[address] you li [...] Mass Index 31.35 05/26/2025 11:56 AM EST Plan of Treatment Health Maintenance Due Date Last Done Comments CT Colonography 1975 Colonoscopy 1973 Colorectal Cancer Screening 1973 Dental X-Ray: Full Mouth 1973 FIT DNA/Cologuard 1973 FIT 1973 FOBT 1973 Sigmoidoscopy 1973 Diabetes: Foot Exam 1983 Eye Exam 1983 Family Planning (PISQ) 1988 Hepatitis A Vaccines (1 of 2 - Risk 2-dose series) 1992 RSV Patients and Patients Aged 60 years or older (1 - Risk 50-74 years 1-dose series) 2023 Zoster Vaccines (1 of 2) 2023 Dental Oral Exam 06/03/2023 11/30/2022 Dental Prophylaxis 07/06/2023 01/03/2023 Dental X-Ray: Bitewings 12/02/2023 11/30/2022, 09/06 Lipid Panel 01/22/2025 01/23/2024, 11/30/2020 Diabetes: Urine Protein Screening 01/31/2025 02/01/2024, 02/25/2020 COVID-19 Vaccine ( season) 2025 10/21/2024, 01/09/2023, 08/18/2021, Additional history exists Influenza Vaccine (#1) 2025 , 05/06/2020, 05/20/2018, Additional history exists Diabetes: Hemoglobin A1C 08/26/2025 025, 10/21/2024, 10/21/2024, Additional history exists Alcohol/Substance Use Screening 10/21/2025 10/21/2024 Disability Screening 10/21/2025 10/21/2024 SDOH Screening 10/21/2025 10/21/2024 Depression Monitoring 11/24/2025 05/27/2025, 025 Mammogram 04/25/2026 04/25/2025, 080 07/2023, 02/02/2023, Additional history exists Tobacco Screening 05/26/2026 05/26/2025 DTaP/Tdap/Td Vaccines (2 - Td or Tdap) 06/12/2027 06/12/2017, 08/22/2002 Cervical Cancer Screening 10/22/2027 HPV/Cotest 10/22/2027 10/21/2024, 04/0 07/2020, 10/08/2020 Pap Smear 10/22/2027 10/21/2024 Pneumococcal Vaccine: 50+ Years Completed 01/09/2023, 2019 [...] on patient's age to complete this topic Goals Goal Patient Goal Type Associated Problems [...] chronic kidney disease No So Gal[place] Procedures Procedure Name Priority Date/Time Associated Diagnosis Comments POCT GLYCATED HEMOGLOBIN, TOTAL Routine 05/26/2025 12:19 PM EST Type 2 diabetes mellitus with hyperglycemia, without long-term current use of insulin (HCC) POCT GLUCOSE Routine 05/26/2025 12:18 PM EST Type 2 diabetes mellitus with hyperglycemia, without long-term current use of insulin (HCC) US PELVIS TRANSVAGINAL Routine 05/06/2025 4:35 PM EDT BI MAMMOGRAM SCREENING TOMOSYNTHESIS BILATERAL Routine 04/25/2025 3:17 PM EDT MR PELVIS W AND WO CONTRAST Routine 03/19/2025 4:00 PM EDT HPV DNA, LOW/HIGH RISK Routine 10/21/2024 12:00 [...] Relevant to Health Maintenance Results * (ABNORMAL) POCT Hgb A1c (05/26/2025 12:19 PM EST) Hemoglobin A1C 7.3(A) 4.0 - 5.7 % QC Media Lot # [id number] Lot# Expiration Date 954,959 Blood 05/26/2025 12:1 9 PM EST Reyna Nelda ARTHUR POINT OF CARE TEST ENTER/CL T ORDERABLES Final Result * POCT Glucose (05/26/2025 12:18 PM EST) Glucose Blood, POC 146 60 - 200 mg/dL QC Media Lot # [id number] Lot# Expiration Date ,026 Blood Capillary blood specimen / Unknown 05/26/2025 12:18 PM EST Reyna Lutz DO POINT OF CARE TEST ENTER/CL T ORDERABLES Final Result * US Pelvis Transvaginal (05/06/2025 4:35 PM EDT) Anatomical Region Laterality Modality Pelvis Ultrasound 05/06/2025 4:35 PM EDT Narrative 05/06/2025 5:20 PM EDT [place] [address] Ultrasound Report Signed Patient: Kelsey Lozano MR#: [id number] : 1975 Acct:[id number] Age/Sex: 49 / F ADM Date: 05/06/25 Loc: .US Attending Dr: Jimenez Mitchell MD Ordering Physician: Jimenez Mitchell MD Date of Service: 05/06/25 Procedure(s): US pelvic and transvaginal Accession Number(s): [id number] cc: Reyna Lutz DO; Jimenez Mitchell MD [...] Hector Burnett MD 05/06/2025 05:17 PM EDT RP Dictated By: Hector Burnett MD Signed By: <Electronically signed by Hector Burnett MD in OV> 05/06/25 1717 DD/ 1635 TD/TT: 05/06/25 1650 Pulp Grinder Feeder: Procedure Note Donotuseinterpreter, Image - 05/06/2025 [place] [address] Ultrasound Report Signed Patient: Kelsey Lozano [facility]#: [id number] : 1975Acct:[id number] Age/Sex: 49 / FADM Date: 05/06/25 Loc: .US Attending Dr: Jimenez Mitchell MD Ordering Physician: Jimenez Mitchell MD Date of Service: 05/06/25 Procedure(s): US pelvic and transvaginal Accession Number(s): [id number] cc: Reyna Lutz DO; Jimenez Mitchell MD [...] 05/06/25 1717 DD/ 1635 TD/TT: 05/06/25 1650 Pulp Grinder Feeder: [facility] External Provider IMG US PROCEDURES Final Result * BI Mammogram Screening Tomosynthesis Bilateral (04/25/2025 3:17 PM EDT) Anatomical Region Laterality Modality Breast Bilateral Mammography 04/25/2025 3:17 PM EDT Narrative 04/28/2025 5:39 PM EDT [facility] [address] [place] [address] Mammography Report Signed with Leninenda Patient: Kelsey Lozano MR#: [id number] : 1975 Acct:[id number] Age/Sex: 49 / F ADM Date: 04/25/25 Loc: HO.MAMMO Attending Dr: Reyna Lutz DO Ordering Physician: Reyna Lutz DO Results: 1N egative Date of Service: 04/25/25 Follow Up: 1 Year From Orig inal Mammogram Procedure(s): MM tomosynthesis screening BI Accession Number(s): [id number] cc: Reyna Lutz DO Reason For Exam: SCREENING ADDENDUM ADDENDUM #1 ADDENDUM: Due to a software issue this mammogram was reviewed a second time. The findings and recommendations remain the same. OVERALL ASSESSMENT: Category 1: Negative RECOMMENDATION: 1 year F/U Electronically signed by: Deborah Townsend DO 05/12/2025 02:33 PM EST RP Addendum Dictated By: Deborah Townsend DO Addendum Signed By: <Electronically signed by Deborah Townsend DO in OV> 05/12/25 1433 Addendum Cosigned By: DD/ TD/TT: 04/25/25 EXAMINATION: MM SCREENING DIGITAL BREAST TOMOSYNTHESIS, BILATERAL [...] Townsend DO in OV> 04/28/25 1736 DD/ 16 TD/TT: 04/25/251534 Pulp Grinder Feeder: Procedure Note Donotuseinterpreter, Image - 05/12/2025 [facility] [address] [place], [place] [address] Mammography Report Signed with Addenda Patient: Kelsey Lozano [facility]#: [id number] : 1975Acct:[id number] Age/Sex: 49 / FADM Date: 04/25/25 Loc: HO.MAMMO Attending Dr: Reyna Lutz DO Ordering Physician: Reyna Lutzults: 1N egative Date of Service: 04/25/25Follow Up: 1 Year From Orig ina Mammogram Procedure(s): MM tomosynthesis screening BI Accession Number(s): [id number] cc: Reyna Lutz DO Reason For Exam: SCREENING ADDENDUM ADDENDUM #1 ADDENDUM: Due to a software issue this mammogram was reviewed a second time. The findings and recommendations remain the same. OVERALL ASSESSMENT: Category 1: Negative RECOMMENDATION: 1 year F/U Electronically signed by: Deborah Townsend DO 05/12/2025 02:33 PM EST Addendum Dictated By: Deborah Townsend DO Addendum Signed By: <Electronically signed by DO Jess in OV> 05/12/25 1433 Addendum Cosigned By: DD/ TD/TT: 04/25/25 EXAMINATION: MM SCREENING DIGITAL BREAST TOMOSYNTHESIS, BILATERAL [...] 04/28/25 1736 DD/ 1517 TD/TT: 04/25/25 1535 Pulp Grinder Feeder: us Reyna Lutz DO IMG BI PROCEDURES Edited Res ult - Final * MR Pelvis w/ and w/o Contrast (03/19/2025 4:00 PM EDT) Anatomical Region Laterality Modality Body, Pelvis Magnetic Resonan ce 03/19/2025 4:00 PM EDT Narrative 03/20/2025 7:36 AM EDT [place] [address] Magnetic Resonance Report Signed Patient: Kelsey Lozano MR#: [id number] : 1975 Acct:[id number] Age/Sex: 49 / F ADM Date: 03/19/25 Loc: HO.MRI Attending Dr: Jimenez Mitchell MD Ordering Physician: Jimenez Mitchell MD Date of Service: 03/19/25 Procedure(s): MR pelvis wo/w con Accession Number(s): [id number] cc: Reyna Lutz DO; Jimenez Mitchell MD [...] 03/20/25 0733 DD/ 1600 TD/TT: 03/19/25 1619 Pulp Grinder Feeder: Procedure Note Donotuseinterpreter, Image - 03/20/[address] [address] Magnetic Resonance Report Signed Patient: Kelsey Lozano [facility]#: [id number] : 1975Acct:[id number] Age/Sex: 49 / FADM Date: 03/19/25 Loc: HO.MRI Attending Dr: Jimenez Mitchell MD Ordering Physician: Jimenez Mitchell MD Date of Service: 03/19/25 Procedure(s): MR pelvis wo/w con Accession Number(s): [id number] cc: Reyna Lutz DO; Jimenez Mitchell MD [...] 03/20/25 0733 DD/ 1600 TD/TT: 03/19/25 1619 Pulp Grinder Feeder: [facility] External Provider IMG MRI PROCEDURES Final Result * HPV DNA, Low/High Risk (10/21/2024 12:00 AM EDT) HPV High Risk Negative Negative [facility] HPV Genotype 16 Negative Negative [facility] HPV Genotype 18 Negative Negative [facility] Comment:HPV testing performe d at [facility] (CLIA#[id number]), [address] [place] [address].Testing for HPV was performed using the Etienne [...] DO LAB BLOOD ORDERABLES Final R esult [facility] [address] [place] [phone] * Pap Smear (10/21/2024 12:00 AM EDT) Swab Vaginal structure / Unknown 10/21/2024 10/22/2024 11:11 AM EDT [facility] - 10/24/2024 8:00 AM EDT ----- ------- Name: Kelsey Lozano Age/Sex: 49/F : 1975 Unit#: [id number] Attend Dr: Reyna Lutz DO Re10/22/24 Status: [facility] Disch: ----- ------- SPEC : [id number] RECD: 10/22/24-1110 STATUS: WILLIAM ARANA NUM: [id number] JOANA: 10/21/24-[address]: Reyna Lutz DO ENTERED: 10/22/24-1128 SP TYPE: Pap Smr OTHR DR: ORDERED: Pap Smear Interpretation Satisfactory for evaluation. Negative for intraepithelial lesion or malignancy. HPV High Risk: Negative HPV Genotyping 16: Negative HPV Genotyping 18: Negative Clinical Information LMP: Unknown date Previous PAP test: Unknown date/findings Other surgery: IUD Material Received ThinPrep-Vaginal ----- ------- Signed (signature on file) RADHA Catherine ([facility]) 10/24/24 0800 ----- ------- END OF REPORT Reyna Lutz DO LAB CYTOLOGY ORDERABLES Adeola l Result Performing Organization Address [facility] Co de Phone Number [facility] [address] [place] [phone] * Albumin, Random Urine W/Creatinine (02/01/2024 8:00 AM EDT) Pathologist [facility] Creatinine, Urine 85.81 mg/dL [facility] Microalbumin Urine 10.0 mg/L [facility] Microalbum Creatinine Ratio Ur 11.6 <30 ug/mg cr [facility] Comment:Albumin/Creatinine R atio Reference Ranges: Normal: < 30 ug/mg creatinine Microalbuminuria: 30 - 300 ug/mg creatinineClinical Albuminuria: > 300 ug/mg creatinine Urine (Urine, Random) 02/01/2024 8:00 AM EDT 02/01/2024 12:08 PM EDT Narrative [facility] - 02/01/2024 12:40 PM EDT ORIGINALLY ORDERED UNDER ACCOUNT [id number] Reyna Lutz DO LAB URINE ORDERABLES Final R esult Performing Organization Address [facility] de Phone Number [facility] [address] [place] [address] [phone] * Hepatitis C Antibody with Reflex to HCV, RNA, Quantitative, Real-Time PCR (01/23/2024 1:04 PM EDT) Pathologist [facility] Hepatitis C Antibody Nonreactive Nonreactive [facility] Comment:Antibodies to HCV no t detected; does not exclude early acuteHCV infection. Blood Venous blood specimen / Unknown 01/23/2024 1:04 PM EDT 01/23/2024 3:56 PM EDT Reyna Lutz LAB BLOOD ORDERABLES Final R esult Performing Organization Address City/[facility]/ZIP Co de Phone Number [facility] [address] [place] [phone] * HIV-1/2 Antigen and Antibodies, Fourth Generation, with Reflexes (01/23/2024 1:04 PM EDT) [facility] HIV AB/AG Nonreactive Nonreactive [facility] Comment:HIV-1 p24 Ag and/or HIV-1/HIV-2 Ab not detected.A test result that is nonreactive does not exclude thepossibility of exposure to or infection with HIV-1 and/orHIV-2. Nonreactive results in this assay for individualswith prior exposure to HIV-1 and/or HIV-2 may be due toantigen and antibody levels that are below the limit ofdetection of this assay.The [employer] HIV Ag/Ab Combo assay result andsupplemental assay results should be interpreted inconjunction with the patient's clinical presentation,history and other laboratory results. If the results areinconsistent with clinical evidence, additional testing issuggested to confirm the result. Blood Venous blood specimen / Unknown 01/23/2024 1:04 PM EDT 01/23/2024 3:56 PM EDT Reyna Lutz DO LAB BLOOD ORDERABLES Final R esult Performing Organization Address City/[facility]/ZIP Co de Phone Number [facility] [address] [place] [address] [phone] * (ABNORMAL) Lipid Panel, Standard (01/23/2024 1:04 PM EDT) [facility] Triglycerides 141 <150 mg/dL [facility] Comment:Desirable Triglyceri de: less than 150 mg/dLBorderline High Triglyceride 150-199 mg/dLHigh Triglyceride: 200-499 mg/dLVery High Triglyceride: greater than or equal to 5OO mg/dL Cholesterol 210(H) <200 mg/dL [facility] Comment:Desirable Cholestero l: less than 200 mg/dLBorderline High Cholesterol: 200-239 mg/dLHigh Cholesterol: greater than 239 mg/dL LDL Cholesterol Calculated 133(H) <100 mg/dL [facility] Comment:Desirable LDL: less than 100 mg/dLNear Optimal/Above Optimal LDL: 110- 129 mg/dLBorderline High LDL: 130-159 mg/dLHigh LDL: 160-189 mg/dLVery High LDL: greater than or equal to 190 mg/dL HDL Cholesterol 49 >40 mg/dL [facility] Comment:Desirable HDL: great er than 40 mg/dL Note: This HDL assay may give artificially low results in patients with liver disease. Blood Venous blood specimen / Unknown 01/23/2024 1:04 PM EDT 01/23/2024 3:56 PM EDT us Reyna Lutz DO LAB BLOOD ORDERABLES Final R esult [facility] [address] [place] [phone] from Last 3 Months or Most Recently Relevant to Health Maintenance Additional Health Concerns Active Problems Noted Date [...] 05/23/2025 Patient has chronic kidney disease 05/23/2025 Insurance [place] [facility] MEDICA[facility] STAND ADULT Care Teams Crime Prevention Police Officer Relationship Specialty Start Date End Date Reyna Lutz DO [address] [place] [phone] PCP - General Family Medicine 11/26/19
== END 2025-05-27 15:54 | disposition home or self-care (01) ==
LOC: HO.HWS 14:10
PROVIDERS: PCP Family Medicine; Visit Provider Obstetrics & Gynecology
DX: D25.9 Leiomyoma of uterus, unspecified (principal)
CPT/HCPCS: 99213